=== PATIENT | female | born 1945 | race Caucasian/White ===

== ENCOUNTER → 2024-07-23 | Outpatient (CLI) | payer OTHER, SELFPAY ==
[2024-07-23 09:56] LABS: Basophils % (Auto) 1 % (0-2.5); Eosinophils # (Auto) 0.2 Thou/mm3 (0.0-0.5); Eosinophils % (Auto) 2 % (0-10); Hematocrit 43.4 % (36.0-46.0); Hemoglobin 14.3 g/dL (12.0-16.0); Immature Granulocytes % (Auto) 0 % (0-0); Immature Granulocytes Auto 0.01 Thou/mm3 (0.00-0.00); Lymphocytes # (Auto) 1.6 Thou/mm3 (1.0-4.8); Lymphocytes % (Auto) 25 % (10-50); Mean Corpuscular HGB Conc 32.9 g/dl (31.0-37.0); Mean Corpuscular Hemoglobin 29.2 pg (25.0-35.0); Mean Corpuscular Volume 89 fL (80-100); Monocytes # (Auto) 0.7 Thou/mm3 (0.0-0.8); Monocytes % (Auto) 10 % (0-12); Neutrophils # (Auto) 3.9 Thou/mm3 (1.8-7.7); Neutrophils % (Auto) 61 % (37-80); Nucleated Red Blood Cell % 0 /100 WBC (0); Platelet Count 219 Thou/mm3 (140-440); White Blood Count 6.4 Thou/mm3 (3.6-11.0)
[2024-07-23 10:12] LABS: Glucose Estimated Average 108 mg/dL (80-131); Hemoglobin A1C 5.4 % Hgb (4.8-6.0)
[2024-07-23 10:16] LABS: Alanine Aminotransferase 17 U/L (10-49); Albumin, Serum 4.4 gm/dL (3.4-4.8); Albumin/Globulin Ratio 1.8 (1.2-2.2); Alkaline Phosphatase 42 U/L (46-116); Anion Gap 8 (7-16); Aspartate Amino Transferase 16 U/L (0-34); BUN/Creatinine Ratio 48 Ratio (12-20); Bilirubin,Total 0.9 mg/dL (0.3-1.2); Blood Urea Nitrogen 29 mg/dL (9-23); Calcium 9.6 mg/dL (8.3-10.6); Calcium (Corrected) 9.6 mg/dL (8.5-10.1); Carbon Dioxide 27.8 mMol/L (20.0-31.0); Cardiac Risk Estimate 3.2 RATIO (3.7-5.6); Chloride 105 mMol/L (98-107); Cholesterol 171 mg/dL (132-200); Creatinine (Component) 0.6 mg/dL (0.6-1.3); Globulin 2.4 gm/dL (2.3-3.5); Glucose 103 mg/dL (74-106); HDL Cholesterol 53 mg/dL (40-60); LDL Cholesterol,Calculated 97 mg/dL (0-130); Osmolality,Calculated 287 (275-295); Potassium 4.2 mMol/L (3.4-5.1); Sodium 141 mMol/L (136-145); Thyroid Stimulating Hormone 0.65 uIU/mL (0.55-4.78); Total Protein 6.8 gm/dL (5.7-8.2); Triglycerides 104 mg/dL (30-150); eGFR > 60 See Note
== END | disposition home or self-care (01) ==
LOC: COPL 09:13
PROVIDERS: PCP Student in an Organized Health Care Education/Training Program; Referring Provider Student in an Organized Health Care Education/Training Program; Visit Provider Student in an Organized Health Care Education/Training Program
DX: E03.9 Hypothyroidism, unspecified (principal); K21.9 Gastro-esophageal reflux disease without esophagitis
CPT/HCPCS: 36415; 80053; 80061; 83036; 84443; 85025

== ENCOUNTER → 2024-08-13 | Outpatient (CLI) | payer OTHER, SELFPAY ==
--- NOTE | 2024-08-13 09:00 | XR_ITS ---
Examination: Screening digital mammography, bilateral Computer aided detection 3-D breast Tomosynthesis, bilateral Date and time of exam: 08/13/2024, 8:38 AM Comparisons: 09/11/2019 Indications: Screening Technique: Nonmagnified MLO, CC views of the breasts to been obtained, reconstructed from 3-D Tomosynthesis images. R2 computer aided detection program utilized for evaluation of suspicious masses and/or abnormal calcifications. 3-D Tomosynthesis images obtained. Technologist: Findings: There are scattered areas of fibroglandular density. No evidence of abnormal masses or suspicious calcifications. Impression: BI-RADS category 1: Negative findings (within normal) Recommend 1 year follow-up mammogram
== END | disposition home or self-care (01) ==
LOC: CDIM 08:28
PROVIDERS: Referring Provider Student in an Organized Health Care Education/Training Program; Visit Provider Student in an Organized Health Care Education/Training Program
DX: Z12.31 Encounter for screening mammogram for malignant neoplasm of breast (principal); R92.313 Mammographic fatty tissue density, bilateral breasts
CPT/HCPCS: 77063; 77067

== ENCOUNTER → 2024-09-04 | Outpatient (CLI) | payer OTHER, SELFPAY ==
[2024-09-04 14:07] LABS: Basophils % (Auto) 0 % (0-2.5); Eosinophils # (Auto) 0.1 Thou/mm3 (0.0-0.5); Eosinophils % (Auto) 2 % (0-10); Hematocrit 40.5 % (36.0-46.0); Hemoglobin 13.6 g/dL (12.0-16.0); Immature Granulocytes % (Auto) 1 % (0-0); Immature Granulocytes Auto 0.05 Thou/mm3 (0.00-0.00); Lymphocytes # (Auto) 1.6 Thou/mm3 (1.0-4.8); Lymphocytes % (Auto) 22 % (10-50); Mean Corpuscular HGB Conc 33.6 g/dl (31.0-37.0); Mean Corpuscular Hemoglobin 29.8 pg (25.0-35.0); Mean Corpuscular Volume 89 fL (80-100); Monocytes # (Auto) 0.7 Thou/mm3 (0.0-0.8); Monocytes % (Auto) 9 % (0-12); Neutrophils # (Auto) 4.8 Thou/mm3 (1.8-7.7); Neutrophils % (Auto) 66 % (37-80); Nucleated Red Blood Cell % 0 /100 WBC (0); Platelet Count 237 Thou/mm3 (140-440); Red Blood Count 4.57 Miln/mm3 (4.00-5.20); White Blood Count 7.3 Thou/mm3 (3.6-11.0)
[2024-09-04 14:23] LABS: Alanine Aminotransferase 13 U/L (10-49); Albumin, Serum 4.2 gm/dL (3.4-4.8); Albumin/Globulin Ratio 1.6 (1.2-2.2); Alkaline Phosphatase 42 U/L (46-116); Anion Gap 11 (7-16); Aspartate Amino Transferase 17 U/L (0-34); BUN/Creatinine Ratio 27 Ratio (12-20); Bilirubin,Total 1.2 mg/dL (0.3-1.2); Blood Urea Nitrogen 19 mg/dL (9-23); Calcium 10.1 mg/dL (8.3-10.6); Calcium (Corrected) 10.1 mg/dL (8.5-10.1); Carbon Dioxide 26.3 mMol/L (20.0-31.0); Chloride 102 mMol/L (98-107); Creatinine (Component) 0.7 mg/dL (0.6-1.3); Globulin 2.7 gm/dL (2.3-3.5); Glucose 78 mg/dL (74-106); Osmolality,Calculated 278 (275-295); Potassium 4.4 mMol/L (3.4-5.1); Sodium 139 mMol/L (136-145); Total Protein 6.9 gm/dL (5.7-8.2); eGFR > 60 See Note
== END | disposition home or self-care (01) ==
LOC: COPL 12:45
PROVIDERS: PCP Student in an Organized Health Care Education/Training Program; Referring Provider Student in an Organized Health Care Education/Training Program; Visit Provider Student in an Organized Health Care Education/Training Program
DX: K57.93 Diverticulitis of intestine, part unspecified, without perforation or abscess with bleeding (principal)
CPT/HCPCS: 36415; 80053; 85025

== ENCOUNTER 2024-11-22 17:11 | Inpatient (IN) | payer OTHER, MEDICARE, SELFPAY ==
[2024-11-22 17:12] VITALS: BMI 23.2
[2024-11-22 17:20] VITALS: BP 133/78; PULSE 97; RESP 20; TEMP 36.8; O2SAT 95
--- NOTE | 2024-11-22 17:27 | XR_ITS ---
Examination: CT abdomen and pelvis without contrast. Coronal 3-D reconstructions. Sagittal 2-D reconstructions. Date and time of exam:November 22, 2024 1735 hours Comparison April 23, 2024 CTDI: vol (mGy): 7.05 DLP: (mGycm): 319 Technique: Axial images of the abdomen have been obtained, 3 mm slice thickness Intravenous contrast material has not been administered. Low dose protocols were performed. One or more of the following dose reduction techniques were used; automated exposure control, adjustment of the mA and/or KV according to patient size, use of iterative reconstruction technique. Findings: Liver is irregular in contour Small gallstones Spleen is not enlarged No pancreatic mass No renal or ureteral calculi, no hydronephrosis Multiple fluid distended small bowel loops in the mid and lower abdomen with free fluid in the pelvis No diverticulitis Normal appendix Detail in the pelvis is obscured by the patient's hip arthroplasties IMPRESSION: Small bowel obstruction pattern, consider Gastrografin small bowel series follow-up
--- NOTE | 2024-11-22 17:28 | PD.EDRME ---
Rapid Medical Screening Exam RME Arrival date/time: 11/22/24 17:11 This is a case of 78-year-old female with history of diverticulitis SBO endometrial cancer on chemotherapy radiation therapy came in with abdominal pain and vomiting for 2 days Chief Complaint: Abdominal Pain Time Seen by Provider: 11/22/24 17:28 Vital signs: Vital Signs Temperature 98.3 F 11/22/24 17:20 Pulse Rate 97 11/22/24 17:20 Respiratory Rate 20 11/22/24 17:20 Blood Pressure 133/78 H 11/22/24 17:20 Pulse Oximetry (%) 95 11/22/24 17:20 Oxygen Delivery Method Room Air 11/22/24 17:20
[2024-11-22] MEDS: ONDANSETRON ODT 4 MG TABRAP PO (17:39)
[2024-11-22 18:06] LABS: Basophils % (Auto) 0 % (0-2.5); Eosinophils # (Auto) 0.1 Thou/mm3 (0.0-0.5); Eosinophils % (Auto) 1 % (0-10); Hematocrit 42.5 % (36.0-46.0); Hemoglobin 14.7 g/dL (12.0-16.0); Immature Granulocytes % (Auto) 0 % (0-0); Immature Granulocytes Auto 0.05 Thou/mm3 (0.00-0.00); Lymphocytes # (Auto) 1.1 Thou/mm3 (1.0-4.8); Lymphocytes % (Auto) 7 % (10-50); Mean Corpuscular HGB Conc 34.6 g/dl (31.0-37.0); Mean Corpuscular Hemoglobin 30.2 pg (25.0-35.0); Mean Corpuscular Volume 87 fL (80-100); Monocytes % (Auto) 7 % (0-12); Neutrophils # (Auto) 12.8 Thou/mm3 (1.8-7.7); Neutrophils % (Auto) 85 % (37-80); Nucleated Red Blood Cell % 0 /100 WBC (0); Platelet Count 229 Thou/mm3 (140-440); RDW Standard Deviation 41.1 fL (36.4-46.3); Red Blood Count 4.87 Miln/mm3 (4.00-5.20)
[2024-11-22 18:15] LABS: Collection Type, Urine Clean Catch
[2024-11-22 18:20] VITALS: BP 133/86; PULSE 88; RESP 18; TEMP 36.9; O2SAT 95
[2024-11-22 18:20] LABS: Alanine Aminotransferase 18 U/L (10-49); Albumin, Serum 4.4 gm/dL (3.4-4.8); Albumin/Globulin Ratio 1.8 (1.2-2.2); Alkaline Phosphatase 41 U/L (46-116); Anion Gap 12 (7-16); BUN/Creatinine Ratio 23 Ratio (12-20); Bilirubin,Total 1.6 mg/dL (0.3-1.2); Blood Urea Nitrogen 18 mg/dL (9-23); Calcium 9.6 mg/dL (8.3-10.6); Calcium (Corrected) 9.6 mg/dL (8.5-10.1); Carbon Dioxide 27.1 mMol/L (20.0-31.0); Chloride 103 mMol/L (98-107); Creatinine (Component) 0.8 mg/dL (0.6-1.3); Estimated Creatinine Clearance 47.9 mL/min (>60); Globulin 2.5 gm/dL (2.3-3.5); Glucose 134 mg/dL (74-106); Lipase 26 U/L (12-53); Osmolality,Calculated 287 (275-295); Potassium 3.8 mMol/L (3.4-5.1); Sodium 142 mMol/L (136-145); Total Protein 6.9 gm/dL (5.7-8.2); eGFR > 60 See Note
[2024-11-22 18:36] LABS: Bilirubin,Urine Negative (Negative); Blood,Urine Negative (Negative); Clarity,Urine Clear (Clear/Hazy); Color,Urine Yellow (Lt Yel-Yel); Glucose, Urine Negative (Negative); Ketones,Urine 2+ (Negative); Leukocyte Esterase,Urine Negative (Negative); Nitrite,Urine Negative (Negative); PH,Urine 5.5 (5.0-7.0); Protein,Urine 1+ (Neg - Trace); RBC,Urine 4 /hpf (0-3); Specific Gravity,Urine 1.027 (1.001-1.035); Squamous Epithelial Cell,Urine < 1 /hpf (0-5); Urobilinogen,Urine Negative mg/dL (0.0-1.0); WBC,Urine 3 /hpf (0-5)
--- NOTE | 2024-11-22 18:57 | EDNOTE_ITS ---
ED Abdominal Pain RME/HPI General Chief Complaint: Abdominal Pain Stated complaint: I THINK I HAVE A BOWEL OBSTRUCTION Time seen by provider: 11/22/24 17:28 Arrival date/time: 11/22/24 17:11 RME / HPI RME / HPI narrative: 11/22/24 17:11 This is a case of 78-year-old female with history of diverticulitis SBO endometrial cancer on chemotherapy radiation therapy came in with abdominal pain and vomiting for 2 days This section includes all my notes and documentations, including HPI, PE, and ED course. Gabriel Chavez MD HPI: 78 y/o female with SHx of Hysterectomy and tubal ligation and Hx of cervical cancer with chemotherapy and radiation and history of SBO here with abdominal pain and vomiting x approximately 48 hours. No fever. No other complaints. ROS: All negative except as documented in HPI. Physical Exam: General: Alert and oriented. No acute distress when remaining still. Eyes: Conjunctivae and lids clear. ENT: No nasal congestion. Neck: Supple. Heart: RRR. Lungs: No respiratory distress. Good air movement. No rhonchi, wheezing, rales. Abdomen: Soft with diffuse tenderness, difficult to localize. Normal bowel sounds. No distension. No rebound or guarding. Back: No CVA tenderness. Skin: Warm and dry. Neuro: Alert and oriented X 3. I reviewed all diagnostic test results: My review of the Abdomen/Pelvis CT report is: Small bowel obstruction, Blood tests and urine tests remarkable for WBC 15. Covid/Influenza: Negative. At this point, diagnoses include: Small bowel obstruction. Treatment here included: Zofran, IV fluid, Morphine, NG tube. I discussed the case with our hospitalist. About the presentation and exam and diagnostics and treatments here. And need of further care in the hospital. Will accept the patient. Gabriel Chavez MD Related Data Home Medications ?Medication ?Instructions ?Recorded ?Confirmed levothyroxine 88 mcg capsule 88 mcg PO ONCE HS 8 02/06/24 ascorbic acid (vitamin C) 1,000 mg 1,000 mg PO QDAY 02/06/24 tablet (Vitamin C) cholecalciferol (vitamin D3) 25 25 mcg PO BID 12/26/22 02/06/24 mcg (1,000 unit) capsule (Vitamin D3) psyllium husk 0.52 gram capsule 0.52 g PO BID 12/26/22 02/06/24 (Daily Fiber) vitamin K2 100 mcg capsule 100 mcg PO QDAY 12/26/22 melatonin 10 mg tablet 10 mg PO HS PRN sleep 02/06/24 pantoprazole 40 mg tablet,delayed 40 mg PO DAILY PRN H eartburn 05/12/23 02/06/24 release calcium carbonate (Calcium 600) 600 mg PO BID 07/19/23 02/06/24 gabapentin 100 mg capsule 100 mg PO TID 07/19/2302/05 lkkagdzg-tkv-eqoee acid 500 1 tab PO DAILY 07/19/23 mcg-lycopene 300 mcg-lutein 250 mcg tablet Allergies Allergy/AdvReac Type Severity Reaction Status Date / Time No Known Allergies Allergy Verified 11/22/24 17:14 Review of Systems Review of Systems Systems Reviewed: All systems reviewed, normal except as documented Past Medical History Past Medical History GASTROINTESTINAL: Positive Gastrointestinal Disorders, Diverticulitis, Diverticulosis, Ulcer, Obstructive Bowel, Hemorrhoids and Gastroesophageal Reflux Disease REPRODUCTIVE: Positive Endometriosis and Previous Pregnancies MUSCULOSKELETAL: Positive Musculoskeletal Disorders, Arthritis, Osteoporosis and Fractures (right leg compound fracture, broken nose) ENDOCRINE: Positive Endocrine Disorders, Hyperthyroidism and Hypothyroidism OTHER HISTORY: Positive Hospitalization, Shingles, Falls, Chemotherapy, Radiation Therapy, Chicken Pox, Measles, Mumps, Cancer and Cervical Cancer Family History FAMILY HISTORY: Positive Family Cardiac Disorders, Family Cancer and Family Surgery Surgical History SURGICAL: Positive Tonsillectomy, Joint Replacement, Hysterectomy and Tubal Ligation ED Exam Narrative Physical exam: Refer to HPI Course Quality Measures none Orders Category Date Time Status COVID-19 Screening Questionnaire NOW Care 11/22/24 19:43 Active Decision to Admit X1 Care 11/22/24 19:43 Completed Insert NG / OG tube NOW Care 11/22/24 18:58 Active Saline [Insert IV] NOW Care 11/22/24 18:[address] abdomen pelvis wo con Stat Exams 11/22/24 17:27 Completed XR chest 1V post procedure Stat Exams 11/22/24 19:27 Taken CBC Stat Lab 11/22/24 17:46 Completed Comprehensive Metabolic Panel Stat Lab 11/22/24 17:46 Completed Lipase Stat Lab 11/22/24 17:46 Completed Urinalysis Stat Lab 11/22/24 18:08 Completed Morphine Inj Med 11/22/24 18:58 Discontinued 2 mg IVP X1 ONE Ondansetron Inj [Zofran Inj] Med 11/22/24 18:58 Discontinued 4 mg IVP X1 ONE Ondansetron Odt [Zofran Odt] Med 11/22/24 17:28 Discontinued 4 mg PO X1 ONE Sodium Chloride 0.9% 1000 ml [Ns] 1,000 ml Med 11/22/24 18:58 Discontinued IV 999 mls/hr Vital Signs Vital signs: Vital Signs Temperature 98.3 F 11/22/24 17:20 Pulse Rate 97 11/22/24 17:20 Respiratory Rate 20 11/22/24 17:20 Blood Pressure 133/78 H 11/22/24 17:20 Pulse Oximetry (%) 95 11/22/24 17:20 Oxygen Delivery Method Room Air 11/22/24 17:20 Abdominal Pain MDM MDM Narrative MDM Narrative:: Scribe Attestation: Cecily Mir, am scribing for and in the presence of Dr. Chavez. Provider Notation: Although this document has been carefully reviewed, there may still be some phonetic and other typographical errors.? These errors are purely grammatical due to imperfections in the software program and should not be construed in any way to? compromise the substance of the patient's medical care during this visit 78 y/o female with SHx of Hysterectomy and tubal ligation and Hx of cervical cancer with chemotherapy and radiation present with abdominal pain and vomiting x approximately 48 hours. Reports symptoms began after breakfast. Patient has history of obstructive bowel. She admits to partaking in the carnivore and low- carb diet. No other complaints. Patient data External records reviewed:: [facility] previous records (Reviewed prior ED records from 04/23/24. Patient was seen for Leukocytosis.) Clinical information provided by:: patient Social determinants that could affect healthcare access:: none Patient has the following chronic illnesses:: Diverticulitis, Diverticulosis, Ulcer, Obstructive Bowel, Hemorrhoids, Gastroesophageal Reflux Disease, Endometriosis and Previous Pregnancies, Arthritis, Osteoporosis and Fractures, Hyperthyroidism and Hypothyroidism How is presenting disease/condition affected by chronic disease/condition?: exacerbated by Evaluation data The following diagnostics were reviewed and interpreted by me:: lab results and radiology exam(s) Lab and/or radiology exams considered but not ordered:: None Interpretation Summary: I reviewed all diagnostic test results: My review of the Abdomen/Pelvis CT report is: Small bowel obstruction, Blood tests and urine tests remarkable for WBC 15. Covid/Influenza: Negative. Medications / Prescriptions Medications or Prescriptions considered but not ordered:: None Medication administrations:: Medication Administration History Acetaminophen (Acetaminophen 325 Mg Tablet) 650 mg PO Q6H PRN PRN Reason: Fever >99.5 Stop: 12/22/24 19:54 Acetaminophen (Acetaminophen 325 Mg Tablet) 1,000 mg PO Q6H PRN PRN Reason: PAIN SCALE 1-3 (mild Stop: 12/22/24 19:54 Docusate Sodium (Docusate Sod 100 Mg Capsule) 100 mg PO QDAY [facility]; Protocol Stop: 12/23/24 08:59 Heparin Sodium (Porcine) (Heparin Sod Inj 5000 Unit/Ml Vial) 5,000 unit SC Q8HR LILLI Stop: 12/06/24 21:59 Sodium Chloride (Ns) 1,000 mls @ 65 mls/hr IV .[id number] LILLI Stop: 12/22/24 19:59 Morphine Sulfate (Morphine Sulf Inj 10 Mg/Ml Vial) 2 mg IVP Q2H PRN PRN Reason: PAIN SCALE 4-10(Mod-Sev Stop: 11/27/24 19:54 Ondansetron HCl (Ondansetron Inj 2 Mg/Ml Inj 2 Ml) 4 mg IVP Q6H PRN; Protocol PRN Reason: NAUSEA OR VOMITING Stop: 12/22/24 19:54 Pantoprazole Sodium (Pantoprazole Inj 40 Mg Vial) 40 mg IVP QDAY LILLI Stop: 12/23/24 08:59 Sennosides (Senna Tablet) 1 tab PO QDAY [facility]; Protocol Stop: 12/23/24 08:59 Discontinued Medications Sodium Chloride (Ns) 1,000 mls @ 999 mls/hr IV .Q1H1M ONE Stop: 11/22/24 19:58 Last Admin: 11/22/24 19:30 Dose: 999 mls/hr Documented By: BD Morphine Sulfate (Morphine Sulf Inj 10 Mg/Ml Vial) 2 mg IVP X1 ONE Stop: 11/22/24 18:59 Ondansetron HCl (Ondansetron Odt 4 Mg Tabrap) 4 mg PO X1 ONE; Protocol Stop: 11/22/24 17:29 Last Admin: 11/22/24 17:39 Dose: 4 mg Documented By: CAROLINE Ondansetron HCl (Ondansetron Inj 2 Mg/Ml Inj 2 Ml) 4 mg IVP X1 ONE; Protocol Stop: 11/22/24 18:59 Zofran, IV fluid, Morphine Consultations Consultation(s) initiated? (list below): No Diagnosis Differential diagnosis abdominal pain: abdominal pain, acute appendicitis, calculus of kidney, constipation, diverticulitis, gastroenteritis, small bowel obstruction and other (GERD, PUD, gastritis) Most likely diagnosis given after review of the tests above:: Small bowel obstruction Admission Indicated Admission indicated?: indicated Explain why admission is indicated or not indicated:: Small bowel obstruction Admission Request Was there a request for admission?: Yes Admission Attestation Admission request attestation: Discussed case with Hospitalist service regarding admission. Discussed patients ED course, exam findings, labs, and radiology results. The Hospitalist agrees to accept the patient for admission. Disposition Plan Disposition Plan: Admit Discharge Plan Plan Patient Disposition: Admit Acute Care w/in Hospital Problem List Clinical Impression: Small bowel obstruction
--- NOTE | 2024-11-22 19:27 | XR_ITS ---
No more normal no more examination: AP chest single view Findings one AP portable upright chest single view Date and time: November 22, 2024 1941 hours INDICATIONS: Post orogastric tube placement FINDINGS: Orogastric tube sidehole at the GE junction The lungs are clear Moderate osteopenia IMPRESSION: Advance the orogastric tube 5 cm
--- NOTE | 2024-11-22 19:28 | PC.NURSE ---
PT NOT WANTING ZOFRAN OR MORPHINE AT THIS TIME
[2024-11-22] MEDS: SODIUM CHLORIDE 0.9% 1000 ML 1,000 ML 999 ML IV (19:30)
[2024-11-22 20:00] VITALS: BP 156/77; PULSE 83; RESP 16; TEMP 36.9; O2SAT 96
--- NOTE | 2024-11-22 20:05 | XR_ITS ---
Examination: Small bowel series with KUB AP supine abdomen 4 views Date and time: November 22, 2024 1034 hours INDICATIONS: Abdominal pain and distention and streak TECHNIQUE AND FINDINGS: Patient received 120 cc Gastrografin through the orogastric tube AP supine abdomens 1 minute, 15 minutes, 30 minutes, 1 hour obtained Contrast in the stomach Prominently air distended small bowel loops IMPRESSION: Small bowel obstruction pattern, recommend follow-up films 1:00 AM, 3:00 AM, 7:00 AM
--- NOTE | 2024-11-22 20:08 | PD.RESHP ---
Documentation for date of: 11/22/24 HPI History of Present Illness Chief complaint: Abdominal pain History of present illness: 78-year-old female with past medical history of hypothyroidism, cervical cancer status post hysterectomy and chemoradiation, history of recurrent SBO's (9X) who presented to the ED due to abdominal pain. Patient states onset of symptoms began around 2 days ago started after having breakfast which she describes the pain as 8 out of 10 in intensity more localized in right lower quadrant, hypogastric, left lower quadrant region. After his pain was attributed to meals however patient also describes having this pain whenever she take small sips of water. Described as a tightening band around the abdomen. She also endorses that the pain got so bad that she felt short of breath and unable to speak. She also endorses around 3-4 episodes of vomiting over the past 2 days as well as some subjective fever, chills. She also states having some watery diarrhea but also states that this is normal for her. Last bowel movement was yesterday morning. ED spoke to Dr. Humphries who said to admit for Gastrografin series. At this present point in time patient denies shortness of breath, chest pain, flatus, headaches, blurry vision, recent travel, sick contacts. Patient will be admitted for small bowel obstruction. ED course: ED vitals: BP 133/78, HR 97, RR 20, temperature 98.3, saturating 95% on room air ED labs: Leukocytosis, glucose 134, T. bili 1.6, UA negative for UTI, CT scan of the abdomen shows small bowel obstruction pattern In the ED patient received Zofran and 1 L NS PMHx: As above SX Hx: Hysterectomy Social Hx: Denies cigarette use, denies illicit substances including THC, denies daily alcohol use FH X: Unknown Review of Systems Review of Systems Systems Reviewed: All systems reviewed, normal except as documented Narrative Review of Systems: All 12 systems reviewed and found negative unless otherwise stated in the HPI Exam Vital Signs Temp Pulse Resp BP Pulse Ox O2 Del Method 98.5 F 88 18 133/86 H 95 Room Air 11/22/24 18:20 11/22/24 18:20 11/22/24 18:20 11/22/24 18:20 11/22/24 18:20 11/22/24 18:20 Narrative Exam Physical Exam GENERAL: NAD, AAOx3 HEENT: Moist mucosa. Eyes open, symmetrical, & clear, NG tube in place CARDIO: Heart RRR, no obvious murmurs PULM: No noted coughing/dyspnea CTA B/L, no R/W/R GI: Abdomen soft, minimal distention, tenderness to palpation on lower quadrants, hypoactive bowel sounds SKIN/MSK/EXT: No wounds/rashes/edema/amputations, no pain on palpation. Pedal pulses present B/L NEURO: AAOx3, no focal neuro deficits, able to move all 4 extremities Results: Labs 11/22/24 17:46 11/22/24 17:46 Labs: Short CBC 11/22/24 Range/Units 17:46 WBC 15.0 H (3.6-11.0) Thou/mm3 Hgb 14.7 (12.0-16.0) g/dL Hct 42.5 (36.0-46.0) % Plt Count 229 (140-440) Thou/mm3 BMP 11/22/24 17:46 Sodium 142 Potassium 3.8 Chloride 103 Carbon Dioxide 27.1 BUN 18 Creatinine 0.8 Glucose 134 H Calcium 9.6 Liver Function 11/22/24 Range/Units 17:46 Total Bilirubin 1.6 H (0.3-1.2) mg/dL ALT 18 (10-49) U/L Alkaline Phosphatase 41 L (46-116) U/L Albumin 4.4 (3.4-4.8) gm/dL Urine 11/22/24 Range/Units 18:08 Urine Color Yellow (Lt Yel-Yel) Urine Clarity Clear (Clear/Hazy) Urine pH 5.5 (5.0-7.0) Ur Specific [place] 1.027 (1.001-1.035) Urine Protein 1+ A (Neg - Trace) Urine Glucose (UA) Negative (Negative) Quality Measures Quality Measures none Advance care planning discussed with:: patient Medications Home Medications and Allergies Home Medications ?Medication ?Instructions ?Recorded ?Confirmed ?Type levothyroxine 88 mcg capsule 88 mcg PO ONCE HS 10/18/17 02/06/24 History ascorbic acid (vitamin C) 1,000 mg 1,000 mg PO QDAY 12/26/22 02/06/24 History tablet (Vitamin C) cholecalciferol (vitamin D3) 25 25 mcg PO BID 12/26/22 02/06/24 History mcg (1,000 unit) capsule (Vitamin D3) psyllium husk 0.52 gram capsule 0.52 g PO BID 12/26/22 02/06/24 History (Daily Fiber) vitamin K2 100 mcg capsule 100 mcg PO QDAY 12/26/22 02/06/24 History melatonin 10 mg tablet 10 mg PO HS PRN sleep 05/12/23 02/06/24 History pantoprazole 40 mg tablet,delayed 40 mg PO DAILY PRN Heartburn 05/12/23 02/06/24 History release calcium carbonate (Calcium 600) 600 mg PO BID 07/19/23 02/06/24 History gabapentin 100 mg capsule 100 mg PO TID 07/19/23 02/06/24 History ymndvkpn-vyf-mtudt acid 500 1 tab PO DAILY 07/19/23 02/06/24 History mcg-lycopene 300 mcg-lutein 250 mcg tablet Allergies Allergy/AdvReac Type Severity Reaction Status Date / Time No Known Allergies Allergy Verified 11/22/24 17:14 Visit Medications Discontinued Medications Sodium Chloride (Ns) 1,000 mls @ 999 mls/hr IV .Q1H1M ONE Stop: 11/22/24 19:58 Last Admin: 11/22/24 19:30 Dose: 999 mls/hr Morphine Sulfate (Morphine Sulf Inj 10 Mg/Ml Vial) 2 mg IVP X1 ONE Stop: 11/22/24 18:59 Ondansetron HCl (Ondansetron Odt 4 Mg Tabrap) 4 mg PO X1 ONE; Protocol Stop: 11/22/24 17:29 Last Admin: 11/22/24 17:39 Dose: 4 mg Ondansetron HCl (Ondansetron Inj 2 Mg/Ml Inj 2 Ml) 4 mg IVP X1 ONE; Protocol Stop: 11/22/24 18:59 Assessment & Plan Plan 78-year-old female with past medical history of hypothyroidism, cervical cancer status post hysterectomy and chemoradiation and history of recurrent small bowel obstructions presented to the ED due to abdominal pain. Patient is admitted for small bowel obstruction. #Small bowel obstruction #Hx of recurrent SBO's Likely secondary to surgical adhesions Patient presented with abdominal pain in the lower quadrants, nausea, vomiting Last bowel movement: 11/21/2024 around 8 in the morning Last meal: 11/21/2024 Currently not passing flatus or burping CT scan abdomen pelvis shows small bowel obstruction ? NG tube low intermittent suction for decompression ? Zofran for nausea/vomiting ? Gastrografin small bowel study ? IV fluids @ 65cc/hr ? N.p.o. ? Pain control ? General Surgery consulted, appreciate recs #Hypothyroidism ? Resume levothyroxine 88 mcg as taken at home, when able to tolerate p.o. #History of cervical cancer ? Follow-up as outpatient Health Maintenance: Disposition: MedSurg Fluids: NS Feeding: N.p.o. Thrombo prophylaxis: Heparin Gastric Ulcer prophylaxis: Pantoprazole CODE STATUS: Full code Case discussed with my attending Dr. Beth Jimenez MD PGY-1 Attending Provider Attestation/Addendum I have examined the patient, reviewed labs and imaging findings, discussed the case with the resident(s), and reviewed entered orders. I agree with the plan of care as outlined in this note, with these additional summaries/recommendations: After examination of the patient and review of the clinical data, I feel that this patient needs admission to the hospital for further treatment and evaluation. Patient is a 78-year-old female with a medical history of vitamin D deficiency, hypothyroidism, GERD, and history of cervical cancer status post hysterectomy and chemotherapy/radiation who presents to [facility] emergency department on 11/22/2024 with chief complaints of abdominal pain, nausea, and vomiting. Patient seen at bedside. She reports prior to arrival abdominal pain was rated 8 out of 10. She also endorses 3 episodes of vomiting. Denies seeing blood in vomit. She reports her last bowel movement was this morning and unsure if she is passing gas. Patient underwent CT scan of abdomen and pelvis which revealed multiple fluid distended small bowel loops in the mid and lower abdomen indicative of small bowel obstruction pattern. Patient diagnosed with SBO and possibly secondary to adhesions given patient's prior hysterectomy. General surgery consulted, recommendations appreciated. NG tube placed to the LIS. NPO. As needed pain management. Low-dose maintenance fluids. Gastrografin small bowel series ordered. Leukocytosis present with WBC 15.0 and most likely reactive with no evidence of infection at this time. Minimally elevated total bilirubin and we will proceed with IV fluids and repeat level in the morning. Repeat hematology panel in AM. Resume home levothyroxine when able. Patient updated on the plan and in agreement. All questions answered to satisfaction. Please see residents note for additional details and management. Dr. Beth MD
[2024-11-22] MEDS: SODIUM CHLORIDE 0.9% 1000 ML 1,000 ML 65 ML IV (21:02)
--- NOTE | 2024-11-22 22:04 | XR_ITS ---
Examination: AP chest single view TECHNIQUE: AP portable upright chest single view Date and time: November 22, 2024 10:16 PM Comparison 7:41 PM chest film this evening, INDICATIONS: Repositioned orogastric tube FINDINGS: Orogastric tube in the stomach satisfactory position Normal heart size Lungs are clear IMPRESSION: Orogastric tube in the stomach satisfactory position
[2024-11-22 22:07] VITALS: BP 123/74; PULSE 87; RESP 17; TEMP 37; O2SAT 98
[2024-11-22] MEDS: MORPHINE SULF INJ 10 MG/ML VIAL 2 MG IVP (22:30)
[2024-11-22] MEDS: HEPARIN SOD INJ 5000 UNIT/ML VIAL SC (22:31)
[2024-11-22 23:47] VITALS: BMI 23.8
[2024-11-23] VITALS: BP 132/83; PULSE 86; RESP 16; TEMP 37; O2SAT 90
--- NOTE | 2024-11-23 03:00 | XR_ITS ---
Examination: Abdomen AP single view Technique: AP portable supine abdomen, single view Exam date and time: November 23, 2024 0255 hours INDICATIONS: Abdominal pain and distention this week, forearm delayed film post small bowel series today. FINDINGS: Contrast in distended small bowel loops IMPRESSION: Small bowel obstruction pattern
[2024-11-23 04:00] VITALS: BP 136/86; PULSE 87; RESP 17; TEMP 36.3; O2SAT 95
[2024-11-23] MEDS: HEPARIN SOD INJ 5000 UNIT/ML VIAL SC ×3 (05:12→21:02)
[2024-11-23] MEDS: ONDANSETRON INJ 2 MG/ML INJ 2 ML 4 MG IVP (05:21)
[2024-11-23 06:00] LABS: Basophils % (Auto) 0 % (0-2.5); Eosinophils % (Auto) 0 % (0-10); Hematocrit 40.2 % (36.0-46.0); Hemoglobin 13.6 g/dL (12.0-16.0); Immature Granulocytes % (Auto) 1 % (0-0); Immature Granulocytes Auto 0.05 Thou/mm3 (0.00-0.00); Lymphocytes # (Auto) 1.4 Thou/mm3 (1.0-4.8); Lymphocytes % (Auto) 15 % (10-50); Mean Corpuscular HGB Conc 33.8 g/dl (31.0-37.0); Mean Corpuscular Hemoglobin 30.6 pg (25.0-35.0); Mean Corpuscular Volume 91 fL (80-100); Monocytes # (Auto) 0.9 Thou/mm3 (0.0-0.8); Monocytes % (Auto) 10 % (0-12); Neutrophils # (Auto) 6.9 Thou/mm3 (1.8-7.7); Neutrophils % (Auto) 74 % (37-80); Nucleated Red Blood Cell % 0 /100 WBC (0); Platelet Count 202 Thou/mm3 (140-440); RDW Standard Deviation 42.3 fL (36.4-46.3); Red Blood Count 4.44 Miln/mm3 (4.00-5.20); White Blood Count 9.3 Thou/mm3 (3.6-11.0)
[2024-11-23 06:29] LABS: Alanine Aminotransferase 15 U/L (10-49); Albumin, Serum 4.1 gm/dL (3.4-4.8); Albumin/Globulin Ratio 1.9 (1.2-2.2); Alkaline Phosphatase 37 U/L (46-116); Anion Gap 12 (7-16); BUN/Creatinine Ratio 23 Ratio (12-20); Bilirubin,Total 1.6 mg/dL (0.3-1.2); Blood Urea Nitrogen 14 mg/dL (9-23); Calcium 9.1 mg/dL (8.3-10.6); Calcium (Corrected) 9.1 mg/dL (8.5-10.1); Carbon Dioxide 24.4 mMol/L (20.0-31.0); Chloride 104 mMol/L (98-107); Creatinine (Component) 0.6 mg/dL (0.6-1.3); Estimated Creatinine Clearance 63.9 mL/min (>60); Globulin 2.2 gm/dL (2.3-3.5); Glucose 127 mg/dL (74-106); Osmolality,Calculated 281 (275-295); Potassium 3.8 mMol/L (3.4-5.1); Sodium 140 mMol/L (136-145); Thyroid Stimulating Hormone 2.19 uIU/mL (0.55-4.78); Total Protein 6.3 gm/dL (5.7-8.2); eGFR > 60 See Note
--- NOTE | 2024-11-23 06:31 | PC.NURSE ---
called Dr. Correia regarding patient having 2 episodes of emesis of brown liquid emesis. Zofran was given but patient states she feels a lot better after throwing up. No new orders received.
--- NOTE | 2024-11-23 07:00 | XR_ITS ---
Examination: Abdomen AP single view Technique: AP portable supine abdomen, single view Exam date and time: November 23, 2024 0706 hours INDICATIONS: 8 hour delayed film post small bowel series today, abdominal pain and distention FINDINGS: Contrast in distended small bowel loops, but contrast also present in the colon IMPRESSION: Incomplete small bowel obstruction
--- NOTE | 2024-11-23 07:52 | PD.SURCONS ---
HPI Consult details Consult date: 11/23/24 Reason for consultation narrative: Small bowel obstruction History of present illness: 78-year-old female with past medical history of endometrial cancer status post total abdominal hysterectomy with bilateral salpingo-oophorectomy and adjuvant chemo and radiation.? She is also had colonoscopy in 2013 that was unremarkable.? She was admitted to the hospital with 2-day history of worsening abdominal pain.? She has generalized abdominal pain with distention and multiple episodes of nausea and vomiting.? She states that she has had diverticulitis in the past that was treated with oral antibiotics.? She states that her symptoms were different than her previous episodes of diverticulitis.? She denies history of significant weight loss, changes in bowel habits or blood per rectum.? A CT scan was obtained that revealed dilated loops of small bowel suspicious for small bowel obstruction.? An NG tube was placed and patient was admitted for further management. She has been hospitalized multiple times in the past with similar symptoms that was managed conservatively. Review of Systems Constitutional Constitutional: Denies chills and Denies fever(s) Cardiovascular Cardiovascular: Denies chest pain Respiratory Respiratory: Denies cough Gastrointestinal Gastrointestinal: Reports abdominal pain, Reports nausea and Reports vomiting Genitourinary Genitourinary: Denies difficulty voiding Hematologic/Lymphatic Hematologic/Lymphatic: Denies easy bleeding and Denies easy bruising Past Medical History Surgical History OTHER SURGICAL HX: Bilateral hip replacement, knee replacement, CLOVIS/BSO, tonsillectomy Social History SMOKING STATUS: Never smoker SUBSTANCE USE: does not use ALCOHOL: Never Meds Home Medications and Allergies Home Medications ?Medication ?Instructions ?Recorded ?Confirmed ?Type levothyroxine 88 mcg capsule 88 mcg PO ONCE HS 10/18/17 11/23/24 History cholecalciferol (vitamin D3) 25 25 mcg PO BID 12/26/22 11/23/24 History mcg (1,000 unit) capsule (Vitamin D3) psyllium husk 0.52 gram capsule 0.52 g PO BID 12/26/22 11/23/24 History (Daily Fiber) vitamin K2 100 mcg capsule 100 mcg PO QDAY 12/26/22 11/23/24 History melatonin 10 mg tablet 10 mg PO HS PRN sleep 05/12/23 11/23/24 History pantoprazole 40 mg tablet,delayed 40 mg PO DAILY PRN Heartburn 05/12/23 11/23/24 History release calcium carbonate (Calcium 600) 600 mg PO BID 07/19/23 11/23/24 History gabapentin 100 mg capsule 100 mg PO TID 07/19/23 11/23/24 History aayarzdd-zjo-bxfea acid 500 1 tab PO DAILY 07/19/23 11/23/24 History mcg-lycopene 300 mcg-lutein 250 mcg tablet Allergies Allergy/AdvReac Type Severity Reaction Status Date / Time No Known Allergies Allergy Verified 11/22/24 17:14 Exam Vital Signs Temp Pulse Resp BP Pulse Ox O2 Del Method 97.3 F 87 17 136/86 H 95 Room Air 11/23/24 04:00 11/23/24 04:00 11/23/24 04:00 11/23/24 04:00 11/23/24 04:00 11/23/24 04:00 Constitutional Constitutional: no acute distress Routine Abdominal Exam Comments: Abdomen is soft and mildly distended. She has hypoactive bowel sounds. No rebound tenderness or peritonitis at this time Results Results: Laboratory Laboratory results: results reviewed Results: Imaging CT scan - abdomen: report reviewed and image reviewed CT scan - pelvis: report reviewed and image reviewed Assessment & Plan Plan Keep n.p.o. with IV fluids and NG decompression. Awaiting for small bowel series
[2024-11-23 08:00] VITALS: BP 124/74; PULSE 80; RESP 17; TEMP 36.1; O2SAT 93
[2024-11-23] MEDS: PANTOPRAZOLE INJ 40 MG VIAL IVP (08:55)
[2024-11-23] MEDS: SODIUM CHLORIDE 0.9% 1000 ML 1,000 ML 65 ML IV (08:56)
--- NOTE | 2024-11-23 09:44 | PD.RESPRO ---
Documentation for date of: 11/23/24 Subjective Subjective Interval history: Patient is an overnight admit. Patient is seen and examined at bedside this morning. Since patient had no output through the NG tube in the ED it was clamped. GI series was started however patient stated that she had 3 episodes of large amount of vomiting this morning and felt nausea when she was brushing her teeth. Denied any abdominal pain, denied any passing of gas. Patient seen again in the afternoon patient did not have any output through the NG tube therefore NG tube accidentally pulled out by the patient. Patient was seen by Dr. Humphries this afternoon who ordered bowel regimen after which patient had a bowel movement, has not passed any gas. Patient denied any abdominal pain. Vitals are stable and labs are reviewed. Exam Vital Signs Temp Pulse Resp BP Pulse Ox O2 Del Method 97.0 F 80 17 124/74 93 L Room Air 11/23/24 08:00 11/23/24 08:00 11/23/24 08:00 11/23/24 08:00 11/23/24 08:00 11/23/24 08:00 Narrative Exam GENERAL: A&Ox3 . Awake, Not in acute distress NEURO: no focal neurological deficits HEENT: Atraumatic, Normocephalic. mucous membranes moist. Eyes open, symmetrical, & clear HEART: Normal Heart Sounds LUNGS: Clear to auscultation with no wheezing or crackles. ABDOMEN: soft, non-distended, non-tender, bowel sounds heard, no guarding or rebound tenderness SKIN: No Rash or ecchymoses EXTREMITIES: No edema, tenderness, able to move all 4 extremities, pedal pulses palpated Objective Labs 11/24/24 04:21 11/24/24 04:21 Labs: Laboratory Results - last 24 hr 11/22/24 11/22/24 11/23/24 17:46 18:08 05:42 WBC 15.0 H 9.3 D RBC 4.87 4.44 Hgb 14.7 13.6 Hct 42.5 40.2 MCV 87 91 MCH 30.2 30.6 MCHC 34.6 33.8 RDW Std Deviation 41.1 42.3 Plt Count 229 202 Neut % (Auto) 85 H 74 Lymph % (Auto) 7 L 15 Lamar % (Auto) 7 10 Eos % (Auto) 1 0 Baso % (Auto) 0 0 Neut # (Auto) 12.8 H 6.9 Lymph # (Auto) 1.1 1.4 Lamar # (Auto) 1.0 H 0.9 H Eos # (Auto) 0.1 0.0 Baso # (Auto) 0.0 0.0 Immature Gran # (Auto) 0.05 H 0.05 H Absolute Nucleated RBC 0.00 0.00 Immature Gran % 0 1 H Nucleated RBC % 0 0 Sodium 142 140 Potassium 3.8 3.8 Chloride 103 104 Carbon Dioxide 27.1 24.4 Anion Gap 12 12 BUN 18 14 Creatinine 0.8 0.6 Estim Creat Clear Calc 47.9 L 63.9 eGFR > 60 > 60 BUN/Creatinine Ratio 23 H 23 H Glucose 134 H 127 H Calculated Osmolality 287 281 Calcium 9.6 9.1 Corrected Calcium 9.6 9.1 Total Bilirubin 1.6 H 1.6 H ALT 18 15 Alkaline Phosphatase 41 L 37 L Total Protein 6.9 6.3 Albumin 4.4 4.1 Globulin 2.5 2.2 L Albumin/Globulin Ratio 1.8 1.9 Lipase 26 TSH 2.19 Ur Collection Type Clean Catch Urine Color Yellow Urine Clarity Clear Urine pH 5.5 Ur Specific [place] 1.027 Urine Protein 1+ A Urine Glucose (UA) Negative Urine Ketones 2+ A Urine Blood Negative Urine Nitrite Negative Urine Bilirubin Negative Urine Urobilinogen (Auto) Negative Ur Leukocyte Esterase Negative Urine RBC 4 H Urine WBC 3 Ur Squamous Epith Cells < 1 Urine Bacteria None Quality Measures Quality Measures none Advance care planning discussed with:: patient Assessment & Plan Assessment Current Active Medications: Generic Name Dose Route Start Last Admin Trade Name Jadenq PRN Reason Stop Dose Admin Acetaminophen 650 mg 11/22/24 19:55 Acetaminophen 325 Mg Tablet PO 12/22/24 19:54 Q6H PRN Fever >99.5 Acetaminophen 1,000 mg 11/22/24 19:55 Acetaminophen 325 Mg Tablet PO 12/22/24 19:54 Q6H PRN PAIN SCALE 1-3 (mild Docusate Sodium 100 mg 11/23/24 09:00 11/23/24 08:55 Docusate Sod 100 Mg Capsule PO 12/23/24 08:59 Not Given QDAY [facility] Protocol Heparin Sodium (Porcine) 5,000 unit 11/22/24 22:00 11/23/24 05:12 Heparin Sod Inj 5000 Unit/Ml Vial SC 12/06/24 21:59 5,000 unit Q8HR LILLI Administration Sodium Chloride 1,000 mls @ 65 mls/hr 11/22/24 20:00 11/23/24 08:56 Ns IV 12/22/24 19:59 65 mls/hr .[id number] LILLI Administration Levothyroxine Sodium 88 mcg 11/23/24 06:00 11/23/24 05:18 Levothyroxine Sodium 88 Mcg Tablet PO 12/23/24 05:59 Not Given ACBR LILLI Morphine Sulfate 2 mg 11/22/24 20:29 11/22/24 22:30 Morphine Sulf Inj 10 Mg/Ml Vial IVP 11/27/24 19:54 2 mg Q4HR PRN Administration PAIN SCALE 4-10(Mod-Sev Ondansetron HCl 4 mg 11/22/24 19:55 11/23/24 05:21 Ondansetron Inj 2 Mg/Ml Inj 2 Ml IVP 12/22/24 19:54 4 mg Q6H PRN Administration NAUSEA OR VOMITING Protocol Pantoprazole Sodium 40 mg 11/23/24 09:00 11/23/24 08:55 Pantoprazole Inj 40 Mg Vial IVP 12/23/24 08:59 40 mg QDAY LILLI Administration Sennosides 1 tab 11/23/24 09:00 11/23/24 08:55 Senna Tablet PO 12/23/24 08:59 Not Given QDAY LILLI Protocol Plan Ms. Walalce is a 78-year-old female with past medical history of hypothyroidism, cervical cancer status post hysterectomy and chemo and radiation and history of recurrent small bowel obstructions presented to the ED due to abdominal pain. Patient is admitted for small bowel obstruction. #Small bowel obstruction #Hx of recurrent SBO's Likely secondary to surgical adhesions Patient presented with abdominal pain in the lower quadrants, nausea, vomiting Last bowel movement: 11/21/2024 around 8 in the morning Last meal: 11/21/2024 Currently not passing flatus or burping CT scan abdomen pelvis shows small bowel obstruction ? NG tube low intermittent suction for decompression with minimal output ? Zofran for nausea/vomiting ? Gastrografin small bowel study ? IV fluids @ 65cc/hr ? advanced diet to clear liquid since pt had a loose bowel movement ? Pain control ? General Surgery consulted, appreciate recs - bowel regimen ordered #Hypothyroidism ? Resume levothyroxine 88 mcg as taken at home, when able to tolerate p.o. #History of cervical cancer ? Follow-up as outpatient Health Maintenance: Disposition: MedSurg Fluids: NS Feeding: clear liquid diet Thrombo prophylaxis: Heparin SC Gastric Ulcer prophylaxis: Pantoprazole CODE STATUS: Full code Assessment and plan discussed with my attending physician Dr. Brian Lawrence (PGY-1)- Internal medicine resident Attending Provider Attestation/Addendum I attest that I was physically present for the evaluation, physical examination, lab and imaging review of the patient with the residents. I discussed the case with the residents and agree with the findings and plans of care as documented above. Andreia Torres MD
[2024-11-23 09:55] VITALS: BMI 23.8
[2024-11-23 12:00] VITALS: BP 121/71; PULSE 76; RESP 16; TEMP 36.2; O2SAT 93
--- NOTE | 2024-11-23 12:10 | PC.SS ---
Update: Patient in possession of NG tube. NPO status.
--- NOTE | 2024-11-23 13:25 | PC.SS ---
MECHANICAL EXPERT conducted bedside contact with the patient conduct initial assessment and to discuss discharge planning.? Patient confirmed demographic information.? Patient resides at home with spouse, Yves Wallace .? Patient is retired.? Patient does not utilize DME to assist with ambulation.? Patient does not utilize home oxygen.? Patient describes the ability to complete ADL?s independently.? Patient identified spouse, Yves Wallace; as medical surrogate decision maker.? Patient?s PCP is Dr. Gareth Motta.? Patient does not participate with dialysis.? Patient does not possess any specialty providers. ?Plan is for the patient to return home at the time of discharge.? Family will provide transportation on behalf of the patient. ?No further discharge needs identified by the patient.? No further intervention required at this time, executive secretary social welfare will be available to address any further concerns.? Next of Kin: Yves Wallace D/C Plan: Home
[2024-11-23] MEDS: Milk Of Magnesia Susp 30 ML UDC NG (13:47)
[2024-11-23] MEDS: bisacodyL 10 MG SUPP PR (13:48)
--- NOTE | 2024-11-23 14:40 | PC.SS ---
Rounding Note: SBO is not resolved. BM pending.
[2024-11-23 16:00] VITALS: BP 121/71; PULSE 80; RESP 19; TEMP 36.2; O2SAT 93
[2024-11-23 20:00] VITALS: BP 119/69; PULSE 73; RESP 18; TEMP 36.8; O2SAT 93
[2024-11-24] VITALS: BP 124/72; PULSE 69; RESP 18; TEMP 36.6; O2SAT 93
[2024-11-24] MEDS: SODIUM CHLORIDE 0.9% 1000 ML 1,000 ML 65 ML IV (02:02)
[2024-11-24 04:00] VITALS: BP 120/73; PULSE 68; RESP 19; TEMP 36.2; O2SAT 94
[2024-11-24 05:07] LABS: Basophils % (Auto) 0 % (0-2.5); Eosinophils # (Auto) 0.1 Thou/mm3 (0.0-0.5); Eosinophils % (Auto) 2 % (0-10); Hematocrit 33.1 % (36.0-46.0); Hemoglobin 11.1 g/dL (12.0-16.0); Immature Granulocytes % (Auto) 0 % (0-0); Immature Granulocytes Auto 0.01 Thou/mm3 (0.00-0.00); Lymphocytes # (Auto) 1.3 Thou/mm3 (1.0-4.8); Lymphocytes % (Auto) 19 % (10-50); Mean Corpuscular HGB Conc 33.5 g/dl (31.0-37.0); Mean Corpuscular Hemoglobin 29.8 pg (25.0-35.0); Mean Corpuscular Volume 89 fL (80-100); Monocytes # (Auto) 0.9 Thou/mm3 (0.0-0.8); Monocytes % (Auto) 14 % (0-12); Neutrophils # (Auto) 4.4 Thou/mm3 (1.8-7.7); Neutrophils % (Auto) 65 % (37-80); Nucleated Red Blood Cell % 0 /100 WBC (0); Platelet Count 174 Thou/mm3 (140-440); RDW Standard Deviation 42.5 fL (36.4-46.3); Red Blood Count 3.72 Miln/mm3 (4.00-5.20); White Blood Count 6.7 Thou/mm3 (3.6-11.0)
[2024-11-24] MEDS: HEPARIN SOD INJ 5000 UNIT/ML VIAL SC (05:30)
[2024-11-24] MEDS: LEVOTHYROXINE SODIUM 88 MCG TABLET PO (05:30)
[2024-11-24 05:32] LABS: Alanine Aminotransferase 12 U/L (10-49); Albumin, Serum 3.5 gm/dL (3.4-4.8); Albumin/Globulin Ratio 1.8 (1.2-2.2); Alkaline Phosphatase 31 U/L (46-116); Anion Gap 10 (7-16); BUN/Creatinine Ratio 22 Ratio (12-20); Bilirubin,Total 1.4 mg/dL (0.3-1.2); Blood Urea Nitrogen 13 mg/dL (9-23); Calcium 8.4 mg/dL (8.3-10.6); Calcium (Corrected) 8.8 mg/dL (8.5-10.1); Carbon Dioxide 26.9 mMol/L (20.0-31.0); Chloride 107 mMol/L (98-107); Creatinine (Component) 0.6 mg/dL (0.6-1.3); Estimated Creatinine Clearance 66.4 mL/min (>60); Globulin 1.9 gm/dL (2.3-3.5); Glucose 90 mg/dL (74-106); Osmolality,Calculated 286 (275-295); Potassium 3.6 mMol/L (3.4-5.1); Sodium 144 mMol/L (136-145); Total Protein 5.4 gm/dL (5.7-8.2); eGFR > 60 See Note
[2024-11-24 07:26] VITALS: BP 127/81; PULSE 66; RESP 18; TEMP 36.2; O2SAT 95
[2024-11-24] MEDS: PANTOPRAZOLE INJ 40 MG VIAL IVP (09:24)
[2024-11-24] MEDS: POTASSIUM CHLORIDE 20 mEq TABCR 40 MEQ PO (09:25)
--- NOTE | 2024-11-24 09:30 | PC.SS ---
Addendum entered by SERGIO Aranda 11/24/24 12:25: PT Willi informs no needs for the patient. Original Note: SS update: plan is to advance diet.
[2024-11-24 11:54] VITALS: BP 126/81; PULSE 65; RESP 18; TEMP 36.5; O2SAT 94
--- NOTE | 2024-11-24 13:06 | PC.PT ---
PT eval only. Patient is xI. Patient is safe to ambulate to the bathroom and in the halls with her single point cane and no staff assist. RN made aware.
--- NOTE | 2024-11-24 13:53 | PD.SURPROG ---
Documentation for date of: 11/24/24 Subjective Subjective Narrative: Patient is seen and examined. She is feeling much better. She is tolerating diet without nausea or vomiting and had multiple bowel movements Exam Vital Signs Temp Pulse Resp BP Pulse Ox O2 Del Method 97.7 F 65 18 126/81 94 L Room Air 11/24/24 11:54 11/24/24 11:54 11/24/24 11:54 11/24/24 11:54 11/24/24 11:54 11/24/24 11:54 Constitutional Constitutional: no acute distress Routine Abdominal Exam Abdominal: Present soft and normoactive bowel sounds; Absent tenderness or distended Assessment & Plan Assessment Additional comments: Small bowel obstruction resolved. Small bowel x-ray did not show bowel obstruction. She is tolerating diet and had multiple bowel movements Plan May discharge home. Follow-up with primary care physician
--- NOTE | 2024-11-24 15:20 | ESDS_ITS ---
Planned Discharge Date 11/24/24 DS: Providers Provider Date of admission: 11/22/24 19:55 Primary care physician: Etienne Ramesh MD Admitting Provider: Jaison Campos MD Attending Provider on Admission: Andreia Torres MD Consults: 11/22/24 20:06 Consult to General Surgery Stat Comment: Consulting Provider: Lian Humphries 11/23/24 04:50 Referral Physical Therapy Routine Comment: Physician Instructions: Referral Registered Dietitian Routine Comment: Referral Respiratory Therapy Routine Comment: Attending Provider on DC: Andreia Torres MD Discharging Provider: Andreia Torres MD Anticipated date of discharge: 11/24/24 DS: Diagnosis Problem List Completed Was Problem List Reviewed/Reconciled?: Yes Hospital Course Hospital Course Hospital course: Ms. Wallace is a 78-year-old female with past medical history of hypothyroidism, cervical cancer status post hysterectomy and chemo and radiation and history of recurrent small bowel obstructions presented to the ED due to abdominal pain. On presentation CT abdomen pelvis showed small bowel obstruction, patient was admitted to the hospital for further management. Patient was started on low intermittent suctioning with NG tube, Gastrografin small bowel study was ordered, was started on IV fluids as well. General surgeon Dr. Humphries was consulted, with the progression of hospital course patient's SBO resolved, pt had multiple bowel movements and toelrated oral diet well. During hospitalization patient's home medications were resumed as deemed appropriate. Further plan is to discharge patient home, patient started on senna daily, patient to resume all other home medications. Patient to follow-up outpatient with primary care physician within 2 weeks, patient is stable for discharge and responded well to hospital treatment. Discharge Recommendations -Follow up with your primary care with in 2 weeks after discharge -You have been prescribed a stool softener to take daily -Continue to take all your medications as prescribed -Please return to the ED if your symptoms return or worsen Hospitalization Diagnosis #Small bowel obstruction #Hx of recurrent SBO's #Hypothyroidism #Cervical cancer by history Assessment and plan discussed with my attending physician Dr. Brian Lawrence (PGY-1)- Internal medicine resident Time Spent with Patient Time attestation: Total time spent providing and/or coordinating discharge services: Time spent: Less than 30 minutes Exam Vital Signs Temp Pulse Resp BP Pulse Ox O2 Del Method 97.7 F 65 18 126/81 94 L Room Air 11/24/24 11:54 11/24/24 11:54 11/24/24 11:54 11/24/24 11:54 11/24/24 11:54 11/24/24 11:54 Narrative Exam GENERAL: A&Ox3 . Awake, Not in acute distress NEURO: no focal neurological deficits HEENT: Atraumatic, Normocephalic. mucous membranes moist. Eyes open, symmetrical, & clear HEART: Normal Heart Sounds LUNGS: Clear to auscultation with no wheezing or crackles. ABDOMEN: soft, non-distended, non-tender, bowel sounds heard, no guarding or rebound tenderness SKIN: No Rash or ecchymoses EXTREMITIES: No edema, tenderness, able to move all 4 extremities, pedal pulses palpated Discharge Plan Plan Patient Disposition: HOME (Self Care) Patient condition on transfer: Stable Care Plan Goals: -Follow up with your primary care with in 2 weeks after discharge -You have been prescribed a stool softener to take daily -Continue to take all your medications as prescribed -Please return to the ED if your symptoms return or worsen Prescriptions/Referrals Prescriptions/Med Rec: New sennosides [senna] 8.6 mg Tablet 8.6 mg PO QDAY 30 Days Qty: 30 0RF Continued levothyroxine 88 mcg Capsule 88 mcg PO ONCE HS Rx Instructions: Q nightly on an empty stomach pantoprazole 40 mg tablet,delayed release (DR/EC) 40 mg PO DAILY PRN (Reason: Heartburn) Rx Instructions: per patient does not take it everyday just when she needs it melatonin 10 mg Tablet 10 mg PO HS PRN (Reason: sleep) cholecalciferol (vitamin D3) [Vitamin D3] 25 mcg (1,000 unit) Capsule 25 mcg PO BID psyllium husk [Daily Fiber] 0.52 gram Capsule 0.52 g PO BID vitamin K2 100 mcg Capsule 100 mcg PO QDAY gabapentin 100 mg Capsule 100 mg PO TID Rx Instructions: 2 caps TID, but pt only takes 2 caps in the morning for back pain; per patient does not take it everyday just when she needs it calcium carbonate [Calcium 600] 600 mg calcium (1,500 mg) Tablet 600 mg PO BID Rx Instructions: 600mg BID rpvacscf-tqp-HA-lycopen-lutein 500-300-250 mcg Tablet 1 tab PO DAILY Referrals: Etienne Ramesh MD [Primary Care Provider] - Patient/Caregiver Discharge Instructions Education Materials: Small Bowel Obstruction Print Language: Icelandic Stand Alone Forms: Suzan Award Info., Patient Portal Info Letter Discharge Order Discharge Orders: Discharge (Routine); Ordered 11/24/24 Ordered By: Dorothea Lawrence Quality Discharge Quality Measures VTE prophylaxis MD Attestestation MD Attestation I attest that I was physically present for the evaluation, physical examination, lab and imaging review of the patient with the residents. I discussed the case with the residents and agree with the findings and plans of care as documented above. Andreia Torres MD
[2024-11-24 15:59] VITALS: BP 115/68; PULSE 76; RESP 18; TEMP 36.5; O2SAT 94
== END 2024-11-24 15:52 | disposition home or self-care (01) | DRG 390 ==
LOC: SERX 19:06 → SERHOLD 20:22 → S3NX 11-23 06:49
PROVIDERS: Nurse Practitioner Family; Student in an Organized Health Care Education/Training Program; Admitting Provider Student in an Organized Health Care Education/Training Program; Emergency Provider Emergency Medicine; PCP Family Medicine; Visit Provider Student in an Organized Health Care Education/Training Program
DX: K56.609 Unspecified intestinal obstruction, unspecified as to partial versus complete obstruction (principal); Z90.710 Acquired absence of both cervix and uterus; Z85.41 Personal history of malignant neoplasm of cervix uteri; E03.9 Hypothyroidism, unspecified; D72.829 Elevated white blood cell count, unspecified; Z90.722 Acquired absence of ovaries, bilateral; M81.0 Age-related osteoporosis without current pathological fracture; Z92.21 Personal history of antineoplastic chemotherapy; Z92.3 Personal history of irradiation
CPT/HCPCS: 36415; 74018; 74176; 74250; 80053; 81001; 83690; 84443; 85025; 96360; 97161; 99285; A4649; J1644; J2270; J2405; J2470; J7030; Q0162; A9270

== ENCOUNTER 2024-12-24 12:28 | Inpatient (IN) | payer OTHER, MEDICARE, SELFPAY ==
[2024-12-24 12:53] VITALS: BP 134/89; PULSE 100; RESP 18; TEMP 37; O2SAT 99; BMI 22.6
--- NOTE | 2024-12-24 13:03 | PD.EDADULT ---
ED General RME/HPI General Chief complaint: Nausea/Vomiting/Diarrhea Stated complaint: Vomiting today, abdominal pain Time Seen by Provider: 12/24/24 12:49 Arrival date/time: 12/24/24 12:28 RME / HPI RME / HPI narrative: 79-year-old female patient with significant history of multiple small bowel obstruction, history of endometrial carcinoma status post radiation chemotherapy long time ago, hypothyroidism, came in for evaluation regarding nausea and vomiting. Patient is having abdominal pain for the last few days, this morning patient felt better and after eating solid and egg patient developed continuous vomiting, worsening abdominal pain abdominal distention and not feeling well. Patient also complained of feeling chills. Denies any cough denies any fever denies any other complaints. Patient was recently admitted for small bowel obstruction more than a month ago abdominal surgery include hysterectomy in the past. Related Data Home Medications ?Medication ?Instructions ?Recorded ?Confirmed levothyroxine 88 mcg capsule 88 mcg PO ONCE HS 10/18/17 12/24/24 cholecalciferol (vitamin D3) 25 25 mcg PO BID 12/26/22 11/23/24 mcg (1,000 unit) capsule (Vitamin D3) psyllium husk 0.52 gram capsule 0.52 g PO BID 12/26/22 11/23/24 (Daily Fiber) vitamin K2 100 mcg capsule 100 mcg PO QDAY 12/26/22 11/23/24 melatonin 10 mg tablet 10 mg PO HS PRN sleep 05/12/23 11/23/24 pantoprazole 40 mg tablet,delayed 40 mg PO DAILY PRN Heartburn 05/12/23 12/24/24 release calcium carbonate (Calcium 600) 600 mg PO BID 07/19/23 11/23/24 gabapentin 100 mg capsule 100 mg PO TID 07/19/23 12/24/24 uiswitqa-kty-spxmf acid 500 1 tab PO DAILY 07/19/23 11/23/24 mcg-lycopene 300 mcg-lutein 250 mcg tablet Allergies Allergy/AdvReac Type Severity Reaction Status Date / Time No Known Allergies Allergy Verified 12/24/24 12:32 Review of Systems Review of Systems Narrative Review of Systems: Review of system reviewed and within normal limits except mentioned in HPI ED Exam Narrative Physical exam: VITAL SIGNS: Reviewed. GENERAL APPEARANCE: Alert and interactive, follows commands, no acute distress, HEAD AND FACE: Non-traumatic. ENT: PERRL, pink conjunctivitis, eyelid no trauma, Mucous membrane dry NECK: Supple, nontender, no nuchal rigidity. CHEST: No tenderness, no crepitus, no paradoxical movement, no retractions. LUNGS: Clear, well ventilated, symmetric, no rales, no wheezing, no ronchi, no stridor, good breath sounds bilaterally. HEART: Regular rate, regular rhythm, no murmur, no gallops. ABDOMEN: Soft, hyperactive bowel sounds, slightly distended, no guarding, diffuse tenderness, no rebound, no masses, RECTAL: Deferred. GENITAL: Deferred. NEUROLOGICAL: Gross motor function intact sensory function intact, Appropriate for age. MUSCULOSKELETAL: low back nontender, full range of motion. EXTREMITIES: Nontender, full range of motion. SKIN: Color pink, dry, no rash, no lacerations, no abrasions, no contusions. LYMPHATICS: Deferred. Course Quality Measures none Orders Category Date Time Status Admit to Inpatient Status Routine Admission 12/24/24 16:48 Active Patient Condition Routine Admission 12/24/24 16:48 Ordered Activity as Tolerated Routine Care 12/24/24 16:50 Ordered Aspiration precautions ONCE Care 12/24/24 16:53 Active COVID-19 Screening Questionnaire NOW Care 12/24/24 16:[address] Screening NOW Care 12/24/24 13:06 Active Decision to Admit X1 Care 12/24/24 16:16 Completed EKG (ED ONLY) *Do not use* NOW Care 12/24/24 13:05 Completed Insert NG / OG tube NOW Care 12/24/24 16:53 Active Miscellaneous Nursing Order NOW Care 12/24/24 16:57 Active Notify provider NEEDED Care 12/24/24 16:48 Active Obtain weight NOW Care 12/24/24 16:48 Active Vital Signs, Non-Routine Q4H Care 12/24/24 17:00 Ordered Vital Signs, Non-Routine Q4H Care 12/24/24 21:00 Ordered Vital Signs, Non-Routine Q4H Care 12/25/24 01:00 Ordered Vital Signs, Non-Routine Q4H Care 12/25/24 05:00 Ordered Vital Signs, Non-Routine Q4H Care 12/25/24 09:00 Ordered Vital Signs, Non-Routine Q4H Care 12/25/24 13:00 Ordered Vital Signs, Non-Routine Q4H Care 12/25/24 17:00 Ordered Vital Signs, Non-Routine Q4H Care 12/25/24 21:[address] abdomen pelvis w con Stat Exams 12/24/24 13:05 Completed EKG (ED Only) Stat Exams 12/24/24 13:05 Ordered KUB [XR abdomen 1V] Urgent Exams 12/24/24 16:57 Ordered CBC AM DRAW Lab 12/25/24 05:00 Ordered CBC AM DRAW Lab 12/26/24 05:00 Ordered CBC AM DRAW Lab 12/27/24 05:00 Ordered CBC AM DRAW Lab 12/28/24 05:00 Ordered CBC AM DRAW Lab 12/29/24 05:00 Ordered CBC AM DRAW Lab 12/30/24 05:00 Ordered CBC Stat Lab 12/24/24 13:17 Completed CMP [Comprehensive Metabolic Panel] AM DRAW Lab 12/25/24 05:00 Ordered CMP [Comprehensive Metabolic Panel] AM DRAW Lab 12/26/24 05:00 Ordered CMP [Comprehensive Metabolic Panel] AM DRAW Lab 12/27/24 05:00 Ordered CMP [Comprehensive Metabolic Panel] AM DRAW Lab 12/28/24 05:00 Ordered CMP [Comprehensive Metabolic Panel] AM DRAW Lab 12/29/24 05:00 Ordered CMP [Comprehensive Metabolic Panel] AM DRAW Lab 12/30/24 05:00 Ordered Comprehensive Metabolic Panel Stat Lab 12/24/24 13:17 Completed Lactate (Lactic Acid) Stat Lab 12/24/24 13:17 Completed Lipase Stat Lab 12/24/24 13:17 Completed Magnesium AM DRAW Lab 12/25/24 05:00 Ordered Magnesium AM DRAW Lab 12/26/24 05:00 Ordered Magnesium AM DRAW Lab 12/27/24 05:00 Ordered Magnesium AM DRAW Lab 12/28/24 05:00 Ordered Magnesium AM DRAW Lab 12/29/24 05:00 Ordered Magnesium AM DRAW Lab 12/30/24 05:00 Ordered Magnesium Stat Lab 12/24/24 13:17 Completed Partial Thromboplastin Time Stat Lab 12/24/24 13:17 Completed Phosphorous AM DRAW Lab 12/25/24 05:00 Ordered Phosphorous AM DRAW Lab 12/26/24 05:00 Ordered Phosphorous AM DRAW Lab 12/27/24 05:00 Ordered Phosphorous AM DRAW Lab 12/28/24 05:00 Ordered Phosphorous AM DRAW Lab 12/29/24 05:00 Ordered Phosphorous AM DRAW Lab 12/30/24 05:00 Ordered Prothrombin Time with INR Stat Lab 12/24/24 13:17 Completed UA [Urinalysis] Stat Lab 12/24/24 13:06 Ordered Acetaminophen Tab [Tylenol Tab] Med 12/24/24 16:48 Active 650 mg PO Q6H PRN Famotidine Inj [Pepcid Inj] Med 12/24/24 13:05 Discontinued 20 mg IVP X1 ONE Heparin Inj Med 12/24/24 22:00 Active 5,000 unit SC Q8HR Magnesium Sulfate 2 GM Ivpb [Magnesium Sulfate Ivpb] Med 12/24/24 15:03 Active 2 gm in 50 ml IV X1 Metoclopramide Inj [Reglan Inj] Med 12/24/24 13:05 Discontinued 10 mg IVP X1 ONE Morphine Inj Med 12/24/24 13:05 Discontinued 4 mg IVP X1 ONE Ondansetron Inj [Zofran Inj] Med 12/24/24 16:53 Active 4 mg IVP Q4HR PRN Ringers Lactated 1000 ml [Lactated Ringers] 1,000 ml Med 12/24/24 17:00 Active IV 50 mls/hr Ringers Lactated 500 ml [Lactated Ringers] 500 ml Med 12/24/24 13:06 Discontinued IV 999 mls/hr Code Status Routine Oth 12/24/24 16:48 Ordered Vital Signs Vital signs: Vital Signs Temperature 98.6 F 12/24/24 12:53 Pulse Rate 100 12/24/24 12:53 Respiratory Rate 18 12/24/24 12:53 Blood Pressure 134/89 H 12/24/24 12:53 Pulse Oximetry (%) 99 12/24/24 12:53 Oxygen Delivery Method Room Air 12/24/24 12:53 Discharge Plan Plan Patient Disposition: Admit Acute Care w/in Hospital Discharge Disposition comment: Stable Prescriptions/Referrals Prescriptions/Med Rec: No Action levothyroxine 88 mcg Capsule 88 mcg PO ONCE HS Rx Instructions: Q nightly on an empty stomach pantoprazole 40 mg tablet,delayed release (DR/EC) 40 mg PO DAILY PRN (Reason: Heartburn) Rx Instructions: per patient does not take it everyday just when she needs it melatonin 10 mg Tablet 10 mg PO HS PRN (Reason: sleep) cholecalciferol (vitamin D3) [Vitamin D3] 25 mcg (1,000 unit) Capsule 25 mcg PO BID psyllium husk [Daily Fiber] 0.52 gram Capsule 0.52 g PO BID vitamin K2 100 mcg Capsule 100 mcg PO QDAY gabapentin 100 mg Capsule 100 mg PO TID Rx Instructions: 2 caps TID, but pt only takes 2 caps in the morning for back pain; per patient does not take it everyday just when she needs it calcium carbonate [Calcium 600] 600 mg calcium (1,500 mg) Tablet 600 mg PO BID Rx Instructions: 600mg BID cpqwhoox-brm-ZS-lycopen-lutein 500-300-250 mcg Tablet 1 tab PO DAILY Referrals: Gareth Motta PA-C [Primary Care Provider] - In 1 week Problem List Clinical Impression: Small bowel obstruction Patient/Caregiver Discharge Instructions Print Language: Sinhala Stand Alone Forms: Suzan Award Info., Patient Portal Info Letter MDM Narrative MDM hospital course: 79-year-old female patient with significant history of multiple small bowel obstruction, history of endometrial carcinoma status post radiation chemotherapy long time ago, hypothyroidism, came in for evaluation regarding nausea and vomiting. Patient is having abdominal pain for the last few days, this morning patient felt better and after eating solid and egg patient developed continuous vomiting, worsening abdominal pain abdominal distention and not feeling well. Patient also complained of feeling chills. Denies any cough denies any fever denies any other complaints. Patient was recently admitted for small bowel obstruction more than a month ago abdominal surgery include hysterectomy in the past. EKG as interpreted by me shows sinus tachycardia, ventricular to 103 bpm, [place] interval 184 MS, no ST segment elevation depression noted. CT scan of the abdomen showed small bowel obstruction pattern otherwise unremarkable. Patient's laboratory workup is significant for leukocytosis of 13.4 the rest of the labs unremarkable. Except for magnesium of 1.5 Patient received IV fluids, magnesium replacement morphine and Reglan. Case discussed with hospitalist, who admitted the patient. Medication Administration(s) Medication Administration History Acetaminophen (Acetaminophen 325 Mg Tablet) 650 mg PO Q6H PRN PRN Reason: Fever >101.5 Stop: 01/23/25 16:47 Heparin Sodium (Porcine) (Heparin Sod Inj 5000 Unit/Ml Vial) 5,000 unit SC Q8HR LILLI Stop: 01/07/25 21:59 Magnesium Sulfate (Magnesium Sulfate Ivpb) 2 gm in 50 mls @ 25 mls/hr IV X1 ONE Stop: 12/24/24 17:02 Last Admin: 12/24/24 15:12 Dose: 25 mls/hr Documented By: EF Lactated Ringer's (Lactated Ringers) 1,000 mls @ 50 mls/hr IV .Q20H LILLI Stop: 12/26/24 08:59 Ondansetron HCl (Ondansetron Inj 2 Mg/Ml Inj 2 Ml) 4 mg IVP Q4HR PRN; Protocol PRN Reason: NAUSEA Stop: 01/23/25 16:52 Discontinued Medications Famotidine (Famotidine Inj 10 Mg/Ml Vial 2 Ml) 20 mg IVP X1 ONE Stop: 12/24/24 13:06 Last Admin: 12/24/24 14:06 Dose: 20 mg Documented By: EF Lactated Ringer's (Lactated Ringers) 500 mls @ 999 mls/hr IV .Q31M ONE Stop: 12/24/24 13:36 Last Infusion: 12/24/24 14:38 Dose: Infused Documented By: Admin: 12/24/24 14:07 Dose: 999 mls/hr Documented By: EF Metoclopramide HCl (Metoclopramide Inj 5 Mg/Ml Vial 2 Ml) 10 mg IVP X1 ONE; Protocol Stop: 12/24/24 13:06 Last Admin: 12/24/24 14:06 Dose: 10 mg Documented By: EF Morphine Sulfate (Morphine Sulf Inj 10 Mg/Ml Vial) 4 mg IVP X1 ONE Stop: 12/24/24 13:06 Last Admin: 12/24/24 14:06 Dose: 4 mg Documented By: EF Diagnosis Differential diagnosis: Abdominal pain small bowel obstruction dehydration nausea vomit Most likely dx, and/or detailed dx discussion: Small bowel obstruction Dispositon Disposition: Admit
--- NOTE | 2024-12-24 13:05 | XR_ITS ---
Examination: CT abdomen with intravenous contrast CT pelvis with intravenous contrast 2-D coronal reconstructions 2-D sagittal reconstructions Date and time of exam:December 24, 2024 at 1456 hours Comparison November 22, 2024 INDICATIONS: Generalized abdominal pain with nausea vomiting today. CTDI: vol (mGy) 7.11 DLP: (mGycm) 365 Technique: Multiple axial sections of the abdomen and pelvis have been obtained. 64 slice high-resolution scanner used. 3 mm axial sections have been obtained, post intravenous injection 60 cc [id number] 2-D sagittal, coronal reconstructions obtained. Low dose protocols were performed. One or more of the following dose reduction techniques were used; automated exposure control, adjustment of the mA and/or KV according to patient size, use of iterative reconstruction technique. Findings: No focal liver or splenic lesions Tiny gallstones No pancreatic mass No renal or ureteral calculi No hydronephrosis Multiple fluid distended small bowel loops No pericecal inflammatory change Detail in the pelvis is reduced secondary to the hip arthroplasties Severe osteopenia IMPRESSION: Cholelithiasis Small bowel obstruction pattern, consider Gastrografin small bowel series follow-up
[2024-12-24 13:28] LABS: Lactate (Lactic Acid) 1.2 mMol/L (0.4-2.0)
[2024-12-24 13:43] LABS: Basophils # (Auto) 0.0 Thou/mm3 (0.0-0.2); Basophils % (Auto) 0 % (0-2.5); Eosinophils # (Auto) 0.0 Thou/mm3 (0.0-0.5); Eosinophils % (Auto) 0 % (0-10); Hematocrit 43.7 % (36.0-46.0); Hemoglobin 14.8 g/dL (12.0-16.0); Immature Granulocytes Auto 0.12 Thou/mm3 (0.00-0.00); Lymphocytes # (Auto) 0.9 Thou/mm3 (1.0-4.8); Lymphocytes % (Auto) 6 % (10-50); Mean Corpuscular HGB Conc 33.9 g/dl (31.0-37.0); Mean Corpuscular Hemoglobin 30.1 pg (25.0-35.0); Mean Corpuscular Volume 89 fL (80-100); Monocytes # (Auto) 0.6 Thou/mm3 (0.0-0.8); Monocytes % (Auto) 5 % (0-12); Neutrophils # (Auto) 11.8 Thou/mm3 (1.8-7.7); Neutrophils % (Auto) 88 % (37-80); Nucleated Red Blood Cell # 0.00 Thou/mm3 (0.00-0.00); Nucleated Red Blood Cell % 0 /100 WBC (0); Platelet Count 250 Thou/mm3 (140-440); RDW Standard Deviation 41.8 fL (36.4-46.3); Red Blood Count 4.91 Miln/mm3 (4.00-5.20); White Blood Count 13.4 Thou/mm3 (3.6-11.0)
[2024-12-24 13:46] LABS: INR 1.0 (0.9-1.3); Partial Thromboplastin Time 23.8 Seconds (22.0-36.0); Prothrombin Time 10.9 Seconds (9.0-12.2)
[2024-12-24 13:49] LABS: Alanine Aminotransferase 15 U/L (10-49); Albumin, Serum 4.6 gm/dL (3.4-4.8); Albumin/Globulin Ratio 1.7 (1.2-2.2); Alkaline Phosphatase 40 U/L (46-116); Anion Gap 13 (7-16); Aspartate Amino Transferase 20 U/L (0-34); BUN/Creatinine Ratio 20 Ratio (12-20); Bilirubin,Total 1.4 mg/dL (0.3-1.2); Blood Urea Nitrogen 16 mg/dL (9-23); Calcium 9.9 mg/dL (8.3-10.6); Calcium (Corrected) 9.9 mg/dL (8.5-10.1); Carbon Dioxide 26.2 mMol/L (20.0-31.0); Chloride 103 mMol/L (98-107); Creatinine (Component) 0.8 mg/dL (0.6-1.3); Estimated Creatinine Clearance 47.2 mL/min (>60); Globulin 2.7 gm/dL (2.3-3.5); Glucose 146 mg/dL (74-106); Lipase 30 U/L (12-53); Magnesium 1.5 mg/dL (1.6-2.6); Osmolality,Calculated 287 (275-295); Potassium 4.4 mMol/L (3.4-5.1); Sodium 142 mMol/L (136-145); Total Protein 7.3 gm/dL (5.7-8.2); eGFR > 60 See Note
[2024-12-24] MEDS: FAMOTIDINE INJ 10 MG/ML VIAL 2 ML 20 MG IVP (14:06)
[2024-12-24] MEDS: METOCLOPRAMIDE INJ 5 MG/ML VIAL 2 ML 10 MG IVP (14:06)
[2024-12-24] MEDS: MORPHINE SULF INJ 10 MG/ML VIAL 4 MG IVP (14:06)
[2024-12-24] MEDS: RINGERS LACTATED 500 ML 500 ML 999 ML IV (14:07)
[2024-12-24] MEDS: Magnesium Sulfate 2 GM Ivpb 2 GM/50 ML BAG IV (15:12)
[2024-12-24 16:10] VITALS: BP 125/73; PULSE 91; RESP 19; TEMP 37.2; O2SAT 95
--- NOTE | 2024-12-24 16:57 | XR_ITS ---
Examination: Abdomen AP single view Technique: AP portable supine abdomen, single view Exam date and time: December 24, 2024 8009 hours INDICATIONS: Vomiting and abdominal pain today. FINDINGS: Multiple air distended small bowel loops There is stool in the colon Bilateral hip arthroplasties Recommend advancing the orogastric tube 5 cm IMPRESSION: Abnormal distended small bowel loops Advance the orogastric tube 7 cm
--- NOTE | 2024-12-24 16:58 | ESHP_ITS ---
<Statement entered by Shun Salter MD - 12/24/24 19:42> Patient seen and examined at bedside, no acute overnight events. I discussed and supervised with the public relations intern physician who took care of this patient. I personally saw and examined the patient. I agree with most of the assessment and plan. Patient with history of recurrent SBO following hysterectomy for cervical cancer presents with nausea/vomiting, abdominal pain. SBO pattern on CT. NG tube to LIS placed, gastrograffin small bowel follow through ordered. Patient currently denies nausea, states abdominal pain improved. Last bowel movement this morning. Plan of care discussed with attending Dr. Jacobson. Shun Salter MD PGY-2 Documentation for date of: 12/24/24 HPI History of Present Illness History of present illness: Ms. Wallace is a 78-year-old woman with past medical history of hypothyroidism, cervical cancer status post hysterectomy in 2003 (with chemo and radiation), compression fractures to the right lower extremity, bilateral hip replacements, left knee replacement, history of recurrent small bowel obstructions with recent admission in November 2024 for SBO that was resolved with NG tube, Gastrografin small bowel series, following resolution of SBO patient was able to tolerate oral diet. She was discharged with bowel regimen of senna and MiraLAX. She presented to the emergency department today for abdominal pain, nausea, and vomiting. She reports having 2 normal bowel movements this morning, however in the afternoon she started to experience abdominal pain, nausea, and bilious vomiting. Patient at bedside with [employer] playing softly. Review of systems * Patient endorses that she experienced nausea and vomiting earlier today however not currently * Patient denies fever, chills, dysuria, shortness of breath, chest pain ED course Dx * UA pending * WBC 13 * Lactic acid within normal limits * Lipase within normal limits * CT abdomen pelvis with evidence of SBO pattern with recommendation for small bowel follow-through series with Gastrografin, and cholelithiasis * Physical exam with abdomen soft mildly tender to palpation, not acutely distended, no rebound, no guarding. Tx * Normal saline fluids 500 mL bolus * Metoclopramide 10 mg IV * Famotidine 20 mg IV * Morphine 4 mg IV once Review of Systems Review of Systems Narrative Review of Systems: As per HPI Past Medical History Past Medical History OTHER HISTORY: Positive Cervical Cancer Surgical History OTHER SURGICAL HX: Hysterectomy in 2004, tubal ligation, bilateral hip replacement, left total knee replacement, tonsillectomy as a child, Social History SOCIAL: No smoking history Patient endorses history of marijuana use as a teen however notes that she has not used within the past several months Patient endorses moderate alcohol intake, per patient 1 glass every once in a while Patient lives in home with and is independent of ADLs and IADLs Patient able to ambulate with cane Travel History EBOLA RISK: No Exam Vital Signs Temp Pulse Resp BP Pulse Ox O2 Del Method 98.9 F 91 19 125/73 95 Room Air 12/24/24 16:10 12/24/24 16:10 12/24/24 16:10 12/24/24 16:10 12/24/24 16:10 12/24/24 16:10 Narrative Exam GENERAL: no acute distress, AAO x3, comfortably laying in bed HEENT: Head AT/ NC. Mucous membranes moist. CARDIOVASCULAR: RRR. Normal S1/S2, No m/r/g. No pitting edema of bilateral LEs. RESPIRATORY: CTAB. No wheezing, rhonchi, crackles. GASTROINTESTINAL: Abdomen soft, bowel sounds hypoactive, mild tenderness to palpation in the epigastrum., no suprapubic tenderness. MUSCULOSKELETAL:? No cyanosis or edema, no visible joint swelling. NEUROLOGICAL: CN II-XII grossly intact. No focal deficits. moving extremities X4 PSYCHIATRIC: Awake and alert, not agitated, normal mood and affect. SKIN: No obvious rashes, no jaundice, normal turgor. Results: Labs 12/25/24 05:10 12/25/24 05:10 Labs: Short CBC 12/24/24 Range/Units 13:17 WBC 13.4 H (3.6-11.0) Thou/mm3 Hgb 14.8 (12.0-16.0) g/dL Hct 43.7 (36.0-46.0) % Plt Count 250 D (140-440) Thou/mm3 BMP 12/24/24 13:17 Sodium 142 Potassium 4.4 Chloride 103 Carbon Dioxide 26.2 BUN 16 Creatinine 0.8 Glucose 146 H Calcium 9.9 Liver Function 12/24/24 Range/Units 13:17 Total Bilirubin 1.4 H (0.3-1.2) mg/dL AST 20 (0-34) U/L ALT 15 (10-49) U/L Alkaline Phosphatase 40 L (46-116) U/L Albumin 4.6 (3.4-4.8) gm/dL Quality Measures Quality Measures VTE prophylaxis Advance care planning discussed with:: patient and spouse Medications Home Medications and Allergies Home Medications ?Medication ?Instructions ?Recorded ?Confirmed ?Type levothyroxine 88 mcg capsule 88 mcg PO ONCE HS 8 12/24/24 History cholecalciferol (vitamin D3) 25 25 mcg PO BID 12/26/22 12/24/24 History mcg (1,000 unit) capsule (Vitamin D3) psyllium husk 0.52 gram capsule 0.52 g PO BID 12/26/22 12/24/24 History (Daily Fiber) vitamin K2 100 mcg capsule 100 mcg PO QDAY 12/26/22 History melatonin 10 mg tablet 10 mg PO HS PRN sleep 12/24/24 History pantoprazole 40 mg tablet,delayed 40 mg PO DAILY PRN H eartburn 05/12/23 12/24/24 History release calcium carbonate (Calcium 600) 600 mg PO BID 07/19/23 12/24/24 History gabapentin 100 mg capsule 100 mg PO TID 07/19/2312/24 History iubadzid-ymx-tsyqm acid 500 1 tab PO DAILY 07/19/23 History mcg-lycopene 300 mcg-lutein 250 mcg tablet Allergies Allergy/AdvReac Type Severity Reaction Status Date / Time No Known Allergies Allergy Verified 12/24/24 12:32 Visit Medications Acetaminophen (Acetaminophen 325 Mg Tablet) 650 mg PO Q6H PRN PRN Reason: Fever >101.5 Stop: 01/23/25 16:47 Heparin Sodium (Porcine) (Heparin Sod Inj 5000 Unit/Ml Vial) 5,000 unit SC Q8HR LILLI Stop: 01/07/25 21:59 Magnesium Sulfate (Magnesium Sulfate Ivpb) 2 gm in 50 mls @ 25 mls/hr IV X1 ONE Stop: 12/24/24 17:02 Last Admin: 12/24/24 15:12 Dose: 25 mls/hr Lactated Ringer's (Lactated Ringers) 1,000 mls @ 50 mls/hr IV .Q20H LILLI Stop: 12/26/24 08:59 Ondansetron HCl (Ondansetron Inj 2 Mg/Ml Inj 2 Ml) 4 mg IVP Q4HR PRN; Protocol PRN Reason: NAUSEA Stop: 01/23/25 16:52 Discontinued Medications Famotidine (Famotidine Inj 10 Mg/Ml Vial 2 Ml) 20 mg IVP X1 ONE Stop: 12/24/24 13:06 Last Admin: 12/24/24 14:06 Dose: 20 mg Lactated Ringer's (Lactated Ringers) 500 mls @ 999 mls/hr IV .Q31M ONE Stop: 12/24/24 13:36 Last Infusion: 12/24/24 14:38 Dose: Infused Metoclopramide HCl (Metoclopramide Inj 5 Mg/Ml Vial 2 Ml) 10 mg IVP X1 ONE; Protocol Stop: 12/24/24 13:06 Last Admin: 12/24/24 14:06 Dose: 10 mg Morphine Sulfate (Morphine Sulf Inj 10 Mg/Ml Vial) 4 mg IVP X1 ONE Stop: 12/24/24 13:06 Last Admin: 12/24/24 14:06 Dose: 4 mg Assessment & Plan Plan Ms. Wallace is a 78-year-old woman with past medical history significant for cervical cancer status post hysterectomy in 2003 (status post chemo and radiation), and history of recurrent SBO, most recently admitted in November 2024 for SBO that resolved with Gastrografin small bowel series, patient presents with abdominal pain, nausea, vomiting, that improved with metoclopramide, and morphine in the emergency department, on CTAP patient was found to have small bowel pattern. General surgery not consulted, admitted for management of SBO, with plan for NG tube placement on low intermittent suction, and small bowel series with Gastrografin. #Small bowel obstruction #Hx of recurrent SBO's likely secondary to #Cervical cancer status post hysterectomy 2003 Given patient's surgical history of hysterectomy in likely that she has abdominal adhesions that are contributing to her recurrent small bowel obstructions. Patient able to stool regularly at home with senna and MiraLAX. Per patient she had 2 regular bowel movements this morning Dx - KUB pending - CTAP with evidence of SBO pattern, cholelithiasis Tx - Start maintenance IV fluids with LR 50 mL/h - Aspiration precautions - n.p.o. - IV Zofran 4 mg every 6 hours as needed - NG tube with low intermittent suction - Plan for small bowel series with Gastrografin pending output of NG tube #Leukocytosis Unclear whether patient is experiencing inflammatory versus infection etiology for your leukocytosis. Patient review of system negative for signs of infection WBCs 13. Physical exam unrevealing for possible etiology, lungs clear no suprapubic tenderness no dysuria no cough. Patient is well-appearing in no acute distress Dx - Pending UA: Follow-up urine culture -Daily CBC #Cholelithiasis Patient asymptomatic of stones, no right upper quadrant pain on exam. Reassess patient once SBO resolves for signs of biliary colic. Labs demonstrate elevated alk phos, of note her alk phos was also elevated on her November 2024 admission -CTM #GERD -Continue pantoprazole 40 mg p.o. daily #Hypothyroidism -Continue levothyroxine 88 mg daily #Low back pain patient reports taking daily APAP for when she goes on walks to help with pain - Continue APAP 650 mg as needed - Continue gabapentin 100 mg 4 times daily - Consider lidocaine patches for pain Dispo: Patient pending small bowel series with Gastrografin, patient at baseline is able to ambulate with cane and lives with Diet: N.p.o. Bowel Reg: Holding VTE ppx: Heparin 5000 subcutaneous twice daily GI ppx: Pantoprazole 40 mg Code status: Full Case discussed with my senior resident Dr. Salter Case discussed with my attending Dr. Kavon Rea MD PGY-1 Attending Provider Attestation/Addendum Adeola, Yasmin Jacobson DO, attest that I was physically present for the arzola portions of the service and evaluated the patient with the resident and I reviewed and discussed the case with the resident and agree with the resident's findings and plans of care as documented above Patient is a 78-year-old female with past medical history of hypothyroid, cervical cancer status post hysterectomy, diverticulitis, compression fractures, bilateral hip replacement, DJD, recurrent small bowel obstruction who presents to the ED due to worsening abdominal pain and nausea and vomiting that began this afternoon. Patient states that she noted having abdominal pain about 4 days ago. She had thought that she had started to have symptoms of diverticulitis and has not been eating since then. She has been keeping hydrated. However, she states that she felt better this morning which prompted her to start eating again. Patient ate breakfast and subsequently had nausea, vomiting and abdominal pain. However, she did have 2 bowel movements prior to this episode. Upon evaluation in the ED, patient was found to have cholelithiasis and small bowel obstruction pattern on CAT scan. She has noted to have leukocytosis 13.4 and mild elevated bilirubin. She denies any fevers or chills, chest pain, shortness of breath otherwise. Will admit patient to [facility] [place] for further workup and medical management of small bowel obstruction. NG tube has been placed in ED, will place on low intermittent suction. Will order Gastrografin small bowel follow-through
[2024-12-24 17:29] LABS: Collection Type, Urine Clean Catch; WBC,Urine 0 /hpf (0-5)
--- NOTE | 2024-12-24 17:35 | XR_ITS ---
Examination: Small bowel series Abdomen 3 views Date and time: December 24, 2024 2150 hours INDICATIONS: Abdominal pain and distention this week TECHNIQUE AND FINDINGS: Immediate 30 minute 1 hour films obtained post administration 120 cc Gastrografin Contrast in the stomach Air distended small bowel loops IMPRESSION: Small bowel obstruction pattern Recommend follow-up films 1:00 AM, 3:00 AM, 7:00 AM
--- NOTE | 2024-12-24 17:39 | XR_ITS ---
Examination: AP chest single view TECHNIQUE: AP portable upright chest single view Date and time: December 24, 2024 1812 hours INDICATIONS: Orogastric tube placement. FINDINGS: Orogastric tube sidehole projects just beyond the GE junction Mild prominence left ventricle IMPRESSION: Advance the orogastric tube 4 cm
[2024-12-24 17:49] LABS: Bilirubin,Urine Negative (Negative); Blood,Urine Negative (Negative); Clarity,Urine Clear (Clear/Hazy); Color,Urine Yellow (Lt Yel-Yel); Glucose, Urine Negative (Negative); Ketones,Urine 3+ (Negative); Leukocyte Esterase,Urine Negative (Negative); Nitrite,Urine Negative (Negative); PH,Urine 5.5 (5.0-7.0); Protein,Urine Trace (Neg - Trace); RBC,Urine 3 /hpf (0-3); Squamous Epithelial Cell,Urine < 1 /hpf (0-5); Urobilinogen,Urine Negative mg/dL (0.0-1.0)
[2024-12-24 18:07] LABS: Specific Gravity,Urine > 1.035 (1.001-1.035)
[2024-12-24 19:03] VITALS: BMI 23.6
[2024-12-24] MEDS: RINGERS LACTATED 1000 ML 1,000 ML 50 ML IV (19:27)
[2024-12-24 20:00] VITALS: BP 126/77; PULSE 82; RESP 17; TEMP 36.4; O2SAT 96
--- NOTE | 2024-12-24 20:42 | XR_ITS ---
Examination: AP chest single view TECHNIQUE: AP portable upright chest single view Date and time: December 24, 2024, 2054 hours Comparison December 24, 2024 INDICATIONS: Post orogastric tube placement FINDINGS: Orogastric tube tip in the stomach satisfactory position. Normal heart size. No pneumonia or pulmonary edema IMPRESSION: Orogastric tube in the stomach satisfactory position
[2024-12-24] MEDS: ONDANSETRON INJ 2 MG/ML INJ 2 ML 4 MG IVP (22:39)
[2024-12-24] MEDS: HEPARIN SOD INJ 5000 UNIT/ML VIAL SC (22:41)
[2024-12-24] MEDS: KETOROLAC INJ 30 MG/ML VIAL IVP (22:48)
[2024-12-25] VITALS: BP 121/72; PULSE 78; RESP 17; TEMP 36.3; O2SAT 95
[2024-12-25] MEDS: MELATONIN 3 MG TABLET PO
--- NOTE | 2024-12-25 01:00 | XR_ITS ---
Examination: Abdomen AP single view Technique: AP portable supine abdomen, single view Exam date and time: December 25, 2024 0057 hours INDICATIONS: Abdominal pain and distention this region, 3 hour delayed film for small bowel series FINDINGS: Contrast in distended small bowel loops measuring up to 4 cm Suspicious for minimal contrast in the colon IMPRESSION: Suspicious for minimal contrast in the colon, continued follow-up films will be obtained
--- NOTE | 2024-12-25 03:00 | XR_ITS ---
Examination: Abdomen AP single view Technique: AP portable supine abdomen, single view Exam date and time: December 25, 2024 0304 hours INDICATIONS: Abdominal pain and distention this week, small bowel obstruction pattern on CT abdomen pelvis December 24, 2024, 5 hour film post no small bowel series FINDINGS: Contrast in distended small bowel loops, however abundant contrast in the colon IMPRESSION: Negative for complete small bowel obstruction
[2024-12-25 04:00] VITALS: BP 121/73; PULSE 79; RESP 17; TEMP 36.4; O2SAT 94
--- NOTE | 2024-12-25 05:03 | PC.NURSE ---
Patient oxygen saturations intermittently dropped to 85% during the night while asleep. Two liters of oxygen via nasal cannula was applied. Following oxygen therapy, saturation improved and were maintained at 92%. will continue to monitor.
[2024-12-25 06:00] LABS: Basophils # (Auto) 0.0 Thou/mm3 (0.0-0.2); Basophils % (Auto) 0 % (0-2.5); Eosinophils # (Auto) 0.1 Thou/mm3 (0.0-0.5); Eosinophils % (Auto) 1 % (0-10); Hematocrit 38.2 % (36.0-46.0); Hemoglobin 12.5 g/dL (12.0-16.0); Immature Granulocytes Auto 0.05 Thou/mm3 (0.00-0.00); Lymphocytes # (Auto) 1.2 Thou/mm3 (1.0-4.8); Lymphocytes % (Auto) 11 % (10-50); Mean Corpuscular HGB Conc 32.7 g/dl (31.0-37.0); Mean Corpuscular Hemoglobin 30.3 pg (25.0-35.0); Mean Corpuscular Volume 93 fL (80-100); Monocytes # (Auto) 1.4 Thou/mm3 (0.0-0.8); Monocytes % (Auto) 12 % (0-12); Neutrophils # (Auto) 8.9 Thou/mm3 (1.8-7.7); Neutrophils % (Auto) 76 % (37-80); Nucleated Red Blood Cell # 0.00 Thou/mm3 (0.00-0.00); Nucleated Red Blood Cell % 0 /100 WBC (0); Platelet Count 191 Thou/mm3 (140-440); RDW Standard Deviation 43.5 fL (36.4-46.3); Red Blood Count 4.13 Miln/mm3 (4.00-5.20); White Blood Count 11.7 Thou/mm3 (3.6-11.0)
[2024-12-25 06:46] LABS: Alanine Aminotransferase 15 U/L (10-49); Albumin, Serum 3.8 gm/dL (3.4-4.8); Albumin/Globulin Ratio 1.7 (1.2-2.2); Alkaline Phosphatase 33 U/L (46-116); Anion Gap 12 (7-16); Aspartate Amino Transferase 18 U/L (0-34); BUN/Creatinine Ratio 24 Ratio (12-20); Bilirubin,Total 1.5 mg/dL (0.3-1.2); Blood Urea Nitrogen 17 mg/dL (9-23); Calcium 9.0 mg/dL (8.3-10.6); Calcium (Corrected) 9.2 mg/dL (8.5-10.1); Carbon Dioxide 27.8 mMol/L (20.0-31.0); Chloride 105 mMol/L (98-107); Creatinine (Component) 0.7 mg/dL (0.6-1.3); Estimated Creatinine Clearance 53.9 mL/min (>60); Globulin 2.2 gm/dL (2.3-3.5); Glucose 106 mg/dL (74-106); Magnesium 1.7 mg/dL (1.6-2.6); Osmolality,Calculated 290 (275-295); Phosphorous 3.6 mg/dL (2.4-5.1); Potassium 4.3 mMol/L (3.4-5.1); Sodium 145 mMol/L (136-145); Total Protein 6.0 gm/dL (5.7-8.2); eGFR > 60 See Note
--- NOTE | 2024-12-25 07:00 | XR_ITS ---
Examination: Abdomen AP single view Technique: AP portable supine abdomen, single view Exam date and time: December 25, 2024 0720 hours INDICATIONS: 9 hour delayed film post small bowel series, abdominal pain and distention FINDINGS: Contrast, abundant in the colon IMPRESSION: Negative for complete small bowel obstruction, no further films are needed
--- NOTE | 2024-12-25 07:28 | PD.RESPRO ---
Documentation for date of: 12/25/24 Subjective Subjective Interval history: gastrogaffin series Exam Vital Signs Temp Pulse Resp BP Pulse Ox O2 Del Method 97.5 F 79 17 121/73 94 L Room Air 12/25/24 04:00 12/25/24 04:00 12/25/24 04:00 12/25/24 04:00 12/25/24 04:00 12/25/24 04:00 Objective Labs 12/25/24 05:10 12/25/24 05:10 Labs: Laboratory Results - last 24 hr 12/24/24 12/24/24 12/25/24 13:17 17:22 05:10 WBC 13.4 H 11.7 H RBC 4.91 4.13 Hgb 14.8 12.5 D Hct 43.7 38.2 MCV 89 93 MCH 30.1 30.3 MCHC 33.9 32.7 RDW Std Deviation 41.8 43.5 Plt Count 250 D 191 D Neut % (Auto) 88 H 76 Lymph % (Auto) 6 L 11 [place] % (Auto) 5 12 Eos % (Auto) 0 1 Baso % (Auto) 0 0 Neut # (Auto) 11.8 H 8.9 H Lymph # (Auto) 0.9 L 1.2 [place] # (Auto) 0.6 1.4 H Eos # (Auto) 0.0 0.1 Baso # (Auto) 0.0 0.0 Immature Gran # (Auto) 0.12 H 0.05 H Absolute Nucleated RBC 0.00 0.00 Immature Gran % 1 H 0 Nucleated RBC % 0 0 PT 10.9 INR 1.0 APTT 23.8 Sodium 142 145 Potassium 4.4 4.3 Chloride 103 105 Carbon Dioxide 26.2 27.8 Anion Gap 13 12 BUN 16 17 Creatinine 0.8 0.7 Estim Creat Clear Calc 47.2 L 53.9 L eGFR > 60 > 60 BUN/Creatinine Ratio 20 24 H Glucose 146 H 106 Calculated Osmolality 287 290 Lactic Acid 1.2 Calcium 9.9 9.0 Corrected Calcium 9.9 9.2 Phosphorus 3.6 Magnesium 1.5 L 1.7 Total Bilirubin 1.4 H 1.5 H AST 20 18 ALT 15 15 Alkaline Phosphatase 40 L 33 L Total Protein 7.3 6.0 Albumin 4.6 3.8 D Globulin 2.7 2.2 L Albumin/Globulin Ratio 1.7 1.7 Lipase 30 Ur Collection Type Clean Catch Urine Color Yellow Urine Clarity Clear Urine pH 5.5 Ur Specific [place] > 1.035 H Urine Protein Trace Urine Glucose (UA) Negative Urine Ketones 3+ A Urine Blood Negative Urine Nitrite Negative Urine Bilirubin Negative Urine Urobilinogen (Auto) Negative Ur Leukocyte Esterase Negative Urine RBC 3 Urine WBC 0 Ur Squamous Epith Cells < 1 Urine Bacteria None Quality Measures Quality Measures VTE prophylaxis Assessment & Plan Assessment Current Active Medications: Generic Name Dose Route Start Last Admin Trade Name Freq PRN Reason Stop Dose Admin Acetaminophen 650 mg 12/24/24 16:48 Acetaminophen 325 Mg Tablet PO 01/23/25 16:47 Q6H PRN Fever >101.5 Gabapentin 100 mg 12/24/24 22:00 12/25/24 05:00 Gabapentin 100 Mg Capsule PO 01/23/25 21:59 Not Given TID LILLI Heparin Sodium (Porcine) 5,000 unit 12/24/24 21:00 12/24/24 22:41 Heparin Sod Inj 5000 Unit/Ml Vial SC 01/07/25 20:59 5,000 unit Q12HR LILLI Administration Lactated Ringer's 1,000 mls @ 50 mls/hr 12/24/24 17:00 12/24/24 19:27 Lactated Ringers IV 12/26/24 08:59 50 mls/hr .Q20H LILLI Administration Levothyroxine Sodium 88 mcg 12/24/24 21:00 12/24/24 23:00 Levothyroxine Sodium 88 Mcg Tablet PO 01/23/25 20:59 Not Given HS LILLI Melatonin 3 mg 12/24/24 21:00 12/25/24 00:00 Melatonin 3 Mg Tablet PO 01/23/25 20:59 3 mg HS LILLI Administration Ondansetron HCl 4 mg 12/24/24 16:53 12/24/24 22:39 Ondansetron Inj 2 Mg/Ml Inj 2 Ml IVP 01/23/25 16:52 4 mg Q4HR PRN Administration NAUSEA Protocol
[2024-12-25 08:16] VITALS: BP 114/75; PULSE 80; RESP 17; TEMP 36.3; O2SAT 96
[2024-12-25] MEDS: ACETAMINOPHEN 325 MG TABLET 650 MG PO (08:48)
[2024-12-25] MEDS: HEPARIN SOD INJ 5000 UNIT/ML VIAL SC (08:51)
--- NOTE | 2024-12-25 08:53 | PC.NURSE ---
NG removed approx 0853 NG intact, pt tolerated well. Pt now sitting and feeling relived with the removal.
[2024-12-25 12:00] VITALS: BP 103/46; PULSE 71; RESP 16; TEMP 36.7; O2SAT 95
--- NOTE | 2024-12-25 12:51 | PC.SS ---
Jorge Wallace is a 79-year-old female admitted to Med Surg for SBO. SS conducted bedside contact with the patient to complete initial assessment and to discuss discharge planning. Role and reason explained. Patient confirmed demographic information. Patient identifies Yves Wallace [phone] as her surrogate decision maker. Pt states she is able to complete all ADL?s independently, she does use a cane when needed and has a walker if needed as well. Pts PCP is Dr. Jung. Pharmacy of choice is [facility]. Discharge options discussed and the pt wishes to return home.? Family will provide transportation upon DC. No further intervention required at this time, social work program coordinator would be available to address any further concerns. DC Plan: Home Contact: Yves Address: Confirmed on face sheet PCP: Fabiana
[2024-12-25] MEDS: GABAPENTIN 100 MG CAPSULE PO (13:04)
--- NOTE | 2024-12-25 15:15 | ESDS_ITS ---
<Statement entered by Shun Salter MD - 12/25/24 15:18> Patient seen and examined at bedside, no acute overnight events. I discussed and supervised with the safety intern physician who took care of this patient. I personally saw and examined the patient. I agree with most of the assessment and plan. Plan of care discussed with attending Dr. Torres. Shun Salter MD PGY-2 Planned Discharge Date 12/25/24 DS: Providers Provider Date of admission: 12/24/24 16:48 Primary care physician: Gareth Motta PA-C Admitting Provider: Yasmin Jacobson DO Attending Provider on Admission: Andreia Torres MD Attending Provider on DC: Dr. Torres Discharging Provider: Triny Rea, DS: Diagnosis Problem List Completed Was Problem List Reviewed/Reconciled?: Yes Hospital Course Hospital Course Hospital course: Ms. Wallace is a 78-year-old woman with past medical history significant for cervical cancer status post hysterectomy in 2003 (status post chemo and radiation), and history of recurrent SBO, most recently admitted in November 2024 for SBO that resolved with Gastrografin small bowel series, patient presents with abdominal pain, nausea, vomiting, that improved with metoclopramide, and morphine in the emergency department, on CTAP patient was found to have small bowel pattern, concerning for small bowel obstruction, general surgery was consulted who recommended NG tube placement and small bowel series with Gastrografin. Small bowel series was completed and SBO was resolved on imaging. NG tube removed, patient subsequently had 3 bowel movements, and placed on clear liquid diet. Diet was advanced, and patient tolerated well. Patient stable for discharge. Dx #Small bowel obstruction #Hx of recurrent SBO's likely secondary to #Cervical cancer status post hysterectomy 2003 #Leukocytosis #Cholelithiasis #GERD #Hypothyroidism #Low back pain Discharge Plan Please continue taking all home meds as previously prescribed. Please follow up with your primary doctor in 7-10 days. Please return to the ED if you develop new or worsening symptoms. Case discussed with my senior resident Dr. Salter Case discussed with my attending Dr. Brian Rea MD PGY-1 Status at Discharge Functional status at discharge: uses cane/walker Time Spent with Patient Time attestation: Total time spent providing and/or coordinating discharge services: Time spent: Greater than 30 minutes Exam Vital Signs Temp Pulse Resp BP Pulse Ox O2 Del Method O2 Flow Rate 98.0 F 71 16 103/46 L 95 Room Air 1 12/25/24 12:00 12/25/24 12:00 12/25/24 12:00 12/25/24 12:00 12/25/24 12:00 12/25/24 12:00 12/25/24 08:16 Narrative Exam GENERAL: no acute distress, AAO x3, comfortably laying in bed HEENT: Head AT/ NC. Mucous membranes moist. CARDIOVASCULAR: RRR. Normal S1/S2, No m/r/g. No pitting edema of bilateral LEs. RESPIRATORY: CTAB. No wheezing, rhonchi, crackles. GASTROINTESTINAL: Abdomen soft, non tender no palpable masses. Bowel sounds present MUSCULOSKELETAL:? No cyanosis or edema, no visible joint swelling. NEUROLOGICAL: CN II-XII grossly intact. No focal deficits. Sensation intact, symmetric. PSYCHIATRIC: Awake and alert, not agitated, normal mood and affect. SKIN: No obvious rashes, no jaundice, normal turgor. Discharge Plan Plan Patient Disposition: HOME (Self Care) Patient condition on transfer: Stable Care Plan Goals: Please continue taking all home meds as previously prescribed. Please follow up with your primary doctor in 7-10 days. Please return to the ED if you develop new or worsening symptoms. Prescriptions/Referrals Prescriptions/Med Rec: Continued levothyroxine 88 mcg Capsule 88 mcg PO ONCE HS Rx Instructions: Q nightly on an empty stomach pantoprazole 40 mg tablet,delayed release (DR/EC) 40 mg PO DAILY PRN (Reason: Heartburn) Rx Instructions: per patient does not take it everyday just when she needs it melatonin 10 mg Tablet 10 mg PO HS PRN (Reason: sleep) cholecalciferol (vitamin D3) [Vitamin D3] 25 mcg (1,000 unit) Capsule 25 mcg PO BID psyllium husk [Daily Fiber] 0.52 gram Capsule 0.52 g PO BID vitamin K2 100 mcg Capsule 100 mcg PO QDAY gabapentin 100 mg Capsule 100 mg PO TID Rx Instructions: 2 caps TID, but pt only takes 2 caps in the morning for back pain; per patient does not take it everyday just when she needs it calcium carbonate [Calcium 600] 600 mg calcium (1,500 mg) Tablet 600 mg PO BID Rx Instructions: 600mg BID [id number]-lycopen-lutein 500-300-250 mcg Tablet 1 tab PO DAILY Referrals: Gareth Motta PA-C [Primary Care Provider] - Patient/Caregiver Discharge Instructions Discharge Activity: activity as tolerated Education Materials: Small Bowel Obstruction, How the Colon Works Print Language: Jordanian Stand Alone Forms: Suzan Award Info., Patient Portal Info Letter Discharge Order Discharge Orders: Discharge (Routine); Ordered 12/25/24 Ordered By: Triny Rea Quality Discharge Quality Measures VTE prophylaxis Attestestation MD Attestation I attest that I was physically present for the evaluation, physical examination, lab and imaging review of the patient with the residents. I discussed the case with the residents and agree with the findings and plans of care as documented above. At bedside today, patient appears comfortable, denies any new complaints. Her abdominal pain, nausea and vomiting has resolved completely. Patient has passed multiple bowel movements. Discontinued her NG tube, started on diet patient tolerated well. Vital signs and labs results are stable, patient is stable for discharge to home. Andreia Torres MD
--- NOTE | 2024-12-25 15:30 | PC.SS ---
Rounding: Plan to increase diet, if tolerates late DC home today or tomorrow
--- NOTE | 2024-12-25 15:47 | PC.NURSE ---
Verified MD Rea about pts dc per MD cont with DC pt no further interventions to be done.
[2024-12-25 16:00] VITALS: BP 129/68; PULSE 71; RESP 17; TEMP 36.4; O2SAT 96
== END 2024-12-25 16:22 | disposition home or self-care (01) | DRG 389 ==
LOC: SERX 17:03 → SERHOLD 12-25 05:34 → S3SX 12-25 05:34
PROVIDERS: Nurse Practitioner Family; Admitting Provider Internal Medicine; Emergency Provider Emergency Medicine; PCP Student in an Organized Health Care Education/Training Program; Visit Provider Student in an Organized Health Care Education/Training Program
DX: K56.609 Unspecified intestinal obstruction, unspecified as to partial versus complete obstruction (principal); I47.20 Ventricular tachycardia, unspecified; E03.9 Hypothyroidism, unspecified; D72.829 Elevated white blood cell count, unspecified; K80.20 Calculus of gallbladder without cholecystitis without obstruction; K21.9 Gastro-esophageal reflux disease without esophagitis; M54.50 Low back pain, unspecified; Z85.42 Personal history of malignant neoplasm of other parts of uterus; Z92.3 Personal history of irradiation; Z90.710 Acquired absence of both cervix and uterus; Z79.899 Other long term (current) drug therapy; Z85.41 Personal history of malignant neoplasm of cervix uteri; Z92.21 Personal history of antineoplastic chemotherapy; Z96.643 Presence of artificial hip joint, bilateral; Z96.652 Presence of left artificial knee joint
CPT/HCPCS: 36415; 74018; 74177; 74250; 80053; 81001; 83605; 83690; 83735; 84100; 85025; 85610; 85730; 87081; 96361; 96365; 96366; 96375; A4649; J1644; J1885; J2270; J2405; J2765; J3475; J3490; J7120; Q9963; Q9967; A9270

== ENCOUNTER 2024-12-30 07:28 | Inpatient (IN) | payer OTHER, MEDICARE, SELFPAY ==
[2024-12-30] VITALS (13 sets, daily range): BP systolic 122–150; BP diastolic 72–97; PULSE 78–107; RESP 15–20; TEMP 36.1–37.6; O2SAT 96–100; BMI 21.9
--- NOTE | 2024-12-30 07:48 | XR_ITS ---
Examination: CT abdomen with intravenous contrast CT pelvis with intravenous contrast 2-D coronal reconstructions 2-D sagittal reconstructions Date and time of exam:December 30, 2024 1046 hours Comparison December 24, 2024 INDICATIONS: Onset lower abdominal pain beginning one week ago, small bowel obstruction pattern on CT abdomen pelvis December 24, 2024. CTDI: vol (mGy) 6.13 DLP: (mGycm) 301 Technique: Multiple axial sections of the abdomen and pelvis have been obtained. 64 slice high-resolution scanner used. 3 mm axial sections have been obtained, post intravenous injection 60 cc [id number] 2-D sagittal, coronal reconstructions obtained. Low dose protocols were performed. One or more of the following dose reduction techniques were used; automated exposure control, adjustment of the mA and/or KV according to patient size, use of iterative reconstruction technique. 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
--- NOTE | 2024-12-30 08:22 | PD.EDABDPN ---
ED Abdominal Pain RME/HPI General Chief Complaint: Abdominal Pain Stated complaint: BURNING ABD PAIN; SEEN ER LAST SATURDAY BLOCKAGE Time seen by provider: 12/30/24 08:19 Arrival date/time: 12/30/24 07:28 RME / HPI RME / HPI narrative: 79 year old female with history of cervical cancer s/p hysterectomy (2003), s/p chemo and radiation therapy, recurrent SBO with admissions (most recently admitted 12/24-12/25/2024 and bowel obstruction resolved with Gastrografin small bowel series) presents to the ED for evaluation of abdominal pain today. States her pain began the day she was discharged home from this facility for small bowel obstruction. Described as a burning sensation that is located most to the mid abdomen without radiation, rating 10/10 in severity. Notes the pain today is different than previous bowel obstructions. Reportedly consulted with PCP 2 days ago who prescribed Pantroprazole and Sucralfate which she says only provides temporary relief. Mentioned she had an EGD and colonoscopy in the past by Dr. Soto showing esophageal ulcers. Denies fevers, chills, chest pain, cough, shortness of breath, vomiting, diarrhea, constipation, or urinary symptoms. Related Data Home Medications ?Medication ?Instructions ?Recorded ?Confirmed levothyroxine 88 mcg capsule 88 mcg PO ONCE HS 10/18/17 12/24/24 cholecalciferol (vitamin D3) 25 25 mcg PO BID 12/26/22 12/24/24 mcg (1,000 unit) capsule (Vitamin D3) psyllium husk 0.52 gram capsule 0.52 g PO BID 12/26/22 12/24/24 (Daily Fiber) vitamin K2 100 mcg capsule 100 mcg PO QDAY 12/26/22 12/24/24 melatonin 10 mg tablet 10 mg PO HS PRN sleep 05/12/23 12/24/24 pantoprazole 40 mg tablet,delayed 40 mg PO DAILY PRN Heartburn 05/12/23 12/24/24 release calcium carbonate (Calcium 600) 600 mg PO BID 07/19/23 12/24/24 gabapentin 100 mg capsule 100 mg PO TID 07/19/23 12/24/24 rglsyjwq-muz-uocwx acid 500 1 tab PO DAILY 07/19/23 12/24/24 mcg-lycopene 300 mcg-lutein 250 mcg tablet Allergies Allergy/AdvReac Type Severity Reaction Status Date / Time No Known Allergies Allergy Verified 12/30/24 07:33 Review of Systems Review of Systems Systems Reviewed: All systems reviewed, normal except as documented Past Medical History Past Medical History NEUROLOGIC: Negative Neurological Disorders CARDIAC: Negative Hypertension GASTROINTESTINAL: Positive Gastrointestinal Disorders, Diverticulitis, Diverticulosis, Ulcer, Obstructive Bowel, Hemorrhoids and Gastroesophageal Reflux Disease REPRODUCTIVE: Positive Endometriosis and Previous Pregnancies MUSCULOSKELETAL: Positive Musculoskeletal Disorders, Arthritis, Osteoporosis and Fractures ENDOCRINE: Positive Endocrine Disorders, Hyperthyroidism and Hypothyroidism OTHER HISTORY: Positive Hospitalization, Shingles, Falls, Chemotherapy, Radiation Therapy, Chicken Pox, Measles, Mumps, Cancer and Cervical Cancer Family History FAMILY HISTORY: Positive Family Cardiac Disorders, Family Cancer and Family Surgery Surgical History SURGICAL: Positive Tonsillectomy, Joint Replacement, Hysterectomy and Tubal Ligation Social History SMOKING STATUS: Never smoker SECOND HAND EXPOSURE: No SUBSTANCE USE: does not use Course Quality Measures none Orders Category Date Time Status CT Screening NOW Care 12/30/24 07:48 Active Insert IV NOW Care 12/30/24 07:48 Active Insert NG / OG tube NOW Care 12/30/24 11:[address] abdomen pelvis w con Stat Exams 12/30/24 07:48 Completed CBC Stat Lab 12/30/24 08:18 Completed Comprehensive Metabolic Panel Stat Lab 12/30/24 08:18 Completed Lipase Stat Lab 12/30/24 08:18 Completed UA, C/S IF [Urinalysis, C/S if Indicated] Stat Lab 12/30/24 10:37 Completed Lidocaine 2% Viscous [Xylocaine 2% Viscous] Med 12/30/24 08:28 Discontinued 15 ml PO X1 ONE Midazolam Inj [Versed Inj] Med 12/30/24 11:44 Discontinued 2 mg IVP X1 ONE Morphine Inj Med 12/30/24 07:49 Discontinued 2 mg IVP X1 ONE Ondansetron Inj [Zofran Inj] Med 12/30/24 07:49 Discontinued 4 mg IVP X1 ONE Pantoprazole Inj [Protonix Inj] Med 12/30/24 07:48 Discontinued 40 mg IVP X1 ONE mg Hyd/Al Hyd/Mekhi Susp [Maalox Susp] Med 12/30/24 08:28 Discontinued 30 ml PO X1 ONE Reevaluation(s) Reevaluation #1: We reviewed all the results, analysis, and treatment plans. Time: 11:37 Vital Signs Vital signs: Vital Signs Temperature 99.4 F 12/30/24 07:47 Pulse Rate 98 12/30/24 07:47 Respiratory Rate 18 12/30/24 07:47 Blood Pressure 141/88 H 12/30/24 07:47 Pulse Oximetry (%) 96 12/30/24 07:47 Oxygen Delivery Method Room Air 12/30/24 07:47 Pulse ox is 96% on room air which is adequate. Abdominal Pain MDM MDM Narrative MDM Narrative:: I, Amelie Ibrahim, am scribing for and in the presence of Dr. Kingsley. Patient just got out of the hospital for a small bowel obstruction treated with NG tube and Gastrografin small bowel series. She apparently did well and was discharged several days ago. She presents again today with burning and distention to her abdomen with abdominal pain and decreased bowel movements and feeling of nausea. I interpreted all labs. CT scan done of the abdomen and pelvis with IV contrast today shows evidence for small bowel obstruction with dilated small bowel loops with air-fluid levels. Patient will receive Versed 2 mg IV and an NG tube will be placed. I will discuss this case with the hospitalist as well as general surgeon on-call, Dr. Alexander to consult on this patient. Patient is in stable condition at this time. Patient data External records reviewed:: [facility] previous records (I reviewed admission from 12/24/2024 through 12/25/2024 ) Clinical information provided by:: patient Social determinants that could affect healthcare access:: none Patient has the following chronic illnesses:: cervical cancer s/p hysterectomy (2003), s/p chemo and radiation therapy, recurrent SBO with admissions (most recently admitted 12/24-12/25/2024 and bowel obstruction resolved with Gastrografin small bowel series) How is presenting disease/condition affected by chronic disease/condition?: exacerbated by Evaluation data The following diagnostics were reviewed and interpreted by me:: lab results and radiology exam(s) Lab and/or radiology exams considered but not ordered:: None Interpretation Summary: Ordering Physician: Kevin VIERA)Colin NP Date of Service: 12/30/24 Procedure(s): CT abdomen pelvis w con Accession Number(s): [id number] cc: Gareth Motta PA-C; Colin Brown NP, NP; Sukhdev Wilde MD~ Examination: CT abdomen with intravenous contrast CT pelvis with intravenous contrast 2-D coronal reconstructions 2-D sagittal reconstructions Date and time of exam:December 30, 2024 1046 hours Comparison December 24, 2024 INDICATIONS: Onset lower abdominal pain beginning one week ago, small bowel obstruction pattern on CT abdomen pelvis December 24, 2024. CTDI: vol (mGy) 6.13 DLP: (mGycm) 301 Technique: Multiple axial sections of the abdomen and pelvis have been obtained. 64 slice high-resolution scanner used. 3 mm axial sections have been obtained, post intravenous injection 60 cc [id number] 2-D sagittal, coronal reconstructions obtained. Low dose protocols were performed. One or more of the following dose reduction techniques were used; automated exposure control, adjustment of the mA and/or KV according to patient size, use of iterative reconstruction technique. 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 Dictated By: Sukhdev Wilde MD Signed By: <Electronically signed by Sukhdev Wilde MD in OV> 12/30/24 1108 Medications / Prescriptions Medications or Prescriptions considered but not ordered:: None Medication administrations:: Medication Administration History Discontinued Medications Al Hydrox/Mg Hydrox/Simethicone (Mg Hyd/Al Hyd/Mekhi (Maalox Reg) Susp 30 Ml Udc) 30 ml PO X1 ONE Stop: 12/30/24 08:29 Last Admin: 12/30/24 08:40 Dose: 30 ml Documented By: EF Lidocaine HCl (Lidocaine Viscous 2% 15 Ml Udc) 15 ml PO X1 ONE Stop: 12/30/24 08:29 Last Admin: 12/30/24 08:40 Dose: 15 ml Documented By: EF Midazolam HCl (Midazolam Inj 1 Mg/Ml Vial 2 Ml) 2 mg IVP X1 ONE Stop: 12/30/24 11:45 Morphine Sulfate (Morphine Sulf Inj 10 Mg/Ml Vial) 2 mg IVP X1 ONE Stop: 12/30/24 07:50 Last Admin: 12/30/24 08:29 Dose: 2 mg Documented By: EF Ondansetron HCl (Ondansetron Inj 2 Mg/Ml Inj 2 Ml) 4 mg IVP X1 ONE; Protocol Stop: 12/30/24 07:50 Last Admin: 12/30/24 08:29 Dose: 4 mg Documented By: EF Pantoprazole Sodium (Pantoprazole Inj 40 Mg Vial) 40 mg IVP X1 ONE Stop: 12/30/24 07:49 Last Admin: 12/30/24 08:29 Dose: 40 mg Documented By: EF See above Consultations Consultation(s) initiated? (list below): No Diagnosis Differential diagnosis abdominal pain: abdominal pain, constipation, small bowel obstruction and other (gastric ulcer ) Most likely diagnosis given after review of the tests above:: None Admission Indicated Admission indicated?: indicated Admission Request Was there a request for admission?: Yes Admission Attestation Admission request attestation: Discussed case with [] from Hospitalist service regarding admission. Discussed patients ED course, exam findings, labs, and radiology results. The Hospitalist [agrees,declines] to accept the patient for admission. Disposition Plan Disposition Plan: Admit Discharge Plan Plan Patient Disposition: Admit Acute Care w/in Hospital Prescriptions/Referrals Prescriptions/Med Rec: No Action levothyroxine 88 mcg Capsule 88 mcg PO ONCE HS Rx Instructions: Q nightly on an empty stomach pantoprazole 40 mg tablet,delayed release (DR/EC) 40 mg PO DAILY PRN (Reason: Heartburn) Rx Instructions: per patient does not take it everyday just when she needs it melatonin 10 mg Tablet 10 mg PO HS PRN (Reason: sleep) cholecalciferol (vitamin D3) [Vitamin D3] 25 mcg (1,000 unit) Capsule 25 mcg PO BID psyllium husk [Daily Fiber] 0.52 gram Capsule 0.52 g PO BID vitamin K2 100 mcg Capsule 100 mcg PO QDAY gabapentin 100 mg Capsule 100 mg PO TID Rx Instructions: 2 caps TID, but pt only takes 2 caps in the morning for back pain; per patient does not take it everyday just when she needs it calcium carbonate [Calcium 600] 600 mg calcium (1,500 mg) Tablet 600 mg PO BID Rx Instructions: 600mg BID ubxvktzt-exp-MQ-lycopen-lutein 500-300-250 mcg Tablet 1 tab PO DAILY Referrals: Gareth Motta PA-C [Primary Care Provider] - In 1 week Problem List Clinical Impression: Partial small bowel obstruction Patient/Caregiver Discharge Instructions Print Language: Ivorian Stand Alone Forms: Suzan Award Info., Patient Portal Info Letter
[2024-12-30] MEDS: ONDANSETRON INJ 2 MG/ML INJ 2 ML 4 MG IVP (08:29)
[2024-12-30] MEDS: MORPHINE SULF INJ 10 MG/ML VIAL 2 MG IVP (08:29)
[2024-12-30] MEDS: MG HYD/AL HYD/SIME (Maalox Reg) SUSP 30 ML UDC PO (08:40)
[2024-12-30] MEDS: LIDOCAINE VISCOUS 2% 15 ML UDC PO (08:40)
[2024-12-30 08:43] LABS: Basophils # (Auto) 0.0 Thou/mm3 (0.0-0.2); Basophils % (Auto) 0 % (0-2.5); Eosinophils # (Auto) 0.0 Thou/mm3 (0.0-0.5); Eosinophils % (Auto) 1 % (0-10); Hematocrit 41.2 % (36.0-46.0); Hemoglobin 14.3 g/dL (12.0-16.0); Immature Granulocytes Auto 0.03 Thou/mm3 (0.00-0.00); Lymphocytes # (Auto) 0.8 Thou/mm3 (1.0-4.8); Lymphocytes % (Auto) 10 % (10-50); Mean Corpuscular HGB Conc 34.7 g/dl (31.0-37.0); Mean Corpuscular Hemoglobin 30.4 pg (25.0-35.0); Mean Corpuscular Volume 88 fL (80-100); Monocytes # (Auto) 0.9 Thou/mm3 (0.0-0.8); Monocytes % (Auto) 13 % (0-12); Neutrophils # (Auto) 5.8 Thou/mm3 (1.8-7.7); Neutrophils % (Auto) 76 % (37-80); Nucleated Red Blood Cell # 0.00 Thou/mm3 (0.00-0.00); Nucleated Red Blood Cell % 0 /100 WBC (0); Platelet Count 270 Thou/mm3 (140-440); RDW Standard Deviation 39.8 fL (36.4-46.3); Red Blood Count 4.70 Miln/mm3 (4.00-5.20); White Blood Count 7.6 Thou/mm3 (3.6-11.0)
[2024-12-30 09:02] LABS: Alanine Aminotransferase 12 U/L (10-49); Albumin, Serum 4.3 gm/dL (3.4-4.8); Albumin/Globulin Ratio 1.5 (1.2-2.2); Alkaline Phosphatase 46 U/L (46-116); Anion Gap 15 (7-16); Aspartate Amino Transferase 16 U/L (0-34); BUN/Creatinine Ratio 15 Ratio (12-20); Bilirubin,Total 1.2 mg/dL (0.3-1.2); Blood Urea Nitrogen 12 mg/dL (9-23); Calcium 9.5 mg/dL (8.3-10.6); Calcium (Corrected) 9.5 mg/dL (8.5-10.1); Carbon Dioxide 25.9 mMol/L (20.0-31.0); Chloride 97 mMol/L (98-107); Creatinine (Component) 0.8 mg/dL (0.6-1.3); Estimated Creatinine Clearance 47.2 mL/min (>60); Globulin 2.8 gm/dL (2.3-3.5); Glucose 118 mg/dL (74-106); Lipase 23 U/L (12-53); Osmolality,Calculated 276 (275-295); Potassium 4.2 mMol/L (3.4-5.1); Sodium 138 mMol/L (136-145); Total Protein 7.1 gm/dL (5.7-8.2); eGFR > 60 See Note
[2024-12-30 10:45] LABS: Collection Type, Urine Clean Catch
[2024-12-30 10:50] LABS: Bilirubin,Urine Negative (Negative); Blood,Urine Negative (Negative); Clarity,Urine Clear (Clear/Hazy); Color,Urine Lt-Yellow (Lt Yel-Yel); Culture Indicated,Urine Not Indicated; Glucose, Urine Negative (Negative); Ketones,Urine 4+ (Negative); Leukocyte Esterase,Urine Negative (Negative); Nitrite,Urine Negative (Negative); PH,Urine 6.0 (5.0-7.0); Protein,Urine Negative (Neg - Trace); RBC,Urine 1 /hpf (0-3); Specific Gravity,Urine 1.016 (1.001-1.035); Squamous Epithelial Cell,Urine 1 /hpf (0-5); Urobilinogen,Urine Negative mg/dL (0.0-1.0); WBC,Urine < 1 /hpf (0-5)
--- NOTE | 2024-12-30 12:39 | XR_ITS ---
Examination: Small bowel series Abdomen supine AP 3 views Date and time: December 30, 2024 1331 hours INDICATIONS: Abdominal pain and distention this week TECHNIQUE AND FINDINGS: Patient received 120 cc Gastrografin, immediate, 30 minute, 1 hour abdomen films Contrast in the duodenum and stomach IMPRESSION: Early small bowel series films Recommend follow-up films 4:00 PM, 6:00 PM, 8:00 PM
[2024-12-30] MEDS: MIDAZOLAM INJ 1 MG/ML VIAL 2 ML 2 MG IVP (12:50)
--- NOTE | 2024-12-30 12:57 | XR_ITS ---
Examination: Abdomen AP single view Technique: AP portable supine abdomen, single view Exam date and time: December 30, 2024 1236 hours INDICATIONS: Post orogastric tube placement. FINDINGS: Orogastric tube is coiled in the esophagus IMPRESSION: Remove the orogastric tube completely and reinsert
--- NOTE | 2024-12-30 16:45 | XR_ITS ---
Examination: Abdomen AP single view Technique: AP portable supine abdomen, single view Exam date and time: December 30, 2024 1637 hours INDICATIONS: Abdominal pain and distention this week, small bowel obstruction pattern on CT abdomen and pelvis study this morning, 3 hour delayed film for small bowel series. FINDINGS: Contrast in distended small bowel loops measuring up to 5 cm in dimension IMPRESSION:: Small bowel obstruction pattern. Multiple delayed films will be obtained
--- NOTE | 2024-12-30 18:01 | ESHP_ITS ---
<Statement entered by Shun Salter MD - 12/30/24 20:16> Patient seen and examined at bedside. I discussed and supervised with the paralegal internship physician who took care of this patient. I personally saw and examined the patient. I agree with most of the assessment and plan. Patient presented with abdominal pain, found to have SBO on imaging. Patient discharged from [place] about 1 week ago with SBO that resolved after gastrograffin. Gen surgery consulted by ED, started gastrograffin series, however decided to take patient for ex-lap given recurrence of SBO in short time frame. Vitals remain stable. NG tube was attempted, however coiled in patients mouth causing significant distress. Patient refused reattempt. Discussed risks and benefits of NG tube, patient verbalized understanding. IVF with LR ordered. Plan of care discussed with attending Dr. Brian aSlter MD PGY-2 Documentation for date of: 12/30/24 HPI History of Present Illness History of present illness: Ms. Wallace is a 79-year-old woman with past medical history of hypothyroidism, cervical cancer status post hysterectomy in 2003 (with chemo and radiation), compression fractures to the right lower extremity, bilateral hip replacements, left knee replacement, she has a history of recurrent SBO requiring multiple trips to the hospital most recent hospitalization was last week 12/25 for SBO, typically her obstructions resolved with Gastrografin small bowel series however today she presents due to 6 days of abdominal pain and anorexia secondary to pain. On Monday 12/25 patient was discharged from the hospital after she cleared small bowel series with Gastrografin, per patient she started to experience colicky abdominal pain that she describes as sharp in quality, she continued to have abdominal pain that was not relieved with any interventions, however eating exacerbated her pain. Patient reports having bowel movements throughout the past few days that have been normal in quality, and she endorses passing gas. Her last bowel movement was this morning, before she presented to the emergency department. Patient reports that her abdominal pain is different than her prior obstructive pain. She describes the abdominal pain as burning and diffuse over her abdomen which prompted her to come to the emergency department ROS Endorses abdominal pain, anorexia, nausea and vomiting Negative for fever, chills, dysuria, constipation, diarrhea ED course Patient presented with abdominal pain concerning for small bowel obstruction, on CTAP found to have dilated loops of bowel consistent with SBO. Started patient on Gastrografin small bowel series. ED doc states that he spoke to Dr. Parnell and expresses that he may need to proceed with ex lap given that she has not shown advancement of contrast through the bowel. Dx * CTAP with dilated loops of bowel consistent with SBO * KUB small bowel series with Gastrografin, without progression of contrast through the bowel * Dr. Parnell consulted, appreciate recs, plan for exlap Tx ?Patient n.p.o. -NG tube attempted to be placed however was coiling, patient unable to tolerate discussed with patient the risk of potential aspiration if she were to vomit, ? Zofran 4 mg IV ?Pantoprazole 40 mg IV ?Morphine IV 2 mg -Lidocaine p.o. 15 mL ? Midazolam 2 mg IV Review of Systems Review of Systems Narrative Review of Systems: as per HPI Past Medical History Social History SOCIAL: SOCIAL: No smoking history Patient endorses history of marijuana use as a tea however notes that she has not used within the past several months Patient endorses moderate alcohol intake, per patient 1 glass every once in a while Patient lives in home with and is independent of ADLs and IADLs Patient able to ambulate with cane Exam Vital Signs Temp Pulse Resp BP Pulse Ox O2 Del Method 98.9 F 78 16 136/97 H 97 Room Air 12/30/24 16:31 12/30/24 16:31 12/30/24 16:31 12/30/24 16:31 12/30/24 16:31 12/30/24 16:31 Narrative Exam GENERAL: AAO x3, uncomfortable laying on back, HEENT: Head AT/ NC. Mucous membranes dry. CARDIOVASCULAR: RRR. Normal S1/S2, No m/r/g. No pitting edema of bilateral LEs. RESPIRATORY: CTAB. No wheezing, rhonchi, crackles. GASTROINTESTINAL: Abdomen soft, bowel sounds hypoactive on Left side and present on Right. grimaces to palpation superficial and deep. MUSCULOSKELETAL:? No cyanosis or edema, no visible joint swelling. NEUROLOGICAL: CN II-XII grossly intact. No focal deficits. moving extremities X4 PSYCHIATRIC: Awake and alert, not agitated, normal mood and affect. SKIN: No obvious rashes, no jaundice, poor skin turgor Results: Labs 01/01/25 05:22 01/01/25 05:22 Labs: Short CBC 12/30/24 Range/Units 08:18 WBC 7.6 (3.6-11.0) Thou/mm3 Hgb 14.3 (12.0-16.0) g/dL Hct 41.2 (36.0-46.0) % Plt Count 270 D (140-440) Thou/mm3 BMP 12/30/24 08:18 Sodium 138 Potassium 4.2 Chloride 97 L Carbon Dioxide 25.9 BUN 12 Creatinine 0.8 Glucose 118 H Calcium 9.5 Liver Function 12/30/24 Range/Units 08:18 Total Bilirubin 1.2 (0.3-1.2) mg/dL AST 16 (0-34) U/L ALT 12 (10-49) U/L Alkaline Phosphatase 46 (46-116) U/L Albumin 4.3 (3.4-4.8) gm/dL Urine 12/30/24 Range/Units 10:37 Urine Color Lt-Yellow (Lt Yel-Yel) Urine Clarity Clear (Clear/Hazy) Urine pH 6.0 (5.0-7.0) Ur Specific [place] 1.016 (1.001-1.035) Urine Protein Negative (Neg - Trace) Urine Glucose (UA) Negative (Negative) Quality Measures Quality Measures none Advance care planning discussed with:: patient and spouse Medications Home Medications and Allergies Home Medications ?Medication ?Instructions ?Recorded ?Confirmed ?Type levothyroxine 88 mcg capsule 88 mcg PO ONCE HS 8 12/31/24 History cholecalciferol (vitamin D3) 25 25 mcg PO BID 12/26/22 12/31/24 History mcg (1,000 unit) capsule (Vitamin D3) psyllium husk 0.52 gram capsule 0.52 g PO BID 12/26/22 12/31/24 History (Daily Fiber) vitamin K2 100 mcg capsule 100 mcg PO QDAY 12/26/22 History melatonin 10 mg tablet 10 mg PO HS PRN sleep 12/31/24 History pantoprazole 40 mg tablet,delayed 40 mg PO DAILY PRN H eartburn 05/12/23 12/31/24 History release calcium carbonate (Calcium 600) 600 mg PO BID 07/19/23 12/31/24 History gabapentin 100 mg capsule 100 mg PO DAILY 07/19/23 History pdjtzhml-qxp-wabez acid 500 1 tab PO DAILY 07/19/23 History mcg-lycopene 300 mcg-lutein 250 mcg tablet Allergies Allergy/AdvReac Type Severity Reaction Status Date / Time No Known Allergies Allergy Verified 12/30/24 07:33 Visit Medications Discontinued Medications Al Hydrox/Mg Hydrox/Simethicone (Mg Hyd/Al Hyd/Mekhi (Maalox Reg) Susp 30 Ml Udc) 30 ml PO X1 ONE Stop: 12/30/24 08:29 Last Admin: 12/30/24 08:40 Dose: 30 ml Lidocaine HCl (Lidocaine Viscous 2% 15 Ml Udc) 15 ml PO X1 ONE Stop: 12/30/24 08:29 Last Admin: 12/30/24 08:40 Dose: 15 ml Midazolam HCl (Midazolam Inj 1 Mg/Ml Vial 2 Ml) 2 mg IVP X1 ONE Stop: 12/30/24 11:45 Last Admin: 12/30/24 12:50 Dose: 2 mg Morphine Sulfate (Morphine Sulf Inj 10 Mg/Ml Vial) 2 mg IVP X1 ONE Stop: 12/30/24 07:50 Last Admin: 12/30/24 08:29 Dose: 2 mg Ondansetron HCl (Ondansetron Inj 2 Mg/Ml Inj 2 Ml) 4 mg IVP X1 ONE; Protocol Stop: 12/30/24 07:50 Last Admin: 12/30/24 08:29 Dose: 4 mg Pantoprazole Sodium (Pantoprazole Inj 40 Mg Vial) 40 mg IVP X1 ONE Stop: 12/30/24 07:49 Last Admin: 12/30/24 08:29 Dose: 40 mg Assessment & Plan Plan Ms Wallace is a 78-year-old woman with past medical history significant for cervical cancer status post hysterectomy in 2003 (status post chemo and radiation), and history of recurrent SBO, most recently admitted in November 2024 and 12/24 for SBO that resolved with Gastrografin small bowel series, patient presents with abdominal pain, nausea, vomiting, on CTAP patient was found to have small bowel pattern. in the ED started gastrogaffin small bowel series without advancement of contrast. General surgery consulted, admitted for management of SBO, with plan for ex lap with Dr. Parnell, NPO, no ng tube in place, pt counseled on risks of not placing tube due to risk of aspiration. #Recurrent Small bowel obstruction #Hx of recurrent SBO's likely secondary to #Cervical cancer status post hysterectomy 2003 and #Radiation induced adhesions Given patient's surgical history of hysterectomy in 2003 with radiation likely that she has abdominal adhesions that are contributing to her recurrent small bowel obstructions. pt was discharged for sbo 12/25 for sbo which resolved after small bowel series. pt states that on 12/25 she had recurrence of intermittent abdominal pain. she was able to stool over the past few days, but states that the quality of her pain is different from her prior SBOs. Patient able to stool regularly at home with senna and MiraLAX. Per patient she had 1 regular bowel movements this morning, and endorses passing gas while in the ED Dx - CTAP with evidence of SBO pattern, Tx - Start maintenance IV fluids with NS 75 mL/h (see #electrolyte abnormalities below) - Aspiration precautions - n.p.o. - IV Zofran 4 mg every 6 hours as needed - small bowel series trialed in ED, without advancement of contrast in bowel. - pt deferred NG tube placement given discomfort and issues with coiling in pharynx. pt counseled on the risk of aspiration given no ng tube and potential for emesis with sbo. pt undersood risks and decided to continue without NG tube and alert nursing staff if she was feeling nauseus. - Plan for surgery with Dr. Parnell, ex lap #Electrolyte abnormalities likely 2/2 poor po intake and GI losses, emesis low normal Na and low chloride, tx -IV fluid maintence with NS 75 ml/hr 2 bags given electrolyte abnormalities 2/2 gi loss #weight loss #anorexia 2/2 SBO pain pt reports minimal po intake over the past week given abdominal pain that was exaccerbated with eating. she reports that her weight is now in the 120s lbs, was previously at her target weight of 130s lbs - consult dietition #GERD -pantoprazole 40 mg p.o. IV , transition to PO post op #Hypothyroidism -Continue levothyroxine 88 mg tomorrow after surgery #Low back pain patient reports taking daily APAP for when she goes on walks to help with pain cont home meds post surgery - Continue APAP 650 mg as needed - Continue gabapentin 100 mg 4 times daily - Consider lidocaine patches for pain Dispo: Patient pending surgery with Dr. Parnell for SBO Diet: N.p.o. pending surgery Bowel Reg: Holding VTE ppx: holding pending surgery GI ppx: Pantoprazole 40 mg IV Code status: Full Case discussed with my senior resident Dr. Salter Case discussed with my attending Dr. Brian Rea MD PGY-1 Attending Provider Attestation/Addendum I attest that I was physically present for the evaluation, physical examination, lab and imaging review of the patient with the residents. I discussed the case with the residents and agree with the findings and plans of care as documented above. After examination of the patient and review of the clinical data I feel that this patient needs admission to the hospital for further treatment/evaluation. nAdreia Torres MD
--- NOTE | 2024-12-30 18:13 | PC.NURSE ---
report given to pérez ayon from surgery
[2024-12-30] MEDS: RINGERS LACTATED 1000 ML 1,000 ML 75 ML IV (18:38)
--- NOTE | 2024-12-30 22:32 | ESOP_ITS ---
Date of Procedure 12/30/24 Pre Op Diagnosis Complete small bowel obstruction Post Op Diagnosis Same Procedure Exploratory laparotomy and resection of the terminal ileum and ilio cecostomy Findings Patient is found to have extensive adhesions of the ileum over the pelvis and during the dissection it was stone and could not be lifted up. Procedure Description After the patient was brought to the operating room endotracheal anesthesia was given. Najera catheter was inserted. NG tube was also inserted. Patient received 2 g of Mefoxin. Timeout was performed after the abdominal wall was washed with ChloraPrep solution. Then a lower midline incision was made for about 6 inches and abdominal cavity was entered. Dilated small bowel came into view and I was able to see the distal ileum being normal in caliber attaching to the cecum. I traced the obstructed bowel all the way down to the pelvis where it was firmly adherent and could not be lifted of the pelvis because of the previous radiation for endometrial carcinoma. In the process of releasing it I told her the small bowel and a portion was attached to the pelvic brim and could not be removed. Then I found out the patient had obstruction by a adhesions in the ileum. Terminal ileum was traced to the cecum but it has to be stapled because 1 portion of the bowel was left in the pelvis open. About 6 inches of terminal ileum attached to the cecum was left in place left in the place and stapled. Then I resected the obstructed bowel of the ileum and then performed the ilio cecostomy. I used handsewn anastomosis using 3-0 silk for the outer layer and 3-0 chromic for the inner layer. Bowel was decompressed before the anastomosis then extensive irrigation was carried out and the defunctionalized loop was left in place because it was firmly adherent to the pelvis. After extensively irrigating the wound and confirming the sponges the peritoneum was closed with running PDS. The subcutaneous tissue was left open because of massive contamination and packed with 4 x 4 gauze wet-to-dry. Anesthesia GETA Pathology / specimen Other (I resected small bowel) IVF Infused 1,250 Estimated Blood Loss 250 Condition Stable Disposition PACU Surgeon Donna Alexander MD Surgical Staff Operation Date: 12/30/24 19:15 Case Staff Anesthesiologist: Foreign Walton RNprecision filer hand: Jeanine Wharton
--- NOTE | 2024-12-30 22:34 | SUR.PHASEI ---
pt received to pacu bay 5 via bed. vss. breathing even and unlabored. dressing cdi to mid abdomen wet to dry dressing with medipore tape. fc draining to gravity. low I/S connected, flushed per dr pereyra. dark green return. report from dr barton, dr pereyra and nurse chalino.
--- NOTE | 2024-12-30 23:30 | SUR.PHASEI ---
report called to [facility]. transported to room via bed. vss. breathing even and unlabored. medicated for pain by dr barton. patient states some relief. dressing remains cdi. fc draining to gravity
[2024-12-31] VITALS (10 sets, daily range): BP systolic 90–106; BP diastolic 51–71; PULSE 79–107; RESP 14–19; TEMP 36.2–37.2; O2SAT 93–96
[2024-12-31] MEDS: CEFOXITIN 2 GM in SODIUM CHLORIDE 0.9% (Popper) 50 ML IV ×4 (00:15→21:27)
--- NOTE | 2024-12-31 01:53 | PC.NURSE ---
Night pharmacy called saying the the order that Dr. Alexander put for Melatonin 10mg is non-formulary. Night pharmacy also said we only have Melatonin 3mg. RN will contact Dr. Parnell in the AM.
[2024-12-31] MEDS: MORPHINE SULF INJ 10 MG/ML VIAL 3 MG IVP (02:18)
[2024-12-31] MEDS: SODIUM CHLORIDE 0.9% 1000 ML 1,000 ML 75 ML IV (04:36)
[2024-12-31 06:08] LABS: Basophils # (Auto) 0.0 Thou/mm3 (0.0-0.2); Basophils % (Auto) 0 % (0-2.5); Eosinophils # (Auto) 0.0 Thou/mm3 (0.0-0.5); Eosinophils % (Auto) 0 % (0-10); Hematocrit 40.0 % (36.0-46.0); Hemoglobin 13.0 g/dL (12.0-16.0); Immature Granulocytes Auto 0.03 Thou/mm3 (0.00-0.00); Lymphocytes # (Auto) 0.4 Thou/mm3 (1.0-4.8); Lymphocytes % (Auto) 10 % (10-50); Mean Corpuscular HGB Conc 32.5 g/dl (31.0-37.0); Mean Corpuscular Hemoglobin 30.1 pg (25.0-35.0); Mean Corpuscular Volume 93 fL (80-100); Monocytes # (Auto) 0.4 Thou/mm3 (0.0-0.8); Monocytes % (Auto) 11 % (0-12); Neutrophils # (Auto) 3.0 Thou/mm3 (1.8-7.7); Neutrophils % (Auto) 78 % (37-80); Nucleated Red Blood Cell # 0.00 Thou/mm3 (0.00-0.00); Nucleated Red Blood Cell % 0 /100 WBC (0); Platelet Count 289 Thou/mm3 (140-440); RDW Standard Deviation 42.8 fL (36.4-46.3); Red Blood Count 4.32 Miln/mm3 (4.00-5.20); White Blood Count 3.8 Thou/mm3 (3.6-11.0)
[2024-12-31 06:21] LABS: INR 1.0 (0.9-1.3); Partial Thromboplastin Time 26.8 Seconds (22.0-36.0); Prothrombin Time 11.4 Seconds (9.0-12.2)
[2024-12-31 07:05] LABS: Alanine Aminotransferase 10 U/L (10-49); Albumin, Serum 3.5 gm/dL (3.4-4.8); Albumin/Globulin Ratio 1.7 (1.2-2.2); Alkaline Phosphatase 31 U/L (46-116); Anion Gap 16 (7-16); Aspartate Amino Transferase 13 U/L (0-34); BUN/Creatinine Ratio 11 Ratio (12-20); Bilirubin,Total 0.8 mg/dL (0.3-1.2); Blood Urea Nitrogen 13 mg/dL (9-23); Calcium 8.5 mg/dL (8.3-10.6); Calcium (Corrected) 8.9 mg/dL (8.5-10.1); Carbon Dioxide 21.2 mMol/L (20.0-31.0); Cardiac Risk Estimate 3.3 RATIO (3.7-5.6); Chloride 105 mMol/L (98-107); Cholesterol 98 mg/dL (132-200); Creatinine (Component) 1.2 mg/dL (0.6-1.3); Estimated Creatinine Clearance 31.4 mL/min (>60); Globulin 2.1 gm/dL (2.3-3.5); Glucose 183 mg/dL (74-106); HDL Cholesterol 30 mg/dL (40-60); LDL Cholesterol,Calculated 51 mg/dL (0-130); Magnesium 1.0 mg/dL (1.6-2.6); Osmolality,Calculated 288 (275-295); Phosphorous 4.1 mg/dL (2.4-5.1); Potassium 3.4 mMol/L (3.4-5.1); Sodium 142 mMol/L (136-145); Total Protein 5.6 gm/dL (5.7-8.2); Triglycerides 85 mg/dL (30-150); eGFR 46 See Note
[2024-12-31] MEDS: RINGERS LACTATED 1000 ML 1,000 ML 100 ML IV ×2 (11:45→21:28)
[2024-12-31] MEDS: POTASSIUM CHL 10 mEq IVPB 10 MEQ/100 ML BAG 100 MEQ IV ×2 (11:46→12:37)
[2024-12-31] MEDS: Magnesium Sulfate 2 GM Ivpb 2 GM/50 ML BAG IV (11:46)
--- NOTE | 2024-12-31 12:09 | PC.SS ---
Jorge Wallace is a 79-year-old female admitted for SBO.. SS conducted bedside contact with the patient to complete initial assessment and to discuss discharge planning. Role and reason explained. Patient confirmed demographic information. Patient identifies Yves Wallace [phone] as her surrogate decision maker. Patient states she is able to complete all ADL?s independently, she does utilize a cane to assist with ambulation. Patients PCP is Dr. Gareth Jung. Pharmacy of choice is [facility]. Discharge options discussed and the pt wishes to return home.? Family will provide transportation upon DC. No further intervention required at this time, social service coordinator would be available to address any further concerns. DC Plan: Home Contact: Yves Address: Confirmed on face sheet
[2024-12-31] MEDS: Magnesium Sulfate 4 GM Ivpb 4 GM/50 ML BAG IV (13:29)
[2024-12-31] MEDS: ACETAMINOPHEN IVPB 1,000 MG/100 ML VIAL 250 MG IV (14:31)
--- NOTE | 2024-12-31 15:15 | PD.SURPROG ---
Documentation for date of: 12/31/24 Subjective Subjective Narrative: The patient appears better today and is not having too much pain. Exam Vital Signs Temp Pulse Resp BP Pulse Ox O2 Del Method O2 Flow Rate 97.8 F 103 H 16 96/60 94 L Nasal Cannula 1 12/31/24 12:00 12/31/24 12:00 12/31/24 12:00 12/31/24 12:00 12/31/24 12:00 12/31/24 04:00 12/31/24 07:22 Her vital signs are normal other than tachycardia that is probably yesterday Routine Abdominal Exam Comments: Abdominal examination is benign. Results Results: Laboratory Laboratory Narrative: Laboratory results show normal hemoglobin and white blood count. Electrolytes are within normal limits Assessment & Plan Assessment Additional comments: Impression: Stable post following small bowel obstruction Plan Plan: We shall continue present management and monitor closely for any complication PROCEDURES: Procedures Exploratory laparotomy and resection of the terminal ileum and ilio cecostomy
--- NOTE | 2024-12-31 17:43 | ESPR_ITS ---
<Statement entered by Jerry Webb MD - 12/31/24 18:16> No acute overnight events noted. Patient underwent ex lap for SBO overnight which showed adhesions and ileocecostomy was performed. Patient will be n.p.o. Will continue with fluids and manage pain. I discussed and supervised with the grinder set up operator internal physician who took care of this patient. I personally saw and examined the patient. I agree with most of the assessment and plan. Disclaimer: Despite multiple revisions, due to the dictation software being used, the document bellow may not be free of grammatical errors including phonetic/typographic errors. However, this does not deter from our commitment to providing health care in the patient's best interest in mind. Plan of care discussed with attending Physician Dr. Kavon Webb MD PGY-3 Documentation for date of: 12/31/24 Subjective Subjective Interval history: no acute events overnight. pt s/p surgery with Dr. Parnell (ex lap) for adhesion take down pt reports mild pain with deep inspiration. Exam Vital Signs Temp Pulse Resp BP Pulse Ox O2 Del Method O2 Flow Rate 98.9 F 95 17 98/55 L 95 Nasal Cannula 1 12/31/24 16:00 12/31/24 16:00 12/31/24 16:00 12/31/24 16:00 12/31/24 16:00 12/31/24 04:00 12/31/24 07:22 24 hr VS reviewed, satting well on NC, BP soft in 90s . Narrative Exam GENERAL: no acute distress, AAO x3, mild discomfort laying in bed HEENT: Head AT/ NC. Mucous membranes dry. PERRL. NG tube in place NECK: Supple, no lymphadenopathy, no carotid bruits. CARDIOVASCULAR: RRR. Normal S1/S2, No m/r/g. No pitting edema of bilateral LEs. RESPIRATORY: CTAB. No wheezing, rhonchi, crackles. GASTROINTESTINAL: Abdomen soft, non tender no palpable masses. Bowel sounds present. midline abdominal incision, packed with gauze. mildly tender len incision MUSCULOSKELETAL:? No cyanosis or edema, no visible joint swelling. NEUROLOGICAL: CN II-XII grossly intact. No focal deficits. Sensation intact, symmetric. PSYCHIATRIC: Awake and alert, not agitated, normal mood and affect. SKIN: No obvious rashes, no jaundice, normal turgor. Objective Labs 01/01/25 05:22 01/01/25 05:22 Labs: Laboratory Results - last 24 hr 12/31/24 04:39 WBC 3.8 D RBC 4.32 Hgb 13.0 Hct 40.0 MCV 93 MCH 30.1 MCHC 32.5 RDW Std Deviation 42.8 Plt Count 289 Neut % (Auto) 78 Lymph % (Auto) 10 [place] % (Auto) 11 Eos % (Auto) 0 Baso % (Auto) 0 Neut # (Auto) 3.0 Lymph # (Auto) 0.4 L [place] # (Auto) 0.4 Eos # (Auto) 0.0 Baso # (Auto) 0.0 Immature Gran # (Auto) 0.03 H Absolute Nucleated RBC 0.00 Immature Gran % 1 H Nucleated RBC % 0 PT 11.4 INR 1.0 APTT 26.8 Sodium 142 Potassium 3.4 D Chloride 105 Carbon Dioxide 21.2 Anion Gap 16 BUN 13 Creatinine 1.2 Estim Creat Clear Calc 31.4 L eGFR 46 L BUN/Creatinine Ratio 11 L Glucose 183 H D Calculated Osmolality 288 Calcium 8.5 Corrected Calcium 8.9 Phosphorus 4.1 Magnesium 1.0 L Total Bilirubin 0.8 AST 13 ALT 10 Alkaline Phosphatase 31 L D Total Protein 5.6 L Albumin 3.5 D Globulin 2.1 L Albumin/Globulin Ratio 1.7 Triglycerides 85 Cholesterol 98 L LDL Cholesterol, Calc 51 HDL Cholesterol 30 L Cholesterol/HDL Ratio 3.3 L Quality Measures Quality Measures VTE prophylaxis Advance care planning discussed with:: patient and spouse Assessment & Plan Assessment Current Active Medications: Generic Name Dose Route Start Last Admin Trade Name Adair PRN Reason Stop Dose Admin Gabapentin 100 mg 12/31/24 06:00 12/31/24 07:35 Gabapentin 100 Mg Capsule PO 01/30/25 05:59 Not Given TID LILLI Lactated Ringer's 1,000 mls @ 100 mls/hr 12/31/24 08:32 12/31/24 11:45 Lactated Ringers IV 01/01/25 14:31 100 mls/hr .Q10H LILLI Administration Cefoxitin Sodium 2 gm/ Sodium 50 mls @ 100 mls/hr 12/31/24 14:00 12/31/24 14:31 Chloride IV 01/07/25 00:00 100 mls/hr Q8HR LILLI Administration Acetaminophen 1,000 mg in 100 mls @ 250 mls/hr 12/31/24 13:41 12/31/24 14:31 Ofirmev Inj IV 01/01/25 06:23 250 mls/hr Q6HR PRN Administration pain Melatonin 9 mg 12/31/24 10:02 Melatonin 3 Mg Tablet PO 01/30/25 10:01 HS PRN sleep Morphine Sulfate 3 mg 12/30/24 23:42 12/31/24 02:18 Morphine Sulf Inj 10 Mg/Ml Vial IVP 01/04/25 23:41 3 mg Q6HR PRN Administration PAIN Protocol Ondansetron HCl 4 mg 12/30/24 18:13 Ondansetron Inj 2 Mg/Ml Inj 2 Ml IVP 01/29/25 18:12 Q6HR PRN NAUSEA OR VOMITING Protocol Pantoprazole Sodium 40 mg 12/31/24 09:00 12/31/24 08:15 Pantoprazole Inj 40 Mg Vial IVP 01/30/25 08:59 40 mg QDAY LILLI Administration Plan Ms Wallace is a 78-year-old woman with past medical history significant for cervical cancer status post hysterectomy in 2003 (status post chemo and radiation), and history of recurrent SBO, most recently admitted in November 2024 and 12/24 for SBO that resolved with Gastrografin small bowel series, patient presents with abdominal pain, nausea, vomiting, on CTAP patient was found to have small bowel pattern. in the ED started gastrogaffin small bowel series without advancement of contrast. General surgery consulted, admitted for management of SBO, s/p ex lap with Dr. Parnell, NPO, ng tube in place on low intermittent suction with some output. #s/p ex lap with adhesion lysis and ilioceostomy with Dr. Parnell -POD 1 #Recurrent Small bowel obstruction #Hx of recurrent SBO's likely secondary to #Cervical cancer status post hysterectomy 2003 and #Radiation induced adhesions Given patient's surgical history of hysterectomy in 2003 with radiation likely that she has abdominal adhesions that are contributing to her recurrent small bowel obstructions. pt was discharged for sbo 12/25 for sbo which resolved after small bowel series. pt states that on 12/25 she had recurrence of intermittent abdominal pain. she was able to stool over the past few days, but states that the quality of her pain is different from her prior SBOs. Patient able to stool regularly at home with senna and MiraLAX. Per patient she had 1 regular bowel movements this morning, and endorses passing gas while in the ED, s/p adhesion lysis and ilioceostomy. incision is open with gauze wet to dry dressing. transient leukocytosis resolved. Dx - CTAP with evidence of SBO pattern, Tx - Start maintenance IV fluids with NS 100 mL/h (see #electrolyte abnormalities below) - Aspiration precautions - n.p.o. - IV Zofran 4 mg every 6 hours as needed - small bowel series trialed in ED, without advancement of contrast in bowel. - wet to dry dressing changes for midline abdominal incision - insentivie spirometer, encourage pt to utilize to prevent atelectasis. pt advised to use iv pain medication to help minimize pain with inspiration and allow her to do IS. #Electrolyte abnormalities likely 2/2 poor po intake and GI losses, emesis low normal Na and low chloride, tx -IV fluid maintence with NS 100 ml/hr 4bags given npo post op #weight loss #anorexia 2/2 SBO pain pt reports minimal po intake over the past week given abdominal pain that was exaccerbated with eating. she reports that her weight is now in the 120s lbs, was previously at her target weight of 130s lbs - consult dietition, appreciate recs #GERD -pantoprazole 40 mg p.o. IV , #Hypothyroidism -HOLD levothyroxine 88 mg tomorrow after surgery #Low back pain patient reports taking daily APAP for when she goes on walks to help with pain cont home meds post surgery - HOLD APAP 650 mg as needed - HOLD gabapentin 100 mg 4 times daily - HOLD lidocaine patches for pain Dispo: Patient s/p surgery with Dr. Parnell for SBO, open incision with wet to dry dressing Diet: N.p.o. post op Bowel Reg: Holding VTE ppx: SCD GI ppx: Pantoprazole 40 mg IV Code status: Full Case discussed with my senior resident Dr. Webb Case discussed with my attending Dr. Kavon Rea MD PGY-1 Attending Provider Attestation/Addendum Yasmin Mir DO, attest that I was physically present for the arzola portions of the service and evaluated the patient with the resident and I reviewed and discussed the case with the resident and agree with the resident's findings and plans of care as documented above Patient seen and evaluated a.m. Patient states that her pain tolerable at rest. However, encourage patient to use incentive spirometer during which she complained of some pain with deep inspiration. Emphasized that patient has pain control on board if needed. Dressing over midline incision is clean dry and intact. She is afebrile. No acute events overnight. Continue with postop care. NG tube remains in place with minimal bilious output. Patient remains on cefoxitinfor antibiotic PPx
[2025-01-01] VITALS (8 sets, daily range): BP systolic 98–123; BP diastolic 56–67; PULSE 63–97; RESP 14–20; TEMP 36.1–36.8; O2SAT 93–95; BMI 21.9
[2025-01-01] MEDS: MORPHINE SULF INJ 10 MG/ML VIAL 3 MG IVP ×2 (00:15→11:49)
[2025-01-01] MEDS: CEFOXITIN 2 GM in SODIUM CHLORIDE 0.9% (Popper) 50 ML IV ×3 (05:51→21:09)
[2025-01-01 06:34] LABS: Basophils # (Auto) 0.1 Thou/mm3 (0.0-0.2); Basophils % (Auto) 1 % (0-2.5); Eosinophils # (Auto) 0.0 Thou/mm3 (0.0-0.5); Eosinophils % (Auto) 0 % (0-10); Hematocrit 31.5 % (36.0-46.0); Hemoglobin 10.6 g/dL (12.0-16.0); Immature Granulocytes Auto 1.01 Thou/mm3 (0.00-0.00); Lymphocytes # (Auto) 0.6 Thou/mm3 (1.0-4.8); Lymphocytes % (Auto) 3 % (10-50); Mean Corpuscular HGB Conc 33.7 g/dl (31.0-37.0); Mean Corpuscular Hemoglobin 30.7 pg (25.0-35.0); Mean Corpuscular Volume 91 fL (80-100); Monocytes # (Auto) 1.2 Thou/mm3 (0.0-0.8); Monocytes % (Auto) 7 % (0-12); Neutrophils # (Auto) 14.4 Thou/mm3 (1.8-7.7); Neutrophils % (Auto) 83 % (37-80); Nucleated Red Blood Cell # 0.00 Thou/mm3 (0.00-0.00); Nucleated Red Blood Cell % 0 /100 WBC (0); Platelet Count 212 Thou/mm3 (140-440); RDW Standard Deviation 42.5 fL (36.4-46.3); Red Blood Count 3.45 Miln/mm3 (4.00-5.20); White Blood Count 17.2 Thou/mm3 (3.6-11.0)
[2025-01-01 07:09] LABS: Alanine Aminotransferase 9 U/L (10-49); Albumin, Serum 3.1 gm/dL (3.4-4.8); Albumin/Globulin Ratio 1.5 (1.2-2.2); Alkaline Phosphatase 35 U/L (46-116); Anion Gap 10 (7-16); Aspartate Amino Transferase 12 U/L (0-34); BUN/Creatinine Ratio 27 Ratio (12-20); Bilirubin,Total 0.6 mg/dL (0.3-1.2); Blood Urea Nitrogen 27 mg/dL (9-23); Calcium 8.5 mg/dL (8.3-10.6); Calcium (Corrected) 9.2 mg/dL (8.5-10.1); Carbon Dioxide 25.6 mMol/L (20.0-31.0); Chloride 104 mMol/L (98-107); Creatinine (Component) 1.0 mg/dL (0.6-1.3); Estimated Creatinine Clearance 37.7 mL/min (>60); Globulin 2.1 gm/dL (2.3-3.5); Glucose 125 mg/dL (74-106); Magnesium 2.7 mg/dL (1.6-2.6); Osmolality,Calculated 285 (275-295); Phosphorous 4.4 mg/dL (2.4-5.1); Potassium 4.1 mMol/L (3.4-5.1); Sodium 140 mMol/L (136-145); Total Protein 5.2 gm/dL (5.7-8.2); eGFR 57 See Note
--- NOTE | 2025-01-01 07:54 | ESPR_ITS ---
<Statement entered by Jerry Webb MD - 01/01/25 17:51> Patient was seen and examined at the swollen, DVT was negative. Initially, there was a concern for inability to remove her ring due to swelling however swelling subsided. Pain is well-controlled. Started on clear liquid diet per surgery recs. Fluids were discontinued. Blood cultures repeated due to elevation in white count. Will follow-up final blood cultures results. Replete electrolytes as necessary. I discussed and supervised with the fashion styling intern physician who took care of this patient. I personally saw and examined the patient. I agree with most of the assessment and plan. Disclaimer: Despite multiple revisions, due to the dictation software being used, the document bellow may not be free of grammatical errors including phonetic/typographic errors. However, this does not deter from our commitment to providing health care in the patient's best interest in mind. Plan of care discussed with attending Physician Dr. Kavon Webb MD PGY-3 Documentation for date of: 01/01/25 Subjective Subjective Interval history: No acute events overnight Left hand swelling elevated on blankets and pillows, wedding rings on concern for inability to to remove rings, however swelling resolved Pain well-controlled Exam Vital Signs Temp Pulse Resp BP Pulse Ox O2 Del Method O2 Flow Rate 97.7 F 84 17 102/59 L 93 L Nasal Cannula 1 01/01/25 07:33 01/01/25 07:33 01/01/25 07:33 01/01/25 07:33 01/01/25 07:33 01/01/25 07:33 01/01/25 00:00 Narrative Exam GENERAL: no acute distress, AAO x3, mild discomfort laying in bed HEENT: Head AT/ NC. Mucous membranes dry. PERRL. NECK: Supple, no lymphadenopathy, no carotid bruits. CARDIOVASCULAR: RRR. Normal S1/S2, No m/r/g. No pitting edema of bilateral LEs. RESPIRATORY: CTAB. No wheezing, rhonchi, crackles. GASTROINTESTINAL: Abdomen soft, non tender no palpable masses. Bowel sounds present. midline abdominal incision, packed with gauze. mildly tender len incision, ABD bandage on top MUSCULOSKELETAL:? No cyanosis or edema, no visible joint swelling. NEUROLOGICAL: CN II-XII grossly intact. No focal deficits. Sensation intact, symmetric. PSYCHIATRIC: Awake and alert, not agitated, normal mood and affect. SKIN: No obvious rashes, no jaundice, normal turgor. Objective Labs 01/02/25 04:52 01/02/25 04:52 Labs: Laboratory Results - last 24 hr 01/01/25 05:22 WBC 17.2 H D RBC 3.45 L Hgb 10.6 L D Hct 31.5 L MCV 91 MCH 30.7 MCHC 33.7 RDW Std Deviation 42.5 Plt Count 212 D Neut % (Auto) 83 H Lymph % (Auto) 3 L [place] % (Auto) 7 Eos % (Auto) 0 Baso % (Auto) 1 Neut # (Auto) 14.4 H Lymph # (Auto) 0.6 L [place] # (Auto) 1.2 H Eos # (Auto) 0.0 Baso # (Auto) 0.1 Immature Gran # (Auto) 1.01 H Absolute Nucleated RBC 0.00 Immature Gran % 6 H Nucleated RBC % 0 Sodium 140 Potassium 4.1 D Chloride 104 Carbon Dioxide 25.6 Anion Gap 10 BUN 27 H Creatinine 1.0 Estim Creat Clear Calc 37.7 L eGFR 57 L BUN/Creatinine Ratio 27 H Glucose 125 H D Calculated Osmolality 285 Calcium 8.5 Corrected Calcium 9.2 Phosphorus 4.4 Magnesium 2.7 H Total Bilirubin 0.6 AST 12 ALT 9 L Alkaline Phosphatase 35 L Total Protein 5.2 L Albumin 3.1 L Globulin 2.1 L Albumin/Globulin Ratio 1.5 Quality Measures Quality Measures VTE prophylaxis Advance care planning discussed with:: patient Assessment & Plan Assessment Current Active Medications: Generic Name Dose Route Start Last Admin Trade Name Adair PRN Reason Stop Dose Admin Gabapentin 100 mg 12/31/24 06:00 12/31/24 07:35 Gabapentin 100 Mg Capsule PO 01/30/25 05:59 Not Given TID LILLI Lactated Ringer's 1,000 mls @ 100 mls/hr 12/31/24 08:32 12/31/24 21:28 Lactated Ringers IV 01/02/25 00:31 100 mls/hr .Q10H LILLI Administration Cefoxitin Sodium 2 gm/ Sodium 50 mls @ 100 mls/hr 12/31/24 14:00 01/01/25 05:51 Chloride IV 01/07/25 00:00 100 mls/hr Q8HR LILLI Administration Melatonin 9 mg 12/31/24 10:02 Melatonin 3 Mg Tablet PO 01/30/25 10:01 HS PRN sleep Morphine Sulfate 3 mg 12/30/24 23:42 01/01/25 00:15 Morphine Sulf Inj 10 Mg/Ml Vial IVP 01/04/25 23:41 3 mg Q6HR PRN Administration PAIN Protocol Ondansetron HCl 4 mg 12/30/24 18:13 Ondansetron Inj 2 Mg/Ml Inj 2 Ml IVP 01/29/25 18:12 Q6HR PRN NAUSEA OR VOMITING Protocol Pantoprazole Sodium 40 mg 12/31/24 09:00 12/31/24 08:15 Pantoprazole Inj 40 Mg Vial IVP 01/30/25 08:59 40 mg QDAY LILLI Administration Plan Ms Wallace is a 78-year-old woman with past medical history significant for cervical cancer status post hysterectomy in 2003 (status post chemo and radiation), and history of recurrent SBO, most recently admitted in November 2024 and 12/24 for SBO that resolved with Gastrografin small bowel series, patient presents with abdominal pain, nausea, vomiting, on CTAP patient was found to have small bowel pattern. in the ED started gastrogaffin small bowel series without advancement of contrast. General surgery consulted, admitted for management of SBO, s/p ex lap with Dr. Parnell, NPO, diet advancd to clears which she tolerated well, pending BM. #s/p ex lap with adhesion lysis and ilioceostomy with Dr. Parnell -POD 1 #Recurrent Small bowel obstruction #Hx of recurrent SBO's likely secondary to #Cervical cancer status post hysterectomy 2003 and #Radiation induced adhesions Given patient's surgical history of hysterectomy in 2003 with radiation likely that she has abdominal adhesions that are contributing to her recurrent small bowel obstructions. pt was discharged for sbo 12/25 for sbo which resolved after small bowel series. pt states that on 12/25 she had recurrence of intermittent abdominal pain. she was able to stool over the past few days, but states that the quality of her pain is different from her prior SBOs. Patient able to stool regularly at home with senna and MiraLAX. Per patient she had 1 regular bowel movements this morning, and endorses passing gas while in the ED, s/p adhesion lysis and ilioceostomy. incision is open with gauze wet to dry dressing. transient leukocytosis consider reactive vs infection given recent context of sx . Dx - CTAP with evidence of SBO pattern, Tx - Discontinue maintenance fluids given patient can p.o. well and concern for volume overload considering left hand was swollen - Aspiration precautions - n.p.o. - IV Zofran 4 mg every 6 hours as needed - small bowel series trialed in ED, without advancement of contrast in bowel. - wet to dry dressing changes for midline abdominal incision - insentivie spirometer, encourage pt to utilize to prevent atelectasis. pt advised to use iv pain medication to help minimize pain with inspiration and allow her to do IS. # Left hand swelling Patient had postop left hand swelling with her rings on the ring finger concern for possible constriction of ring finger circulation. Swelling significantly decreased with elevation and discontinuance of IV fluids Dx ? DVT ultrasound left upper extremity hand negative #Electrolyte abnormalities likely 2/2 poor po intake and GI losses, emesis Dx - Daily CMP - replete as needed Mg>2, K>4 #weight loss #anorexia 2/2 SBO pain #Moderate acute disease or injury related malnutrition Patient meets ASPEN criteria for due to: 1. Significant unintentional weight loss. 2. Inadequate oral intake. 3. Moderate muscle wasting. 4. Moderate subcutaneous fat loss. pt reports minimal po intake over the past week given abdominal pain that was exaccerbated with eating. she reports that her weight is now in the 120s lbs, was previously at her target weight of 130s lbs - consult dietition, appreciate recs #GERD -pantoprazole 40 mg p.o. , #Hypothyroidism - Restart levothyroxine 88 mg tomorrow #Low back pain patient reports taking daily APAP for when she goes on walks to help with pain cont home meds post surgery - Restart APAP 650 mg as needed - Restart gabapentin 100 mg 4 times daily - HOLD lidocaine patches for pain Dispo: Patient s/p surgery with Dr. Parnell for SBO, open incision with wet to dry dressing, Diet: clear liquid diet, advance as tolerated, and recs per Dr. Parnell Bowel Reg: Holding VTE ppx: SCD GI ppx: Pantoprazole 40 mg po Code status: Full Case discussed with my senior resident Dr. Webb Case discussed with my attending Dr. Kavon Rea MD PGY-1 Attending Provider Attestation/Addendum I, Yamsin Jacobson DO, attest that I was physically present for the arzola portions of the service and evaluated the patient with the resident and I reviewed and discussed the case with the resident and agree with the resident's findings and plans of care as documented above Patient seen eval this a.m. She states that she is doing well at rest, but is concerned about getting up from bed due to pain. Patient requesting pain medication prior to getting up from bed. Reassured patient that she had pain meds as needed. She complains of left upper extremity swelling and has her rings, but swelling improved with elevation. No need to remove rings at this time. Case was discussed in detail with surgeon who stated that the procedure was very complicated due to extensive adhesions. Patient can be advanced to clear liquid diet at this time. Continued pain control as needed and physical therapy. Encourage patient to incentive spirometer
--- NOTE | 2025-01-01 10:39 | XR_ITS ---
Examination: Duplex scan of the upper extremity, unilateral left Date and time of exam: January 01, 2025 1356 hours INDICATIONS: Left arm swelling and pain beginning this morning Technique: Duplex scan of the extremity veins using B-mode/grayscale imaging and Doppler spectral analysis and color flow Attention is directed to internal echogenicity, compression and augmentation involving these veins, color flow assessment, spectral analysis Findings: Major deep venous structures in the extremity demonstrate normal course and caliber. There is no evidence of deep vein thrombosis. Normal color flow and spectral analysis Impression: Negative for DVT..
[2025-01-01] MEDS: ACETAMINOPHEN IVPB 1,000 MG/100 ML VIAL 250 MG IV ×3 (11:49→22:00)
--- NOTE | 2025-01-01 11:50 | PC.DIETICIAN ---
Nutrition recommendations: Clear Liquids. Advance as tolerated to: Low Fiber. Once diet is advanced: Ensure Plus 240ml BID with lunch and dinner (vanilla). Patient meets ASPEN criteria for Moderate acute disease or injury related malnutrition due to: 1. Significant unintentional weight loss. 2. Inadequate oral intake. 3. Moderate muscle wasting. 4. Moderate subcutaneous fat loss.
--- NOTE | 2025-01-01 12:27 | PC.NURSE ---
Pt assisted to sit up at side of bed for lunch. Tolerating well. Call light within reach, at bedside. Edu pt to call when assitance needed.
[2025-01-01] MEDS: GABAPENTIN 100 MG CAPSULE PO ×2 (14:24→21:10)
[2025-01-02] VITALS (9 sets, daily range): BP systolic 95–118; BP diastolic 57–70; PULSE 66–91; RESP 17–26; TEMP 36.2–36.8; O2SAT 93–95
[2025-01-02] MEDS: ACETAMINOPHEN IVPB 1,000 MG/100 ML VIAL 250 MG IV (03:35)
[2025-01-02] MEDS: CEFOXITIN 2 GM in SODIUM CHLORIDE 0.9% (Popper) 50 ML IV ×3 (05:50→21:17)
[2025-01-02] MEDS: GABAPENTIN 100 MG CAPSULE PO ×3 (05:51→21:17)
[2025-01-02] MEDS: LEVOTHYROXINE SODIUM 88 MCG TABLET PO (05:51)
[2025-01-02 05:59] LABS: Basophils # (Auto) 0.1 Thou/mm3 (0.0-0.2); Basophils % (Auto) 0 % (0-2.5); Eosinophils # (Auto) 0.1 Thou/mm3 (0.0-0.5); Eosinophils % (Auto) 1 % (0-10); Hematocrit 28.8 % (36.0-46.0); Hemoglobin 9.5 g/dL (12.0-16.0); Immature Granulocytes Auto 1.34 Thou/mm3 (0.00-0.00); Lymphocytes # (Auto) 0.4 Thou/mm3 (1.0-4.8); Lymphocytes % (Auto) 3 % (10-50); Mean Corpuscular HGB Conc 33.0 g/dl (31.0-37.0); Mean Corpuscular Hemoglobin 30.5 pg (25.0-35.0); Mean Corpuscular Volume 93 fL (80-100); Monocytes # (Auto) 0.6 Thou/mm3 (0.0-0.8); Monocytes % (Auto) 4 % (0-12); Neutrophils # (Auto) 12.3 Thou/mm3 (1.8-7.7); Neutrophils % (Auto) 83 % (37-80); Nucleated Red Blood Cell # 0.00 Thou/mm3 (0.00-0.00); Nucleated Red Blood Cell % 0 /100 WBC (0); Platelet Count 198 Thou/mm3 (140-440); RDW Standard Deviation 43.6 fL (36.4-46.3); Red Blood Count 3.11 Miln/mm3 (4.00-5.20); White Blood Count 14.8 Thou/mm3 (3.6-11.0)
[2025-01-02 06:47] LABS: Alanine Aminotransferase 9 U/L (10-49); Albumin, Serum 3.0 gm/dL (3.4-4.8); Albumin/Globulin Ratio 1.5 (1.2-2.2); Alkaline Phosphatase 52 U/L (46-116); Anion Gap 9 (7-16); Aspartate Amino Transferase 13 U/L (0-34); BUN/Creatinine Ratio 39 Ratio (12-20); Bilirubin,Total 0.7 mg/dL (0.3-1.2); Blood Urea Nitrogen 27 mg/dL (9-23); Calcium 8.6 mg/dL (8.3-10.6); Calcium (Corrected) 9.4 mg/dL (8.5-10.1); Carbon Dioxide 28.5 mMol/L (20.0-31.0); Chloride 103 mMol/L (98-107); Creatinine (Component) 0.7 mg/dL (0.6-1.3); Estimated Creatinine Clearance 51.5 mL/min (>60); Globulin 2.0 gm/dL (2.3-3.5); Glucose 122 mg/dL (74-106); Magnesium 1.8 mg/dL (1.6-2.6); Osmolality,Calculated 285 (275-295); Phosphorous 2.1 mg/dL (2.4-5.1); Potassium 3.6 mMol/L (3.4-5.1); Sodium 140 mMol/L (136-145); Total Protein 5.0 gm/dL (5.7-8.2); eGFR > 60 See Note
[2025-01-02] MEDS: PANTOPRAZOLE 40 MG TABLET PO (09:04)
[2025-01-02] MEDS: NAPH,KPH MBDB 1 PACKET (1.5 GM) PO (09:19)
--- NOTE | 2025-01-02 09:26 | PC.NURSE ---
Dr Salter here to see pt, will await any new orders.
[2025-01-02] MEDS: MORPHINE SULF INJ 10 MG/ML VIAL 3 MG IVP ×2 (10:22→18:39)
--- NOTE | 2025-01-02 12:02 | PC.NURSE ---
Dr Dorsey and team in to see pt., will await any new orders.
--- NOTE | 2025-01-02 12:27 | ESPR_ITS ---
<Statement entered by Shun Salter MD - 01/02/25 15:24> Patient seen and examined at bedside. I discussed and supervised with the internet marketing specialist physician who took care of this patient. I personally saw and examined the patient. I agree with most of the assessment and plan. Patient reports passing gas, but no stool. Denies nausea, tolerating oral intake. CLD, with IV fluid support. Plan of care discussed with attending Dr. Jacobson. Shun Salter MD PGY-2 Documentation for date of: 01/02/25 Subjective Subjective Interval history: No overnight events. Evaluated at bedside. Left hand swelling resolved. Pt had successfully passed gas this morning. Currently refers to a 3/10 pain at incision site. Pain well controlled. Dr. Parnell reccomends pt to stay on clear liquid diet today with IV fluid hydration. Exam Vital Signs Temp Pulse Resp BP Pulse Ox O2 Del Method O2 Flow Rate 98.2 F 80 26 H 114/67 94 L Nasal Cannula 1 01/02/25 08:00 01/02/25 08:00 01/02/25 08:00 01/02/25 08:00 01/02/25 08:00 01/02/25 08:00 01/02/25 08:00 Narrative Exam GENERAL: no acute distress, AAO x3, mild discomfort laying in bed HEENT: Head AT/ NC. Mucous membranes dry. PERRL. NECK: Supple, no lymphadenopathy, no carotid bruits. CARDIOVASCULAR: RRR. Normal S1/S2, No m/r/g. No pitting edema of bilateral LEs. RESPIRATORY: CTAB. No wheezing, rhonchi, crackles. GASTROINTESTINAL: Abdomen soft, non tender no palpable masses. Bowel sounds present. midline abdominal incision, packed with gauze. mildly tender len incision, ABD bandage on top. Incision site dry and intact. MUSCULOSKELETAL:? No cyanosis or edema, no visible joint swelling. NEUROLOGICAL: CN II-XII grossly intact. No focal deficits. Sensation intact, symmetric. PSYCHIATRIC: Awake and alert, not agitated, normal mood and affect. SKIN: No obvious rashes, no jaundice, normal turgor. Objective Labs 01/03/25 04:26 01/03/25 04:26 Labs: Laboratory Results - last 24 hr 01/02/25 04:52 WBC 14.8 H RBC 3.11 L Hgb 9.5 L Hct 28.8 L MCV 93 MCH 30.5 MCHC 33.0 RDW Std Deviation 43.6 Plt Count 198 Neut % (Auto) 83 H Lymph % (Auto) 3 L [place] % (Auto) 4 Eos % (Auto) 1 Baso % (Auto) 0 Neut # (Auto) 12.3 H Lymph # (Auto) 0.4 L [place] # (Auto) 0.6 Eos # (Auto) 0.1 Baso # (Auto) 0.1 Immature Gran # (Auto) 1.34 H Absolute Nucleated RBC 0.00 Immature Gran % 9 H Nucleated RBC % 0 Sodium 140 Potassium 3.6 D Chloride 103 Carbon Dioxide 28.5 Anion Gap 9 BUN 27 H Creatinine 0.7 Estim Creat Clear Calc 51.5 L eGFR > 60 BUN/Creatinine Ratio 39 H Glucose 122 H Calculated Osmolality 285 Calcium 8.6 Corrected Calcium 9.4 Phosphorus 2.1 L Magnesium 1.8 Total Bilirubin 0.7 AST 13 ALT 9 L Alkaline Phosphatase 52 D Total Protein 5.0 L Albumin 3.0 L Globulin 2.0 L Albumin/Globulin Ratio 1.5 Quality Measures Quality Measures VTE prophylaxis Advance care planning discussed with:: patient Assessment & Plan Assessment Current Active Medications: Generic Name Dose Route Start Last Admin Trade Name Freq PRN Reason Stop Dose Admin Acetaminophen 650 mg 01/02/25 11:03 Acetaminophen 325 Mg Tablet PO 02/01/25 11:02 Q4HR PRN Fever >100.4 or pain Protocol Gabapentin 100 mg 12/31/24 06:00 01/02/25 05:51 Gabapentin 100 Mg Capsule PO 01/30/25 05:59 100 mg TID LILLI Administration Cefoxitin Sodium 2 gm/ Sodium 50 mls @ 100 mls/hr 12/31/24 14:00 01/02/25 07:00 Chloride IV 01/07/25 00:00 Infused Q8HR LILLI Infusion Levothyroxine Sodium 88 mcg 01/02/25 06:00 01/02/25 05:51 Levothyroxine Sodium 88 Mcg Tablet PO 02/01/25 05:59 88 mcg ACBR LILLI Administration Melatonin 9 mg 12/31/24 10:02 Melatonin 3 Mg Tablet PO 01/30/25 10:01 HS PRN sleep Morphine Sulfate 3 mg 12/30/24 23:42 01/02/25 10:22 Morphine Sulf Inj 10 Mg/Ml Vial IVP 01/04/25 23:41 3 mg Q6HR PRN Administration PAIN Protocol Ondansetron HCl 4 mg 12/30/24 18:13 Ondansetron Inj 2 Mg/Ml Inj 2 Ml IVP 01/29/25 18:12 Q6HR PRN NAUSEA OR VOMITING Protocol Pantoprazole Sodium 40 mg 01/02/25 09:00 01/02/25 09:04 Pantoprazole 40 Mg Tablet PO 02/01/25 08:59 40 mg QDAY LILLI Administration Plan Ms Wallace is a 78-year-old woman with past medical history significant for cervical cancer status post hysterectomy in 2003 (status post chemo and radiation), and history of recurrent SBO, most recently admitted in November 2024 and 12/24 for SBO that resolved with Gastrografin small bowel series, patient presents with abdominal pain, nausea, vomiting, on CTAP patient was found to have small bowel pattern. in the ED started gastrogaffin small bowel series without advancement of contrast. General surgery consulted, admitted for management of SBO, s/p ex lap with Dr. Parnell. Pt passed gas this morning, Dr. Parnell recommends pt to stay on full clear liquid diet today and may advance diet tomorrow if tolerable. He also recommends IV fluid hydration for her. #s/p ex lap with adhesion lysis and ilioceostomy with Dr. Parnell -POD 2 #Recurrent Small bowel obstruction #Hx of recurrent SBO's likely secondary to #Cervical cancer status post hysterectomy 2003 and #Radiation induced adhesions Given patient's surgical history of hysterectomy in 2003 with radiation likely that she has abdominal adhesions that are contributing to her recurrent small bowel obstructions. pt was discharged for sbo 12/25 for sbo which resolved after small bowel series. pt states that on 12/25 she had recurrence of intermittent abdominal pain. she was able to stool over the past few days, but states that the quality of her pain is different from her prior SBOs. Patient able to stool regularly at home with senna and MiraLAX. Per patient she had 1 regular bowel movements this morning, and endorses passing gas while in the ED, s/p adhesion lysis and ilioceostomy. incision is open with gauze wet to dry dressing. transient leukocytosis consider reactive vs infection given recent context of sx . Dx - CTAP with evidence of SBO pattern, Tx - Discontinue maintenance fluids given patient can p.o. well and concern for volume overload considering left hand was swollen - Aspiration precautions - advance diet as tolerated. - IV Zofran 4 mg every 6 hours as needed - small bowel series trialed in ED, without advancement of contrast in bowel. - wet to dry dressing changes for midline abdominal incision - insentivie spirometer, encourage pt to utilize to prevent atelectasis. pt advised to use iv pain medication to help minimize pain with inspiration and allow her to do IS. # Left hand swelling - resolved Patient had postop left hand swelling with her rings on the ring finger concern for possible constriction of ring finger circulation. Swelling significantly decreased with elevation and discontinuance of IV fluids Dx ? DVT ultrasound left upper extremity hand negative #Electrolyte abnormalities likely 2/2 poor po intake and GI losses, emesis Dx - Daily CMP - replete as needed Mg>2, K>4 #weight loss #anorexia 2/2 SBO pain #Moderate acute disease or injury related malnutrition Patient meets ASPEN criteria for due to: 1. Significant unintentional weight loss. 2. Inadequate oral intake. 3. Moderate muscle wasting. 4. Moderate subcutaneous fat loss. pt reports minimal po intake over the past week given abdominal pain that was exaccerbated with eating. she reports that her weight is now in the 120s lbs, was previously at her target weight of 130s lbs - consult dietition, appreciate recs #GERD -pantoprazole 40 mg p.o. #Hypothyroidism - Continue levothyroxine 88 mg #Low back pain patient reports taking daily APAP for when she goes on walks to help with pain cont home meds post surgery - Restart APAP 650 mg as needed - Restart gabapentin 100 mg 4 times daily - HOLD lidocaine patches for pain Dispo: Patient s/p surgery with Dr. Parnell for SBO, open incision with wet to dry dressing, Diet: clear liquid diet, advance as tolerated, and recs per Dr. Panrell Bowel Reg: Holding VTE ppx: SCD GI ppx: Pantoprazole 40 mg po Code status: Full Case discussed with my senior resident Dr. Salter Case discussed with my attending Dr. Kavon Flores, PGY-1 Attending Provider Attestation/Addendum IYasmin DO, attest that I was physically present for the arzola portions of the service and evaluated the patient with the resident and I reviewed and discussed the case with the resident and agree with the resident's findings and plans of care as documented above Patient seen eval this a.m. Patient states that she is doing well. She was able to tolerate clear liquid diet. No acute events overnight. Patient states that pain is tolerable and she has been passing gas. Will advance diet as tolerated as per surgeon recommendations. Left hand no longer swollen. Encourage patient to use I-S and work with physical therapy. Patient has otherwise been afebrile.
[2025-01-02] MEDS: ACETAMINOPHEN 325 MG TABLET 650 MG PO (12:53)
--- NOTE | 2025-01-02 12:55 | PD.SURPROG ---
Documentation for date of: 01/02/25 Subjective Subjective Narrative: Patient is passing flatus but she still complains of abdominal distention Exam Vital Signs Temp Pulse Resp BP Pulse Ox O2 Del Method O2 Flow Rate 98.2 F 80 26 H 114/67 94 L Nasal Cannula 1 01/02/25 08:00 01/02/25 08:00 01/02/25 08:00 01/02/25 08:00 01/02/25 08:00 01/02/25 08:00 01/02/25 08:00 Vital signs are normal Routine Abdominal Exam Comments: Abdominal examination shows no active bowel sounds. Abdominal incision inspected and appears clean Results Results: Laboratory Laboratory Narrative: Laboratory results show slightly decreasing WBC from yesterday's value. Her BUN is still up to 27 Assessment & Plan Assessment Additional comments: Impression: Slow recovery following high-grade obstruction and extensive surgery Plan Plan: We shall continue small amounts of IV fluid because her BUN is still high and she is not eating enough PROCEDURES: Procedures Exploratory laparotomy and resection of the terminal ileum and ilio cecostomy
--- NOTE | 2025-01-02 13:00 | PC.NURSE ---
1250 Dr Alexander here to see pt., dressing to abd. removed, wound bed is beefy red, no odor, small amount of seroussangenous fluid noted, redressed with NS wet to dry dressing. No new orders received, will cont. to monitor.
[2025-01-02] MEDS: SODIUM CHLORIDE 0.9% 1000 ML 1,000 ML 75 ML IV (13:28)
[2025-01-02] MEDS: Magnesium Sulfate 4 GM Ivpb 4 GM/50 ML BAG IV (14:25)
--- NOTE | 2025-01-02 14:45 | PC.NURSE ---
Endorsed pt. care of pt. to Justina Kurtz.
[2025-01-02] MEDS: MELATONIN 3 MG TABLET 9 MG PO (21:21)
[2025-01-03] VITALS (8 sets, daily range): BP systolic 108–123; BP diastolic 63–73; PULSE 72–89; RESP 16–19; TEMP 36.1–36.8; O2SAT 94–96
--- NOTE | 2025-01-03 00:17 | PC.NURSE ---
MD You called regarding pts still on blood sugar monitoring every 6 hrs, pts is not diabetica nd she's now on clear liquid diet, MD You ordered to changed blood sugar check from q6 to ACHS.
[2025-01-03] MEDS: ACETAMINOPHEN 325 MG TABLET 650 MG PO ×2 (03:17→08:39)
[2025-01-03] MEDS: LEVOTHYROXINE SODIUM 88 MCG TABLET PO (05:19)
[2025-01-03] MEDS: GABAPENTIN 100 MG CAPSULE PO ×3 (05:19→21:09)
[2025-01-03] MEDS: CEFOXITIN 2 GM in SODIUM CHLORIDE 0.9% (Popper) 50 ML IV ×3 (05:19→21:09)
[2025-01-03 05:21] LABS: Basophils # (Auto) 0.1 Thou/mm3 (0.0-0.2); Basophils % (Auto) 1 % (0-2.5); Eosinophils # (Auto) 0.1 Thou/mm3 (0.0-0.5); Eosinophils % (Auto) 1 % (0-10); Hematocrit 30.7 % (36.0-46.0); Hemoglobin 10.0 g/dL (12.0-16.0); Immature Granulocytes Auto 0.09 Thou/mm3 (0.00-0.00); Lymphocytes # (Auto) 0.6 Thou/mm3 (1.0-4.8); Lymphocytes % (Auto) 5 % (10-50); Mean Corpuscular HGB Conc 32.6 g/dl (31.0-37.0); Mean Corpuscular Hemoglobin 30.6 pg (25.0-35.0); Mean Corpuscular Volume 94 fL (80-100); Monocytes # (Auto) 0.9 Thou/mm3 (0.0-0.8); Monocytes % (Auto) 8 % (0-12); Neutrophils # (Auto) 9.4 Thou/mm3 (1.8-7.7); Neutrophils % (Auto) 85 % (37-80); Nucleated Red Blood Cell # 0.00 Thou/mm3 (0.00-0.00); Nucleated Red Blood Cell % 0 /100 WBC (0); Platelet Count 202 Thou/mm3 (140-440); RDW Standard Deviation 43.8 fL (36.4-46.3); Red Blood Count 3.27 Miln/mm3 (4.00-5.20); White Blood Count 11.1 Thou/mm3 (3.6-11.0)
[2025-01-03 05:47] LABS: Alanine Aminotransferase 11 U/L (10-49); Albumin, Serum 2.9 gm/dL (3.4-4.8); Albumin/Globulin Ratio 1.4 (1.2-2.2); Alkaline Phosphatase 60 U/L (46-116); Anion Gap 10 (7-16); Aspartate Amino Transferase 14 U/L (0-34); BUN/Creatinine Ratio 37 Ratio (12-20); Bilirubin,Total 0.5 mg/dL (0.3-1.2); Blood Urea Nitrogen 22 mg/dL (9-23); Calcium 8.4 mg/dL (8.3-10.6); Calcium (Corrected) 9.3 mg/dL (8.5-10.1); Carbon Dioxide 26.9 mMol/L (20.0-31.0); Chloride 104 mMol/L (98-107); Creatinine (Component) 0.6 mg/dL (0.6-1.3); Estimated Creatinine Clearance 60.1 mL/min (>60); Globulin 2.1 gm/dL (2.3-3.5); Glucose 110 mg/dL (74-106); Magnesium 1.8 mg/dL (1.6-2.6); Osmolality,Calculated 285 (275-295); Phosphorous 3.1 mg/dL (2.4-5.1); Potassium 3.7 mMol/L (3.4-5.1); Sodium 141 mMol/L (136-145); Total Protein 5.0 gm/dL (5.7-8.2); eGFR > 60 See Note
--- NOTE | 2025-01-03 07:09 | ESPR_ITS ---
<Statement entered by Jerry Webb MD - 01/03/25 14:29> Patient was seen and examined at the bedside. No acute overnight events reported. Patient was feeling weak. Her edema has improved. Surgeon recommended to advance her diet to full liquid. White count around 11. Tramadol was added for pain management. 1/2 blood cultures growing gram- negative coccobacilli therefore blood cultures were repeated. Will continue with antibiotic/cefoxitin therapy. All labs and orders were reviewed. I discussed and supervised with the procurement intern physician who took care of this patient. I personally saw and examined the patient. I agree with most of the assessment and plan. Disclaimer: Despite multiple revisions, due to the dictation software being used, the document bellow may not be free of grammatical errors including phonetic/typographic errors. However, this does not deter from our commitment to providing health care in the patient's best interest in mind. Plan of care discussed with attending Physician Dr. Kavon Webb MD PGY-3 Documentation for date of: 01/03/25 Subjective Subjective Interval history: No acute events overnight pt mildly tachypnic overnight, satting well pt tolerating clear liquids well, per discussion with Dr. Parnell, ok to advance diet to full liquid today pt has had BM pt toileting to the bedside comode and reports pain with transfering. Exam Vital Signs Temp Pulse Resp BP Pulse Ox O2 Del Method O2 Flow Rate 97.2 F 74 16 109/64 94 L Nasal Cannula 1 01/03/25 04:00 01/03/25 04:00 01/03/25 04:00 01/03/25 04:00 01/03/25 04:00 01/03/25 04:00 01/03/25 00:00 afebrile, mildly dachypnic overnight satting in the mid to low 90s on NC 1L. Narrative Exam GENERAL: no acute distress, AAO x3, mild discomfort sitting upright in bed HEENT: Head AT/ NC. Mucous membranes dry. PERRL. NECK: Supple, no lymphadenopathy, no carotid bruits. CARDIOVASCULAR: RRR. Normal S1/S2, No m/r/g. No pitting edema of bilateral LEs. RESPIRATORY: CTAB. No wheezing, rhonchi, crackles. GASTROINTESTINAL: Abdomen soft, non tender no palpable masses. Bowel sounds present. midline abdominal incision, packed with gauze. mildly tender len incision, ABD bandage on top. Incision site dry and intact. MUSCULOSKELETAL:? No cyanosis or edema, no visible joint swelling. NEUROLOGICAL: CN II-XII grossly intact. No focal deficits. Sensation intact, symmetric. PSYCHIATRIC: Awake and alert, not agitated, normal mood and affect. SKIN: No obvious rashes, no jaundice, normal turgor. Objective Labs 01/04/25 05:03 01/04/25 05:03 Labs: Laboratory Results - last 24 hr 01/03/25 04:26 WBC 11.1 H RBC 3.27 L Hgb 10.0 L Hct 30.7 L MCV 94 MCH 30.6 MCHC 32.6 RDW Std Deviation 43.8 Plt Count 202 Neut % (Auto) 85 H Lymph % (Auto) 5 L [place] % (Auto) 8 Eos % (Auto) 1 Baso % (Auto) 1 Neut # (Auto) 9.4 H Lymph # (Auto) 0.6 L [place] # (Auto) 0.9 H Eos # (Auto) 0.1 Baso # (Auto) 0.1 Immature Gran # (Auto) 0.09 H Absolute Nucleated RBC 0.00 Immature Gran % 1 H Nucleated RBC % 0 Sodium 141 Potassium 3.7 Chloride 104 Carbon Dioxide 26.9 Anion Gap 10 BUN 22 Creatinine 0.6 Estim Creat Clear Calc 60.1 L eGFR > 60 BUN/Creatinine Ratio 37 H Glucose 110 H Calculated Osmolality 285 Calcium 8.4 Corrected Calcium 9.3 Phosphorus 3.1 Magnesium 1.8 Total Bilirubin 0.5 AST 14 ALT 11 Alkaline Phosphatase 60 Total Protein 5.0 L Albumin 2.9 L Globulin 2.1 L Albumin/Globulin Ratio 1.4 Quality Measures Quality Measures VTE prophylaxis Advance care planning discussed with:: patient and spouse Assessment & Plan Assessment Current Active Medications: Generic Name Dose Route Start Last Admin Trade Name Freq PRN Reason Stop Dose Admin Acetaminophen 650 mg 01/02/25 11:03 01/03/25 03:17 Acetaminophen 325 Mg Tablet PO 02/01/25 11:02 650 mg Q4HR PRN Administration Fever >100.4 or pain Protocol Gabapentin 100 mg 12/31/24 06:00 01/03/25 05:19 Gabapentin 100 Mg Capsule PO 01/30/25 05:59 100 mg TID LILLI Administration Cefoxitin Sodium 2 gm/ Sodium 50 mls @ 100 mls/hr 12/31/24 14:00 01/03/25 05:19 Chloride IV 01/07/25 00:00 100 mls/hr Q8HR LILLI Administration Sodium Chloride 1,000 mls @ 75 mls/hr 01/02/25 13:00 01/02/25 13:28 Ns IV 02/01/25 12:59 75 mls/hr .[id number] LILLI Administration Levothyroxine Sodium 88 mcg 01/02/25 06:00 01/03/25 05:19 Levothyroxine Sodium 88 Mcg Tablet PO 02/01/25 05:59 88 mcg ACBR LILLI Administration Melatonin 9 mg 12/31/24 10:02 01/02/25 21:21 Melatonin 3 Mg Tablet PO 01/30/25 10:01 9 mg HS PRN Administration sleep Morphine Sulfate 3 mg 12/30/24 23:42 01/02/25 18:39 Morphine Sulf Inj 10 Mg/Ml Vial IVP 01/04/25 23:41 3 mg Q6HR PRN Administration PAIN Protocol Ondansetron HCl 4 mg 12/30/24 18:13 Ondansetron Inj 2 Mg/Ml Inj 2 Ml IVP 01/29/25 18:12 Q6HR PRN NAUSEA OR VOMITING Protocol Pantoprazole Sodium 40 mg 01/02/25 09:00 01/02/25 09:04 Pantoprazole 40 Mg Tablet PO 02/01/25 08:59 40 mg QDAY LILLI Administration Plan Ms Wallace is a 78-year-old woman with past medical history significant for cervical cancer status post hysterectomy in 2003 (status post chemo and radiation), and history of recurrent SBO, most recently admitted in November 2024 and 12/24 for SBO that resolved with Gastrografin small bowel series, patient presents with abdominal pain, nausea, vomiting, on CTAP patient was found to have small bowel pattern. in the ED started gastrogaffin small bowel series without advancement of contrast. General surgery consulted, admitted for management of SBO, s/p ex lap with Dr. Parnell. Pt had BM this morning, Dr. Parnell ok to advance diet to full liquid. pt continues on Cefoxitin 2gm q8hr. #s/p ex lap with adhesion lysis and ilioceostomy with Dr. 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 pt was discharged for sbo 12/25 for sbo which resolved after small bowel series. pt states that on 12/25 she had recurrence of intermittent abdominal pain. s/p adhesion lysis and ilioceostomy. incision is open with gauze wet to dry dressing. transient leukocytosis consider reactive vs infection given recent context of sx . Leukocytosis is downtrending. pt had BM today, adjusted pain medications. Dx - CTAP with evidence of SBO pattern, Tx - Aspiration precautions - advance diet as tolerated; on full liquid, with ensure plus. - IV Zofran 4 mg every 6 hours as needed - wet to dry dressing changes for midline abdominal incision - insentivie spirometer, encourage pt to utilize to prevent atelectasis. pt advised to use iv pain medication to help minimize pain with inspiration and allow her to do IS. - Pain regemen -IV APAP scheduled q6hr -PO tramadol scheduled 50 mg q4hr -IV Morpheine 1.5 mg q4hr prn #weight loss #anorexia 2/2 SBO pain #Moderate acute disease or injury related malnutrition Patient meets ASPEN criteria for due to: 1. Significant unintentional weight loss. 2. Inadequate oral intake. 3. Moderate muscle wasting. 4. Moderate subcutaneous fat loss. pt reports minimal po intake over the past week given abdominal pain that was exaccerbated with eating. she reports that her weight is now in the 120s lbs, was previously at her target weight of 130s lbs - consult dietition, appreciate recs - add on ensure plus with lunch and dinner, Vanilla - advanced diet, full liquid, low fiber per dietition recs. # Left hand swelling - resolved Patient had postop left hand swelling with her rings on the ring finger concern for possible constriction of ring finger circulation. Swelling significantly decreased with elevation and discontinuance of IV fluids Dx ? DVT ultrasound left upper extremity hand negative #Electrolyte abnormalities likely 2/2 poor po intake and GI losses, emesis Dx - Daily CMP - replete as needed Mg>2, K>4 #GERD -pantoprazole 40 mg p.o. #Hypothyroidism - Continue levothyroxine 88 mg #Low back pain patient reports taking daily APAP for when she goes on walks to help with pain cont home meds post surgery - Restart APAP 650 mg as needed - Restart gabapentin 100 mg 4 times daily - HOLD lidocaine patches for pain Dispo: Patient s/p surgery with Dr. Parnell for SBO, open incision with wet to dry dressing, Diet: full liquid diet: low fiber, with ensure plus with lunch and dinner, advance as tolerated and per Dr. Parnell. Bowel Reg: Holding VTE ppx: SCD GI ppx: Pantoprazole 40 mg po Code status: Full Case discussed with my senior resident Dr. Webb Case discussed with my attending Dr. Kavon Rea MD PGY-1 Attending Provider Attestation/Addendum I, Yasmin Jacobson DO, attest that I was physically present for the arzola portions of the service and evaluated the patient with the resident and I reviewed and discussed the case with the resident and agree with the resident's findings and plans of care as documented above Patient seen and eval this a.m. She states that she has been able to have a bowel movement this morning and feels improved. Patient has been tolerating clear liquid diet without issue, will advance diet to full liquids. Patient reports some pain, but well-controlled with pain medication. Encourage incentive spirometry. Patient noted to have gram-negative rods in blood culture. Will continue to follow with cultures and sensitivities. Patient remains on cefoxitin at this time. She is otherwise afebrile at this time.
[2025-01-03] MEDS: Magnesium Sulfate 4 GM Ivpb 4 GM/50 ML BAG IV (08:38)
[2025-01-03] MEDS: POTASSIUM CHLORIDE 10% 20 MEQ/15 ML UDC PO (08:38)
[2025-01-03] MEDS: SODIUM CHLORIDE 0.9% 1000 ML 1,000 ML 75 ML IV (08:38)
[2025-01-03] MEDS: PANTOPRAZOLE 40 MG TABLET PO (08:39)
[2025-01-03] MEDS: ACETAMINOPHEN IVPB 1,000 MG/100 ML VIAL 250 MG IV ×2 (10:34→17:38)
--- NOTE | 2025-01-03 18:32 | PD.SURPROG ---
Documentation for date of: 01/03/25 Subjective Subjective Narrative: The patient is eating better and tolerating full liquids Exam Vital Signs Temp Pulse Resp BP Pulse Ox O2 Del Method O2 Flow Rate 98.1 F 72 17 110/68 95 Nasal Cannula 1 01/03/25 16:00 01/03/25 16:00 01/03/25 16:00 01/03/25 16:00 01/03/25 16:00 01/03/25 16:00 01/03/25 16:00 Her vital signs are normal Routine Abdominal Exam Comments: Abdomen is still slightly distended Results Results: Laboratory Laboratory Narrative: Laboratory results are normal Assessment & Plan Assessment Additional comments: Impression: Slow but steady recovery from after small bowel obstruction and bowel resection Plan Plan: We shall close the incision tomorrow or the day after and then she could be discharged. PROCEDURES: Procedures Exploratory laparotomy and resection of the terminal ileum and ilio cecostomy
[2025-01-03] MEDS: MELATONIN 3 MG TABLET 9 MG PO (21:27)
[2025-01-04] VITALS (8 sets, daily range): BP systolic 116–134; BP diastolic 67–83; PULSE 80–102; RESP 16–19; TEMP 36.1–36.9; O2SAT 91–97; BMI 21.9; BMI 13.0
[2025-01-04] MEDS: ACETAMINOPHEN IVPB 1,000 MG/100 ML VIAL 250 MG IV ×2 (00:06→05:47)
[2025-01-04 05:15] LABS: Basophils # (Auto) 0.1 Thou/mm3 (0.0-0.2); Basophils % (Auto) 0 % (0-2.5); Eosinophils # (Auto) 0.1 Thou/mm3 (0.0-0.5); Eosinophils % (Auto) 1 % (0-10); Hematocrit 30.0 % (36.0-46.0); Hemoglobin 10.1 g/dL (12.0-16.0); Immature Granulocytes Auto 0.28 Thou/mm3 (0.00-0.00); Lymphocytes # (Auto) 0.6 Thou/mm3 (1.0-4.8); Lymphocytes % (Auto) 5 % (10-50); Mean Corpuscular HGB Conc 33.7 g/dl (31.0-37.0); Mean Corpuscular Hemoglobin 30.2 pg (25.0-35.0); Mean Corpuscular Volume 90 fL (80-100); Monocytes # (Auto) 1.2 Thou/mm3 (0.0-0.8); Monocytes % (Auto) 11 % (0-12); Neutrophils # (Auto) 9.4 Thou/mm3 (1.8-7.7); Neutrophils % (Auto) 81 % (37-80); Nucleated Red Blood Cell # 0.00 Thou/mm3 (0.00-0.00); Nucleated Red Blood Cell % 0 /100 WBC (0); Platelet Count 235 Thou/mm3 (140-440); RDW Standard Deviation 43.0 fL (36.4-46.3); Red Blood Count 3.34 Miln/mm3 (4.00-5.20); White Blood Count 11.7 Thou/mm3 (3.6-11.0)
[2025-01-04] MEDS: SODIUM CHLORIDE 0.9% 1000 ML 1,000 ML 75 ML IV (05:49)
[2025-01-04] MEDS: GABAPENTIN 100 MG CAPSULE PO ×3 (05:49→21:58)
[2025-01-04] MEDS: LEVOTHYROXINE SODIUM 88 MCG TABLET PO (05:49)
[2025-01-04 05:54] LABS: Alanine Aminotransferase 60 U/L (10-49); Albumin, Serum 3.0 gm/dL (3.4-4.8); Albumin/Globulin Ratio 1.4 (1.2-2.2); Alkaline Phosphatase 195 U/L (46-116); Anion Gap 11 (7-16); Aspartate Amino Transferase 70 U/L (0-34); BUN/Creatinine Ratio 26 Ratio (12-20); Bilirubin,Total 0.6 mg/dL (0.3-1.2); Blood Urea Nitrogen 13 mg/dL (9-23); Calcium 8.4 mg/dL (8.3-10.6); Calcium (Corrected) 9.2 mg/dL (8.5-10.1); Carbon Dioxide 23.6 mMol/L (20.0-31.0); Chloride 104 mMol/L (98-107); Creatinine (Component) 0.5 mg/dL (0.6-1.3); Estimated Creatinine Clearance 72.2 mL/min (>60); Globulin 2.1 gm/dL (2.3-3.5); Glucose 112 mg/dL (74-106); Magnesium 1.6 mg/dL (1.6-2.6); Osmolality,Calculated 278 (275-295); Phosphorous 3.0 mg/dL (2.4-5.1); Potassium 3.8 mMol/L (3.4-5.1); Sodium 139 mMol/L (136-145); Total Protein 5.1 gm/dL (5.7-8.2); eGFR > 60 See Note
[2025-01-04] MEDS: CEFOXITIN 2 GM in SODIUM CHLORIDE 0.9% (Popper) 50 ML IV ×3 (05:54→21:58)
--- NOTE | 2025-01-04 07:55 | ESPR_ITS ---
<Statement entered by Jerry Webb MD - 01/04/25 11:36> Patient was seen and examined at the bedside. No acute overnight events reported. Patient reported improvement in her nausea and abdominal pain. Patient was feeling weak therefore physical therapy evaluation was ordered. She was started on full liquid diet. Repeat blood cultures pending. Patient will be going to the OR tomorrow for closure of abdominal wound. After midnight. Coagulation profile for tomorrow. I discussed and supervised with the integrated marketing intern physician who took care of this patient. I personally saw and examined the patient. I agree with most of the assessment and plan. Disclaimer: Despite multiple revisions, due to the dictation software being used, the document bellow may not be free of grammatical errors including phonetic/typographic errors. However, this does not deter from our commitment to providing health care in the patient's best interest in mind. Plan of care discussed with attending Physician Dr. Kavon Webb MD PGY-3 Documentation for date of: 01/04/25 Subjective Subjective Interval history: No acute events overnight plan for closure of abdominal incision tomorrow with Dr. Parnell NPO at midnight pt tolerating regular diet well, no n/v pt endorses belching pt reports passing gas BM 1x yesterday Exam Vital Signs Temp Pulse Resp BP Pulse Ox O2 Del Method O2 Flow Rate 97.8 F 82 19 123/71 94 L Room Air 1 01/04/25 07:50 01/04/25 07:50 01/04/25 07:50 01/04/25 07:50 01/04/25 07:50 01/04/25 07:50 01/04/25 07:00 Narrative Exam GENERAL: no acute distress, AAO x3, resting more comfortably in bed HEENT: Head AT/ NC. Mucous membranes dry. PERRL. NECK: Supple, no lymphadenopathy, no carotid bruits. CARDIOVASCULAR: RRR. Normal S1/S2, No m/r/g. No pitting edema of bilateral LEs. RESPIRATORY: CTAB. No wheezing, rhonchi, crackles. GASTROINTESTINAL: Abdomen soft, mildly tender no palpable masses. Bowel sounds present. midline abdominal incision, packed with gauze. mildly tender len incision, ABD bandage on top. Incision site dry and intact. MUSCULOSKELETAL:? No cyanosis or edema, no visible joint swelling. NEUROLOGICAL: CN II-XII grossly intact. No focal deficits. Sensation intact, symmetric. PSYCHIATRIC: Awake and alert, not agitated, normal mood and affect. SKIN: No obvious rashes, no jaundice, normal turgor. Objective Labs 01/05/25 04:30 01/05/25 04:30 Labs: Laboratory Results - last 24 hr 01/04/25 05:03 WBC 11.7 H RBC 3.34 L Hgb 10.1 L Hct 30.0 L MCV 90 MCH 30.2 MCHC 33.7 RDW Std Deviation 43.0 Plt Count 235 D Neut % (Auto) 81 H Lymph % (Auto) 5 L [place] % (Auto) 11 Eos % (Auto) 1 Baso % (Auto) 0 Neut # (Auto) 9.4 H Lymph # (Auto) 0.6 L [place] # (Auto) 1.2 H Eos # (Auto) 0.1 Baso # (Auto) 0.1 Immature Gran # (Auto) 0.28 H Absolute Nucleated RBC 0.00 Immature Gran % 2 H Nucleated RBC % 0 Sodium 139 Potassium 3.8 Chloride 104 Carbon Dioxide 23.6 Anion Gap 11 BUN 13 Creatinine 0.5 L Estim Creat Clear Calc 72.2 eGFR > 60 BUN/Creatinine Ratio 26 H Glucose 112 H Calculated Osmolality 278 Calcium 8.4 Corrected Calcium 9.2 Phosphorus 3.0 Magnesium 1.6 Total Bilirubin 0.6 AST 70 H ALT 60 H Alkaline Phosphatase 195 H D Total Protein 5.1 L Albumin 3.0 L Globulin 2.1 L Albumin/Globulin Ratio 1.4 Quality Measures Quality Measures VTE prophylaxis Advance care planning discussed with:: patient and spouse Assessment & Plan Assessment Current Active Medications: Generic Name Dose Route Start Last Admin Trade Name Freq PRN Reason Stop Dose Admin Gabapentin 100 mg 12/31/24 06:00 01/04/25 05:49 Gabapentin 100 Mg Capsule PO 01/30/25 05:59 100 mg TID LILLI Administration Cefoxitin Sodium 2 gm/ Sodium 50 mls @ 100 mls/hr 12/31/24 14:00 01/04/25 05:54 Chloride IV 01/07/25 00:00 100 mls/hr Q8HR LILLI Administration Sodium Chloride 1,000 mls @ 75 mls/hr 01/02/25 13:00 01/04/25 05:49 Ns IV 02/01/25 12:59 75 mls/hr .[id number] LILLI Administration Levothyroxine Sodium 88 mcg 01/02/25 06:00 01/04/25 05:49 Levothyroxine Sodium 88 Mcg Tablet PO 02/01/25 05:59 88 mcg ACBR LILLI Administration Melatonin 9 mg 12/31/24 10:02 01/03/25 21:27 Melatonin 3 Mg Tablet PO 01/30/25 10:01 9 mg HS PRN Administration sleep Morphine Sulfate 1.5 mg 01/03/25 10:04 Morphine Sulf Inj 10 Mg/Ml Vial IVP 01/08/25 09:36 Q4HR PRN last line for pain Protocol Ondansetron HCl 4 mg 12/30/24 18:13 Ondansetron Inj 2 Mg/Ml Inj 2 Ml IVP 01/29/25 18:12 Q6HR PRN NAUSEA OR VOMITING Protocol Pantoprazole Sodium 40 mg 01/02/25 09:00 01/03/25 08:39 Pantoprazole 40 Mg Tablet PO 02/01/25 08:59 40 mg QDAY LILLI Administration Tramadol HCl 50 mg 01/03/25 12:00 01/04/25 05:48 Tramadol Hcl 50 Mg Tablet PO 01/08/25 11:59 50 mg Q6HR LILLI Administration Plan Ms Wallace is a 78-year-old woman with past medical history significant for cervical cancer status post hysterectomy in 2003 (status post chemo and radiation), and history of recurrent SBO, most recently admitted in November 2024 and 12/24 for SBO that resolved with Gastrografin small bowel series, patient presents with abdominal pain, nausea, vomiting, on CTAP patient was found to have small bowel pattern. in the ED started gastrogaffin small bowel series without advancement of contrast. General surgery consulted, admitted for management of SBO, s/p ex lap with Dr. Parnell. Pt had BM yesterday, and endorsing passage of gas, pt tolerated full diet well (no n/v), pt pain well controlled, pending closure of abdominal incision tomorrow with Dr. Parnell. NPO @midnight. #s/p ex lap with adhesion lysis and ilioceostomy with Dr. 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 pt was discharged for sbo 12/25 for sbo which resolved after small bowel series. pt states that on 12/25 she had recurrence of intermittent abdominal pain. s/p adhesion lysis and ilioceostomy. incision is open with gauze wet to dry dressing. transient leukocytosis consider reactive vs infection given recent context of sx . Leukocytosis is downtrending. pt had BM today, adjusted pain medications. Dx - CTAP with evidence of SBO pattern, Tx - Aspiration precautions -pt tolerating regular diet, NPO midnight pending closure of abdominal incision tomorrow. - IV Zofran 4 mg every 6 hours as needed - wet to dry dressing changes for midline abdominal incision - insentivie spirometer, encourage pt to utilize to prevent atelectasis. pt advised to use iv pain medication to help minimize pain with inspiration and allow her to do IS. - Pain regimen IV APAP scheduled q6hr PO tramadol scheduled 50 mg q4hr IV Morpheine 1.5 mg q4hr prn -pending PT evaluation: pt has been ambulating to bedside commode. #weight loss #anorexia 2/2 SBO pain #Moderate acute disease or injury related malnutrition Patient meets ASPEN criteria for due to: 1. Significant unintentional weight loss. 2. Inadequate oral intake. 3. Moderate muscle wasting. 4. Moderate subcutaneous fat loss. pt reports minimal po intake over the past week given abdominal pain that was exaccerbated with eating. she reports that her weight is now in the 120s lbs, was previously at her target weight of 130s lbs - consult dietition, appreciate recs - add on ensure plus with lunch and dinner, Vanilla - full regular diet, low fiber (per nutrition recs) #Electrolyte abnormalities likely 2/2 poor po intake and GI losses, emesis no n/v post op. Dx - Daily CMP - replete as needed Mg>2, K>4 # Left hand swelling - resolved Patient had postop left hand swelling with her rings on the ring finger concern for possible constriction of ring finger circulation. Swelling significantly decreased with elevation and discontinuance of IV fluids Dx ? DVT ultrasound left upper extremity hand negative #GERD pt endorses increased belching post op -Malox 15 ml PO QID PRN -pantoprazole 40 mg p.o. #Hypothyroidism - Continue levothyroxine 88 mg #Low back pain patient reports taking daily APAP for when she goes on walks to help with pain cont home meds post surgery - Restart APAP 650 mg as needed - Restart gabapentin 100 mg 4 times daily - HOLD lidocaine patches for pain Dispo: pt pending incision closure tomorrow with Dr. Parnell, NPO at midnight Diet: NPO at midnight, Regular diet: low fiber, with ensure plus with lunch and dinner, Bowel Reg: Holding VTE ppx: SCD GI ppx: Pantoprazole 40 mg po Code status: Full Case discussed with my senior resident Dr. Webb Case discussed with my attending Dr. Kavon Rea MD PGY-1 Attending Provider Attestation/Addendum I, Yasmin Jacobson DO, attest that I was physically present for the arzola portions of the service and evaluated the patient with the resident and I reviewed and discussed the case with the resident and agree with the resident's findings and plans of care as documented above Patient seen eval this a.m. No acute events overnight. Patient complains of pain, but improved with morphine. Encourage patient to work with incentive spirometer and physical therapy. Case discussed with surgeon. Plan for closure tomorrow. Will place patient n.p.o. after midnight. Patient has been tolerating diet well and advance as tolerated.
[2025-01-04] MEDS: PANTOPRAZOLE 40 MG TABLET PO (09:52)
--- NOTE | 2025-01-04 10:00 | CHAP ---
Patient expressed gratitude for visit and prayer.
[2025-01-04] MEDS: POTASSIUM CHLORIDE 10% 20 MEQ/15 ML UDC 40 MEQ PO (10:02)
[2025-01-04] MEDS: Magnesium Sulfate 4 GM Ivpb 4 GM/50 ML BAG IV (10:02)
--- NOTE | 2025-01-04 13:14 | ESPR_ITS ---
Documentation for date of: 01/04/25 Exam Vital Signs Temp Pulse Resp BP Pulse Ox O2 Del Method O2 Flow Rate 97.6 F 92 16 121/76 93 L Room Air 1 01/04/25 12:00 01/04/25 12:00 01/04/25 12:00 01/04/25 12:00 01/04/25 12:00 01/04/25 07:50 01/04/25 07:00 Assessment & Plan Assessment Additional comments: Impression: Satisfactory recovery following small bowel obstruction. Wound is clean and is ready for closure Plan We shall proceed with secondary closure under monitored anesthesia in the oper ating room tomorrow PROCEDURES: Procedures Exploratory laparotomy and resection of the terminal ileum and ilio cecostomy
--- NOTE | 2025-01-04 14:43 | PC.SS ---
SS follow up note; Patient is having procedure tomorrow with Dr. Parnell. Patient will discharge home when medically cleared.
--- NOTE | 2025-01-04 17:40 | PC.PT ---
Patient is safe to ambulate to the bathroom or to the bedside commode with a FWW and 1 staff assist. RN made aware.
[2025-01-05] VITALS (8 sets, daily range): BP systolic 120–134; BP diastolic 70–79; PULSE 76–102; RESP 17–86; TEMP 36.2–36.9; O2SAT 94–96
[2025-01-05 06:02] LABS: Basophils # (Auto) 0.1 Thou/mm3 (0.0-0.2); Basophils % (Auto) 1 % (0-2.5); Eosinophils # (Auto) 0.1 Thou/mm3 (0.0-0.5); Eosinophils % (Auto) 1 % (0-10); Hematocrit 30.4 % (36.0-46.0); Hemoglobin 9.9 g/dL (12.0-16.0); Immature Granulocytes Auto 0.97 Thou/mm3 (0.00-0.00); Lymphocytes # (Auto) 0.9 Thou/mm3 (1.0-4.8); Lymphocytes % (Auto) 6 % (10-50); Mean Corpuscular HGB Conc 32.6 g/dl (31.0-37.0); Mean Corpuscular Hemoglobin 30.4 pg (25.0-35.0); Mean Corpuscular Volume 93 fL (80-100); Monocytes # (Auto) 1.4 Thou/mm3 (0.0-0.8); Monocytes % (Auto) 9 % (0-12); Neutrophils # (Auto) 11.5 Thou/mm3 (1.8-7.7); Neutrophils % (Auto) 77 % (37-80); Nucleated Red Blood Cell # 0.00 Thou/mm3 (0.00-0.00); Nucleated Red Blood Cell % 0 /100 WBC (0); Platelet Count 239 Thou/mm3 (140-440); RDW Standard Deviation 45.3 fL (36.4-46.3); Red Blood Count 3.26 Miln/mm3 (4.00-5.20); White Blood Count 14.9 Thou/mm3 (3.6-11.0)
[2025-01-05] MEDS: SODIUM CHLORIDE 0.9% 1000 ML 1,000 ML 50 ML IV (06:02)
[2025-01-05] MEDS: CEFOXITIN 2 GM in SODIUM CHLORIDE 0.9% (Popper) 50 ML IV ×3 (06:02→21:00)
[2025-01-05 06:19] LABS: INR 1.0 (0.9-1.3); Partial Thromboplastin Time 34.5 Seconds (22.0-36.0); Prothrombin Time 10.9 Seconds (9.0-12.2)
[2025-01-05 06:39] LABS: Alanine Aminotransferase 63 U/L (10-49); Albumin, Serum 2.9 gm/dL (3.4-4.8); Albumin/Globulin Ratio 1.3 (1.2-2.2); Alkaline Phosphatase 239 U/L (46-116); Anion Gap 9 (7-16); Aspartate Amino Transferase 42 U/L (0-34); BUN/Creatinine Ratio 28 Ratio (12-20); Bilirubin,Total 0.4 mg/dL (0.3-1.2); Blood Urea Nitrogen 14 mg/dL (9-23); Calcium 8.3 mg/dL (8.3-10.6); Calcium (Corrected) 9.2 mg/dL (8.5-10.1); Carbon Dioxide 25.3 mMol/L (20.0-31.0); Chloride 105 mMol/L (98-107); Creatinine (Component) 0.5 mg/dL (0.6-1.3); Estimated Creatinine Clearance 72.2 mL/min (>60); Globulin 2.3 gm/dL (2.3-3.5); Glucose 117 mg/dL (74-106); Magnesium 1.3 mg/dL (1.6-2.6); Osmolality,Calculated 279 (275-295); Phosphorous 2.4 mg/dL (2.4-5.1); Potassium 4.2 mMol/L (3.4-5.1); Sodium 139 mMol/L (136-145); Total Protein 5.2 gm/dL (5.7-8.2); eGFR > 60 See Note
--- NOTE | 2025-01-05 07:55 | ESPR_ITS ---
<Statement entered by Jerry Webb MD - 01/05/25 14:57> Patient was seen and examined at the bedside. She reports that she feels weak and re-closure of wound was deferred until tomorrow due to surgeons' scheduling issue. Continuing cefoxitin for infection. Liver enzymes were elevated therefore us liver and hep panel was ordered. US liver is unremarkable. Will follow up with Hep panel. Morphine was increased to 2 mg q2h due to abdominal pain. NPO after midnight for closure of wound from SBO sx repair. I discussed and supervised with the agronomy internship physician who took care of this patient. I personally saw and examined the patient. I agree with most of the assessment and plan. Disclaimer: Despite multiple revisions, due to the dictation software being used, the document bellow may not be free of grammatical errors including phonetic/typographic errors. However, this does not deter from our commitment to providing health care in the patient's best interest in mind. Plan of care discussed with attending Physician Dr. Kavon Webb MD PGY-3 Documentation for date of: 01/05/25 Subjective Subjective Interval history: tolerating regular diet NPO at midnight for surgical incision closure with Dr. Parnell tomorrow morning 0900 pt endorses BM and passing gas Exam Vital Signs Temp Pulse Resp BP Pulse Ox O2 Del Method O2 Flow Rate 97.1 F 95 18 126/70 96 Room Air 1 01/05/25 04:00 01/05/25 07:07 01/05/25 07:07 01/05/25 04:00 01/05/25 07:07 01/05/25 04:00 01/05/25 07:07 Narrative Exam GENERAL: no acute distress, AAO x3, resting in bed with moderate discomfort HEENT: Head AT/ NC. Mucous membranes dry. PERRL. CARDIOVASCULAR: RRR. Normal S1/S2, No m/r/g. No pitting edema of bilateral LEs. RESPIRATORY: CTAB. No wheezing, rhonchi, crackles. GASTROINTESTINAL: Abdomen soft, mildly tender no palpable masses. Bowel sounds present. midline abdominal incision, packed with gauze. mildly tender len incision, ABD bandage on top. Incision site dry and intact. MUSCULOSKELETAL:? No cyanosis or edema, no visible joint swelling. NEUROLOGICAL: CN II-XII grossly intact. No focal deficits. Sensation intact, symmetric. PSYCHIATRIC: Awake and alert, not agitated, normal mood and affect. SKIN: No obvious rashes, no jaundice, normal turgor. Objective Labs 01/05/25 04:30 01/05/25 04:30 Labs: Laboratory Results - last 24 hr 01/05/25 04:30 WBC 14.9 H RBC 3.26 L Hgb 9.9 L Hct 30.4 L MCV 93 MCH 30.4 MCHC 32.6 RDW Std Deviation 45.3 Plt Count 239 Neut % (Auto) 77 Lymph % (Auto) 6 L [place] % (Auto) 9 Eos % (Auto) 1 Baso % (Auto) 1 Neut # (Auto) 11.5 H Lymph # (Auto) 0.9 L [place] # (Auto) 1.4 H Eos # (Auto) 0.1 Baso # (Auto) 0.1 Immature Gran # (Auto) 0.97 H Absolute Nucleated RBC 0.00 Immature Gran % 7 H Nucleated RBC % 0 PT 10.9 INR 1.0 APTT 34.5 Sodium 139 Potassium 4.2 Chloride 105 Carbon Dioxide 25.3 Anion Gap 9 BUN 14 Creatinine 0.5 L Estim Creat Clear Calc 72.2 eGFR > 60 BUN/Creatinine Ratio 28 H Glucose 117 H Calculated Osmolality 279 Calcium 8.3 Corrected Calcium 9.2 Phosphorus 2.4 Magnesium 1.3 L Total Bilirubin 0.4 AST 42 H ALT 63 H Alkaline Phosphatase 239 H D Total Protein 5.2 L Albumin 2.9 L Globulin 2.3 Albumin/Globulin Ratio 1.3 Quality Measures Quality Measures VTE prophylaxis Advance care planning discussed with:: patient and spouse Assessment & Plan Assessment Current Active Medications: Generic Name Dose Route Start Last Admin Trade Name Freq PRN Reason Stop Dose Admin Al Hydrox/Mg Hydrox/Simethicone 15 ml 01/04/25 10:36 Mg Hyd/Al Hyd/Mekhi (Maalox Reg) Susp 30 Ml Udc PO 02/03/25 10:35 QID PRN INDIGESTION Gabapentin 100 mg 12/31/24 06:00 01/05/25 05:01 Gabapentin 100 Mg Capsule PO 01/30/25 05:59 Not Given TID LILLI Cefoxitin Sodium 2 gm/ Sodium 50 mls @ 100 mls/hr 12/31/24 14:00 01/05/25 06:02 Chloride IV 01/07/25 00:00 100 mls/hr Q8HR LILLI Administration Sodium Chloride 1,000 mls @ 50 mls/hr 01/04/25 19:38 01/05/25 06:02 Ns IV 02/01/25 12:59 50 mls/hr .Q20H LILLI Administration Levothyroxine Sodium 88 mcg 01/02/25 06:00 01/05/25 05:01 Levothyroxine Sodium 88 Mcg Tablet PO 02/01/25 05:59 Not Given ACBR LILLI Melatonin 9 mg 12/31/24 10:02 01/03/25 21:27 Melatonin 3 Mg Tablet PO 01/30/25 10:01 9 mg HS PRN Administration sleep Morphine Sulfate 1.5 mg 01/03/25 10:04 Morphine Sulf Inj 10 Mg/Ml Vial IVP 01/08/25 09:36 Q4HR PRN last line for pain Protocol Ondansetron HCl 4 mg 12/30/24 18:13 Ondansetron Inj 2 Mg/Ml Inj 2 Ml IVP 01/29/25 18:12 Q6HR PRN NAUSEA OR VOMITING Protocol Pantoprazole Sodium 40 mg 01/02/25 09:00 01/04/25 09:52 Pantoprazole 40 Mg Tablet PO 02/01/25 08:59 40 mg QDAY LILLI Administration Tramadol HCl 50 mg 01/03/25 12:00 01/05/25 05:01 Tramadol Hcl 50 Mg Tablet PO 01/08/25 11:59 Not Given Q6HR LILLI Plan Ms Wallace is a 78-year-old woman with past medical history significant for cervical cancer status post hysterectomy in 2003 (status post chemo and radiation), and history of recurrent SBO, most recently admitted in November 2024 and 12/24 for SBO that resolved with Gastrografin small bowel series, patient presents with abdominal pain, nausea, vomiting, on CTAP patient was found to have small bowel pattern. in the ED started gastrogaffin small bowel series without advancement of contrast. General surgery consulted, admitted for management of SBO,now s/p ex lap POD [address] Parnell. Pt continues to have BM, and endorsing passage of gas, pt tolerated full diet well (no n/v), pending closure of abdominal incision tomorrow with Dr. Parnell @0900. NPO @midnight. #s/p ex lap with adhesion lysis and ilioceostomy with Dr. 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 pt was discharged for sbo 12/25 for sbo which resolved after small bowel series. pt states that on 12/25 she had recurrence of intermittent abdominal pain. s/p adhesion lysis and ilioceostomy. incision is open with gauze wet to dry dressing. transient leukocytosis consider reactive vs infection given recent context of sx . Leukocytosis somewhat downtrending pt continues to have BM and passing gas . Dx - CTAP with evidence of SBO pattern, Tx - Aspiration precautions -pt tolerating regular diet, NPO midnight pending closure of abdominal incision 0900. - IV Zofran 4 mg every 6 hours as needed - wet to dry dressing changes for midline abdominal incision - insentivie spirometer, encourage pt to utilize to prevent atelectasis. pt advised to use iv pain medication to help minimize pain with inspiration and allow her to do IS. - Pain regimen IV APAP scheduled q6hr PO tramadol scheduled 50 mg q4hr IV Morpheine 2mh q2hr prn -PT eval, reccomend home with home health PT and FWW #transaminitis with cholestatic pattern pt with 2 days of elevated LFTs and >>alk phos concerning for cholestatic pattern, given pt is on cefoxitin abx, consider that ,it is a cephalosporin antibiotic, can be associated with?minor, transient elevations?in liver enzymes (aminotransferases and alkaline phosphatase) in a small percentage of patients (around 3%) however per discussion w pharmacy they have low level of concern that cefoxitin is causing the increased LFT. per pharmacy, given elevation in wbc today, consider broadening to zosyn, possible that klebsiella bacteremia is contaminant. pt has no RUQ tenderness. Dx -GB ultrasound pending (dose IV morphine before US) -LFTs daily Tx -consider changing abx from cefoxitin. #Klebsiella 1/2 Bcx Bacteremia #Leukocytosis pt initial blood cx with klebsiella rachel sensitive, continued on cefoxitin 2g q8hr. WBC initially downtrending however today is elevated at 14.9 from 11.7. Dx -consider repeat Bcx Tx -cont cefoxitin 2g q8hr, consider broadening to zosyn increase in wbc. #weight loss #anorexia 2/2 SBO pain #Moderate acute disease or injury related malnutrition Patient meets ASPEN criteria for due to: 1. Significant unintentional weight loss. 2. Inadequate oral intake. 3. Moderate muscle wasting. 4. Moderate subcutaneous fat loss. pt reports minimal po intake over the past week given abdominal pain that was exaccerbated with eating. she reports that her weight is now in the 120s lbs, was previously at her target weight of 130s lbs - consult dietition, appreciate recs - ensure plus with lunch and dinner, Vanilla - full regular diet, low fiber (per nutrition recs) #Electrolyte abnormalities likely 2/2 poor po intake and GI losses, emesis no n/v post op. Dx - Daily CMP - replete as needed Mg>2, K>4 # Left hand swelling - resolved Patient had postop left hand swelling with her rings on the ring finger concern for possible constriction of ring finger circulation. Swelling significantly decreased with elevation and discontinuance of IV fluids Dx ? DVT ultrasound left upper extremity hand negative #GERD pt endorses increased belching post op -Malox 15 ml PO QID PRN -pantoprazole 40 mg p.o. #Hypothyroidism - Continue levothyroxine 88 mg #Low back pain patient reports taking daily APAP for when she goes on walks to help with pain cont home meds post surgery - Restart APAP 650 mg as needed - Restart gabapentin 100 mg 4 times daily - HOLD lidocaine patches for pain Dispo: pt pending incision closure tomorrow@ [address] Parnell, NPO at midnight Diet: NPO at midnight, Regular diet: low fiber, with ensure plus with lunch and dinner, Bowel Reg: Holding VTE ppx: SCD GI ppx: Pantoprazole 40 mg po Code status: Full Case discussed with my senior resident Dr. Webb Case discussed with my attending Dr. Kavon Rea MD PGY-1 Attending Provider Attestation/Addendum Adeola, Yasmin Jacobson, DO, attest that I was physically present for the arzola portions of the service and evaluated the patient with the resident and I reviewed and discussed the case with the resident and agree with the resident's findings and plans of care as documented above Patient seen and evaluated this AM. She states that she is having quite a bit of pain. No acute events overnight. Case discussed with surgeon, plan for closure tomorrow due to lack of openings for OR today. LFTs uptrending, suspect cholestasis due to cephalosporins. Bcx positive for klebsiella, will continue wtih cefoxitin. Decreased morphine intervals to q2h for better pain control. Will obtain US of RUQ. NPO after midnight.
[2025-01-05] MEDS: PANTOPRAZOLE 40 MG TABLET PO (09:38)
[2025-01-05] MEDS: MORPHINE SULF INJ 10 MG/ML VIAL 1.5 MG IVP (09:38)
[2025-01-05] MEDS: Magnesium Sulfate 4 GM Ivpb 4 GM/50 ML BAG IV (09:38)
[2025-01-05 09:41] LABS: Band Neutrophils (Manual) 4 % (0-6); Lymphocytes (Manual) 3 % (20-44); Monocytes (Manual) 11 % (2-9); Neutrophils (Manual) 82 % (50-70)
--- NOTE | 2025-01-05 10:26 | XR_ITS ---
Examination: Abdomen sonogram, Limited Date and time of exam: January 05, 2025 at 10:44 AM INDICATIONS: Abdominal pain beginning one week ago, history gastric surgery last week Technique: Real-time oden scale transabdominal sonographic images of the upper abdomen obtained. Findings: Normal gallbladder. Normal common bile duct 0.4 cm Pancreatic head 2.7 cm Liver 16.2 cm trace ascites no focal liver lesions Normal hepatopedal portal venous flow Patent IVC IMPRESSION: Normal gallbladder Liver 16.2 cm no liver lesions Trace ascites No abdominal abscess
[2025-01-05] MEDS: GABAPENTIN 100 MG CAPSULE PO ×2 (13:46→21:00)
--- NOTE | 2025-01-05 14:31 | PC.SS ---
Rounding note: patient to have procedure with Dr. Parnell tomorrow for closure of the wound. D/c plan is to return home.
[2025-01-05] MEDS: MORPHINE SULF INJ 10 MG/ML VIAL 2 MG IVP (21:03)
[2025-01-06] VITALS (13 sets, daily range): BP systolic 121–138; BP diastolic 59–84; PULSE 86–104; RESP 13–22; TEMP 36.5–36.9; O2SAT 93–97
[2025-01-06] MEDS: SODIUM CHLORIDE 0.9% 1000 ML 1,000 ML 50 ML IV (04:33)
[2025-01-06] MEDS: CEFOXITIN 2 GM in SODIUM CHLORIDE 0.9% (Popper) 50 ML IV (05:05)
[2025-01-06 06:20] LABS: Basophils # (Auto) 0.1 Thou/mm3 (0.0-0.2); Basophils % (Auto) 0 % (0-2.5); Eosinophils # (Auto) 0.1 Thou/mm3 (0.0-0.5); Eosinophils % (Auto) 1 % (0-10); Hematocrit 29.7 % (36.0-46.0); Hemoglobin 9.6 g/dL (12.0-16.0); Immature Granulocytes Auto 1.13 Thou/mm3 (0.00-0.00); Lymphocytes # (Auto) 0.9 Thou/mm3 (1.0-4.8); Lymphocytes % (Auto) 6 % (10-50); Mean Corpuscular HGB Conc 32.3 g/dl (31.0-37.0); Mean Corpuscular Hemoglobin 29.5 pg (25.0-35.0); Mean Corpuscular Volume 91 fL (80-100); Monocytes # (Auto) 0.9 Thou/mm3 (0.0-0.8); Monocytes % (Auto) 6 % (0-12); Neutrophils # (Auto) 13.4 Thou/mm3 (1.8-7.7); Neutrophils % (Auto) 81 % (37-80); Nucleated Red Blood Cell # 0.00 Thou/mm3 (0.00-0.00); Nucleated Red Blood Cell % 0 /100 WBC (0); Platelet Count 272 Thou/mm3 (140-440); RDW Standard Deviation 44.4 fL (36.4-46.3); Red Blood Count 3.25 Miln/mm3 (4.00-5.20); White Blood Count 16.6 Thou/mm3 (3.6-11.0)
[2025-01-06 06:31] LABS: INR 1.0 (0.9-1.3); Partial Thromboplastin Time 32.2 Seconds (22.0-36.0); Prothrombin Time 11.1 Seconds (9.0-12.2)
[2025-01-06 06:35] LABS: Alanine Aminotransferase 50 U/L (10-49); Albumin, Serum 3.0 gm/dL (3.4-4.8); Albumin/Globulin Ratio 1.3 (1.2-2.2); Alkaline Phosphatase 251 U/L (46-116); Anion Gap 8 (7-16); Aspartate Amino Transferase 26 U/L (0-34); BUN/Creatinine Ratio 19 Ratio (12-20); Bilirubin,Total 0.4 mg/dL (0.3-1.2); Blood Urea Nitrogen 13 mg/dL (9-23); Calcium 8.3 mg/dL (8.3-10.6); Calcium (Corrected) 9.1 mg/dL (8.5-10.1); Carbon Dioxide 29.6 mMol/L (20.0-31.0); Chloride 102 mMol/L (98-107); Creatinine (Component) 0.7 mg/dL (0.6-1.3); Estimated Creatinine Clearance 51.5 mL/min (>60); Globulin 2.4 gm/dL (2.3-3.5); Glucose 116 mg/dL (74-106); Magnesium 1.4 mg/dL (1.6-2.6); Osmolality,Calculated 280 (275-295); Phosphorous 2.7 mg/dL (2.4-5.1); Potassium 4.2 mMol/L (3.4-5.1); Sodium 140 mMol/L (136-145); Total Protein 5.4 gm/dL (5.7-8.2); eGFR > 60 See Note
[2025-01-06 07:08] LABS: Hepatitis A Antibody IgM Non Reactive (Non React); Hepatitis B Core Antibody IgM Non Reactive (Non React); Hepatitis B Surface Antigen Non Reactive (Non React); Hepatitis C Antibody Non Reactive (Non React)
[2025-01-06] MEDS: Magnesium Sulfate 4 GM Ivpb 4 GM/50 ML BAG IV (09:04)
--- NOTE | 2025-01-06 11:07 | SUR.PHASEI ---
pt received from OR in recovery bay 5. pt asleep but responds to voice, breathing unlabored on 5l nc. v/s stable. pt dressing to abd cdi. report received from Zaida Kurtz and Dr. Montemayor.
--- NOTE | 2025-01-06 11:11 | PD.SUROPNT ---
Date of Procedure 01/06/25 Pre Op Diagnosis Infected abdominal wound Post Op Diagnosis Same Procedure Secondary closure of the abdominal wound, planned Findings Patient is found to have a clean wound which required approximation Procedure Description After the patient was brought to the operating room she was given sedation. Then her abdominal wound was washed with Betadine solution and injected 1% Xylocaine with epinephrine and sodium bicarbonate. Then using 3-0 and 4-0 nylon stitches I closed the anterior abdominal wound with interrupted sutures. Some debridement was performed at the lower end of the wound where there was some unhealthy tissue. Most of the wound however was reasonably healthy and beefy red and was closed without much tension dressing was applied with Adaptic and 4 x 4 gauze and patient tolerated the procedure well. Anesthesia MAC Pathology / specimen None Estimated Blood Loss 5 Surgeon Donna Alexander MD Surgical Staff Operation Date: 01/06/25 09:15 <No data on this case meets the specified criteria>
--- NOTE | 2025-01-06 11:40 | SUR.PHASEI ---
pt awake and alert, breathing unlabored on 2nc. v/s stable. pt dressing to abd cdi. report called to Judy MERCADO. pt will be transferred to room at this time.
[2025-01-06] MEDS: PANTOPRAZOLE 40 MG TABLET PO (13:14)
[2025-01-06] MEDS: ceFAZolin/D5W 2 GM IV 2 GM/100 ML BAG IV ×2 (15:59→21:25)
[2025-01-06] MEDS: GABAPENTIN 100 MG CAPSULE PO ×2 (15:59→21:25)
--- NOTE | 2025-01-06 16:58 | PC.SS ---
Rounding note: patient is post op procedure with Dr. Parnell and receiving IV abx. D/c plan is to return home.
--- NOTE | 2025-01-06 17:16 | ESPR_ITS ---
<Statement entered by Shun Salter MD - 01/06/25 17:57> Patient seen and examined at bedside. I discussed and supervised with the commander internal affairs physician who took care of this patient. I personally saw and examined the patient. I agree with most of the assessment and plan. Patient had surgical closure of open surgical abdominal incision, well tolerated. GBUS ordered for uptrending LFTs, benign. Regular diet. Pending bowel movement. WBCs uptrending, antibiotics broadened to cefazolin. Plan of care discussed with attending Dr. Jacobson. Shun Salter MD PGY-2 Documentation for date of: 01/06/25 Subjective Subjective Interval history: Patient states she feels well this morning and reports a good night?s sleep. She denies any nausea, vomiting, or abdominal pain. She has not had a bowel movement yet today but is passing gas. No drainage noted from the incision. Pain is well controlled with current regimen. Patient is aware of and consented for her incision closure this morning. At the time of interview, surgery team and nursing staff arrived to transport her to the OR for the procedure. Exam Vital Signs Temp Pulse Resp BP Pulse Ox O2 Del Method O2 Flow Rate 98.1 F 90 17 121/71 94 L Room Air 2 01/06/25 16:00 01/06/25 16:00 01/06/25 16:00 01/06/25 16:00 01/06/25 16:00 01/06/25 16:00 01/06/25 12:00 Narrative Exam Vitals: Stable overnight Incision: Midline incision pre-closure packed with gauze, no drainage reported Lung: Clear to auscultation Abdomen: Soft, non-tender, nondistended Neuro: AAOx3, no focal deficits Procedure Today: Secondary closure of abdominal wound performed under MAC by Dr. Parnell. Wound found clean; some lower debridement, rest closed with interrupted 3-0 and 4-0 nylon. Dressing applied. Patient tolerated well. Objective Labs 01/07/25 04:55 01/07/25 04:55 Labs: Laboratory Results - last 24 hr 01/06/25 05:33 WBC 16.6 H RBC 3.25 L Hgb 9.6 L Hct 29.7 L MCV 91 MCH 29.5 MCHC 32.3 RDW Std Deviation 44.4 Plt Count 272 D Neut % (Auto) 81 H Lymph % (Auto) 6 L [place] % (Auto) 6 Eos % (Auto) 1 Baso % (Auto) 0 Neut # (Auto) 13.4 H Lymph # (Auto) 0.9 L [place] # (Auto) 0.9 H Eos # (Auto) 0.1 Baso # (Auto) 0.1 Immature Gran # (Auto) 1.13 H Absolute Nucleated RBC 0.00 Immature Gran % 7 H Nucleated RBC % 0 PT 11.1 INR 1.0 APTT 32.2 Sodium 140 Potassium 4.2 Chloride 102 Carbon Dioxide 29.6 Anion Gap 8 BUN 13 Creatinine 0.7 Estim Creat Clear Calc 51.5 L eGFR > 60 BUN/Creatinine Ratio 19 Glucose 116 H Calculated Osmolality 280 Calcium 8.3 Corrected Calcium 9.1 Phosphorus 2.7 Magnesium 1.4 L Total Bilirubin 0.4 AST 26 ALT 50 H Alkaline Phosphatase 251 H Total Protein 5.4 L Albumin 3.0 L Globulin 2.4 Albumin/Globulin Ratio 1.3 Hepatitis A IgM Ab Non Reactive Hep Bs Antigen Non Reactive Hep B Core IgM Ab Non Reactive Hepatitis C Antibody Non Reactive Quality Measures Quality Measures VTE prophylaxis Advance care planning discussed with:: patient Assessment & Plan Assessment Current Active Medications: Generic Name Dose Route Start Last Admin Trade Name Freq PRN Reason Stop Dose Admin Al Hydrox/Mg Hydrox/Simethicone 15 ml 01/04/25 10:36 Mg Hyd/Al Hyd/Mekhi (Maalox Reg) Susp 30 Ml Udc PO 02/03/25 10:35 QID PRN INDIGESTION Gabapentin 100 mg 12/31/24 06:00 01/06/25 15:59 Gabapentin 100 Mg Capsule PO 01/30/25 05:59 100 mg TID LILLI Administration Sodium Chloride 1,000 mls @ 50 mls/hr 01/04/25 19:38 01/06/25 04:33 Ns IV 02/01/25 12:59 50 mls/hr .Q20H LILLI Administration Cefazolin Sodium 2 gm in 100 mls @ 200 mls/hr 01/06/25 14:00 01/06/25 15:59 Ancef 2gm Ivpb IV 01/13/25 13:59 200 mls/hr Q8HR LILLI Administration Levothyroxine Sodium 88 mcg 01/02/25 06:00 01/06/25 05:02 Levothyroxine Sodium 88 Mcg Tablet PO 02/01/25 05:59 Not Given ACBR LILLI Melatonin 9 mg 12/31/24 10:02 01/03/25 21:27 Melatonin 3 Mg Tablet PO 01/30/25 10:01 9 mg HS PRN Administration sleep Morphine Sulfate 2 mg 01/05/25 10:29 01/05/25 21:03 Morphine Sulf Inj 10 Mg/Ml Vial IVP 01/10/25 10:29 2 mg Q2HR PRN Administration pain Protocol Ondansetron HCl 4 mg 12/30/24 18:13 Ondansetron Inj 2 Mg/Ml Inj 2 Ml IVP 01/29/25 18:12 Q6HR PRN NAUSEA OR VOMITING Protocol Pantoprazole Sodium 40 mg 01/02/25 09:00 01/06/25 13:14 Pantoprazole 40 Mg Tablet PO 02/01/25 08:59 40 mg QDAY LILLI Administration Tramadol HCl 50 mg 01/03/25 12:00 01/06/25 13:14 Tramadol Hcl 50 Mg Tablet PO 01/08/25 11:59 50 mg Q6HR LILLI Administration Plan Ms. 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 Today underwent planned secondary closure of abdominal wound. Tolerating diet, pain well controlled, passing gas, awaiting recovery from procedure. #s/p Ex Lap with Adhesion Lysis and Ileocecostomy ? 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 pt was discharged for sbo 12/25 for sbo which resolved after small bowel series. pt states that on 12/25 she had recurrence of intermittent abdominal pain. s/p adhesion lysis and ilioceostomy. incision is open with gauze wet to dry dressing. transient leukocytosis consider reactive vs infection given recent context of sx . Leukocytosis somewhat downtrending pt continues to have BM and passing gas . CTAP with evidence of SBO pattern, Now status post secondary abdominal wound closure by Dr. Parnell. Wound was clean with minor debridement at lower end. Closure performed with interrupted nylon sutures. Plan: * Monitor incision for signs of infection or dehiscence * Continue IS, encourage mobility * Monitor for return of bowel function (BM) * Pain regimen: IV APAP, PO tramadol scheduled, morphine PRN * Aspiration precautions * IV Zofran 4 mg every 6 hours as needed * insentivie spirometer, encourage pt to utilize to prevent atelectasis. pt advised to use iv pain medication to help minimize pain with inspiration and allow her to do IS. * PT eval, reccomend home with home health PT and FWW #transaminitis with cholestatic pattern pt with 2 days of elevated LFTs and >>alk phos concerning for cholestatic pattern, given pt is on cefoxitin abx, consider that ,it is a cephalosporin antibiotic, can be associated with?minor, transient elevations?in liver enzymes (aminotransferases and alkaline phosphatase) in a small percentage of patients (around 3%) however per discussion w pharmacy they have low level of concern that cefoxitin is causing the increased LFT. per pharmacy, given elevation in wbc today, consider broadening to zosyn, possible that klebsiella bacteremia is contaminant. pt has no RUQ tenderness. Dx -GB ultrasound pending (dose IV morphine before US) -LFTs daily Tx -consider changing abx from cefoxitin. #Klebsiella 1/2 Bcx Bacteremia #Leukocytosis pt initial blood cx with klebsiella rachel sensitive, continued on cefoxitin 2g q8hr. WBC initially downtrending however today is elevated at 14.9 from 11.7. Dx -consider repeat Bcx Tx -cont cefoxitin 2g q8hr, consider broadening to zosyn increase in wbc. #weight loss #anorexia 2/2 SBO pain #Moderate acute disease or injury related malnutrition Patient meets ASPEN criteria for due to: 1. Significant unintentional weight loss. 2. Inadequate oral intake. 3. Moderate muscle wasting. 4. Moderate subcutaneous fat loss. pt reports minimal po intake over the past week given abdominal pain that was exaccerbated with eating. she reports that her weight is now in the 120s lbs, was previously at her target weight of 130s lbs - consult dietition, appreciate recs - ensure plus with lunch and dinner, Vanilla - full regular diet, low fiber (per nutrition recs) #Electrolyte abnormalities likely 2/2 poor po intake and GI losses, emesis no n/v post op. Dx - Daily CMP - replete as needed Mg>2, K>4 # Left hand swelling - resolved Patient had postop left hand swelling with her rings on the ring finger concern for possible constriction of ring finger circulation. Swelling significantly decreased with elevation and discontinuance of IV fluids Dx ? DVT ultrasound left upper extremity hand negative #GERD pt endorses increased belching post op -Malox 15 ml PO QID PRN -pantoprazole 40 mg p.o. #Hypothyroidism - Continue levothyroxine 88 mg #Low back pain patient reports taking daily APAP for when she goes on walks to help with pain cont home meds post surgery - Restart APAP 650 mg as needed - Restart gabapentin 100 mg 4 times daily - HOLD lidocaine patches for pain Dispo: Post-op day 5, now s/p wound closure. Monitor recovery. Discharge likely in 1?2 days pending stability and PT clearance. Diet: NPO at midnight, Regular diet: low fiber, with ensure plus with lunch and dinner, Bowel Reg: Holding VTE ppx: SCD GI ppx: Pantoprazole 40 mg po Code status: Full ----- Plan discussed with attending physician Dr. Jacobson and senior resident Dr. Jef MD PGY-1 Internal Medicine Attending Provider Attestation/Addendum Adoela, Yasmin Jacobson DO, attest that I was physically present for the arzola portions of the service and evaluated the patient with the resident and I reviewed and discussed the case with the resident and agree with the resident's findings and plans of care as documented above Patient seen and eval this a.m. No acute events overnight. Patient underwent closure of midline incision and has been doing well. Patient eating lunch and denies any pain. She denies any shortness of breath, nausea or vomiting otherwise. Will continue with postop care. Pain control as needed.
[2025-01-06] MEDS: MORPHINE SULF INJ 10 MG/ML VIAL 2 MG IVP (20:00)
[2025-01-07] VITALS (8 sets, daily range): BP systolic 117–132; BP diastolic 69–78; PULSE 78–88; RESP 16–18; TEMP 36.4–36.8; O2SAT 92–97; BMI 21.9; BMI 13.0
[2025-01-07 05:35] LABS: Basophils # (Auto) 0.1 Thou/mm3 (0.0-0.2); Basophils % (Auto) 0 % (0-2.5); Eosinophils # (Auto) 0.2 Thou/mm3 (0.0-0.5); Eosinophils % (Auto) 1 % (0-10); Hematocrit 31.6 % (36.0-46.0); Hemoglobin 10.2 g/dL (12.0-16.0); Immature Granulocytes Auto 0.84 Thou/mm3 (0.00-0.00); Lymphocytes # (Auto) 0.9 Thou/mm3 (1.0-4.8); Lymphocytes % (Auto) 4 % (10-50); Mean Corpuscular HGB Conc 32.3 g/dl (31.0-37.0); Mean Corpuscular Hemoglobin 30.5 pg (25.0-35.0); Mean Corpuscular Volume 95 fL (80-100); Monocytes # (Auto) 1.3 Thou/mm3 (0.0-0.8); Monocytes % (Auto) 6 % (0-12); Neutrophils # (Auto) 18.7 Thou/mm3 (1.8-7.7); Neutrophils % (Auto) 85 % (37-80); Nucleated Red Blood Cell # 0.00 Thou/mm3 (0.00-0.00); Nucleated Red Blood Cell % 0 /100 WBC (0); Platelet Count 301 Thou/mm3 (140-440); RDW Standard Deviation 45.3 fL (36.4-46.3); Red Blood Count 3.34 Miln/mm3 (4.00-5.20); White Blood Count 22.0 Thou/mm3 (3.6-11.0)
[2025-01-07] MEDS: ceFAZolin/D5W 2 GM IV 2 GM/100 ML BAG IV ×3 (05:41→21:43)
[2025-01-07] MEDS: LEVOTHYROXINE SODIUM 88 MCG TABLET PO (05:42)
[2025-01-07] MEDS: GABAPENTIN 100 MG CAPSULE PO ×3 (05:42→21:43)
[2025-01-07] MEDS: SODIUM CHLORIDE 0.9% 1000 ML 1,000 ML 50 ML IV ×2 (05:47→10:01)
[2025-01-07 05:57] LABS: Alanine Aminotransferase 37 U/L (10-49); Albumin, Serum 3.1 gm/dL (3.4-4.8); Albumin/Globulin Ratio 1.2 (1.2-2.2); Alkaline Phosphatase 237 U/L (46-116); Anion Gap 9 (7-16); Aspartate Amino Transferase 25 U/L (0-34); BUN/Creatinine Ratio 22 Ratio (12-20); Bilirubin,Total 0.4 mg/dL (0.3-1.2); Blood Urea Nitrogen 11 mg/dL (9-23); Calcium 8.4 mg/dL (8.3-10.6); Calcium (Corrected) 9.1 mg/dL (8.5-10.1); Carbon Dioxide 31.4 mMol/L (20.0-31.0); Chloride 101 mMol/L (98-107); Creatinine (Component) 0.5 mg/dL (0.6-1.3); Estimated Creatinine Clearance 72.2 mL/min (>60); Globulin 2.5 gm/dL (2.3-3.5); Glucose 116 mg/dL (74-106); Magnesium 1.5 mg/dL (1.6-2.6); Osmolality,Calculated 281 (275-295); Phosphorous 2.5 mg/dL (2.4-5.1); Potassium 4.2 mMol/L (3.4-5.1); Sodium 141 mMol/L (136-145); Total Protein 5.6 gm/dL (5.7-8.2); eGFR > 60 See Note
--- NOTE | 2025-01-07 07:23 | ESPR_ITS ---
<Statement entered by Jerry Webb MD - 01/07/25 17:09> Patient was seen and examined at the bedside. No acute overnight events were reported. Patient had an elevation in white count. Therefore blood cultures were repeated procalcitonin was negative. Patient was encouraged on using incentive spirometer. Chest x-ray showed mild congestion abdomen was mildly tender. Surgery recommended to continue with current medication and pain control. Follow-up on blood cultures. I discussed and supervised with the internet sales consultant physician who took care of this patient. I personally saw and examined the patient. I agree with most of the assessment and plan. Disclaimer: Despite multiple revisions, due to the dictation software being used, the document bellow may not be free of grammatical errors including phonetic/typographic errors. However, this does not deter from our commitment to providing health care in the patient's best interest in mind. Plan of care discussed with attending Physician Dr. ray Webb MD PGY-3 Documentation for date of: 01/07/25 Subjective Subjective Interval history: No acute events overnight pt with wbc elevation, pending infectious workup no clear source of infxn, consider intrabdominal, vs vs pulm however no LUTS, favor atelectesis rather than evolving PNA, Exam Vital Signs Temp Pulse Resp BP Pulse Ox O2 Del Method O2 Flow Rate 97.8 F 83 17 117/69 93 L Nasal Cannula 1 01/07/25 04:00 01/07/25 04:00 01/07/25 04:00 01/07/25 04:00 01/07/25 04:00 01/07/25 04:00 01/07/25 04:00 Narrative Exam GENERAL: no acute distress, AAO x3, resting in bed with moderate discomfort HEENT: Head AT/ NC. Mucous membranes dry. PERRL. CARDIOVASCULAR: RRR. Normal S1/S2, No m/r/g. No pitting edema of bilateral LEs. RESPIRATORY: CTAB. No wheezing, rhonchi, crackles. GASTROINTESTINAL: Abdomen soft, mildly tender no palpable masses. Bowel sounds present. midline abdominal incision, mildly tender len incision, ABD bandage on top. Incision site dry and intact. MUSCULOSKELETAL:? No cyanosis or edema, no visible joint swelling. NEUROLOGICAL: CN II-XII grossly intact. No focal deficits. Sensation intact, symmetric. PSYCHIATRIC: Awake and alert, not agitated, normal mood and affect. SKIN: No obvious rashes, no jaundice, normal turgor. Objective Labs 01/07/25 04:55 01/07/25 04:55 Labs: Laboratory Results - last 24 hr 01/07/25 04:55 WBC 22.0 H D RBC 3.34 L Hgb 10.2 L Hct 31.6 L MCV 95 MCH 30.5 MCHC 32.3 RDW Std Deviation 45.3 Plt Count 301 Neut % (Auto) 85 H Lymph % (Auto) 4 L [place] % (Auto) 6 Eos % (Auto) 1 Baso % (Auto) 0 Neut # (Auto) 18.7 H Lymph # (Auto) 0.9 L [place] # (Auto) 1.3 H Eos # (Auto) 0.2 Baso # (Auto) 0.1 Immature Gran # (Auto) 0.84 H Absolute Nucleated RBC 0.00 Immature Gran % 4 H Nucleated RBC % 0 Sodium 141 Potassium 4.2 Chloride 101 Carbon Dioxide 31.4 H Anion Gap 9 BUN 11 Creatinine 0.5 L Estim Creat Clear Calc 72.2 eGFR > 60 BUN/Creatinine Ratio 22 H Glucose 116 H Calculated Osmolality 281 Calcium 8.4 Corrected Calcium 9.1 Phosphorus 2.5 Magnesium 1.5 L Total Bilirubin 0.4 AST 25 ALT 37 Alkaline Phosphatase 237 H Total Protein 5.6 L Albumin 3.1 L Globulin 2.5 Albumin/Globulin Ratio 1.2 Quality Measures Quality Measures VTE prophylaxis Advance care planning discussed with:: patient and spouse Assessment & Plan Assessment Current Active Medications: Generic Name Dose Route Start Last Admin Trade Name Freq PRN Reason Stop Dose Admin Al Hydrox/Mg Hydrox/Simethicone 15 ml 01/04/25 10:36 Mg Hyd/Al Hyd/Mekhi (Maalox Reg) Susp 30 Ml Udc PO 02/03/25 10:35 QID PRN INDIGESTION Gabapentin 100 mg 12/31/24 06:00 01/07/25 05:42 Gabapentin 100 Mg Capsule PO 01/30/25 05:59 100 mg TID LILLI Administration Sodium Chloride 1,000 mls @ 50 mls/hr 01/04/25 19:38 01/07/25 05:47 Ns IV 02/01/25 12:59 50 mls/hr .Q20H LILLI Administration Cefazolin Sodium 2 gm in 100 mls @ 200 mls/hr 01/06/25 14:00 01/07/25 05:41 Ancef 2gm Ivpb IV 01/13/25 13:59 200 mls/hr Q8HR LILLI Administration Levothyroxine Sodium 88 mcg 01/02/25 06:00 01/07/25 05:42 Levothyroxine Sodium 88 Mcg Tablet PO 02/01/25 05:59 88 mcg ACBR LILLI Administration Melatonin 9 mg 12/31/24 10:02 01/03/25 21:27 Melatonin 3 Mg Tablet PO 01/30/25 10:01 9 mg HS PRN Administration sleep Morphine Sulfate 2 mg 01/05/25 10:29 01/06/25 20:00 Morphine Sulf Inj 10 Mg/Ml Vial IVP 01/10/25 10:29 2 mg Q2HR PRN Administration pain Protocol Ondansetron HCl 4 mg 12/30/24 18:13 Ondansetron Inj 2 Mg/Ml Inj 2 Ml IVP 01/29/25 18:12 Q6HR PRN NAUSEA OR VOMITING Protocol Pantoprazole Sodium 40 mg 01/02/25 09:00 01/06/25 13:14 Pantoprazole 40 Mg Tablet PO 02/01/25 08:59 40 mg QDAY LILLI Administration Tramadol HCl 50 mg 01/03/25 12:00 01/07/25 05:41 Tramadol Hcl 50 Mg Tablet PO 01/08/25 11:59 50 mg Q6HR LILLI Administration Plan Ms. 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 s/p incision closure, Tolerating diet, pain well controlled, passing gas, pending BM, pending infectious workup given leukocytosis persists (repeat blood bcx pending), cont on Cefazolin 2gm. #Leukocytosis, query reactive vs stress iso surgery vs infxn #Klebsiella 1/2 Bcx Bacteremia pt initial blood cx with klebsiella rachel sensitive, continued on cefoxitin 2g q8hr. WBC initially downtrending however today is elevated at 22 from 16, undergoing infectious workup, CXR neg, UA bland. Dx -pending repeat Bcx -CXR with atelectais, and small bl pleural effusion, no concern for PNA -lactate wnl -procal elevated 3.47 -UA bland - consider repeat abdominal imaging. Tx - cont cefazolin 2gm #s/p Ex Lap with Adhesion Lysis and Ileocecostomy ? 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 pt was discharged for sbo 12/25 for sbo which resolved after small bowel series. pt states that on 12/25 she had recurrence of intermittent abdominal pain. s/p adhesion lysis and ilioceostomy. incision is open with gauze wet to dry dressing. leukocytosis consider reactive vs infection given recent context of sx . WBC elevation at 22 16 pt continues to pass gas, no BM since 2 days status post secondary abdominal wound closure by Dr. Parnell. Wound was clean with minor debridement at lower end. Closure performed with interrupted nylon sutures. Plan: * Monitor incision for signs of infection or dehiscence * Continue IS, encourage mobility * Monitor for return of bowel function (BM) - added bowel regimen post incision closure with: Mirilax and docusate Qd scheduled * Pain regimen: IV APAP scheduled, PO tramadol scheduled, morphine PRN * Aspiration precautions * IV Zofran 4 mg every 6 hours as needed * insentivie spirometer, encourage pt to utilize to prevent atelectasis. pt advised to use iv pain medication to help minimize pain with inspiration and allow her to do IS. * PT eval, reccomend home with home health PT and FWW #transaminitis with cholestatic pattern - resolving pt with 2 days of elevated LFTs and >>alk phos concerning for cholestatic pattern, given pt is on cefoxitin abx, consider that ,it is a cephalosporin antibiotic, can be associated with?minor, transient elevations?in liver enzymes (aminotransferases and alkaline phosphatase) in a small percentage of patients (around 3%) however per discussion w pharmacy they have low level of concern that cefoxitin is causing the increased LFT. per pharmacy, given elevation in wbc today, consider broadening to zosyn, possible that klebsiella bacteremia is contaminant. pt has no RUQ tenderness. Dx -GB ultrasound unremarkable -LFTs daily #weight loss #anorexia 2/2 SBO pain #Moderate acute disease or injury related malnutrition Patient meets ASPEN criteria for due to: 1. Significant unintentional weight loss. 2. Inadequate oral intake. 3. Moderate muscle wasting. 4. Moderate subcutaneous fat loss. pt reports minimal po intake over the past week given abdominal pain that was exaccerbated with eating. she reports that her weight is now in the 120s lbs, was previously at her target weight of 130s lbs - consult dietition, appreciate recs - ensure plus with lunch and dinner, Vanilla - full regular diet, low fiber (per nutrition recs) #Electrolyte abnormalities likely 2/2 poor po intake and GI losses, emesis no n/v post op. Dx - Daily CMP - replete as needed Mg>2, K>4 # Left hand swelling - resolved Patient had postop left hand swelling with her rings on the ring finger concern for possible constriction of ring finger circulation. Swelling significantly decreased with elevation and discontinuance of IV fluids Dx ? DVT ultrasound left upper extremity hand negative #GERD pt endorses increased belching post op -Malox 15 ml PO QID PRN -pantoprazole 40 mg p.o. #Hypothyroidism - Continue levothyroxine 88 mg #Low back pain patient reports taking daily APAP for when she goes on walks to help with pain cont home meds post surgery - Restart APAP 650 mg as needed - Restart gabapentin 100 mg 4 times daily - HOLD lidocaine patches for pain Dispo: Post-op day 6 from adhesion lysis and resection, now s/p wound closure. Monitor recovery. pending infectious workup for leukocytosis 22 . Diet: Regular diet: low fiber, with ensure plus with lunch and dinner, Bowel Reg: miralax, and docusate scheduled VTE ppx: start on heparin sc 5000 units BID GI ppx: Pantoprazole 40 mg po Code status: Full Case discussed with my senior resident Dr. Webb Case discussed with my attending Dr. Ray Rea MD PGY-1 Attending Provider Attestation/Addendum I, Yasmin Jacobson DO, attest that I was physically present for the arzola portions of the service and evaluated the patient with the resident and I reviewed and discussed the case with the resident and agree with the resident's findings and plans of care as documented above Patient seen eval this a.m. She has a lot of pain this morning and appears to have some abdominal distention. Patient was also seen by surgeon. Case was discussed as patient has uptrending leukocytosis. Patient has been taking very shallow breaths due to abdominal pain. A chest x-ray was done during which patient was found to have mild pleural effusions andBibasilar pneumonia. Patient states pain is worse after she had gone down to radiology for x-ray. Encourage patient to use incentive spirometer. Continue with cefazolin at this time. Patient remains on 1 L nasal cannula. Continue with pain control as needed. Patient has been tolerating diet well. No BM overnight. She denies any nausea otherwise.
--- NOTE | 2025-01-07 08:33 | XR_ITS ---
Examination: PA lateral chest 2 views TECHNIQUE: Upright PA lateral chest 2 views Date and time: January 07, 2025 0849 hours Comparison December 24, 2024 INDICATIONS: Coughing and congestion this week. FINDINGS: Bibasilar pneumonia. Mild to moderate bilateral pleural effusions. Normal heart size IMPRESSION: Bibasilar pneumonia Mild to moderate bilateral pleural effusions
[2025-01-07] MEDS: HEPARIN SOD INJ 5000 UNIT/ML VIAL SC ×2 (09:28→21:43)
[2025-01-07] MEDS: MORPHINE SULF INJ 10 MG/ML VIAL 2 MG IVP (09:28)
[2025-01-07] MEDS: Magnesium Sulfate 4 GM Ivpb 4 GM/50 ML BAG IV (09:29)
[2025-01-07] MEDS: PANTOPRAZOLE 40 MG TABLET PO (09:29)
[2025-01-07] MEDS: DOCUSATE SOD 100 MG CAPSULE PO (10:09)
[2025-01-07] MEDS: POLYETHYLENE GLYCOL 17 GM PACKET PO (10:09)
[2025-01-07 10:22] LABS: Lactate (Lactic Acid) 0.9 mMol/L (0.4-2.0)
[2025-01-07 10:57] LABS: Procalcitonin 3.47 ng/ml (0.0-0.49)
--- NOTE | 2025-01-07 15:27 | PC.SS ---
Rounding note: patient's white blood count is elevated. Pending cultures. D/c plan is to return home.
[2025-01-07 16:30] LABS: Collection Type, Urine Clean Catch
[2025-01-07 16:39] LABS: Bilirubin,Urine Negative (Negative); Blood,Urine Negative (Negative); Clarity,Urine Clear (Clear/Hazy); Color,Urine Yellow (Lt Yel-Yel); Culture Indicated,Urine Not Indicated; Glucose, Urine Negative (Negative); Ketones,Urine Negative (Negative); Leukocyte Esterase,Urine Negative (Negative); Nitrite,Urine Negative (Negative); PH,Urine 5.5 (5.0-7.0); Protein,Urine Trace (Neg - Trace); RBC,Urine 3 /hpf (0-3); Specific Gravity,Urine 1.027 (1.001-1.035); Squamous Epithelial Cell,Urine 1 /hpf (0-5); Urobilinogen,Urine Negative mg/dL (0.0-1.0); WBC,Urine 8 /hpf (0-5)
[2025-01-07] MEDS: ACETAMINOPHEN 325 MG TABLET 650 MG PO (19:53)
--- NOTE | 2025-01-07 22:00 | PC.NURSE ---
Encouraged pt to used incentive spirometry specially if she's awake to expand her lungs, pt verbalizes understanding and able to go up to 500. Pt encouraged also to increase ambulation to move her bowel, pt has no BM for 2 days but passing gas.
[2025-01-08] VITALS (14 sets, daily range): BP systolic 114–143; BP diastolic 65–95; PULSE 71–105; RESP 16–22; TEMP 36.3–36.6; O2SAT 90–100
[2025-01-08] MEDS: ceFAZolin/D5W 2 GM IV 2 GM/100 ML BAG IV (05:14)
[2025-01-08] MEDS: LEVOTHYROXINE SODIUM 88 MCG TABLET PO (05:15)
[2025-01-08] MEDS: GABAPENTIN 100 MG CAPSULE PO ×2 (05:15→21:06)
[2025-01-08] MEDS: SODIUM CHLORIDE 0.9% 1000 ML 1,000 ML 50 ML IV (05:15)
[2025-01-08 06:19] LABS: Basophils # (Auto) 0.1 Thou/mm3 (0.0-0.2); Basophils % (Auto) 0 % (0-2.5); Eosinophils # (Auto) 0.2 Thou/mm3 (0.0-0.5); Eosinophils % (Auto) 1 % (0-10); Hematocrit 30.8 % (36.0-46.0); Hemoglobin 9.7 g/dL (12.0-16.0); Immature Granulocytes Auto 0.76 Thou/mm3 (0.00-0.00); Lymphocytes # (Auto) 0.9 Thou/mm3 (1.0-4.8); Lymphocytes % (Auto) 4 % (10-50); Mean Corpuscular HGB Conc 31.5 g/dl (31.0-37.0); Mean Corpuscular Hemoglobin 29.9 pg (25.0-35.0); Mean Corpuscular Volume 95 fL (80-100); Monocytes # (Auto) 1.4 Thou/mm3 (0.0-0.8); Monocytes % (Auto) 6 % (0-12); Neutrophils # (Auto) 18.5 Thou/mm3 (1.8-7.7); Neutrophils % (Auto) 85 % (37-80); Nucleated Red Blood Cell # 0.00 Thou/mm3 (0.00-0.00); Nucleated Red Blood Cell % 0 /100 WBC (0); Platelet Count 338 Thou/mm3 (140-440); RDW Standard Deviation 45.2 fL (36.4-46.3); Red Blood Count 3.24 Miln/mm3 (4.00-5.20); White Blood Count 21.7 Thou/mm3 (3.6-11.0)
--- NOTE | 2025-01-08 06:50 | ESPR_ITS ---
<Statement entered by Gigi Amaya MD - 01/12/25 08:02> I reviewed above note and agree with findings and plans. I have also personally examined the patient with medicine team and went over assessment and plan with medical team including training intern and resident physician. <Statement entered by Jerry Webb MD - 01/08/25 14:21> Patient was seen and examined at the bedside. No acute overnight events were reported. Patient continues to have abdominal discomfort with distention. White count continues to remain elevated. Repeat blood cultures are growing GNR [address] abdomen was ordered which showed large abscess. CT-guided abscess drainage has been ordered to be followed up. Surgery is following. Home health order for PT was ordered. Antibiotics were switched to Zosyn. Electrolytes were repleted. All labs and orders were reviewed. I discussed and supervised with the training intern physician who took care of this patient. I personally saw and examined the patient. I agree with most of the assessment and plan. Disclaimer: Despite multiple revisions, due to the dictation software being used, the document bellow may not be free of grammatical errors including phonetic/typographic errors. However, this does not deter from our commitment to providing health care in the patient's best interest in mind. Plan of care discussed with attending Physician Dr. Monique Webb MD PGY-3 Documentation for date of: 01/08/25 Subjective Subjective Interval history: pt reports increased abdominal distention and pain afebrile (on APAP) WBC remains elevated at 22, fth intraabdominal abscess on CTAP, plan for drainage with IR, Dr. Parnell aware. Changed abx from cefazolin to zosyn Pt NPO pending drainage. Exam Vital Signs Temp Pulse Resp BP Pulse Ox O2 Del Method O2 Flow Rate 98 F 71 18 143/72 H 95 Nasal Cannula 1 01/08/25 04:00 01/08/25 04:00 01/08/25 04:00 01/08/25 04:00 01/08/25 04:00 01/08/25 04:00 01/08/25 04:00 Narrative Exam GENERAL: no acute distress, AAO x3, resting in bed with moderate discomfort HEENT: Head AT/ NC. Mucous membranes dry. PERRL. CARDIOVASCULAR: RRR. Normal S1/S2, No m/r/g. No pitting edema of bilateral LEs. RESPIRATORY: CTAB. No wheezing, rhonchi, crackles. GASTROINTESTINAL: Abdomen more tense than prior, tender to palpation, no palpable masses. abdomen notable distended from prior.midline abdominal incision, mildly tender len incision, ABD bandage on top. Incision site dry and intact. MUSCULOSKELETAL:? No cyanosis or edema, no visible joint swelling. NEUROLOGICAL: CN II-XII grossly intact. No focal deficits. Sensation intact, symmetric. PSYCHIATRIC: Awake and alert, not agitated, normal mood and affect. SKIN: No obvious rashes, no jaundice, normal turgor. Objective Labs 01/08/25 05:43 01/08/25 05:43 Labs: Laboratory Results - last 24 hr 01/07/25 01/07/25 01/08/25 10:10 15:45 05:43 WBC 21.7 H RBC 3.24 L Hgb 9.7 L Hct 30.8 L MCV 95 MCH 29.9 MCHC 31.5 RDW Std Deviation 45.2 Plt Count 338 D Neut % (Auto) 85 H Lymph % (Auto) 4 L [place] % (Auto) 6 Eos % (Auto) 1 Baso % (Auto) 0 Neut # (Auto) 18.5 H Lymph # (Auto) 0.9 L [place] # (Auto) 1.4 H Eos # (Auto) 0.2 Baso # (Auto) 0.1 Immature Gran # (Auto) 0.76 H Absolute Nucleated RBC 0.00 Immature Gran % 4 H Nucleated RBC % 0 Lactic Acid 0.9 Procalcitonin 3.47 H Ur Collection Type Clean Catch Urine Color Yellow Urine Clarity Clear Urine pH 5.5 Ur Specific [place] 1.027 Urine Protein Trace Urine Glucose (UA) Negative Urine Ketones Negative Urine Blood Negative Urine Nitrite Negative Urine Bilirubin Negative Urine Urobilinogen (Auto) Negative Ur Leukocyte Esterase Negative Urine RBC 3 Urine WBC 8 H Ur Squamous Epith Cells 1 Urine Bacteria None Ur Culture Indicated? Not Indicated Quality Measures Quality Measures VTE prophylaxis Advance care planning discussed with:: patient and spouse Assessment & Plan Assessment Current Active Medications: Generic Name Dose Route Start Last Admin Trade Name Freq PRN Reason Stop Dose Admin Acetaminophen 650 mg 01/07/25 19:43 01/07/25 19:53 Acetaminophen 325 Mg Tablet PO 02/06/25 19:42 650 mg Q6HR PRN Administration Pain 1-10 or Fever>100.1 Al Hydrox/Mg Hydrox/Simethicone 15 ml 01/04/25 10:36 Mg Hyd/Al Hyd/Mekhi (Maalox Reg) Susp 30 Ml Udc PO 02/03/25 10:35 QID PRN INDIGESTION Docusate Sodium 100 mg 01/07/25 10:00 01/07/25 10:09 Docusate Sod 100 Mg Capsule PO 02/06/25 09:59 100 mg QDAY LILLI Administration Protocol Gabapentin 100 mg 12/31/24 06:00 01/08/25 05:15 Gabapentin 100 Mg Capsule PO 01/30/25 05:59 100 mg TID LILLI Administration Heparin Sodium (Porcine) 5,000 unit 01/07/25 09:00 01/07/25 21:43 Heparin Sod Inj 5000 Unit/Ml Vial SC 01/21/25 08:59 5,000 unit Q12HR LILLI Administration Sodium Chloride 1,000 mls @ 50 mls/hr 01/04/25 19:38 01/08/25 05:15 Ns IV 02/01/25 12:59 50 mls/hr .Q20H LILLI Administration Cefazolin Sodium 2 gm in 100 mls @ 200 mls/hr 01/06/25 14:00 01/08/25 05:14 Ancef 2gm Ivpb IV 01/13/25 13:59 200 mls/hr Q8HR LILLI Administration Levothyroxine Sodium 88 mcg 01/02/25 06:00 01/08/25 05:15 Levothyroxine Sodium 88 Mcg Tablet PO 02/01/25 05:59 88 mcg ACBR LILLI Administration Melatonin 9 mg 12/31/24 10:02 01/03/25 21:27 Melatonin 3 Mg Tablet PO 01/30/25 10:01 9 mg HS PRN Administration sleep Morphine Sulfate 2 mg 01/05/25 10:29 01/07/25 09:28 Morphine Sulf Inj 10 Mg/Ml Vial IVP 01/10/25 10:29 2 mg Q2HR PRN Administration pain Protocol Ondansetron HCl 4 mg 12/30/24 18:13 Ondansetron Inj 2 Mg/Ml Inj 2 Ml IVP 01/29/25 18:12 Q6HR PRN NAUSEA OR VOMITING Protocol Pantoprazole Sodium 40 mg 01/02/25 09:00 01/07/25 09:29 Pantoprazole 40 Mg Tablet PO 02/01/25 08:59 40 mg QDAY LILLI Administration Polyethylene Glycol 17 gm 01/07/25 10:00 01/07/25 10:09 Polyethylene Glycol 17 Gm Packet PO 02/06/25 09:59 17 gm QDAY LILLI Administration Tramadol HCl 50 mg 01/03/25 12:00 01/08/25 05:15 Tramadol Hcl 50 Mg Tablet PO 01/08/25 11:59 50 mg Q6HR LILLI Administration Plan Ms. 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 s/p incision closure. Persistently elevated WBC post op, found to have intra abdominal abscess on CTAP, pending drainage with IR, and cont on abx with zosyn. repeat Bcx with NGR. #GNR bacteremia likely 07/19 #Intraabdominal abscess 9 x 7 cm pt initial blood cx with klebsiella rachel sensitive, continued on cefoxitin 2g q8hr. WBC initially downtrending however persisted and remained elevated at 22 from 16 fth intra abdominal abscess on ctap, pending drainage and continues on broadedned abx Dx -BCx with GNR -CXR with atelectais, and small bl pleural effusion, -lactate wnl -procal elevated 3.47 -UA bland - CTAP with large Fluid air-containing abscess in the pelvis, 9.1 x 6.8 cm and c/f R PNA Tx - d/c cefoxitin (12/30- 01/06) - d/c cefazolin 2gm (01/07-01/08) - start zosyn (01/08- - pending IR dranage of abscess for source control #s/p Ex Lap with Adhesion Lysis and Ileocecostomy ? 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 pt was discharged for sbo 12/25 for sbo which resolved after small bowel series. pt states that on 12/25 she had recurrence of intermittent abdominal pain. s/p adhesion lysis and ilioceostomy. incision is open with gauze wet to dry dressing.pt continues to pass gas, small volume BM, consider ileus 2/2 anesthesia. status post secondary abdominal wound closure by Dr. Parnell. Wound was clean with minor debridement at lower end. Closure performed with interrupted nylon sutures. Plan: * Monitor incision for signs of infection or dehiscence * Continue IS, encourage mobility * Monitor for return of bowel function (BM)- after #intrabdominal abcess is drained * Pain regimen: IV APAP scheduled, PO tramadol scheduled, morphine 2mg q2h PRN * Aspiration precautions * IV Zofran 4 mg every 6 hours as needed * insentivie spirometer, encourage pt to utilize to prevent atelectasis. pt advised to use iv pain medication to help minimize pain with inspiration and allow her to do IS. * PT eval, reccomend home with home health PT and FWW #transaminitis with cholestatic pattern - resolving pt with 2 days of elevated LFTs and >>alk phos concerning for cholestatic pattern, given pt is on cefoxitin abx, consider that ,it is a cephalosporin antibiotic, can be associated with?minor, transient elevations?in liver enzymes (aminotransferases and alkaline phosphatase) in a small percentage of patients (around 3%) however per discussion w pharmacy they have low level of concern that cefoxitin is causing the increased LFT. per pharmacy, given elevation in wbc today, consider broadening to zosyn, possible that klebsiella bacteremia is contaminant. pt has no RUQ tenderness. Dx -GB ultrasound unremarkable -LFTs daily #weight loss #anorexia 2/2 SBO pain #Moderate acute disease or injury related malnutrition Patient meets ASPEN criteria for due to: 1. Significant unintentional weight loss. 2. Inadequate oral intake. 3. Moderate muscle wasting. 4. Moderate subcutaneous fat loss. pt reports minimal po intake over the past week given abdominal pain that was exaccerbated with eating. she reports that her weight is now in the 120s lbs, was previously at her target weight of 130s lbs - consult dietition, appreciate recs - ensure plus with lunch and dinner, Vanilla - full regular diet, low fiber (per nutrition recs) NPO pending IR drainage of abscess. #Electrolyte abnormalities likely 2/2 poor po intake and GI losses, emesis no n/v post op. Dx - Daily CMP - replete as needed Mg>2, K>4 # Left hand swelling - resolved Patient had postop left hand swelling with her rings on the ring finger concern for possible constriction of ring finger circulation. Swelling significantly decreased with elevation and discontinuance of IV fluids Dx ? DVT ultrasound left upper extremity hand negative #GERD pt endorses increased belching post op -Malox 15 ml PO QID PRN -pantoprazole 40 mg p.o. -start simethicone, 80mg qid prn #Hypothyroidism - Continue levothyroxine 88 mg #Low back pain patient reports taking daily APAP for when she goes on walks to help with pain cont home meds post surgery - Restart APAP 650 mg as needed - Restart gabapentin 100 mg 4 times daily - HOLD lidocaine patches for pain Dispo: Post-op day 6 from adhesion lysis and resection, now s/p wound closure. fth, large intraabdominal abscess, pending IR drainage, GNR bacteremia, ongoing zosyn, Diet: Regular diet: low fiber, with ensure plus with lunch and dinner, NPO pending IR dranage of intrabdominal abscess, Bowel Reg: miralax, and docusate scheduled VTE ppx: start on heparin sc 5000 units BID HELD iso IR drainage GI ppx: Pantoprazole 40 mg po Code status: Full Case discussed with my senior resident Dr. Webb Case discussed with my attending Dr. Kavon Rea MD PGY-1
[2025-01-08 07:05] LABS: Alanine Aminotransferase 22 U/L (10-49); Albumin, Serum 3.0 gm/dL (3.4-4.8); Albumin/Globulin Ratio 1.2 (1.2-2.2); Alkaline Phosphatase 208 U/L (46-116); Anion Gap 8 (7-16); Aspartate Amino Transferase 26 U/L (0-34); BUN/Creatinine Ratio 22 Ratio (12-20); Bilirubin,Total 0.3 mg/dL (0.3-1.2); Blood Urea Nitrogen 11 mg/dL (9-23); Calcium 8.2 mg/dL (8.3-10.6); Calcium (Corrected) 9.0 mg/dL (8.5-10.1); Carbon Dioxide 32.3 mMol/L (20.0-31.0); Chloride 100 mMol/L (98-107); Creatinine (Component) 0.5 mg/dL (0.6-1.3); Estimated Creatinine Clearance 72.2 mL/min (>60); Globulin 2.5 gm/dL (2.3-3.5); Glucose 117 mg/dL (74-106); Magnesium 1.5 mg/dL (1.6-2.6); Osmolality,Calculated 279 (275-295); Phosphorous 2.6 mg/dL (2.4-5.1); Potassium 4.0 mMol/L (3.4-5.1); Sodium 140 mMol/L (136-145); Total Protein 5.5 gm/dL (5.7-8.2); eGFR > 60 See Note
[2025-01-08] MEDS: DOCUSATE SOD 100 MG CAPSULE PO (08:30)
[2025-01-08] MEDS: PANTOPRAZOLE 40 MG TABLET PO (08:30)
[2025-01-08] MEDS: POLYETHYLENE GLYCOL 17 GM PACKET PO (08:30)
[2025-01-08] MEDS: HEPARIN SOD INJ 5000 UNIT/ML VIAL SC (08:31)
[2025-01-08] MEDS: Magnesium Sulfate 4 GM Ivpb 4 GM/50 ML BAG IV (08:35)
--- NOTE | 2025-01-08 08:42 | XR_ITS ---
Examination: CT abdomen with intravenous contrast CT pelvis with intravenous contrast 2-D coronal reconstructions 2-D sagittal reconstructions Date and time of exam:January 08, 2025 0943 hours INDICATIONS: Bacteremia with abdominal pain this week, small bowel obstruction pattern on CT abdomen pelvis December 30, 2024. CTDI: vol (mGy) 10.1 DLP: (mGycm) 575 Technique: Multiple axial sections of the abdomen and pelvis have been obtained. 64 slice high-resolution scanner used. 3 mm axial sections have been obtained, post intravenous injection 60 cc [id number] 2-D sagittal, coronal reconstructions obtained. Low dose protocols were performed. One or more of the following dose reduction techniques were used; automated exposure control, adjustment of the mA and/or KV according to patient size, use of iterative reconstruction technique. Findings: Pneumonia right base with small right and minimal left pleural fluid 6 mm anterior liver cyst Spleen not enlarged Gallbladder is not diagnostically visualized No pancreatic mass Mild hydronephrosis, no ureteral calculi Aorta normal size Abundant stool in the colon Fluid air-containing abscess in the pelvis, 9.1 x 6.8 cm IMPRESSION: Large fluid air-containing abscess in the pelvis, 9.1 x 6.8 cm
[2025-01-08] MEDS: PIPER/TAZO 3.375 GM PREMIX 3.375 GM/50 ML BAG IV ×2 (10:35→21:07)
--- NOTE | 2025-01-08 10:55 | XR_ITS ---
Examination: CT-guided percutaneous placement abscess drainage catheter in pelvic abscess CT pelvis without intravenous contrast Date and time of procedure: January 08, 2025 1343 hours INDICATIONS: Large pelvic abscess on CT abdomen pelvis study this morning Informed consent provided. A timeout was completed verifying correct patient, procedure, site and positioning. Technique: Axial 3 mm sections were obtained for localization of the large pelvic abscess Appropriate area is marked. The patient's site was prepped and draped in sterile fashion Maximal sterile barrier technique utilized, including hand hygiene Local anesthesia was obtained with 1% lidocaine. Low dose protocols were performed. One or more of the following dose reduction techniques were used; automated exposure control, adjustment of the mA and/or KV according to patient size, use of iterative reconstruction technique. Utilizing CT fluoroscopic guidance successful percutaneous placement 12 Uzbek pigtail abscess drainage catheter in the pelvic abscess under CT fluoroscopic guidance Patient appears in stable condition during this procedure. At completion of the procedure, the patient is in satisfactory condition. Estimated blood loss 2 cc Complete pathology report to follow. Impression: Successful CT-guided percutaneous placement abscess drainage catheter in large pelvic abscess
[2025-01-08] MEDS: fentaNYL CIT INJ 50 mCg/ML AMP 2ML 75 MCG IVP (13:55)
[2025-01-08] MEDS: LIDOCAINE INJ PF 1% 30 ML VIAL 10 ML EPID (13:57)
--- NOTE | 2025-01-08 14:46 | PC.SS ---
Rounding note: patient white count continues to remain elevated. Repeat blood cultures.
[2025-01-08] MEDS: MORPHINE SULF INJ 10 MG/ML VIAL 2 MG IVP (17:11)
[2025-01-08] MEDS: SIMETHICONE 80 MG CHEW PO ×2 (17:26→21:06)
[2025-01-08] MEDS: ACETAMINOPHEN IVPB 1,000 MG/100 ML VIAL 250 MG IV (18:30)
[2025-01-09] VITALS (8 sets, daily range): BP systolic 123–135; BP diastolic 64–87; PULSE 74–98; RESP 18–20; TEMP 36.3–36.6; O2SAT 92–99
[2025-01-09] MEDS: ACETAMINOPHEN IVPB 1,000 MG/100 ML VIAL 250 MG IV ×3 (00:20→11:33)
[2025-01-09] MEDS: SIMETHICONE 80 MG CHEW PO ×4 (05:20→20:35)
[2025-01-09] MEDS: GABAPENTIN 100 MG CAPSULE PO ×3 (05:20→22:03)
[2025-01-09] MEDS: PIPER/TAZO 3.375 GM PREMIX 3.375 GM/50 ML BAG IV ×3 (05:20→22:03)
[2025-01-09] MEDS: SODIUM CHLORIDE 0.9% 1000 ML 1,000 ML 50 ML IV (05:20)
[2025-01-09] MEDS: LEVOTHYROXINE SODIUM 88 MCG TABLET PO (05:20)
[2025-01-09 05:38] LABS: Basophils # (Auto) 0.1 Thou/mm3 (0.0-0.2); Basophils % (Auto) 0 % (0-2.5); Eosinophils # (Auto) 0.1 Thou/mm3 (0.0-0.5); Eosinophils % (Auto) 0 % (0-10); Hematocrit 28.0 % (36.0-46.0); Immature Granulocytes Auto 0.51 Thou/mm3 (0.00-0.00); Lymphocytes # (Auto) 0.6 Thou/mm3 (1.0-4.8); Lymphocytes % (Auto) 3 % (10-50); Mean Corpuscular HGB Conc 31.8 g/dl (31.0-37.0); Mean Corpuscular Hemoglobin 29.8 pg (25.0-35.0); Mean Corpuscular Volume 94 fL (80-100); Monocytes # (Auto) 1.5 Thou/mm3 (0.0-0.8); Monocytes % (Auto) 7 % (0-12); Neutrophils # (Auto) 19.6 Thou/mm3 (1.8-7.7); Neutrophils % (Auto) 88 % (37-80); Nucleated Red Blood Cell # 0.00 Thou/mm3 (0.00-0.00); Nucleated Red Blood Cell % 0 /100 WBC (0); Platelet Count 304 Thou/mm3 (140-440); RDW Standard Deviation 44.9 fL (36.4-46.3); Red Blood Count 2.99 Miln/mm3 (4.00-5.20); White Blood Count 22.4 Thou/mm3 (3.6-11.0)
[2025-01-09 06:14] LABS: Hemoglobin 8.9 g/dL (12.0-16.0)
[2025-01-09 06:16] LABS: Alanine Aminotransferase 11 U/L (10-49); Albumin, Serum 2.6 gm/dL (3.4-4.8); Albumin/Globulin Ratio 1.1 (1.2-2.2); Alkaline Phosphatase 185 U/L (46-116); Anion Gap 9 (7-16); Aspartate Amino Transferase 23 U/L (0-34); BUN/Creatinine Ratio 18 Ratio (12-20); Bilirubin,Total 0.4 mg/dL (0.3-1.2); Blood Urea Nitrogen 9 mg/dL (9-23); Calcium 7.9 mg/dL (8.3-10.6); Calcium (Corrected) 9.0 mg/dL (8.5-10.1); Carbon Dioxide 31.2 mMol/L (20.0-31.0); Chloride 101 mMol/L (98-107); Creatinine (Component) 0.5 mg/dL (0.6-1.3); Estimated Creatinine Clearance 72.2 mL/min (>60); Globulin 2.3 gm/dL (2.3-3.5); Glucose 104 mg/dL (74-106); Magnesium 1.8 mg/dL (1.6-2.6); Osmolality,Calculated 279 (275-295); Phosphorous 3.1 mg/dL (2.4-5.1); Potassium 4.1 mMol/L (3.4-5.1); Sodium 141 mMol/L (136-145); Total Protein 4.9 gm/dL (5.7-8.2); eGFR > 60 See Note
--- NOTE | 2025-01-09 07:10 | ESPR_ITS ---
<Statement entered by Gigi Amaya MD - 01/12/25 08:33> I reviewed above note and agree with findings and plans. I have also personally examined the patient with medicine team and went over assessment and plan with medical team including events intern and resident physician. Documentation for date of: 01/09/25 Subjective Subjective Interval history: s/p IR drain to intrabdominal abscess Drain, output is bloody and dark, ~20cc pt abdomen still distended, pt endorses passing gas and had BM today 2/2 BM reg (mirilax, docusate and lactulose) Exam Vital Signs Temp Pulse Resp BP Pulse Ox O2 Del Method O2 Flow Rate 97.3 F 74 18 135/80 H 95 Nasal Cannula 1 01/09/25 04:00 01/09/25 04:00 01/09/25 04:00 01/09/25 04:00 01/09/25 04:00 01/09/25 04:00 01/09/25 04:00 Narrative Exam GENERAL: no acute distress, AAO x3, resting in bed with moderate discomfort 2/2 pain HEENT: Head AT/ NC. Mucous membranes dry. PERRL. CARDIOVASCULAR: RRR. Normal S1/S2, No m/r/g. No pitting edema of bilateral LEs. RESPIRATORY: CTAB. No wheezing, rhonchi, crackles. GASTROINTESTINAL: Abdomen more tense than prior, tender to palpation, no palpable masses. abdomen notable distended from prior.midline abdominal incision, mildly tender len incision, Incision site dry and intact with sutures. no eyrythema nor dehiscence or pus drainage. MUSCULOSKELETAL:? No cyanosis or edema, no visible joint swelling. SCDs in place NEUROLOGICAL: CN II-XII grossly intact. No focal deficits. Sensation intact, symmetric. PSYCHIATRIC: Awake and alert, not agitated, normal mood and affect. SKIN: No obvious rashes, no jaundice, normal turgor. Objective Labs 01/09/25 04:21 01/09/25 04:21 Labs: Laboratory Results - last 24 hr 01/09/25 04:21 WBC 22.4 H RBC 2.99 L Hgb 8.9 L Hct 28.0 L MCV 94 MCH 29.8 MCHC 31.8 RDW Std Deviation 44.9 Plt Count 304 D Neut % (Auto) 88 H Lymph % (Auto) 3 L Ada % (Auto) 7 Eos % (Auto) 0 Baso % (Auto) 0 Neut # (Auto) 19.6 H Lymph # (Auto) 0.6 L Ada # (Auto) 1.5 H Eos # (Auto) 0.1 Baso # (Auto) 0.1 Immature Gran # (Auto) 0.51 H Absolute Nucleated RBC 0.00 Immature Gran % 2 H Nucleated RBC % 0 Sodium 141 Potassium 4.1 Chloride 101 Carbon Dioxide 31.2 H Anion Gap 9 BUN 9 Creatinine 0.5 L Estim Creat Clear Calc 72.2 eGFR > 60 BUN/Creatinine Ratio 18 Glucose 104 Calculated Osmolality 279 Calcium 7.9 L Corrected Calcium 9.0 Phosphorus 3.1 Magnesium 1.8 Total Bilirubin 0.4 AST 23 ALT 11 Alkaline Phosphatase 185 H D Total Protein 4.9 L Albumin 2.6 L Globulin 2.3 Albumin/Globulin Ratio 1.1 L Quality Measures Quality Measures VTE prophylaxis Advance care planning discussed with:: patient and spouse Assessment & Plan Assessment Current Active Medications: Generic Name Dose Route Start Last Admin Trade Name Freq PRN Reason Stop Dose Admin Acetaminophen 650 mg 01/07/25 19:43 01/07/25 19:53 Acetaminophen 325 Mg Tablet PO 02/06/25 19:42 650 mg Q6HR PRN Administration Pain 1-10 or Fever>100.1 Al Hydrox/Mg Hydrox/Simethicone 15 ml 01/04/25 10:36 Mg Hyd/Al Hyd/Mekhi (Maalox Reg) Susp 30 Ml Udc PO 02/03/25 10:35 QID PRN INDIGESTION Docusate Sodium 100 mg 01/07/25 10:00 01/08/25 08:30 Docusate Sod 100 Mg Capsule PO 02/06/25 09:59 100 mg QDAY LILLI Administration Protocol Gabapentin 100 mg 12/31/24 06:00 01/09/25 05:20 Gabapentin 100 Mg Capsule PO 01/30/25 05:59 100 mg TID LILLI Administration Heparin Sodium (Porcine) 5,000 unit 01/07/25 09:00 01/08/25 08:31 Heparin Sod Inj 5000 Unit/Ml Vial SC 01/21/25 08:59 5,000 unit Q12HR LILLI Administration Sodium Chloride 1,000 mls @ 50 mls/hr 01/04/25 19:38 01/09/25 05:20 Ns IV 02/01/25 12:59 50 mls/hr .Q20H LILLI Administration Piperacillin/Tazobactam/Dextrose 3.375 gm in 50 mls @ 12.5 mls/hr 01/08/25 22:00 01/09/25 05:20 Zosyn IV 01/15/25 13:59 12.5 mls/hr Q8HR LILLI Administration Acetaminophen 1,000 mg in 100 mls @ 250 mls/hr 01/08/25 13:00 01/09/25 06:02 Ofirmev Inj IV 01/09/25 07:23 250 mls/hr Q6H LILLI Administration Levothyroxine Sodium 88 mcg 01/02/25 06:00 01/09/25 05:20 Levothyroxine Sodium 88 Mcg Tablet PO 02/01/25 05:59 88 mcg ACBR LILLI Administration Melatonin 9 mg 12/31/24 10:02 01/03/25 21:27 Melatonin 3 Mg Tablet PO 01/30/25 10:01 9 mg HS PRN Administration sleep Morphine Sulfate 2 mg 01/08/25 11:34 01/08/25 17:11 Morphine Sulf Inj 10 Mg/Ml Vial IVP 01/10/25 10:28 2 mg Q4HR PRN Administration pain Protocol Ondansetron HCl 4 mg 12/30/24 18:13 Ondansetron Inj 2 Mg/Ml Inj 2 Ml IVP 01/29/25 18:12 Q6HR PRN NAUSEA OR VOMITING Protocol Pantoprazole Sodium 40 mg 01/02/25 09:00 01/08/25 08:30 Pantoprazole 40 Mg Tablet PO 02/01/25 08:59 40 mg QDAY LILLI Administration Polyethylene Glycol 17 gm 01/07/25 10:00 01/08/25 08:30 Polyethylene Glycol 17 Gm Packet PO 02/06/25 09:59 17 gm QDAY LILLI Administration Simethicone 80 mg 01/08/25 10:00 01/09/25 05:20 Simethicone 80 Mg Chew PO 02/07/25 09:59 80 mg QID LILLI Administration Plan Ms. 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 s/p incision closure. Persistently elevated WBC post op, found to have intra abdominal abscess on CTAP, s/p drainage with IR, and cont on abx with zosyn. polymicrobial bacteremia with klebsiella and morganella. #Polymicrobial bacteremia likely 2/2 (Klebsiella and Morganella) #Intraabdominal abscess 9 x 7 cm pt initial blood cx with klebsiella rachel sensitive, continued on cefoxitin 2g q8hr. WBC initially downtrending however persisted and remains elevated at 22 from 16 fth intra abdominal abscess on ctap, s/p drainage and continues on zosyn Dx -BCx with GNR (klebsiella and morganella) sensitive to zosyn -CXR with atelectais, and small bl pleural effusion, -lactate wnl -procal elevated 3.47 -UA bland - CTAP with large Fluid air-containing abscess in the pelvis, 9.1 x 6.8 cm and c/f R PNA Tx - d/c cefoxitin (12/30- 01/06) - d/c cefazolin 2gm (01/07-01/08) - start zosyn (01/08- - s/p IR dranage of abscess for source control #s/p Ex Lap with Adhesion Lysis and Ileocecostomy ? 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 pt was discharged for sbo 12/25 for sbo which resolved after small bowel series. pt states that on 12/25 she had recurrence of intermittent abdominal pain. s/p adhesion lysis and ilioceostomy. incision is open with gauze wet to dry dressing.pt continues to pass gas, small volume BM, consider ileus 2/2 anesthesia. status post secondary abdominal wound closure by Dr. Parnell. Wound was clean with minor debridement at lower end. Closure performed with interrupted nylon sutures. BMs today. Plan: * Monitor incision for signs of infection or dehiscence * Continue IS, encourage mobility * Monitor for return of bowel function (BM)-pt with 2x BM today * Pain regimen: IV APAP scheduled, PO tramadol scheduled, morphine 2mg q2h PRN * Aspiration precautions * IV Zofran 4 mg every 6 hours as needed * insentivie spirometer, encourage pt to utilize to prevent atelectasis. pt advised to use pain medication to help minimize pain with inspiration and allow her to do IS. * PT eval, reccomend home with home health PT and FWW #Acute hypercapnic respiratory distress #Small BL pleural effusion pt post op for SBO with resection and intraabdominal abscess with IR drain in place, serum CO2 remains elevated. and pt on supplemental oxygen Tx - encourage incentive spirometer - encoura - manage pain #transaminitis with cholestatic pattern - resolving pt with 2 days of elevated LFTs and >>alk phos concerning for cholestatic pattern, given pt is on cefoxitin abx, consider that ,it is a cephalosporin antibiotic, can be associated with?minor, transient elevations?in liver enzymes (aminotransferases and alkaline phosphatase) in a small percentage of patients (around 3%) however per discussion w pharmacy they have low level of concern that cefoxitin is causing the increased LFT. per pharmacy, given elevation in wbc today, consider broadening to zosyn, possible that klebsiella bacteremia is contaminant. pt has no RUQ tenderness. Dx -GB ultrasound unremarkable -LFTs daily #weight loss #anorexia 2/2 SBO pain #Moderate acute disease or injury related malnutrition Patient meets ASPEN criteria for due to: 1. Significant unintentional weight loss. 2. Inadequate oral intake. 3. Moderate muscle wasting. 4. Moderate subcutaneous fat loss. pt reports minimal po intake over the past week given abdominal pain that was exaccerbated with eating. she reports that her weight is now in the 120s lbs, was previously at her target weight of 130s lbs - consult dietition, appreciate recs - ensure plus with lunch and dinner, Vanilla - full regular diet, low fiber (per nutrition recs) #Electrolyte abnormalities likely 2/2 poor po intake and GI losses, emesis no n/v post op. Dx - Daily CMP - replete as needed Mg>2, K>4 # Left hand swelling - resolved Patient had postop left hand swelling with her rings on the ring finger concern for possible constriction of ring finger circulation. Swelling significantly decreased with elevation and discontinuance of IV fluids Dx ? DVT ultrasound left upper extremity hand negative #GERD pt endorses increased belching post op -Malox 15 ml PO QID PRN -pantoprazole 40 mg p.o. -start simethicone, 80mg qid prn #Hypothyroidism - Continue levothyroxine 88 mg #Low back pain patient reports taking daily APAP for when she goes on walks to help with pain cont home meds post surgery - Restart APAP 650 mg as needed - Restart gabapentin 100 mg 4 times daily - HOLD lidocaine patches for pain Dispo: s/p IR drainage of intrabdominal abscess, had BM today x2. abdomen still distended, drain is draining, WBC remains elevated, continues on zosyn Diet: Regular diet: low fiber, with ensure plus with lunch and dinner, Bowel Reg: miralax, and docusate and lactulose 1x prn VTE ppx: start on heparin sc 5000 units BID Resume 01/10 GI ppx: Pantoprazole 40 mg po Code status: Full Case discussed with my attending Dr. Monique Rea MD PGY-1
[2025-01-09] MEDS: DOCUSATE SOD 100 MG CAPSULE PO (08:45)
[2025-01-09] MEDS: LACTULOSE SYRUP 20 GM/30 ML UDC 30 GM PO (08:45)
[2025-01-09] MEDS: PANTOPRAZOLE 40 MG TABLET PO (08:45)
[2025-01-09] MEDS: POLYETHYLENE GLYCOL 17 GM PACKET PO (08:46)
[2025-01-09] MEDS: MORPHINE SULF INJ 10 MG/ML VIAL 2 MG IVP (08:58)
--- NOTE | 2025-01-09 15:42 | PC.NURSE ---
Patient had a bowel movement. Will continue to monitor patient.
[2025-01-10] VITALS (8 sets, daily range): BP systolic 114–139; BP diastolic 69–85; PULSE 72–91; RESP 16–24; TEMP 36.1–36.9; O2SAT 96–99
[2025-01-10] MEDS: ACETAMINOPHEN IVPB 1,000 MG/100 ML VIAL 250 MG IV ×4 (00:13→19:47)
[2025-01-10] MEDS: MELATONIN 3 MG TABLET 9 MG PO ×2 (01:22→21:48)
[2025-01-10] MEDS: PIPER/TAZO 3.375 GM PREMIX 3.375 GM/50 ML BAG IV ×3 (05:38→21:47)
[2025-01-10] MEDS: LEVOTHYROXINE SODIUM 88 MCG TABLET PO (05:38)
[2025-01-10] MEDS: GABAPENTIN 100 MG CAPSULE PO ×3 (05:38→21:48)
[2025-01-10] MEDS: SIMETHICONE 80 MG CHEW PO ×4 (05:38→20:27)
--- NOTE | 2025-01-10 07:41 | ESPR_ITS ---
<Statement entered by Gigi Amaya MD - 01/15/25 07:32> I reviewed above note and agree with findings and plans. I have also personally examined the patient with medicine team and went over assessment and plan with medical team including sales and marketing intern and resident physician. Documentation for date of: 01/10/25 Subjective Subjective Interval history: No acute events overnight pt reports having regular BM each time she gets up to use the bedside commode. Exam Vital Signs Temp Pulse Resp BP Pulse Ox O2 Del Method O2 Flow Rate 98.1 F 91 16 128/80 96 Nasal Cannula 3 01/10/25 04:00 01/10/25 04:00 01/10/25 04:00 01/10/25 04:00 01/10/25 04:00 01/10/25 04:00 01/10/25 04:00 Narrative Exam GENERAL: no acute distress, AAO x3, resting in bed with moderate discomfort 2/2 pain HEENT: Head AT/ NC. Mucous membranes dry. PERRL. CARDIOVASCULAR: RRR. Normal S1/S2, No m/r/g. RESPIRATORY: CTAB. No wheezing, rhonchi, crackles. GASTROINTESTINAL: Abdomen remains tense, tender to palpation, no palpable masses. abdomen distended from prior.midline abdominal incision, mildly tender len incision, Incision site dry and intact with sutures. no eyrythema nor dehiscence or pus drainage. MUSCULOSKELETAL:? No cyanosis or edema, no visible joint swelling. BLE trace edema NEUROLOGICAL: CN II-XII grossly intact. No focal deficits. Sensation intact, symmetric. PSYCHIATRIC: Awake and alert, not agitated, normal mood and affect. SKIN: No obvious rashes, no jaundice, normal turgor. Objective Labs 01/10/25 08:06 01/10/25 08:06 Quality Measures Quality Measures VTE prophylaxis Advance care planning discussed with:: patient and spouse Assessment & Plan Assessment Current Active Medications: Generic Name Dose Route Start Last Admin Trade Name Freq PRN Reason Stop Dose Admin Acetaminophen 650 mg 01/07/25 19:43 01/07/25 19:53 Acetaminophen 325 Mg Tablet PO 02/06/25 19:42 650 mg Q6HR PRN Administration Pain 1-10 or Fever>100.1 Al Hydrox/Mg Hydrox/Simethicone 15 ml 01/04/25 10:36 Mg Hyd/Al Hyd/Mekhi (Maalox Reg) Susp 30 Ml Udc PO 02/03/25 10:35 QID PRN INDIGESTION Docusate Sodium 100 mg 01/07/25 10:00 01/09/25 08:45 Docusate Sod 100 Mg Capsule PO 02/06/25 09:59 100 mg QDAY LILLI Administration Protocol Gabapentin 100 mg 12/31/24 06:00 01/10/25 05:38 Gabapentin 100 Mg Capsule PO 01/30/25 05:59 100 mg TID LILLI Administration Heparin Sodium (Porcine) 5,000 unit 01/07/25 09:00 01/08/25 08:31 Heparin Sod Inj 5000 Unit/Ml Vial SC 01/21/25 08:59 5,000 unit Q12HR LILLI Administration Piperacillin/Tazobactam/Dextrose 3.375 gm in 50 mls @ 12.5 mls/hr 01/08/25 22:00 01/10/25 05:38 Zosyn IV 01/15/25 13:59 12.5 mls/hr Q8HR LILLI Administration Acetaminophen 1,000 mg in 100 mls @ 250 mls/hr 01/10/25 07:40 Ofirmev Inj IV 01/11/25 00:23 Q6HR LILLI Levothyroxine Sodium 88 mcg 01/02/25 06:00 01/10/25 05:38 Levothyroxine Sodium 88 Mcg Tablet PO 02/01/25 05:59 88 mcg ACBR LILLI Administration Melatonin 9 mg 12/31/24 10:02 01/10/25 01:22 Melatonin 3 Mg Tablet PO 01/30/25 10:01 9 mg HS PRN Administration sleep Morphine Sulfate 2 mg 01/08/25 11:34 01/09/25 08:58 Morphine Sulf Inj 10 Mg/Ml Vial IVP 01/10/25 10:28 2 mg Q4HR PRN Administration pain Protocol Ondansetron HCl 4 mg 12/30/24 18:13 Ondansetron Inj 2 Mg/Ml Inj 2 Ml IVP 01/29/25 18:12 Q6HR PRN NAUSEA OR VOMITING Protocol Pantoprazole Sodium 40 mg 01/02/25 09:00 01/09/25 08:45 Pantoprazole 40 Mg Tablet PO 02/01/25 08:59 40 mg QDAY LILLI Administration Polyethylene Glycol 17 gm 01/07/25 10:00 01/09/25 08:46 Polyethylene Glycol 17 Gm Packet PO 02/06/25 09:59 17 gm QDAY LILLI Administration Simethicone 80 mg 01/08/25 10:00 01/10/25 05:38 Simethicone 80 Mg Chew PO 02/07/25 09:59 80 mg QID LILLI Administration Tramadol HCl 50 mg 01/09/25 18:28 01/10/25 05:38 Tramadol Hcl 50 Mg Tablet PO 01/14/25 18:21 50 mg Q6HR PRN Administration PAIN SCALE 4-6 (Moderate Plan Ms. 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 s/p incision closure.found to have intra abdominal abscess on CTAP, s/p drainage with IR, and cont on abx with zosyn. polymicrobial bacteremia with klebsiella and morganella. Leukocytosis downtrending. f/u in a few days with repeat CTAP to assess for sufficient drainage of abscess. #Polymicrobial bacteremia likely 2/2 (Klebsiella and Morganella) #Intraabdominal abscess 9 x 7 cm pt initial blood cx with klebsiella rachel sensitive, continued on cefoxitin 2g q8hr. WBC initially downtrending however persisted and remains elevated at 22 from 16 fth intra abdominal abscess on ctap, s/p drainage and continues on zosyn drain is inplace and draining blood and pus liquid, Pt was seen by Dr. Parmjit murray who flushed the drain. will reassess abscess with CTAP in a few days. Dx -BCx with GNR (klebsiella and morganella) sensitive to zosyn -CXR with atelectais, and small bl pleural effusion, -lactate wnl -procal elevated 3.47 -UA bland - CTAP with large Fluid air-containing abscess in the pelvis, 9.1 x 6.8 cm and c/f R PNA Tx - d/c cefoxitin (12/30- 01/06) - d/c cefazolin 2gm (01/07-01/08) - start zosyn (01/08- - s/p IR dranage of abscess for source control #s/p Ex Lap with Adhesion Lysis and Ileocecostomy ? 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 pt was discharged for sbo 12/25 for sbo which resolved after small bowel series. pt states that on 12/25 she had recurrence of intermittent abdominal pain. s/p adhesion lysis and ilioceostomy. incision is open with gauze wet to dry dressing.pt continues to pass gas, small volume BM, consider ileus 2/2 anesthesia. status post secondary abdominal wound closure by Dr. Parnell. Wound was clean with minor debridement at lower end. Closure performed with interrupted nylon sutures. BMs today. Plan: * Monitor incision for signs of infection or dehiscence * Continue IS, encourage mobility * Monitor for return of bowel function (BM)-pt with 3x BM today * Pain regimen: IV APAP scheduled, PO tramadol PRN, morphine 2mg q2h PRN * Aspiration precautions * IV Zofran 4 mg every 6 hours as needed * insentivie spirometer, encourage pt to utilize to prevent atelectasis. pt advised to use pain medication to help minimize pain with inspiration and allow her to do IS. * PT eval, reccomend home with home health PT and FWW #Acute hypercapnic respiratory distress #Small BL pleural effusion pt post op for SBO with resection and intraabdominal abscess with IR drain in place, serum CO2 remains elevated. and pt on supplemental oxygen Tx - encourage incentive spirometer - manage pain #transaminitis with cholestatic pattern - resolving pt with 2 days of elevated LFTs and >>alk phos concerning for cholestatic pattern, given pt is on cefoxitin abx, consider that ,it is a cephalosporin antibiotic, can be associated with?minor, transient elevations?in liver enzymes (aminotransferases and alkaline phosphatase) in a small percentage of patients (around 3%) however per discussion w pharmacy they have low level of concern that cefoxitin is causing the increased LFT. per pharmacy, given elevation in wbc today, consider broadening to zosyn, possible that klebsiella bacteremia is contaminant. pt has no RUQ tenderness. Dx -GB ultrasound unremarkable -LFTs daily #weight loss #anorexia 2/2 SBO pain #Moderate acute disease or injury related malnutrition Patient meets ASPEN criteria for due to: 1. Significant unintentional weight loss. 2. Inadequate oral intake. 3. Moderate muscle wasting. 4. Moderate subcutaneous fat loss. pt reports minimal po intake over the past week given abdominal pain that was exaccerbated with eating. she reports that her weight is now in the 120s lbs, was previously at her target weight of 130s lbs - consult dietition, appreciate recs - ensure plus with lunch and dinner, Vanilla - full regular diet, low fiber (per nutrition recs) #Electrolyte abnormalities likely 2/2 poor po intake and GI losses, emesis no n/v post op. Dx - Daily CMP - replete as needed Mg>2, K>4 # Left hand swelling - resolved Patient had postop left hand swelling with her rings on the ring finger concern for possible constriction of ring finger circulation. Swelling significantly decreased with elevation and discontinuance of IV fluids Dx ? DVT ultrasound left upper extremity hand negative #GERD pt endorses increased belching post op -Malox 15 ml PO QID PRN -pantoprazole 40 mg p.o. -start simethicone, 80mg qid prn #Hypothyroidism - Continue levothyroxine 88 mg #Low back pain patient reports taking daily APAP for when she goes on walks to help with pain cont home meds post surgery - Restart APAP 650 mg as needed - Restart gabapentin 100 mg 4 times daily - HOLD lidocaine patches for pain Dispo: s/p IR drainage of intrabdominal abscess, had BM today x2. abdomen still distended, drain is draining, WBC downtrending continues on zosyn Diet: Regular diet: low fiber, with ensure plus with lunch and dinner, Bowel Reg: miralax, and docusate and lactulose 1x prn VTE ppx: start on heparin sc 5000 units BID Resume 01/10 GI ppx: Pantoprazole 40 mg po Code status: Full Case discussed with my attending Dr. Monique Rea MD PGY-1
[2025-01-10 08:26] LABS: Basophils # (Auto) 0.0 Thou/mm3 (0.0-0.2); Basophils % (Auto) 0 % (0-2.5); Eosinophils # (Auto) 0.1 Thou/mm3 (0.0-0.5); Eosinophils % (Auto) 1 % (0-10); Hematocrit 28.3 % (36.0-46.0); Hemoglobin 9.1 g/dL (12.0-16.0); Immature Granulocytes Auto 0.40 Thou/mm3 (0.00-0.00); Lymphocytes # (Auto) 0.7 Thou/mm3 (1.0-4.8); Lymphocytes % (Auto) 5 % (10-50); Mean Corpuscular HGB Conc 32.2 g/dl (31.0-37.0); Mean Corpuscular Hemoglobin 29.8 pg (25.0-35.0); Mean Corpuscular Volume 93 fL (80-100); Monocytes # (Auto) 1.2 Thou/mm3 (0.0-0.8); Monocytes % (Auto) 8 % (0-12); Neutrophils # (Auto) 11.9 Thou/mm3 (1.8-7.7); Neutrophils % (Auto) 83 % (37-80); Nucleated Red Blood Cell # 0.00 Thou/mm3 (0.00-0.00); Nucleated Red Blood Cell % 0 /100 WBC (0); Platelet Count 442 Thou/mm3 (140-440); RDW Standard Deviation 43.6 fL (36.4-46.3); Red Blood Count 3.05 Miln/mm3 (4.00-5.20); White Blood Count 14.3 Thou/mm3 (3.6-11.0)
[2025-01-10] MEDS: PANTOPRAZOLE 40 MG TABLET PO (08:42)
[2025-01-10] MEDS: DOCUSATE SOD 100 MG CAPSULE PO (08:42)
[2025-01-10 08:44] LABS: Alanine Aminotransferase 11 U/L (10-49); Albumin, Serum 2.4 gm/dL (3.4-4.8); Albumin/Globulin Ratio 1.1 (1.2-2.2); Alkaline Phosphatase 173 U/L (46-116); Anion Gap 8 (7-16); Aspartate Amino Transferase 18 U/L (0-34); BUN/Creatinine Ratio 26 Ratio (12-20); Bilirubin,Total 0.5 mg/dL (0.3-1.2); Blood Urea Nitrogen 13 mg/dL (9-23); Calcium 7.8 mg/dL (8.3-10.6); Calcium (Corrected) 9.1 mg/dL (8.5-10.1); Carbon Dioxide 32.5 mMol/L (20.0-31.0); Chloride 101 mMol/L (98-107); Creatinine (Component) 0.5 mg/dL (0.6-1.3); Estimated Creatinine Clearance 72.2 mL/min (>60); Globulin 2.2 gm/dL (2.3-3.5); Glucose 98 mg/dL (74-106); Magnesium 1.2 mg/dL (1.6-2.6); Osmolality,Calculated 281 (275-295); Phosphorous 3.5 mg/dL (2.4-5.1); Potassium 3.7 mMol/L (3.4-5.1); Sodium 141 mMol/L (136-145); Total Protein 4.6 gm/dL (5.7-8.2); eGFR > 60 See Note
[2025-01-10] MEDS: HEPARIN SOD INJ 5000 UNIT/ML VIAL SC ×2 (10:02→20:27)
[2025-01-10] MEDS: POTASSIUM CHLORIDE 10% 20 MEQ/15 ML UDC PO (10:02)
[2025-01-10] MEDS: Magnesium Sulfate 4 GM Ivpb 4 GM/50 ML BAG IV (10:02)
[2025-01-11] VITALS (8 sets, daily range): BP systolic 120–136; BP diastolic 60–94; PULSE 73–93; RESP 18–22; TEMP 36.1–36.9; O2SAT 94–97; BMI 28.3
[2025-01-11] MEDS: ACETAMINOPHEN IVPB 1,000 MG/100 ML VIAL 250 MG IV ×4 (05:10→20:55)
[2025-01-11] MEDS: SIMETHICONE 80 MG CHEW PO ×4 (05:11→20:55)
[2025-01-11] MEDS: GABAPENTIN 100 MG CAPSULE PO ×3 (05:11→21:50)
[2025-01-11] MEDS: LEVOTHYROXINE SODIUM 88 MCG TABLET PO (05:11)
[2025-01-11] MEDS: PIPER/TAZO 3.375 GM PREMIX 3.375 GM/50 ML BAG IV ×3 (05:11→21:50)
[2025-01-11 05:49] LABS: Basophils # (Auto) 0.1 Thou/mm3 (0.0-0.2); Basophils % (Auto) 0 % (0-2.5); Eosinophils # (Auto) 0.2 Thou/mm3 (0.0-0.5); Eosinophils % (Auto) 1 % (0-10); Hematocrit 28.2 % (36.0-46.0); Hemoglobin 9.0 g/dL (12.0-16.0); Immature Granulocytes Auto 0.37 Thou/mm3 (0.00-0.00); Lymphocytes # (Auto) 1.1 Thou/mm3 (1.0-4.8); Lymphocytes % (Auto) 8 % (10-50); Mean Corpuscular HGB Conc 31.9 g/dl (31.0-37.0); Mean Corpuscular Hemoglobin 29.8 pg (25.0-35.0); Mean Corpuscular Volume 93 fL (80-100); Monocytes # (Auto) 1.5 Thou/mm3 (0.0-0.8); Monocytes % (Auto) 10 % (0-12); Neutrophils # (Auto) 11.0 Thou/mm3 (1.8-7.7); Neutrophils % (Auto) 78 % (37-80); Nucleated Red Blood Cell # 0.00 Thou/mm3 (0.00-0.00); Nucleated Red Blood Cell % 0 /100 WBC (0); Platelet Count 462 Thou/mm3 (140-440); RDW Standard Deviation 43.8 fL (36.4-46.3); Red Blood Count 3.02 Miln/mm3 (4.00-5.20); White Blood Count 14.1 Thou/mm3 (3.6-11.0)
--- NOTE | 2025-01-11 06:00 | XR_ITS ---
Examination: CT abdomen with intravenous contrast CT pelvis with intravenous contrast 2-D coronal reconstructions 2-D sagittal reconstructions Date and time of exam:January 11, 2025, 0836 hours Compared to January 08, 2025 INDICATIONS: History large pelvic abscess January 08, 2025, placement abscess drainage catheter January 08, 2025. CTDI: vol (mGy) 8.95 DLP: (mGycm) 183 Technique: Multiple axial sections of the abdomen and pelvis have been obtained. 64 slice high-resolution scanner used. 3 mm axial sections have been obtained, post intravenous injection 60 cc [id number] 2-D sagittal, coronal reconstructions obtained. Low dose protocols were performed. One or more of the following dose reduction techniques were used; automated exposure control, adjustment of the mA and/or KV according to patient size, use of iterative reconstruction technique. Findings: Right base pneumonia with small bilateral pleural effusions No focal liver or splenic lesion excepting small cysts No gallstones Mild right hydronephrosis Abundant air and stool throughout the colon Abscess drainage catheter in the pelvis satisfactory position with significant decrease in size of pelvic abscess, currently measuring 6 x 4.8 cm IMPRESSION: Pelvic abscess drainage catheter in proper position, abscess measures 6 x 4.8 cm compared to 9.1 x 6.8 cm on January 08, 2025
[2025-01-11 06:21] LABS: Alanine Aminotransferase 9 U/L (10-49); Albumin, Serum 2.6 gm/dL (3.4-4.8); Albumin/Globulin Ratio 1.0 (1.2-2.2); Alkaline Phosphatase 148 U/L (46-116); Anion Gap 9 (7-16); Aspartate Amino Transferase 20 U/L (0-34); BUN/Creatinine Ratio 18 Ratio (12-20); Bilirubin,Total 0.3 mg/dL (0.3-1.2); Blood Urea Nitrogen 9 mg/dL (9-23); Calcium 8.0 mg/dL (8.3-10.6); Calcium (Corrected) 9.1 mg/dL (8.5-10.1); Carbon Dioxide 32.8 mMol/L (20.0-31.0); Chloride 99 mMol/L (98-107); Creatinine (Component) 0.5 mg/dL (0.6-1.3); Estimated Creatinine Clearance 85.1 mL/min (>60); Globulin 2.5 gm/dL (2.3-3.5); Glucose 89 mg/dL (74-106); Magnesium 1.3 mg/dL (1.6-2.6); Osmolality,Calculated 278 (275-295); Phosphorous 3.0 mg/dL (2.4-5.1); Potassium 3.7 mMol/L (3.4-5.1); Sodium 141 mMol/L (136-145); Total Protein 5.1 gm/dL (5.7-8.2); eGFR > 60 See Note
--- NOTE | 2025-01-11 07:42 | ESPR_ITS ---
<Statement entered by Gigi Amaya MD - 01/16/25 12:36> I reviewed above note and agree with findings and plans. I have also personally examined the patient with medicine team and went over assessment and plan with medical team including science intern and resident physician. <Statement entered by Jerry Webb MD - 01/11/25 15:00> Patient was seen and examined at the bedside. No acute overnight events reported. Patient is doing well and passing bowel movements. Drain was flushed yesterday continues to have some mild pus plus blood. Continue IV Zosyn and awaiting abscess cultures. White count downtrending. Repeat CT abdomen showed abscess decreasing in size. All labs and orders were reviewed. I discussed and supervised with the science intern physician who took care of this patient. I personally saw and examined the patient. I agree with most of the assessment and plan. Disclaimer: Despite multiple revisions, due to the dictation software being used, the document bellow may not be free of grammatical errors including phonetic/typographic errors. However, this does not deter from our commitment to providing health care in the patient's best interest in mind. Plan of care discussed with attending Physician Dr. Monique Webb MD PGY-3 Documentation for date of: 01/11/25 Subjective Subjective Interval history: No acute events overnight CTAP w contrast, with reduction in size of intrabdominal abscess. continues on zosyn, seen by PT. Exam Vital Signs Temp Pulse Resp BP Pulse Ox O2 Del Method O2 Flow Rate 97.0 F 76 20 130/74 96 Nasal Cannula 2 01/11/25 04:00 01/11/25 04:00 01/11/25 04:00 01/11/25 04:00 01/11/25 04:00 01/11/25 04:00 01/11/25 04:00 Narrative Exam GENERAL: no acute distress, AAO x3, resting in bed with moderate discomfort 2/2 pain HEENT: Head AT/ NC. Mucous membranes moist. PERRL. CARDIOVASCULAR: RRR. Normal S1/S2, No m/r/g. RESPIRATORY: CTAB. No wheezing. BL lung base fine crackles GASTROINTESTINAL: Abdomen remains much less tender to palpation, no palpable masses. abdomen less distended from prior.midline abdominal incision, mildly tender len incision, Incision site dry and intact with sutures. no eyrythema nor dehiscence or pus drainage. Drain in place. MUSCULOSKELETAL:? No cyanosis or edema, no visible joint swelling. BLE trace edema NEUROLOGICAL: CN II-XII grossly intact. No focal deficits. Sensation intact, symmetric. PSYCHIATRIC: Awake and alert, not agitated, normal mood and affect. SKIN: No obvious rashes, no jaundice, normal turgor. Objective Labs 01/11/25 04:26 01/11/25 04:26 Labs: Laboratory Results - last 24 hr 01/10/25 01/11/25 08:06 04:26 WBC 14.3 H D 14.1 H RBC 3.05 L 3.02 L Hgb 9.1 L 9.0 L Hct 28.3 L 28.2 L MCV 93 93 MCH 29.8 29.8 MCHC 32.2 31.9 RDW Std Deviation 43.6 43.8 Plt Count 442 H D 462 H Neut % (Auto) 83 H 78 Lymph % (Auto) 5 L 8 L Sampson % (Auto) 8 10 Eos % (Auto) 1 1 Baso % (Auto) 0 0 Neut # (Auto) 11.9 H 11.0 H Lymph # (Auto) 0.7 L 1.1 Sampson # (Auto) 1.2 H 1.5 H Eos # (Auto) 0.1 0.2 Baso # (Auto) 0.0 0.1 Immature Gran # (Auto) 0.40 H 0.37 H Absolute Nucleated RBC 0.00 0.00 Immature Gran % 3 H 3 H Nucleated RBC % 0 0 Sodium 141 141 Potassium 3.7 3.7 Chloride 101 99 Carbon Dioxide 32.5 H 32.8 H Anion Gap 8 9 BUN 13 9 Creatinine 0.5 L 0.5 L Estim Creat Clear Calc 72.2 85.1 eGFR > 60 > 60 BUN/Creatinine Ratio 26 H 18 Glucose 98 89 Calculated Osmolality 281 278 Calcium 7.8 L 8.0 L Corrected Calcium 9.1 9.1 Phosphorus 3.5 3.0 Magnesium 1.2 L 1.3 L Total Bilirubin 0.5 0.3 AST 18 20 ALT 11 9 L Alkaline Phosphatase 173 H 148 H D Total Protein 4.6 L 5.1 L Albumin 2.4 L 2.6 L Globulin 2.2 L 2.5 Albumin/Globulin Ratio 1.1 L 1.0 L Quality Measures Quality Measures VTE prophylaxis Advance care planning discussed with:: patient and spouse Assessment & Plan Assessment Current Active Medications: Generic Name Dose Route Start Last Admin Trade Name Freq PRN Reason Stop Dose Admin Acetaminophen 650 mg 01/07/25 19:43 01/07/25 19:53 Acetaminophen 325 Mg Tablet PO 02/06/25 19:42 650 mg Q6HR PRN Administration Pain 1-10 or Fever>100.1 Al Hydrox/Mg Hydrox/Simethicone 15 ml 01/04/25 10:36 Mg Hyd/Al Hyd/Mekhi (Maalox Reg) Susp 30 Ml Udc PO 02/03/25 10:35 QID PRN INDIGESTION Docusate Sodium 100 mg 01/07/25 10:00 01/10/25 08:42 Docusate Sod 100 Mg Capsule PO 02/06/25 09:59 100 mg QDAY LILLI Administration Protocol Gabapentin 100 mg 12/31/24 06:00 01/11/25 05:11 Gabapentin 100 Mg Capsule PO 01/30/25 05:59 100 mg TID LILLI Administration Heparin Sodium (Porcine) 5,000 unit 01/07/25 09:00 01/10/25 20:27 Heparin Sod Inj 5000 Unit/Ml Vial SC 01/21/25 08:59 5,000 unit Q12HR LILLI Administration Piperacillin/Tazobactam/Dextrose 3.375 gm in 50 mls @ 12.5 mls/hr 01/08/25 22:00 01/11/25 05:11 Zosyn IV 01/15/25 13:59 12.5 mls/hr Q8HR LILLI Administration Levothyroxine Sodium 88 mcg 01/02/25 06:00 01/11/25 05:11 Levothyroxine Sodium 88 Mcg Tablet PO 02/01/25 05:59 88 mcg ACBR LILLI Administration Melatonin 9 mg 12/31/24 10:02 01/10/25 21:48 Melatonin 3 Mg Tablet PO 01/30/25 10:01 9 mg HS PRN Administration sleep Ondansetron HCl 4 mg 12/30/24 18:13 Ondansetron Inj 2 Mg/Ml Inj 2 Ml IVP 01/29/25 18:12 Q6HR PRN NAUSEA OR VOMITING Protocol Pantoprazole Sodium 40 mg 01/02/25 09:00 01/10/25 08:42 Pantoprazole 40 Mg Tablet PO 02/01/25 08:59 40 mg QDAY LILLI Administration Polyethylene Glycol 17 gm 01/07/25 10:00 01/10/25 08:41 Polyethylene Glycol 17 Gm Packet PO 02/06/25 09:59 Not Given QDAY LILLI Simethicone 80 mg 01/08/25 10:00 01/11/25 05:11 Simethicone 80 Mg Chew PO 02/07/25 09:59 80 mg QID LILLI Administration Tramadol HCl 50 mg 01/09/25 18:28 01/11/25 05:11 Tramadol Hcl 50 Mg Tablet PO 01/14/25 18:21 50 mg Q6HR PRN Administration PAIN SCALE 4-6 (Moderate Plan Ms. 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 s/p incision closure.found to have intra abdominal abscess on CTAP, s/p drainage with IR, and cont on abx with zosyn. polymicrobial bacteremia with klebsiella and morganella. Leukocytosis 14. repeat CTAP shows abscess of decreased size with drain in appropriate place. PT continues to have BM, and is engaging with PT. #Polymicrobial bacteremia likely 2/2 (Klebsiella and Morganella) #Intraabdominal abscess 9 x 7 cm, shrinking 6 x 5 cm on repeat imaging pt initial blood cx with klebsiella rachel sensitive, continued on cefoxitin 2g q8hr. WBC initially downtrending however persisted and remains elevated at 22 from 16 fth intra abdominal abscess on ctap, s/p drainage and continues on zosyn drain is inplace and draining blood and pus liquid, repeat ctap with decreased size of abscess, with drain in appropriate place, WBC stable at 14, CTM Dx -BCx with GNR (klebsiella and morganella) sensitive to zosyn -CXR with atelectais, and small bl pleural effusion, -lactate wnl -procal elevated 3.47 -UA bland - CTAP with large Fluid air-containing abscess in the pelvis, 9.1 x 6.8 cm and c/f R PNA - CTAP w air fluid containing abscess 6 X 5 cm on repeat imaging 01/11 Tx - d/c cefoxitin (12/30- 01/06) - d/c cefazolin 2gm (01/07-01/08) - start zosyn (01/08- - s/p IR dranage of abscess for source control #s/p Ex Lap with Adhesion Lysis and Ileocecostomy ? 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 pt was discharged for sbo 12/25 for sbo which resolved after small bowel series. pt states that on 12/25 she had recurrence of intermittent abdominal pain. s/p adhesion lysis and ilioceostomy. incision is open with gauze wet to dry dressing.pt continues to pass gas, small volume BM, consider ileus 2/2 anesthesia. status post secondary abdominal wound closure by Dr. Parnell. Wound was clean with minor debridement at lower end. Closure performed with interrupted nylon sutures. BMs today. Plan: * Monitor incision for signs of infection or dehiscence * Continue IS, encourage mobility * Monitor for return of bowel function (BM)-pt with 3x BM today * Pain regimen: IV APAP scheduled, PO tramadol PRN, morphine 2mg q2h PRN * Aspiration precautions * IV Zofran 4 mg every 6 hours as needed * insentivie spirometer, encourage pt to utilize to prevent atelectasis. pt advised to use pain medication to help minimize pain with inspiration and allow her to do IS. * PT eval, reccomend home with home health PT and FWW #Acute hypercapnic respiratory distress #Small BL pleural effusion pt post op for SBO with resection and intraabdominal abscess with IR drain in place, serum CO2 remains elevated. and pt on supplemental oxygen Tx - encourage incentive spirometer - up to chair BID as tolerated with assistance - Engaging with PT using FWW - manage pain #transaminitis with cholestatic pattern - resolving pt with 2 days of elevated LFTs and >>alk phos concerning for cholestatic pattern, given pt is on cefoxitin abx, consider that ,it is a cephalosporin antibiotic, can be associated with?minor, transient elevations?in liver enzymes (aminotransferases and alkaline phosphatase) in a small percentage of patients (around 3%) however per discussion w pharmacy they have low level of concern that cefoxitin is causing the increased LFT. per pharmacy, given elevation in wbc today, consider broadening to zosyn, possible that klebsiella bacteremia is contaminant. pt has no RUQ tenderness. Dx -GB ultrasound unremarkable -LFTs daily #weight loss #anorexia 2/2 SBO pain - resolving #Moderate acute disease or injury related malnutrition Patient meets ASPEN criteria for due to: 1. Significant unintentional weight loss. 2. Inadequate oral intake. 3. Moderate muscle wasting. 4. Moderate subcutaneous fat loss. pt reports minimal po intake over the past week given abdominal pain that was exacerbated with eating. she reports that her weight is now in the 120s lbs, was previously at her target weight of 130s lbs - consult dietition, appreciate recs - ensure plus with lunch and dinner, Vanilla - full regular diet, low fiber (per nutrition recs) #Electrolyte abnormalities likely 2/2 poor po intake and GI losses, emesis no n/v post op. Dx - Daily CMP - replete as needed Mg>2, K>4 # Left hand swelling - resolved Patient had postop left hand swelling with her rings on the ring finger concern for possible constriction of ring finger circulation. Swelling significantly decreased with elevation and discontinuance of IV fluids Dx ? DVT ultrasound left upper extremity hand negative #GERD pt endorses increased belching post op -Malox 15 ml PO QID PRN -pantoprazole 40 mg p.o. -start simethicone, 80mg qid prn #Hypothyroidism - Continue levothyroxine 88 mg #Low back pain patient reports taking daily APAP for when she goes on walks to help with pain cont home meds post surgery - Restart APAP 650 mg as needed - Restart gabapentin 100 mg 4 times daily - HOLD lidocaine patches for pain Dispo: s/p IR drainage of intrabdominal abscess, continues to have BM, abdomen less distended, drain continues, WBC downtrending 14 14, continues on zosyn, pt ambulating and engaging with PT using FWW Diet: Regular diet: low fiber, with ensure plus with lunch and dinner, Bowel Reg: miralax, and docusate and lactulose 1x prn VTE ppx: heparin 5000 Units sc GI ppx: Pantoprazole 40 mg po Code status: Full Case discussed with my senior resident Dr. Webb Case discussed with my attending Dr. Monique Rea, MD PGY-1
[2025-01-11] MEDS: POTASSIUM CHLORIDE 10% 20 MEQ/15 ML UDC PO (09:34)
[2025-01-11] MEDS: Magnesium Sulfate 4 GM Ivpb 4 GM/50 ML BAG IV ×2 (09:34→12:40)
[2025-01-11] MEDS: DOCUSATE SOD 100 MG CAPSULE PO (09:35)
[2025-01-11] MEDS: PANTOPRAZOLE 40 MG TABLET PO (09:35)
[2025-01-11] MEDS: POLYETHYLENE GLYCOL 17 GM PACKET PO (09:35)
[2025-01-11] MEDS: HEPARIN SOD INJ 5000 UNIT/ML VIAL SC ×2 (09:35→20:55)
--- NOTE | 2025-01-11 10:26 | PC.SS ---
SS update: Pt. pending cultures.
--- NOTE | 2025-01-11 15:30 | PC.NURSE ---
Rounded with MD Parnell. Made md aware of the scant drainage removed from the accordion drain approx 5cc. Md flushed drain at bedside.
--- NOTE | 2025-01-11 15:58 | PD.SURPROG ---
Documentation for date of: 01/11/25 Subjective Subjective Narrative: The patient is feeling better and gaining her strength and eating better. Her abdomen is less distended. Exam Vital Signs Temp Pulse Resp BP Pulse Ox O2 Del Method O2 Flow Rate 97.1 F 73 18 120/65 96 Nasal Cannula 2 01/11/25 12:00 01/11/25 12:00 01/11/25 12:00 01/11/25 12:00 01/11/25 12:01/11/25 12:01/11/25 12:00 Vital signs are normal Routine Abdominal Exam Comments: Abdominal exam shows still tenderness over the right side. Results Results: Laboratory Laboratory Narrative: Patient's WBC is improving and is down to 14,000 Results: Imaging Imaging narrative: Reviewed the CT scan done today which showed there is a residual collection of abscess still about 6 cm in size. Assessment & Plan Assessment Additional comments: Impression: Abscess pelvis not completely drained Plan Plan: I irrigated the abscess with sterile saline. But there is no drainage and I doubt that this abscess would drain further. She is going to have some residual collection and I do not know whether that will give her any problem in the form of fever and leukocytosis. I discussed with Dr. Wilde who wants to repeat another CT in 2 days and maybe take the catheter. If the abscess persist then we may still have to drain this surgically PROCEDURES: Procedures Secondary closure of the abdominal wound, planned
--- NOTE | 2025-01-11 16:30 | PC.SS ---
Rounding note: Pending CT scan, pending culture, surgery consult.
[2025-01-12] VITALS (8 sets, daily range): BP systolic 117–129; BP diastolic 62–76; PULSE 76–92; RESP 16–20; TEMP 36.1–36.9; O2SAT 92–97
[2025-01-12] MEDS: GABAPENTIN 100 MG CAPSULE PO ×3 (05:16→21:05)
[2025-01-12] MEDS: PIPER/TAZO 3.375 GM PREMIX 3.375 GM/50 ML BAG IV ×3 (05:16→21:06)
[2025-01-12] MEDS: SIMETHICONE 80 MG CHEW PO ×4 (05:16→21:05)
[2025-01-12] MEDS: LEVOTHYROXINE SODIUM 88 MCG TABLET PO (05:16)
[2025-01-12 06:20] LABS: Basophils # (Auto) 0.1 Thou/mm3 (0.0-0.2); Basophils % (Auto) 0 % (0-2.5); Eosinophils # (Auto) 0.2 Thou/mm3 (0.0-0.5); Eosinophils % (Auto) 1 % (0-10); Hematocrit 27.6 % (36.0-46.0); Hemoglobin 9.1 g/dL (12.0-16.0); Immature Granulocytes Auto 0.52 Thou/mm3 (0.00-0.00); Lymphocytes # (Auto) 1.0 Thou/mm3 (1.0-4.8); Lymphocytes % (Auto) 7 % (10-50); Mean Corpuscular HGB Conc 33.0 g/dl (31.0-37.0); Mean Corpuscular Hemoglobin 30.1 pg (25.0-35.0); Mean Corpuscular Volume 91 fL (80-100); Monocytes # (Auto) 1.4 Thou/mm3 (0.0-0.8); Monocytes % (Auto) 9 % (0-12); Neutrophils # (Auto) 11.6 Thou/mm3 (1.8-7.7); Neutrophils % (Auto) 79 % (37-80); Nucleated Red Blood Cell # 0.00 Thou/mm3 (0.00-0.00); Nucleated Red Blood Cell % 0 /100 WBC (0); Platelet Count 515 Thou/mm3 (140-440); RDW Standard Deviation 42.4 fL (36.4-46.3); Red Blood Count 3.02 Miln/mm3 (4.00-5.20); White Blood Count 14.7 Thou/mm3 (3.6-11.0)
[2025-01-12 06:29] LABS: Alanine Aminotransferase 12 U/L (10-49); Albumin, Serum 2.6 gm/dL (3.4-4.8); Albumin/Globulin Ratio 1.0 (1.2-2.2); Alkaline Phosphatase 129 U/L (46-116); Anion Gap 8 (7-16); Aspartate Amino Transferase 22 U/L (0-34); BUN/Creatinine Ratio 20 Ratio (12-20); Bilirubin,Total 0.3 mg/dL (0.3-1.2); Blood Urea Nitrogen 10 mg/dL (9-23); Calcium 7.8 mg/dL (8.3-10.6); Calcium (Corrected) 8.9 mg/dL (8.5-10.1); Carbon Dioxide 33.2 mMol/L (20.0-31.0); Chloride 100 mMol/L (98-107); Creatinine (Component) 0.5 mg/dL (0.6-1.3); Estimated Creatinine Clearance 85.1 mL/min (>60); Globulin 2.5 gm/dL (2.3-3.5); Glucose 101 mg/dL (74-106); Magnesium 1.9 mg/dL (1.6-2.6); Osmolality,Calculated 280 (275-295); Phosphorous 2.9 mg/dL (2.4-5.1); Potassium 3.4 mMol/L (3.4-5.1); Sodium 141 mMol/L (136-145); Total Protein 5.1 gm/dL (5.7-8.2); eGFR > 60 See Note
[2025-01-12] MEDS: POLYETHYLENE GLYCOL 17 GM PACKET PO (08:15)
[2025-01-12] MEDS: HEPARIN SOD INJ 5000 UNIT/ML VIAL SC ×2 (08:15→21:06)
[2025-01-12] MEDS: PANTOPRAZOLE 40 MG TABLET PO (08:15)
[2025-01-12] MEDS: DOCUSATE SOD 100 MG CAPSULE PO (08:15)
--- NOTE | 2025-01-12 10:36 | ESPR_ITS ---
<Statement entered by Gigi Amaya MD - 01/16/25 12:38> I reviewed above note and agree with findings and plans. I have also personally examined the patient with medicine team and went over assessment and plan with medical team including fall internship and resident physician. <Statement entered by Jerry Webb MD - 01/12/25 14:38> Patient was seen and examined at the bedside. Patient c/o feeling weak and endorses abdominal pain. Abdominal drain has straw color fluid and doesn't look like draining alot therefore this was discussed with Gen surgeon Dr. Rodríguez. He recommended that try re-adjusting drain by talking with IR tomorrow and follow up. Continue zosyn as it is senstive to polymicrobial growth seen in her abscess cx and also in blood culture. Zosyn needs to be continue 9 more days. All labs and order were reviewed. I discussed and supervised with the fall internship physician who took care of this patient. I personally saw and examined the patient. I agree with most of the assessment and plan. Disclaimer: Despite multiple revisions, due to the dictation software being used, the document bellow may not be free of grammatical errors including phonetic/typographic errors. However, this does not deter from our commitment to providing health care in the patient's best interest in mind. Plan of care discussed with attending Physician Dr. Monique Webb MD PGY-3 Documentation for date of: 01/12/25 Subjective Subjective Interval history: No acute events overnight discussed pt case with dr rodríguez and Dr Wilde who reports that he wants additional imaging with CT AP contrast tomorrow to assess for size of abscess and potential repositioning of drain to facilitate better output. WBC remained stable at 14 patient afebrile overnight Exam Vital Signs Temp Pulse Resp BP Pulse Ox O2 Del Method O2 Flow Rate 97.6 F 85 17 125/70 93 L Nasal Cannula 2 01/12/25 08:00 01/12/25 08:00 01/12/25 08:00 01/12/25 08:00 01/12/25 08:00 01/12/25 08:00 01/12/25 08:00 Narrative Exam GENERAL: no acute distress, AAO x3, resting in bed with mild discomfort 2/2 pain HEENT: Head AT/ NC. Mucous membranes moist. PERRL. CARDIOVASCULAR: RRR. Normal S1/S2, No m/r/g. RESPIRATORY: CTAB. No wheezing. BL lung base fine crackles GASTROINTESTINAL: Abdomen remains much less tender to palpation, no palpable masses. abdomen less distended from prior.midline abdominal incision, mildly tender len incision, Incision site dry and intact with sutures. no eyrythema nor dehiscence or pus drainage. Drain in place With minimal output. MUSCULOSKELETAL:? No cyanosis or edema, no visible joint swelling. BLE trace edema NEUROLOGICAL: CN II-XII grossly intact. No focal deficits. Sensation intact, symmetric. PSYCHIATRIC: Awake and alert, not agitated, normal mood and affect. SKIN: No obvious rashes, no jaundice, normal turgor. Objective Labs 01/12/25 04:17 01/12/25 04:17 Labs: Laboratory Results - last 24 hr 01/12/25 04:17 WBC 14.7 H RBC 3.02 L Hgb 9.1 L Hct 27.6 L MCV 91 MCH 30.1 MCHC 33.0 RDW Std Deviation 42.4 Plt Count 515 H D Neut % (Auto) 79 Lymph % (Auto) 7 L Park % (Auto) 9 Eos % (Auto) 1 Baso % (Auto) 0 Neut # (Auto) 11.6 H Lymph # (Auto) 1.0 Park # (Auto) 1.4 H Eos # (Auto) 0.2 Baso # (Auto) 0.1 Immature Gran # (Auto) 0.52 H Absolute Nucleated RBC 0.00 Immature Gran % 4 H Nucleated RBC % 0 Sodium 141 Potassium 3.4 Chloride 100 Carbon Dioxide 33.2 H Anion Gap 8 BUN 10 Creatinine 0.5 L Estim Creat Clear Calc 85.1 eGFR > 60 BUN/Creatinine Ratio 20 Glucose 101 Calculated Osmolality 280 Calcium 7.8 L Corrected Calcium 8.9 Phosphorus 2.9 Magnesium 1.9 Total Bilirubin 0.3 AST 22 ALT 12 Alkaline Phosphatase 129 H Total Protein 5.1 L Albumin 2.6 L Globulin 2.5 Albumin/Globulin Ratio 1.0 L Quality Measures Quality Measures VTE prophylaxis Advance care planning discussed with:: patient and spouse Assessment & Plan Assessment Current Active Medications: Generic Name Dose Route Start Last Admin Trade Name Freq PRN Reason Stop Dose Admin Acetaminophen 650 mg 01/12/25 12:00 Acetaminophen 325 Mg Tablet PO 02/11/25 11:59 Q6HR LILLI Al Hydrox/Mg Hydrox/Simethicone 15 ml 01/04/25 10:36 Mg Hyd/Al Hyd/Mekhi (Maalox Reg) Susp 30 Ml Udc PO 02/03/25 10:35 QID PRN INDIGESTION Docusate Sodium 100 mg 01/07/25 10:00 01/12/25 08:15 Docusate Sod 100 Mg Capsule PO 02/06/25 09:59 100 mg QDAY LILLI Administration Protocol Gabapentin 100 mg 12/31/24 06:00 01/12/25 05:16 Gabapentin 100 Mg Capsule PO 01/30/25 05:59 100 mg TID LILLI Administration Heparin Sodium (Porcine) 5,000 unit 01/07/25 09:00 01/12/25 08:15 Heparin Sod Inj 5000 Unit/Ml Vial SC 01/21/25 08:59 5,000 unit Q12HR LILLI Administration Piperacillin/Tazobactam/Dextrose 3.375 gm in 50 mls @ 12.5 mls/hr 01/08/25 22:00 01/12/25 05:16 Zosyn IV 01/15/25 13:59 12.5 mls/hr Q8HR LILLI Administration Levothyroxine Sodium 88 mcg 01/02/25 06:00 01/12/25 05:16 Levothyroxine Sodium 88 Mcg Tablet PO 02/01/25 05:59 88 mcg ACBR LILLI Administration Melatonin 9 mg 12/31/24 10:02 01/10/25 21:48 Melatonin 3 Mg Tablet PO 01/30/25 10:01 9 mg HS PRN Administration sleep Ondansetron HCl 4 mg 12/30/24 18:13 Ondansetron Inj 2 Mg/Ml Inj 2 Ml IVP 01/29/25 18:12 Q6HR PRN NAUSEA OR VOMITING Protocol Pantoprazole Sodium 40 mg 01/02/25 09:00 01/12/25 08:15 Pantoprazole 40 Mg Tablet PO 02/01/25 08:59 40 mg QDAY LILLI Administration Polyethylene Glycol 17 gm 01/07/25 10:00 01/12/25 08:15 Polyethylene Glycol 17 Gm Packet PO 02/06/25 09:59 17 gm QDAY LILLI Administration Simethicone 80 mg 01/08/25 10:00 01/12/25 05:16 Simethicone 80 Mg Chew PO 02/07/25 09:59 80 mg QID LILLI Administration Tramadol HCl 50 mg 01/09/25 18:28 01/11/25 20:55 Tramadol Hcl 50 Mg Tablet PO 01/14/25 18:21 50 mg Q6HR PRN Administration PAIN SCALE 4-6 (Moderate Plan Ms. 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 s/p incision closure.found to have intra abdominal abscess on CTAP, s/p drainage with IR, and cont on abx with zosyn. polymicrobial bacteremia with klebsiella and morganella. Leukocytosis remains elevated 14. repeat CTAP shows abscess of decreased size with drain in appropriate place. PT continues to have BM, and is engaging with PT. plan for repeat ctap w contrast to assess abscess size and drain position. #Polymicrobial bacteremia likely 2/2 (Klebsiella and Morganella) #Intraabdominal abscess 9 x 7 cm, shrinking 6 x 5 cm on repeat imaging pt initial blood cx with klebsiella rachel sensitive, continued on cefoxitin 2g q8hr. WBC initially downtrending however persisted and remains elevated at 22 from 16 fth intra abdominal abscess on ctap, s/p drainage and continues on zosyn drain is inplace and draining blood and pus liquid, repeat ctap with decreased size of abscess, with drain in appropriate place but with minimal output despite flushes with Dr. Rodríguez, WBC remains elevated at 14, CTM planning for repeat CTAP tomorrow to assess abscess and possibly pull or reposition drain. Dx -BCx with GNR (klebsiella and morganella) sensitive to zosyn -CXR with atelectais, and small bl pleural effusion, -lactate wnl -procal elevated 3.47 -UA bland - CTAP with large Fluid air-containing abscess in the pelvis, 9.1 x 6.8 cm and c/f R PNA - CTAP w air fluid containing abscess 6 X 5 cm on repeat imaging 01/11 - Cx of abscess fluid with klebsiella and morganella - pending repeat CTAP w contrast to evaluate position of drain and size of abscess. Tx - d/c cefoxitin (12/30- 01/06) - d/c cefazolin 2gm (01/07-01/08) - start zosyn (01/08- 01/17 ) 14 days total - s/p IR dranage of abscess for source control with minimal output despite good output of drain. #Acute hypercapnic respiratory distress #Small BL pleural effusion pt post op for SBO with resection and intraabdominal abscess with IR drain in place, serum CO2 remains elevated. and pt on supplemental oxygen Tx - encourage incentive spirometer - up to chair BID as tolerated with assistance - Engaging with PT using FWW - manage pain #s/p Ex Lap with Adhesion Lysis and Ileocecostomy ? 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 pt was discharged for sbo 12/25 for sbo which resolved after small bowel series. pt states that on 12/25 she had recurrence of intermittent abdominal pain. s/p adhesion lysis and ilioceostomy. incision is open with gauze wet to dry dressing.pt continues to pass gas, small volume BM, consider ileus 2/2 anesthesia. status post secondary abdominal wound closure by Dr. Rodríugez. Wound was clean with minor debridement at lower end. Closure performed with interrupted nylon sutures. BMs today. Plan: * Monitor incision for signs of infection or dehiscence * Continue IS, encourage mobility * Monitor for return of bowel function (BM)-pt with 3x BM today * Pain regimen: PO APAP scheduled, PO tramadol PRN, morphine 2mg q2h PRN * Aspiration precautions * IV Zofran 4 mg every 6 hours as needed * insentivie spirometer, encourage pt to utilize to prevent atelectasis. pt advised to use pain medication to help minimize pain with inspiration and allow her to do IS. * PT eval, recomend home with home health PT and FWW #transaminitis with cholestatic pattern - resolving pt with 2 days of elevated LFTs and >>alk phos concerning for cholestatic pattern, given pt is on cefoxitin abx, consider that ,it is a cephalosporin antibiotic, can be associated with?minor, transient elevations?in liver enzymes (aminotransferases and alkaline phosphatase) in a small percentage of patients (around 3%) however per discussion w pharmacy they have low level of concern that cefoxitin is causing the increased LFT. per pharmacy, given elevation in wbc today, consider broadening to zosyn, possible that klebsiella bacteremia is contaminant. pt has no RUQ tenderness. d/c cephalosporins with resolving transaminitis. Dx -GB ultrasound unremarkable -LFTs daily #weight loss #anorexia 2/2 SBO pain - resolving #Moderate acute disease or injury related malnutrition Patient meets ASPEN criteria for due to: 1. Significant unintentional weight loss. 2. Inadequate oral intake. 3. Moderate muscle wasting. 4. Moderate subcutaneous fat loss. pt reports minimal po intake over the past week given abdominal pain that was exacerbated with eating. she reports that her weight is now in the 120s lbs, was previously at her target weight of 130s lbs - consult dietition, appreciate recs - ensure plus with lunch and dinner, Vanilla - full regular diet, low fiber (per nutrition recs) #Electrolyte abnormalities likely 2/2 poor po intake and GI losses, emesis no n/v post op. Dx - Daily CMP - replete as needed Mg>2, K>4 # Left hand swelling - resolved Patient had postop left hand swelling with her rings on the ring finger concern for possible constriction of ring finger circulation. Swelling significantly decreased with elevation and discontinuance of IV fluids Dx ? DVT ultrasound left upper extremity hand negative #GERD pt endorses increased belching post op -Malox 15 ml PO QID PRN -pantoprazole 40 mg p.o. -start simethicone, 80mg qid prn #Hypothyroidism - Continue levothyroxine 88 mg #Low back pain patient reports taking daily APAP for when she goes on walks to help with pain cont home meds post surgery - Restart APAP 650 mg as needed - Restart gabapentin 100 mg 4 times daily - HOLD lidocaine patches for pain Dispo: s/p IR drainage of intrabdominal abscess, continues to have BM, abdomen less distended, drain with minimal output, WBC stably elevated 14 14, continues on zosyn for 9 more days for bacteremia , pt ambulating and engaging with PT using FWW, pending repeat CTAP for evaluation of abscess. Diet: Regular diet: low fiber, with ensure plus with lunch and dinner, Bowel Reg: miralax, and docusate and lactulose 1x prn VTE ppx: heparin 5000 Units sc GI ppx: Pantoprazole 40 mg po Code status: Full Case discussed with my senior resident Dr. Webb Case discussed with my attending Dr. Monique Rea MD PGY-1
--- NOTE | 2025-01-12 11:43 | PD.SURPROG ---
Documentation for date of: 01/12/25 Exam Vital Signs Temp Pulse Resp BP Pulse Ox O2 Del Method O2 Flow Rate 97.6 F 85 17 125/70 93 L Nasal Cannula 2 01/12/25 08:00 01/12/25 08:00 01/12/25 08:00 01/12/25 08:00 01/12/25 08:00 01/12/25 08:00 01/12/25 08:00 Assessment & Plan Assessment Additional comments: Impression: Partially drained abscess in the abdominal cavity Plan Plan: We will wait for the radiologist to drain the abscess completely maybe by repositioning the. I would not recommend any surgical intervention even if there is some residual collection because it is mostly black and not passed. Dr. Rodriguez will be covering for me in my absence. PROCEDURES: Procedures Secondary closure of the abdominal wound, planned
--- NOTE | 2025-01-12 12:12 | PC.NURSE ---
Rounded with MD Parnell. at bedside irrigated pts accordion drain. Drain is intact no resistance noted on irrigation by MD Parnell. Dressing changed pt tolerated well.
--- NOTE | 2025-01-12 15:03 | PC.SS ---
Rounding note: pending is a re-evaluation of drain with IR. D/c plan is home with home health.
[2025-01-13] VITALS (7 sets, daily range): BP systolic 113–135; BP diastolic 63–68; PULSE 69–80; RESP 16–18; TEMP 36.2–36.5; O2SAT 90–97; BMI 28.3
[2025-01-13] MEDS: ACETAMINOPHEN 325 MG TABLET 650 MG PO ×3 (05:17→17:37)
[2025-01-13] MEDS: SIMETHICONE 80 MG CHEW PO ×4 (05:17→20:21)
[2025-01-13] MEDS: PIPER/TAZO 3.375 GM PREMIX 3.375 GM/50 ML BAG IV ×2 (05:17→13:46)
[2025-01-13] MEDS: GABAPENTIN 100 MG CAPSULE PO ×3 (05:17→21:30)
[2025-01-13] MEDS: LEVOTHYROXINE SODIUM 88 MCG TABLET PO (05:18)
[2025-01-13 05:30] LABS: Basophils # (Auto) 0.0 Thou/mm3 (0.0-0.2); Basophils % (Auto) 0 % (0-2.5); Eosinophils # (Auto) 0.2 Thou/mm3 (0.0-0.5); Eosinophils % (Auto) 1 % (0-10); Hematocrit 28.8 % (36.0-46.0); Hemoglobin 9.0 g/dL (12.0-16.0); Immature Granulocytes Auto 0.68 Thou/mm3 (0.00-0.00); Lymphocytes # (Auto) 1.2 Thou/mm3 (1.0-4.8); Lymphocytes % (Auto) 11 % (10-50); Mean Corpuscular HGB Conc 31.3 g/dl (31.0-37.0); Mean Corpuscular Hemoglobin 29.2 pg (25.0-35.0); Mean Corpuscular Volume 94 fL (80-100); Monocytes # (Auto) 1.1 Thou/mm3 (0.0-0.8); Monocytes % (Auto) 10 % (0-12); Neutrophils # (Auto) 7.8 Thou/mm3 (1.8-7.7); Neutrophils % (Auto) 70 % (37-80); Nucleated Red Blood Cell # 0.00 Thou/mm3 (0.00-0.00); Nucleated Red Blood Cell % 0 /100 WBC (0); Platelet Count 518 Thou/mm3 (140-440); RDW Standard Deviation 44.7 fL (36.4-46.3); Red Blood Count 3.08 Miln/mm3 (4.00-5.20); White Blood Count 11.0 Thou/mm3 (3.6-11.0)
[2025-01-13 05:52] LABS: Alanine Aminotransferase 12 U/L (10-49); Albumin, Serum 2.6 gm/dL (3.4-4.8); Albumin/Globulin Ratio 1.0 (1.2-2.2); Alkaline Phosphatase 116 U/L (46-116); Anion Gap 5 (7-16); Aspartate Amino Transferase 21 U/L (0-34); BUN/Creatinine Ratio 17 Ratio (12-20); Bilirubin,Total 0.3 mg/dL (0.3-1.2); Blood Urea Nitrogen 10 mg/dL (9-23); Calcium 7.9 mg/dL (8.3-10.6); Calcium (Corrected) 9.0 mg/dL (8.5-10.1); Carbon Dioxide 34.6 mMol/L (20.0-31.0); Chloride 102 mMol/L (98-107); Creatinine (Component) 0.6 mg/dL (0.6-1.3); Estimated Creatinine Clearance 70.9 mL/min (>60); Globulin 2.5 gm/dL (2.3-3.5); Glucose 105 mg/dL (74-106); Magnesium 1.5 mg/dL (1.6-2.6); Osmolality,Calculated 282 (275-295); Phosphorous 2.8 mg/dL (2.4-5.1); Potassium 3.6 mMol/L (3.4-5.1); Sodium 142 mMol/L (136-145); Total Protein 5.1 gm/dL (5.7-8.2); eGFR > 60 See Note
--- NOTE | 2025-01-13 07:00 | XR_ITS ---
Examination: CT abdomen with intravenous contrast CT pelvis with intravenous contrast 2-D coronal reconstructions 2-D sagittal reconstructions Date and time of exam:January 13, 2025, 0939 hours Comparison January 11, 2025 INDICATIONS: History large pelvic abscess 03/11/2024, post placement pelvic abscess drainage catheter. CTDI: vol (mGy) 8.13 DLP: (mGycm) 432 Technique: Multiple axial sections of the abdomen and pelvis have been obtained. 64 slice high-resolution scanner used. 3 mm axial sections have been obtained, post intravenous injection 60 cc [id number] 2-D sagittal, coronal reconstructions obtained. Low dose protocols were performed. One or more of the following dose reduction techniques were used; automated exposure control, adjustment of the mA and/or KV according to patient size, use of iterative reconstruction technique. Findings: Atelectasis versus pneumonia right base Small left minimal right pleural fluid No focal liver or splenic lesions Contracted gallbladder No pancreatic mass No renal calculi Minimal right hydronephrosis Normal appendix Fluid distended colon Pelvic abscess drainage catheter in satisfactory position, markedly decreased size of pelvic abscess, currently measuring 26 x 24 mm Urinary bladder intact IMPRESSION: Consider removal of the pelvic abscess drainage catheter
--- NOTE | 2025-01-13 07:43 | ESPR_ITS ---
<Statement entered by Gigi Amaya MD - 01/16/25 12:39> I reviewed above note and agree with findings and plans. I have also personally examined the patient with medicine team and went over assessment and plan with medical team including purchasing internship and resident physician. <Statement entered by Jerry Webb MD - 01/13/25 17:14> Patient was seen and examined at the bedside. No acute overnight events were reported. Repeat CT scan abdomen showed reduction of abdominal abscess and drain was removed. Anticipating discharge likely tomorrow. Patient can be de- escalated to Levaquin for 8 more days to complete antibiotic course. All labs and orders were reviewed. I discussed and supervised with the purchasing internship physician who took care of this patient. I personally saw and examined the patient. I agree with most of the assessment and plan. Disclaimer: Despite multiple revisions, due to the dictation software being used, the document bellow may not be free of grammatical errors including phonetic/typographic errors. However, this does not deter from our commitment to providing health care in the patient's best interest in mind. Plan of care discussed with attending Physician Dr. Monique Webb MD PGY-3 Documentation for date of: 01/13/25 Subjective Subjective Interval history: No acute events overnight s/p ctap with reduction of abdominal abscess s/p drain removal. continues on zosyn consulted ID Exam Vital Signs Temp Pulse Resp BP Pulse Ox O2 Del Method O2 Flow Rate 97.2 F 72 16 123/68 97 Nasal Cannula 1 01/13/25 04:00 01/13/25 04:00 01/13/25 04:00 01/13/25 04:00 01/13/25 04:00 01/13/25 04:00 01/12/25 19:18 Narrative Exam GENERAL: no acute distress, AAO x3, resting comfortably in bed. HEENT: Head AT/ NC. Mucous membranes moist. PERRL. CARDIOVASCULAR: RRR. Normal S1/S2, No m/r/g. RESPIRATORY: CTAB. No wheezing. BL lung base fine crackles GASTROINTESTINAL: Abdomen remains much less tender to palpation, no palpable masses. abdomen less distended from prior.midline abdominal incision, mildly tender len incision, Incision site dry and intact with sutures. no eyrythema nor dehiscence or pus drainage. Drain in place With minimal output. MUSCULOSKELETAL:? No cyanosis or edema, no visible joint swelling. BLE trace edema NEUROLOGICAL: CN II-XII grossly intact. No focal deficits. Sensation intact, symmetric. PSYCHIATRIC: Awake and alert, not agitated, normal mood and affect. SKIN: No obvious rashes, no jaundice, normal turgor. Objective Labs 01/13/25 04:36 01/13/25 04:36 Labs: Laboratory Results - last 24 hr 01/13/25 04:36 WBC 11.0 RBC 3.08 L Hgb 9.0 L Hct 28.8 L MCV 94 MCH 29.2 MCHC 31.3 RDW Std Deviation 44.7 Plt Count 518 H Neut % (Auto) 70 Lymph % (Auto) 11 [place] % (Auto) 10 Eos % (Auto) 1 Baso % (Auto) 0 Neut # (Auto) 7.8 H Lymph # (Auto) 1.2 [place] # (Auto) 1.1 H Eos # (Auto) 0.2 Baso # (Auto) 0.0 Immature Gran # (Auto) 0.68 H Absolute Nucleated RBC 0.00 Immature Gran % 6 H Nucleated RBC % 0 Sodium 142 Potassium 3.6 Chloride 102 Carbon Dioxide 34.6 H Anion Gap 5 L BUN 10 Creatinine 0.6 Estim Creat Clear Calc 70.9 eGFR > 60 BUN/Creatinine Ratio 17 Glucose 105 Calculated Osmolality 282 Calcium 7.9 L Corrected Calcium 9.0 Phosphorus 2.8 Magnesium 1.5 L Total Bilirubin 0.3 AST 21 ALT 12 Alkaline Phosphatase 116 Total Protein 5.1 L Albumin 2.6 L Globulin 2.5 Albumin/Globulin Ratio 1.0 L Quality Measures Quality Measures VTE prophylaxis Advance care planning discussed with:: patient and spouse Assessment & Plan Assessment Current Active Medications: Generic Name Dose Route Start Last Admin Trade Name Freq PRN Reason Stop Dose Admin Acetaminophen 650 mg 01/12/25 12:00 01/13/25 05:17 Acetaminophen 325 Mg Tablet PO 02/11/25 11:59 650 mg Q6HR LILLI Administration Al Hydrox/Mg Hydrox/Simethicone 15 ml 01/04/25 10:36 Mg Hyd/Al Hyd/Mekhi (Maalox Reg) Susp 30 Ml Udc PO 02/03/25 10:35 QID PRN INDIGESTION Docusate Sodium 100 mg 01/07/25 10:00 01/12/25 08:15 Docusate Sod 100 Mg Capsule PO 02/06/25 09:59 100 mg QDAY LILLI Administration Protocol Gabapentin 100 mg 12/31/24 06:00 01/13/25 05:17 Gabapentin 100 Mg Capsule PO 01/30/25 05:59 100 mg TID LILLI Administration Heparin Sodium (Porcine) 5,000 unit 01/07/25 09:00 01/12/25 21:06 Heparin Sod Inj 5000 Unit/Ml Vial SC 01/21/25 08:59 5,000 unit Q12HR LILLI Administration Piperacillin/Tazobactam/Dextrose 3.375 gm in 50 mls @ 12.5 mls/hr 01/08/25 22:00 01/13/25 05:17 Zosyn IV 01/17/25 21:59 12.5 mls/hr Q8HR LILLI Administration Levothyroxine Sodium 88 mcg 01/02/25 06:00 01/13/25 05:18 Levothyroxine Sodium 88 Mcg Tablet PO 02/01/25 05:59 88 mcg ACBR LILLI Administration Melatonin 9 mg 12/31/24 10:02 01/10/25 21:48 Melatonin 3 Mg Tablet PO 01/30/25 10:01 9 mg HS PRN Administration sleep Ondansetron HCl 4 mg 12/30/24 18:13 Ondansetron Inj 2 Mg/Ml Inj 2 Ml IVP 01/29/25 18:12 Q6HR PRN NAUSEA OR VOMITING Protocol Pantoprazole Sodium 40 mg 01/02/25 09:00 01/12/25 08:15 Pantoprazole 40 Mg Tablet PO 02/01/25 08:59 40 mg QDAY LILLI Administration Polyethylene Glycol 17 gm 01/07/25 10:00 01/12/25 08:15 Polyethylene Glycol 17 Gm Packet PO 02/06/25 09:59 17 gm QDAY LILLI Administration Simethicone 80 mg 01/08/25 10:00 01/13/25 05:17 Simethicone 80 Mg Chew PO 02/07/25 09:59 80 mg QID LILLI Administration Tramadol HCl 50 mg 01/09/25 18:28 01/11/25 20:55 Tramadol Hcl 50 Mg Tablet PO 01/14/25 18:21 50 mg Q6HR PRN Administration PAIN SCALE 4-6 (Moderate Plan Ms. 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 s/p incision closure.found to have intra abdominal abscess on CTAP, s/p drainage with IR, and cont on abx with zosyn. polymicrobial bacteremia with klebsiella and morganella. Leukocytosis remains elevated 14. repeat CTAP shows abscess of decreased size with drain in appropriate place. PT continues to have BM (loose, d/c BM reg), CTAP today with resolution of abscess 2x2 cm, s/p drain removal, leukocytosis resolved, pending discharge tomorrow and f/u for suture removal. #Polymicrobial bacteremia likely 2/2 (Klebsiella and Morganella) #Intraabdominal abscess 9 x 7 cm- Resolving pt initial blood cx with klebsiella rachel sensitive, continued on cefoxitin 2g q8hr. WBC initially downtrending however persisted and remains elevated at 22 from 16 fth intra abdominal abscess on ctap, s/p drainage and continues on zosyn drain is inplace and draining blood and pus liquid, repeat ctap with decreased size of abscess, with drain in appropriate place but with minimal output despite flushes with Dr. Parnell, 01/13 ir drain removed, leukocytosis resolved, and abscess shrunken on repeat imaging 2x2 cm Dx -BCx with GNR (klebsiella and morganella) sensitive to zosyn -CXR with atelectais, and small bl pleural effusion, -lactate wnl -procal elevated 3.47 -UA bland - CTAP with large Fluid air-containing abscess in the pelvis, 9.1 x 6.8 cm and c/f R PNA - CTAP w air fluid containing abscess 6 X 5 cm on repeat imaging 01/11 - Cx of abscess fluid with klebsiella and morganella - s/p repeat CTAP w contrast, abscess 2x2cm Tx - d/c cefoxitin (12/30- 01/06) - d/c cefazolin 2gm (01/07-01/08) - start zosyn (01/08- 01/17 ) 14 days total - ID consulted, appreciate recs for abx - s/p IR drain removal #Acute hypercapnic respiratory distress #Small BL pleural effusion pt post op for SBO with resection and intraabdominal abscess with IR drain in place, serum CO2 remains elevated. 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 pt was discharged for sbo 12/25 for sbo which resolved after small bowel series. pt states that on 12/25 she had recurrence of intermittent abdominal pain. s/p adhesion lysis and ilioceostomy. incision is open with gauze wet to dry dressing.pt continues to pass gas, small volume BM, consider ileus 2/2 anesthesia. status post secondary abdominal wound closure by Dr. Parnell. Wound was clean with minor debridement at lower end. Closure performed with interrupted nylon sutures. BMs today. Plan: * Monitor incision for signs of infection or dehiscence * Continue IS, encourage mobility * Monitor for return of bowel function (BM)-pt with 3x BM today * Pain regimen: PO APAP scheduled, * Aspiration precautions * IV Zofran 4 mg every 6 hours as needed * insentivie spirometer, encourage pt to utilize to prevent atelectasis. pt advised to use pain medication to help minimize pain with inspiration and allow her to do IS. * PT eval, recomend home with home health PT and FWW #transaminitis with cholestatic pattern - resolving pt with 2 days of elevated LFTs and >>alk phos concerning for cholestatic pattern, given pt is on cefoxitin abx, consider that ,it is a cephalosporin antibiotic, can be associated with?minor, transient elevations?in liver enzymes (aminotransferases and alkaline phosphatase) in a small percentage of patients (around 3%) however per discussion w pharmacy they have low level of concern that cefoxitin is causing the increased LFT. per pharmacy, given elevation in wbc today, consider broadening to zosyn, possible that klebsiella bacteremia is contaminant. pt has no RUQ tenderness. d/c cephalosporins with resolving transaminitis. Dx -GB ultrasound unremarkable -LFTs daily #weight loss #anorexia 2/2 SBO pain - resolving #Moderate acute disease or injury related malnutrition Patient meets ASPEN criteria for due to: 1. Significant unintentional weight loss. 2. Inadequate oral intake. 3. Moderate muscle wasting. 4. Moderate subcutaneous fat loss. pt reports minimal po intake over the past week given abdominal pain that was exacerbated with eating. she reports that her weight is now in the 120s lbs, was previously at her target weight of 130s lbs - consult dietition, appreciate recs - ensure plus with lunch and dinner, Vanilla - full regular diet, low fiber (per nutrition recs) #Electrolyte abnormalities likely 2/2 poor po intake and GI losses, emesis no n/v post op. Dx - Daily CMP - replete as needed Mg>2, K>4 # Left hand swelling - resolved Patient had postop left hand swelling with her rings on the ring finger concern for possible constriction of ring finger circulation. Swelling significantly decreased with elevation and discontinuance of IV fluids Dx ? DVT ultrasound left upper extremity hand negative #GERD pt endorses increased belching post op -Malox 15 ml PO QID PRN -pantoprazole 40 mg p.o. -start simethicone, 80mg qid prn #Hypothyroidism - Continue levothyroxine 88 mg #Low back pain patient reports taking daily APAP for when she goes on walks to help with pain cont home meds post surgery - Restart APAP 650 mg as needed - Restart gabapentin 100 mg 4 times daily - HOLD lidocaine patches for pain Dispo: s/p removal of IR drain given marked size decrease of abscess, continues on zosyn for 8 more days for bacteremia , pt ambulating and engaging with PT using FWW. Diet: Regular diet: low fiber, with ensure plus with lunch and dinner, Bowel Reg: miralax, and docusate and lactulose 1x prn VTE ppx: heparin 5000 Units sc GI ppx: Pantoprazole 40 mg po Code status: Full Case discussed with my senior resident Dr. Webb Case discussed with my attending Dr. Monique Rea MD PGY-1
[2025-01-13] MEDS: HEPARIN SOD INJ 5000 UNIT/ML VIAL SC ×2 (08:45→20:22)
[2025-01-13] MEDS: DOCUSATE SOD 100 MG CAPSULE PO (08:45)
[2025-01-13] MEDS: PANTOPRAZOLE 40 MG TABLET PO (08:45)
[2025-01-13] MEDS: POTASSIUM CHLORIDE 10% 20 MEQ/15 ML UDC 40 MEQ PO (08:45)
[2025-01-13] MEDS: Magnesium Sulfate 4 GM Ivpb 4 GM/50 ML BAG IV ×2 (08:45→12:38)
--- NOTE | 2025-01-13 11:32 | XR_ITS ---
Examination: Removal abscess drainage catheter Date and time: January 13, 2025 1132 hours INDICATIONS: No longer needed for abscess 20 scan of the liver, much smaller abscess on CT examination today TECHNIQUE AND FINDINGS: Informed consent right. Abscess drainage catheter removed, no blood loss IMPRESSION: Successful removal abscess drainage catheter
--- NOTE | 2025-01-13 13:30 | PC.NURSE ---
Patient taken to IR for Pelvic Abscess Drain Removal procedure. While preparing patient for procedure; drain came out by itself, no need to administer local anesthetic or Intravenous pain management. Dr. Becerra made aware. Bedside Nurse made aware. Patient taken back to room; no acute distress noted. No SOB noted. No acute changes or deviations from baseline noted at this time
--- NOTE | 2025-01-13 14:54 | PC.SS ---
Rounding note: pending removal abscess drainage of catheter. Possible d/c tomorrow home w/home health.
--- NOTE | 2025-01-13 15:16 | PD.IDPROG ---
Subjective Subjective Interval history: cx noted. sbo was the admitting dx. about 2 weeks ago Exam Vital Signs Temp Pulse Resp BP Pulse Ox O2 Del Method O2 Flow Rate 97.7 F 80 18 124/68 90 L Room Air 1 01/13/25 12:00 01/13/25 12:00 01/13/25 12:00 01/13/25 12:00 01/13/25 12:00 01/13/25 12:00 01/13/25 11:44 Narrative Exam benign exam. drain out. feels ok Objective - Internal Medicine Labs 01/13/25 04:36 01/13/25 04:36 Labs: Laboratory Results - last 24 hr 01/13/25 04:36 WBC 11.0 RBC 3.08 L Hgb 9.0 L Hct 28.8 L MCV 94 MCH 29.2 MCHC 31.3 RDW Std Deviation 44.7 Plt Count 518 H Neut % (Auto) 70 Lymph % (Auto) 11 [place] % (Auto) 10 Eos % (Auto) 1 Baso % (Auto) 0 Neut # (Auto) 7.8 H Lymph # (Auto) 1.2 [place] # (Auto) 1.1 H Eos # (Auto) 0.2 Baso # (Auto) 0.0 Immature Gran # (Auto) 0.68 H Absolute Nucleated RBC 0.00 Immature Gran % 6 H Nucleated RBC % 0 Sodium 142 Potassium 3.6 Chloride 102 Carbon Dioxide 34.6 H Anion Gap 5 L BUN 10 Creatinine 0.6 Estim Creat Clear Calc 70.9 eGFR > 60 BUN/Creatinine Ratio 17 Glucose 105 Calculated Osmolality 282 Calcium 7.9 L Corrected Calcium 9.0 Phosphorus 2.8 Magnesium 1.5 L Total Bilirubin 0.3 AST 21 ALT 12 Alkaline Phosphatase 116 Total Protein 5.1 L Albumin 2.6 L Globulin 2.5 Albumin/Globulin Ratio 1.0 L Assessment & Plan A&P Narrative sbo, with abd abscess drained later showing multiple germs hypothyroid zosyn ok , but she reports home tomorrow, so will move to change to po bactrim for 5d more . do not repeat procal. it is not advised after surgery although pts creat is ok Time Spent With Patient Time: Total time spent is greater than 50% in coordination of care (as documented) at patient's floor/unit and/or counseling patient:
[2025-01-13 15:22] LABS: Band Neutrophils (Manual) 6 % (0-6); Eosinophils (Manual) 1 % (0-4); Lymphocytes (Manual) 4 % (20-44); Monocytes (Manual) 6 % (2-9); Neutrophils (Manual) 83 % (50-70)
--- NOTE | 2025-01-13 17:30 | ESCONSULT_ITS ---
RE: ABBEY WISDOM : 1945 DATE OF CONSULTATION: 01/13/2025 REFERRING PHYSICIAN: Dr. Torres REASON FOR CONSULTATION: Pelvic abscess. HISTORY OF PRESENT ILLNESS: The patient had a pelvic abscess that was drained. Drainage cultures have shown a variety of germs. They are all sensitive to Bactrim and Zosyn. Zosyn has been given this last week and it has been very effective so far. The gram stain shows GPCs but those did not grow on cx. 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 She had surgery in 2003 for hysterectomy and recent exploratory laparotomy this admission and reexploration and wound closure done a few days later. Drainage was done after the closure. She never had a fever. Other than hypothyroidism, she has no other health problems. ALLERGIES: NONE NOTED. IMMUNIZATIONS: Last tetanus is not known. She has taken flu shot every year, he has had 3 COVID vaccines and has had pneumococcal vaccine. FAMILY HISTORY: Positive for mother having diabetes as well as cancer. Father had lung cancer but was never a smoker. SOCIAL HISTORY: She lives at home with her and lives in [place]. She plans to return home as soon as she leaves. She has never smoked. PHYSICAL EXAMINATION: On exam, the patient has a benign abdomen but is seeking some assistance with cleaning up after bowel movements and she can go back to bed. She hopes to go home in the near future. She has a benign abdomen. Her drain has been removed and she again hopes to go home tomorrow. RECOMMENDATIONS: The duration and choice of agents will be Bactrim DS through early next week. However additional days should be finef that is your choice. her drain has been removed. A total of 10 days is reasonable. I will see her again more on a p.r.n. basis. DT: 15:51:20 TT: 16:21:00 Ref: [id number] - TID: [id number] MTDD
[2025-01-13] MEDS: TRIMETHOPRIM/SULFA 160/800 DS TABLET 1 TAB PO (20:21)
[2025-01-14] VITALS: BP 119/63; PULSE 84; RESP 17; TEMP 36.4; O2SAT 91
[2025-01-14] MEDS: ACETAMINOPHEN 325 MG TABLET 650 MG PO ×3 (00:04→12:58)
[2025-01-14 04:00] VITALS: BP 127/6; PULSE 77; RESP 17; TEMP 36.4; O2SAT 91
[2025-01-14 04:57] VITALS: PULSE 78; RESP 18; O2SAT 92
[2025-01-14 05:27] LABS: Basophils # (Auto) 0.1 Thou/mm3 (0.0-0.2); Basophils % (Auto) 1 % (0-2.5); Eosinophils # (Auto) 0.1 Thou/mm3 (0.0-0.5); Eosinophils % (Auto) 1 % (0-10); Hematocrit 29.3 % (36.0-46.0); Hemoglobin 9.1 g/dL (12.0-16.0); Immature Granulocytes Auto 0.75 Thou/mm3 (0.00-0.00); Lymphocytes # (Auto) 1.3 Thou/mm3 (1.0-4.8); Lymphocytes % (Auto) 12 % (10-50); Mean Corpuscular HGB Conc 31.1 g/dl (31.0-37.0); Mean Corpuscular Hemoglobin 28.8 pg (25.0-35.0); Mean Corpuscular Volume 93 fL (80-100); Monocytes # (Auto) 1.0 Thou/mm3 (0.0-0.8); Monocytes % (Auto) 9 % (0-12); Neutrophils # (Auto) 7.5 Thou/mm3 (1.8-7.7); Neutrophils % (Auto) 70 % (37-80); Nucleated Red Blood Cell # 0.00 Thou/mm3 (0.00-0.00); Nucleated Red Blood Cell % 0 /100 WBC (0); Platelet Count 503 Thou/mm3 (140-440); RDW Standard Deviation 43.0 fL (36.4-46.3); Red Blood Count 3.16 Miln/mm3 (4.00-5.20); White Blood Count 10.7 Thou/mm3 (3.6-11.0)
[2025-01-14 06:00] VITALS: BMI 28.3
[2025-01-14] MEDS: GABAPENTIN 100 MG CAPSULE PO ×2 (06:00→12:59)
[2025-01-14 06:01] LABS: Alanine Aminotransferase 17 U/L (10-49); Albumin, Serum 2.7 gm/dL (3.4-4.8); Albumin/Globulin Ratio 1.1 (1.2-2.2); Alkaline Phosphatase 295 U/L (46-116); Anion Gap 6 (7-16); Aspartate Amino Transferase 28 U/L (0-34); BUN/Creatinine Ratio 24 Ratio (12-20); Bilirubin,Total 0.2 mg/dL (0.3-1.2); Blood Urea Nitrogen 12 mg/dL (9-23); Calcium 7.6 mg/dL (8.3-10.6); Calcium (Corrected) 8.6 mg/dL (8.5-10.1); Carbon Dioxide 31.9 mMol/L (20.0-31.0); Chloride 103 mMol/L (98-107); Creatinine (Component) 0.5 mg/dL (0.6-1.3); Estimated Creatinine Clearance 85.1 mL/min (>60); Globulin 2.5 gm/dL (2.3-3.5); Glucose 98 mg/dL (74-106); Magnesium 1.8 mg/dL (1.6-2.6); Osmolality,Calculated 280 (275-295); Phosphorous 2.4 mg/dL (2.4-5.1); Potassium 3.5 mMol/L (3.4-5.1); Sodium 141 mMol/L (136-145); Total Protein 5.2 gm/dL (5.7-8.2); eGFR > 60 See Note
[2025-01-14] MEDS: LEVOTHYROXINE SODIUM 88 MCG TABLET PO (06:01)
[2025-01-14] MEDS: SIMETHICONE 80 MG CHEW PO ×2 (06:02→12:59)
--- NOTE | 2025-01-14 07:37 | ESDS_ITS ---
<Statement entered by Gigi Amaya MD - 01/16/25 12:40> I reviewed above note and agree with findings and plans. I have also personally examined the patient with medicine team and went over assessment and plan with medical team including internal grinding machine operator and resident physician. <Statement entered by Jerry Webb MD - 01/14/25 10:51> I discussed and supervised with the internal grinding machine operator physician who took care of this patient. I personally saw and examined the patient. I agree with most of the assessment and plan. Disclaimer: Despite multiple revisions, due to the dictation software being used, the document bellow may not be free of grammatical errors including phonetic/typographic errors. However, this does not deter from our commitment to providing health care in the patient's best interest in mind. Plan of care discussed with attending Physician Dr. Monique Webb MD PGY-3 Planned Discharge Date 01/14/25 DS: Providers Provider Date of admission: 12/30/24 18:28 Primary care physician: Gareth Motta PA-C Admitting Provider: Andreia Torres MD Attending Provider on Admission: Yasmin Jacobson DO Consults: 12/30/24 18:13 Consult to General Surgery Stat Comment: Consulting Provider: Donna Alexander 12/31/24 17:52 Referral Registered Dietitian Routine Comment: pt with anorexia 2/2 recurrent SBO, with wt loss 01/04/25 09:35 Referral Physical Therapy Urgent Comment: Physician Instructions: 01/13/25 11:31 Consult to Infectious Diseases Routine Comment: Antibiotic recs for bacteremia Consulting Provider: German Martinez Attending Provider on DC: Dr. Monique DAVIES Discharging Provider: Dr. Monique DAVIES DS: Diagnosis Problem List Completed Was Problem List Reviewed/Reconciled?: Yes Hospital Course Hospital Course Hospital course: Hospital Course Ms. 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 2 blood cultures was positive for GNR kelbsiella, and subsequent /2 blood culture was positive for GNR Morganella. She was started on Zosyn. Her incision was later closed with primary intention. SBO was resolved as she continued to have regular BM post op. She was later found to have intra abdominal abscess on CTAP 9x6 cm, drain was placed under IR with bloody output. Dr. Parnell continued to flush the drain daily. on repeat CTAP w contrast the abscess decreased in size and later the drain was pulled after the abscess resolved. She continued on Zosyn. Leukocytosis resolved. pt continued to have regular BM, d/c stool softening agents due to loose stools. she remained Afebrile. PT was consulted and recommended home with home health for continued physical therapy. ID was consulted, and recommended continuing bactrim 100 mg BID with end date 01.19.2025. pt has non dissolving suture in her midline abdominal incision. She will need to follow up with Dr. Parnell in clinic for removal of sutures. 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 #Cervical cancer status post hysterectomy 2003 #transaminitis with cholestatic pattern - resolving #weight loss #anorexia 2/2 SBO pain - resolving #Moderate acute disease or injury related malnutrition #Electrolyte abnormalities #Left hand swelling - resolved #GERD #Hypothyroidism #Low back pain Discharge instructions You have been started on the following medications: Take Bactrim 1 tablet twice daily for 9 more days to complete antibiotic course Take tramadol 50 mg twice daily as needed for pain Take all other home medication as prescribed Take levothyroxine in the morning before any other medications and breakfast Please take all other meds as previously prescribed. Please follow up with your primary doctor in 7-10 days. Follow-up with general surgery, Dr. Parnell as outpatient within a week [phone] Please return to the ED if you develop new or worsening symptoms. Case discussed with my senior resident Dr. Webb Case discussed with my attending Dr. Monique Rea MD PGY-1 Status at Discharge Functional status at discharge: uses cane/walker Time Spent with Patient Time attestation: Total time spent providing and/or coordinating discharge services: Time spent: Greater than 30 minutes Home Health Home Health Referral Orders: 01/13/25 14:09 Home Health Referral Routine Reason For Exam: PT Home-Bound The patient must either because of illness or injury, need the aid of supportive devices such as crutches, canes, wheelchairs, and walkers; the use of special transportation; or the assistance of another person in order to leave their place of residence; OR have a condition such that leaving his or her home is medically contraindicated. In addition, the patient also meets the following criteria: patient is normally unable to leave the home and leaving home requires considerable taxing effort. Addendum to Home Health Certification Practitioner's Certification: I certify that the patient has been under my care in the hospital and the care of attending physician (see below). We had a uauf-zh-maub encounter on (see date below). My clinical findings indicate that the patient is home bound per the above criteria and the Home Health Services noted in these orders are medically necessary. The primary reason for the zepi-en-sgar encounter is related to the fact that the patient requires home health services. Date Certifying [id number]-[id number] Physician Encounter: 12/30/24 Physician's Name who will Assume Oversight for Services: Gareth Motta Physician's Phone No.who will Assume Oversight for Service: [employer] FIXTURE REPAIRER - Community Resources: No PT to Evaluate: Yes PT to evaluate and provide a treatmnet plan to increase patient's mobility and strength. Wound Care: No IV Therapy: No RN Safety Evaluation: Yes RN to evaluate and create a plan of care that will produce positive outcomes. Palliative Treatment: No Palliative treatment and evaluate the need for hospice. Home Health Aide - Personal Care: No Home Health Aide to assist with any ADL's. Exam Vital Signs Temp Pulse Resp BP Pulse Ox O2 Del Method O2 Flow Rate 97.6 F 78 18 127/6 L 92 L Room Air 1 01/14/25 04:00 01/14/25 04:57 01/14/25 04:57 01/14/25 04:00 01/14/25 04:57 01/14/25 04:00 01/13/25 11:44 Narrative Exam GENERAL: no acute distress, AAO x3, resting comfortably in bed. HEENT: Head AT/ NC. Mucous membranes moist. PERRL. CARDIOVASCULAR: RRR. Normal S1/S2, No m/r/g. RESPIRATORY: CTAB. No wheezing. BL lung base fine crackles GASTROINTESTINAL: Abdomen remains much less tender to palpation, no palpable masses. abdomen less distended from prior.midline abdominal incision, mildly tender len incision, Incision site dry and intact with sutures. no eyrythema nor dehiscence or pus drainage. Drain in place With minimal output. MUSCULOSKELETAL:? No cyanosis or edema, no visible joint swelling. BLE trace edema NEUROLOGICAL: CN II-XII grossly intact. No focal deficits. Sensation intact, symmetric. PSYCHIATRIC: Awake and alert, not agitated, normal mood and affect. SKIN: No obvious rashes, no jaundice, normal turgor. Discharge Plan Plan Patient Disposition: Home w/HOME HEALTH Patient condition on transfer: Stable Care Plan Goals: You have been started on the following medications: Take Bactrim 1 tablet twice daily for 9 more days to complete antibiotic course Take tramadol 50 mg twice daily as needed for pain Take all other home medication as prescribed Take levothyroxine in the morning before any other medications and breakfast Please take all other meds as previously prescribed. Please follow up with your primary doctor in 7-10 days. Follow-up with general surgery, Dr. Parnell as outpatient within a week [phone] Please return to the ED if you develop new or worsening symptoms. Prescriptions/Referrals Prescriptions/Med Rec: New sulfamethoxazole-trimethoprim 800-160 mg tablet 1 tab PO BID 9 Days Qty: 18 0RF tramadol 50 mg Tablet 50 mg PO BID PRN (Reason: pain (scale score 7-10)) 3 Days Qty: 6 0RF Continued pantoprazole 40 mg tablet,delayed release (DR/EC) 40 mg PO DAILY PRN (Reason: Heartburn) Rx Instructions: per patient does not take it everyday just when she needs it melatonin 10 mg Tablet 10 mg PO HS PRN (Reason: sleep) cholecalciferol (vitamin D3) [Vitamin D3] 25 mcg (1,000 unit) Capsule 25 mcg PO BID psyllium husk [Daily Fiber] 0.52 gram Capsule 0.52 g PO BID vitamin K2 100 mcg Capsule 100 mcg PO QDAY gabapentin 100 mg Capsule 100 mg PO DAILY Rx Instructions: 2 caps TID, but pt only takes 2 caps in the morning for back pain; per patient does not take it everyday just when she needs it calcium carbonate [Calcium 600] 600 mg calcium (1,500 mg) Tablet 600 mg PO BID Rx Instructions: 600mg BID lzconrtb-qqm-FX-lycopen-lutein 500-300-250 mcg Tablet 1 tab PO DAILY Changed levothyroxine 88 mcg Capsule 88 mcg PO ACBR Qty: 60 0RF Rx Instructions: Q nightly on an empty stomach Referrals: Gareth Motta PA-C [Primary Care Provider] - Donna Alexander MD [Physician] - Patient/Caregiver Discharge Instructions Discharge Activity: as per physical therapy Education Materials: Surgery Anesthesia After, Small Bowel Obstruction, Exploratory Laparotomy, Preventing Surgical Site Infections Print Language: Ukrainian Activity Restrictions/Additional Instructions: Keep wound clean and dry. May shower but do not scrub wound or use harsh/scented soaps. Always wash hands before and after wound care. Keep an eye out for signs and symptoms of infection: wound redness, wound warmth, increased pain, discharge or smell coming from wound, etc. Stand Alone Forms: Suzan Award Info., Patient Portal Info Letter Discharge Order Discharge Orders: Discharge (Routine); Ordered 01/14/25 Ordered By: Shun Salter Quality Discharge Quality Measures VTE prophylaxis
[2025-01-14 08:00] VITALS: BP 116/72; PULSE 80; RESP 17; TEMP 36.6; O2SAT 94
[2025-01-14] MEDS: Magnesium Sulfate 4 GM Ivpb 4 GM/50 ML BAG IV (08:20)
[2025-01-14] MEDS: HEPARIN SOD INJ 5000 UNIT/ML VIAL SC (09:56)
[2025-01-14] MEDS: PANTOPRAZOLE 40 MG TABLET PO (09:56)
[2025-01-14] MEDS: TRIMETHOPRIM/SULFA 160/800 DS TABLET 1 TAB PO (09:56)
--- NOTE | 2025-01-14 11:14 | PC.SS ---
SS follow up: patient to d/c home today with home health. No preferred agency. Patient's spouse to transport home. Community resource handout provided to the patient.
--- NOTE | 2025-01-14 11:18 | PC.SS ---
Walkers The diagnosis creates mobility limitation that significantly impairs ability to participate in the patients activities of daily living either in their entirety, or in a reasonable time frame. Also the patient is able to safely use the walker and the patient?s mobility is sufficiently resolved with the use of the walker and cane has been ruled out.
--- NOTE | 2025-01-14 11:36 | PC.SS ---
Patient requested a rollator walker. DME referral for rollator walker was faxed to [facility] at [phone]. Patient's address and phone number was confirmed. [facility] to follow up with family for DME delivery to the home.
[2025-01-14 12:00] VITALS: BP 138/81; PULSE 80; RESP 18; TEMP 36.2; O2SAT 94
--- NOTE | 2025-01-14 17:36 | PC.CC ---
ref sent to [facility], waiting for response. Pt is a [employer] member
--- NOTE | 2025-01-15 11:59 | PC.CC ---
[facility] accepted and booked, SOC pending
--- NOTE | 2025-01-17 18:42 | PC.CM ---
[facility] accepted and booked. Pending start of care date.
--- NOTE | 2025-01-18 15:01 | PC.CC ---
per Jennifer perdomo/ [facility], pt declined HH. Closed out case
== END 2025-01-14 14:30 | disposition home health service (06) | DRG 329 ==
LOC: SERX 17:48 → SERHOLD 18:52 → S3SX 23:55
PROVIDERS: Nurse Practitioner Primary Care; Student in an Organized Health Care Education/Training Program; Surgery; Admitting Provider Student in an Organized Health Care Education/Training Program; Emergency Provider Emergency Medicine; PCP Student in an Organized Health Care Education/Training Program; Visit Provider Internal Medicine
PROC: (CPT 49000; principal; 2024-12-30 19:00)
DX: K56.52 Intestinal adhesions [bands] with complete obstruction (principal); J18.9 Pneumonia, unspecified organism; K65.1 Peritoneal abscess; E46 Unspecified protein-calorie malnutrition; J90 Pleural effusion, not elsewhere classified; Z85.41 Personal history of malignant neoplasm of cervix uteri; Z90.710 Acquired absence of both cervix and uterus; Z92.21 Personal history of antineoplastic chemotherapy; Z92.3 Personal history of irradiation; Y84.2 Radiological procedure and radiotherapy as the cause of abnormal reaction of the patient, or of later complication, without mention of misadventure at the time of the procedure; R63.0 Anorexia; K21.9 Gastro-esophageal reflux disease without esophagitis; M54.50 Low back pain, unspecified; B96.1 Klebsiella pneumoniae [K. pneumoniae] as the cause of diseases classified elsewhere; E89.0 Postprocedural hypothyroidism; Z79.899 Other long term (current) drug therapy; Z96.643 Presence of artificial hip joint, bilateral; Z96.652 Presence of left artificial knee joint
CPT/HCPCS: 36415; 71046; 74018; 74177; 74250; 75989; 76705; 80053; 80061; 80074; 81001; 83605; 83690; 83735; 84100; 84145; 85025; 85610; 85730; 87040; 87070; 87077; 87081; 87186; 87205; 93971; 94664; 96374; 96375; 96376; 97162; A4217; A4649; C1729; J0131; J0689; J0694; J1100; J1644; J2250; J2270; J2371; J2405; J2470; J2543; J2598; J2704; J3010; J3475; J3480; J3490; J7030; J7050; J7120; P9045; Q9963; Q9967; A9270; J1805

== ENCOUNTER → 2025-03-03 | Outpatient (CLI) | payer OTHER, SELFPAY ==
[2025-03-03 16:19] LABS: Campylobacter PCR Negative (Negative); Salmonella Species PCR Negative (Negative); Shiga Toxin PCR Negative (Negative); Shigella Species PCR Negative (Negative)
[2025-03-08 22:07] LABS: Source STOOL
== END | disposition home or self-care (01) ==
LOC: SLDO 10:29
PROVIDERS: PCP Student in an Organized Health Care Education/Training Program; Referring Provider Student in an Organized Health Care Education/Training Program; Visit Provider Student in an Organized Health Care Education/Training Program
DX: R19.7 Diarrhea, unspecified (principal); E03.9 Hypothyroidism, unspecified; K21.9 Gastro-esophageal reflux disease without esophagitis
CPT/HCPCS: 87015; 87045; 87046; 87177; 87209; 87493; 87899

== ENCOUNTER → 2025-03-16 | Outpatient (CLI) | payer OTHER, SELFPAY ==
[2025-03-16 11:28] LABS: Basophils # (Auto) 0.0 Thou/mm3 (0.0-0.2); Basophils % (Auto) 1 % (0-2.5); Eosinophils # (Auto) 0.1 Thou/mm3 (0.0-0.5); Eosinophils % (Auto) 1 % (0-10); Hematocrit 30.6 % (36.0-46.0); Hemoglobin 9.4 g/dL (12.0-16.0); Immature Granulocytes Auto 0.02 Thou/mm3 (0.00-0.00); Lymphocytes # (Auto) 1.8 Thou/mm3 (1.0-4.8); Lymphocytes % (Auto) 26 % (10-50); Mean Corpuscular HGB Conc 30.7 g/dl (31.0-37.0); Mean Corpuscular Hemoglobin 27.1 pg (25.0-35.0); Mean Corpuscular Volume 88 fL (80-100); Monocytes # (Auto) 0.8 Thou/mm3 (0.0-0.8); Monocytes % (Auto) 12 % (0-12); Neutrophils # (Auto) 4.0 Thou/mm3 (1.8-7.7); Neutrophils % (Auto) 60 % (37-80); Nucleated Red Blood Cell # 0.00 Thou/mm3 (0.00-0.00); Nucleated Red Blood Cell % 0 /100 WBC (0); Platelet Count 338 Thou/mm3 (140-440); RDW Standard Deviation 49.9 fL (36.4-46.3); Red Blood Count 3.47 Miln/mm3 (4.00-5.20); White Blood Count 6.7 Thou/mm3 (3.6-11.0)
[2025-03-16 11:52] LABS: Alanine Aminotransferase 14 U/L (10-49); Albumin, Serum 3.6 gm/dL (3.4-4.8); Albumin/Globulin Ratio 1.2 (1.2-2.2); Alkaline Phosphatase 51 U/L (46-116); Anion Gap 7 (7-16); Aspartate Amino Transferase 17 U/L (0-34); BUN/Creatinine Ratio 25 Ratio (12-20); Bilirubin,Total 0.4 mg/dL (0.3-1.2); Blood Urea Nitrogen 15 mg/dL (9-23); Calcium 9.2 mg/dL (8.3-10.6); Calcium (Corrected) 9.5 mg/dL (8.5-10.1); Carbon Dioxide 33.2 mMol/L (20.0-31.0); Chloride 103 mMol/L (98-107); Creatinine (Component) 0.6 mg/dL (0.6-1.3); Globulin 2.9 gm/dL (2.3-3.5); Glucose 143 mg/dL (74-106); Osmolality,Calculated 287 (275-295); Potassium 3.0 mMol/L (3.4-5.1); Sodium 143 mMol/L (136-145); Total Protein 6.5 gm/dL (5.7-8.2); eGFR > 60 See Note
== END | disposition home or self-care (01) ==
LOC: COPL 10:56
PROVIDERS: PCP Student in an Organized Health Care Education/Training Program; Referring Provider Student in an Organized Health Care Education/Training Program; Visit Provider Student in an Organized Health Care Education/Training Program
DX: R19.7 Diarrhea, unspecified (principal); E03.9 Hypothyroidism, unspecified; K21.9 Gastro-esophageal reflux disease without esophagitis
CPT/HCPCS: 36415; 80053; 85025

== ENCOUNTER → 2025-03-22 | Outpatient (CLI) | payer OTHER, SELFPAY ==
[2025-03-23 10:13] LABS: Clostridium Difficile PCR Positive (Negative)
== END | disposition home or self-care (01) ==
LOC: SLDO 13:39
PROVIDERS: PCP Student in an Organized Health Care Education/Training Program; Referring Provider Student in an Organized Health Care Education/Training Program; Visit Provider Student in an Organized Health Care Education/Training Program
DX: R19.7 Diarrhea, unspecified (principal); E03.9 Hypothyroidism, unspecified; K21.9 Gastro-esophageal reflux disease without esophagitis
CPT/HCPCS: 87493

== ENCOUNTER → 2025-03-31 | Outpatient (CLI) | payer OTHER, SELFPAY ==
[2025-03-31 13:50] LABS: Basophils # (Auto) 0.1 Thou/mm3 (0.0-0.2); Basophils % (Auto) 1 % (0-2.5); Eosinophils # (Auto) 0.2 Thou/mm3 (0.0-0.5); Eosinophils % (Auto) 2 % (0-10); Hematocrit 35.9 % (36.0-46.0); Hemoglobin 11.1 g/dL (12.0-16.0); Immature Granulocytes Auto 0.02 Thou/mm3 (0.00-0.00); Lymphocytes # (Auto) 2.5 Thou/mm3 (1.0-4.8); Lymphocytes % (Auto) 32 % (10-50); Mean Corpuscular HGB Conc 30.9 g/dl (31.0-37.0); Mean Corpuscular Hemoglobin 26.7 pg (25.0-35.0); Mean Corpuscular Volume 86 fL (80-100); Monocytes # (Auto) 0.8 Thou/mm3 (0.0-0.8); Monocytes % (Auto) 10 % (0-12); Neutrophils # (Auto) 4.3 Thou/mm3 (1.8-7.7); Neutrophils % (Auto) 55 % (37-80); Nucleated Red Blood Cell # 0.00 Thou/mm3 (0.00-0.00); Nucleated Red Blood Cell % 0 /100 WBC (0); Platelet Count 343 Thou/mm3 (140-440); RDW Standard Deviation 48.7 fL (36.4-46.3); Red Blood Count 4.16 Miln/mm3 (4.00-5.20); White Blood Count 7.7 Thou/mm3 (3.6-11.0)
[2025-03-31 14:00] LABS: Alanine Aminotransferase 15 U/L (10-49); Albumin, Serum 4.3 gm/dL (3.4-4.8); Albumin/Globulin Ratio 1.3 (1.2-2.2); Alkaline Phosphatase 46 U/L (46-116); Anion Gap 9 (7-16); Aspartate Amino Transferase 22 U/L (0-34); BUN/Creatinine Ratio 19 Ratio (12-20); Bilirubin,Total 0.3 mg/dL (0.3-1.2); Blood Urea Nitrogen 13 mg/dL (9-23); Calcium 9.8 mg/dL (8.3-10.6); Calcium (Corrected) 9.8 mg/dL (8.5-10.1); Carbon Dioxide 30.3 mMol/L (20.0-31.0); Chloride 104 mMol/L (98-107); Creatinine (Component) 0.7 mg/dL (0.6-1.3); Globulin 3.4 gm/dL (2.3-3.5); Glucose 111 mg/dL (74-106); Osmolality,Calculated 286 (275-295); Potassium 4.6 mMol/L (3.4-5.1); Sodium 143 mMol/L (136-145); Total Protein 7.7 gm/dL (5.7-8.2); eGFR > 60 See Note
[2025-03-31 14:24] LABS: Folate > 24.00 ng/mL (>5.38); Vitamin B12 440 pg/mL (211-911)
[2025-03-31 14:26] LABS: Ferritin 35 ng/mL (7.3-270.7); Iron 30 mcg/dL (50-170); Percent Iron Saturation 7 % (20-55); Total Iron Binding Capacity 391 mcg/dL (250-425); Unsaturated Iron Binding 361 (225-295)
== END | disposition home or self-care (01) ==
LOC: COPL 11:44
PROVIDERS: PCP Student in an Organized Health Care Education/Training Program; Referring Provider Student in an Organized Health Care Education/Training Program; Visit Provider Student in an Organized Health Care Education/Training Program
DX: R19.7 Diarrhea, unspecified (principal); E87.6 Hypokalemia; D64.9 Anemia, unspecified
CPT/HCPCS: 36415; 80053; 82607; 82728; 82746; 83540; 83550; 85025

== ENCOUNTER → 2025-06-02 | Outpatient (CLI) | payer OTHER, SELFPAY ==
[2025-06-02 13:35] LABS: Basophils # (Auto) 0.0 Thou/mm3 (0.0-0.2); Basophils % (Auto) 1 % (0-2.5); Eosinophils # (Auto) 0.1 Thou/mm3 (0.0-0.5); Eosinophils % (Auto) 2 % (0-10); Hematocrit 34.4 % (36.0-46.0); Hemoglobin 11.1 g/dL (12.0-16.0); Immature Granulocytes Auto 0.03 Thou/mm3 (0.00-0.00); Lymphocytes # (Auto) 2.1 Thou/mm3 (1.0-4.8); Lymphocytes % (Auto) 29 % (10-50); Mean Corpuscular HGB Conc 32.3 g/dl (31.0-37.0); Mean Corpuscular Hemoglobin 26.8 pg (25.0-35.0); Mean Corpuscular Volume 83 fL (80-100); Monocytes # (Auto) 0.7 Thou/mm3 (0.0-0.8); Monocytes % (Auto) 9 % (0-12); Neutrophils # (Auto) 4.3 Thou/mm3 (1.8-7.7); Neutrophils % (Auto) 60 % (37-80); Nucleated Red Blood Cell # 0.00 Thou/mm3 (0.00-0.00); Nucleated Red Blood Cell % 0 /100 WBC (0); Platelet Count 277 Thou/mm3 (140-440); RDW Standard Deviation 46.6 fL (36.4-46.3); Red Blood Count 4.14 Miln/mm3 (4.00-5.20); White Blood Count 7.3 Thou/mm3 (3.6-11.0)
[2025-06-02 15:41] LABS: Alanine Aminotransferase 25 U/L (10-49); Albumin, Serum 4.5 gm/dL (3.4-4.8); Albumin/Globulin Ratio 1.4 (1.2-2.2); Alkaline Phosphatase 57 U/L (46-116); Aspartate Amino Transferase 23 U/L (0-34); BUN/Creatinine Ratio 23 Ratio (12-20); Bilirubin,Total 0.4 mg/dL (0.3-1.2); Blood Urea Nitrogen 18 mg/dL (9-23); Calcium 9.3 mg/dL (8.3-10.6); Calcium (Corrected) 9.3 mg/dL (8.5-10.1); Carbon Dioxide 25.2 mMol/L (20.0-31.0); Creatinine (Component) 0.8 mg/dL (0.6-1.3); Globulin 3.3 gm/dL (2.3-3.5); Glucose 135 mg/dL (74-106); Total Protein 7.8 gm/dL (5.7-8.2); eGFR > 60 See Note
[2025-06-02 16:16] LABS: Anion Gap 13 (7-16); Chloride 106 mMol/L (98-107); Osmolality,Calculated 290 (275-295); Potassium 3.6 mMol/L (3.4-5.1); Sodium 144 mMol/L (136-145)
== END | disposition home or self-care (01) ==
PROVIDERS: PCP Student in an Organized Health Care Education/Training Program; Referring Provider Student in an Organized Health Care Education/Training Program; Visit Provider Student in an Organized Health Care Education/Training Program
DX: E87.6 Hypokalemia (principal); D64.9 Anemia, unspecified; R14.0 Abdominal distension (gaseous)
CPT/HCPCS: 36415; 80053; 83013; 83014; 85025